=== PATIENT | female | born 1925 | race Caucasian/White ===

== ENCOUNTER 2016-05-04 14:29 | Inpatient (IN) | payer OTHER, MEDICARE ==
[~2016-05-04] VITALS: Ht 172.7 cm; Wt 65.8 kg
--- NOTE | 2016-05-04 16:27 | ED MVC/FALL/TRAUMA COMPLAINT ---
History of Present Illness General Chief Complaint: Fall Stated Complaint: RIB PAIN S/P FALL (FOUND ON FLOOR BY FAMILY) Source: patient, family Exam Limitations: no limitations Allergies Coded Allergies: Penicillins (RASH 05/05/16) Sulfa (Sulfonamide Antibiotics) (RASH 05/05/16) Reconcile Medications Cephalexin (Keflex) 250 MG CAPSULE 1 CAP PO 4 TIMES/DAY URINE INFECTION Cholecalciferol (Vitamin D3) (Vitamin D) 1,000 UNIT TABLET VITAMIN SUPPORT ( Reported) Ferrous Sulfate 325 MG (65 MG IRON) TABLET IRON, VITAMIN (Reported) Multivitamin (Daily Multiple Vitamin) 1 EACH TABLET VITAMIN SUPPORT (Reported) Psyllium Husk (Metamucil) 0.52 GRAM CAPSULE DIGESTION (Reported) Sertraline HCl 50 MG TABLET ANXIETY (Reported) Triage Note: PT STATES SHE FELL TODAY AND IS HAVING RIGHT SIDED RIB PAIN. SON STATES PT MIGHT HAVE BEEN ON THE FLOOR FOR 1/2 AT THE MOST. PT STATES HER RIB POPS IN AND OUT. PT DENIES HITTING HER HEAD AND DENIES LOC. PT ALSO HAS BRUISE TO TOP OF RIGHT SHOULDER. Triage Nurses Notes Reviewed? yes Onset: Abrupt Duration: hour(s): (FEW) Timing: single episode today Severity: moderate Injuries/Fall Location: back Method of Injury: fall Loss of Consciousness: no loss of consciousness No Modifying Factors: none Associated Symptoms: DARK URINE, FOUL ODOR HPI: 89 year old female who presents from home with her son for chief complaint of mechanical fall. According to the patient she was walking from the dining room to the family room when she lost her balance and fell backwards. Unsure of hitting head. No loss of consciousness reported. Her son states that when he called no one answered which prompted him to go home and found her on the ground. She had been incontinent of urine and it was dark and foul smelling. She was not using her cane or walker at the time which she is supposed to do. No chest pain or shortness of breath. She reports back pain. Denies headache or blurred vision. Right sided subconjunctival hemorrage noted. (AMBROSIO TINOCO,RASHI) Vital Signs & Intake/Output Vital Signs & Intake/Output Vital Signs Date Time Temp Pulse Resp B/P Pulse O2 O2 Flow FiO2 Ox Delivery Rate 05/06 1012 Room Air 05/06 0902 98.3 86 18 110/60 96 Room Air 05/05 2340 97.7 82 20 149/60 95 Room Air 05/05 1725 98.3 85 18 122/72 95 Room Air ED Intake and Output 05/06 0000 05/05 1200 Intake Total 1100 645 Output Total 300 Balance 1100 345 Intake, IV 0 525 Intake, Oral 1100 120 Number 0 Bowel Movements Output, Urine 300 Patient 145 lb Weight Past History Travel History Traveled to [place] past 21 day No Medical History Any Pertinent Medical History? see below for history Blood Disorders: anemia Cancer(s): BREAST CA L Surgical History Surgical History: non-contributory Psychosocial History What is your primary language Pashto Tobacco Use: Never used ETOH Use: denies use Illicit Drug Use: denies illicit drug use Family History Hx Contributory? No (RASHI HAINES MD) Review of Systems Review of Systems Constitutional: Denies: chills, fever. Eyes: Denies: blurred vision. Ears, Nose, Throat, Mouth: Reports: no symptoms. Respiratory: Denies: cough, short of breath. Cardiovascular: Denies: chest pain, palpitations. Gastrointestinal/Abdominal: Reports: no symptoms. Genitourinary: Reports: see HPI. Musculoskeletal: Reports: back pain. Denies: muscle pain, muscle stiffness, neck pain. Skin: Reports: no symptoms. Neurological/Psychological: Reports: ataxia. Denies: headache. All Other Systems: Reviewed and Negative (RASHI HAINES MD) Physical Exam Physical Exam General Appearance: alert, awake, mild distress, thin Head: atraumatic Eyes: Right: other (subconjunctival hemorrhage). Ears, Nose, Throat, Mouth: hearing grossly normal Neck: normal inspection, supple, full range of motion Respiratory: normal breath sounds, chest non-tender Cardiovascular: regular rate/rhythm Peripheral Pulses: 2+ radial (R), 2+ radial (L) Gastrointestinal: soft, non-tender Back: TENDER OVER POSTERIOR RIBS, ERYTHEMA, RASH Extremities: normal range of motion Neurologic/Psych: no motor/sensory deficits, awake, alert, oriented x 3 Skin: intact, normal color, warm/dry Core Measures ACS in differential dx? No Severe Sepsis Present: No Septic Shock Present: No (RASHI HAINES MD) Progress Differential Diagnosis: C/T/L spine injury, ICH, pnemothorax, RIB FX, THORACIC FX, SYNCOPE, MECHANICAL FALL, HEAD TRAUMA Diagnostic Imaging: Viewed by Me: CT Scan. Discussed w/RAD: CT Scan. Radiology Impression: EXAM TYPE: CAT - CT CERV SPINE WO IV CONTRAST; CT HEAD WO IV CONTRAST EXAMINATION: CT HEAD AND CERVICAL SPINE WITHOUT CONTRAST CLINICAL INFORMATION: Fall at home. Unsure of head trauma. Evaluate for cervical spine fracture and acute intracranial hemorrhage. COMPARISON: None. TECHNIQUE: Contiguous axial imaging was performed from the thoracic inlet to the vertex without intravenous administration of contrast. DLP: 1048 mGy-cm. FINDINGS: Head : Noncontrast CT imaging of the brain demonstrates age-appropriate generalized parenchymal volume loss with proportional prominence of the sulci and ventricles. There is no acute intracranial hemorrhage, mass or mass effect or abnormal extra-axial fluid collections. There are no focal areas of hypoattenuation in a vascular distribution to suggest acute transcortical ischemia. Areas of hypoattenuation within the periventricular and deep cortical white matter are nonspecific but could reflect sequela of mild chronic microvascular ischemia. No acute calvarial abnormality. Incidental note is made of bilateral lens extractions. The mastoid air cells and visualized portions of the paranasal sinuses are well-aerated. Cervical spine: Noncontrast CT of the cervical spine demonstrates demineralization of the visualized bones. There is exaggerated lordosis of the cervical spine, likely secondary to patient neck positioning within the CT gantry. No acute fracture or subluxation of the cervical spine is identified. There is mild multilevel degenerative disc disease and facet arthrosis of the cervical spine. The atlantoaxial and craniocervical junctions are grossly intact. IMPRESSION: 1. No acute intracranial abnormality. 2. Demineralization of the visualized bones. Mild multilevel degenerative disc disease and facet arthrosis of the cervical spine. Otherwise, no acute fracture or subluxation of the cervical spine., EXAM TYPE: CAT - CT CHEST WO IV CONTRAST EXAMINATION: CT CHEST WITHOUT CONTRAST CLINICAL INFORMATION: Right-sided rib pain following fall. COMPARISON: None. TECHNIQUE: Multidetector volumetric CT imaging of the chest was done. Axial MIP volume rendering provided. Sagittal and coronal reformatted images were obtained. DLP: 199 mGy-cm. 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 LUNGS: Evaluation of the lung parenchyma demonstrates multiple subcentimeter pulmonary nodules within the right lung. For instance, there is a 3 mm pulmonary nodule within the right upper lobe (series 5, image 83). A 7 mm pulmonary nodule is identified along the posterior segment of the right upper lobe (series 5, image 137). A 4 mm pulmonary nodule is visualized along the anteromedial region of the right upper lobe (series 5, image 174). Also noted is a 6 mm nodule within the right upper lobe (series 5, image 200). There are several subpleural nodules along the periphery of the right upper lobe, visualized measuring up to 4 mm ( series 5, image 254). No focal airspace consolidation is identified. The central airways are patent, without endobronchial obstructing lesions. MEDIASTINUM: Normal heart size, without significant pericardial effusion. Normal three-vessel branching of the aortic arch. Scattered atherosclerosis of the thoracic aorta. Scattered coronary artery calcifications. Subcentimeter mediastinal lymph nodes. No significant hilar adenopathy. PLEURA: No pleural effusions or pneumothoraces. AXILLA: No significant axillary adenopathy. UPPER ABDOMEN: No acute findings within the imaged portions of the upper abdomen. OSSEOUS STRUCTURES: No acute osseous abnormalities. Demineralization of the visualized bones and kyphosis of the thoracic spine. Mild multilevel degenerative disc disease of the thoracic spine without acute thoracic vertebral compression deformity. No grossly displaced bilateral rib fractures are identified. IMPRESSION: 1. No grossly displaced bilateral rib fractures. 2. Demineralization of the visualized bones and kyphosis of the thoracic spine. No acute thoracic vertebral compression deformities. 3. Multiple subcentimeter pulmonary nodules within the right upper lobe, visualized measuring up to 6 mm, as detailed above. These nodules are indeterminate and may be postinfectious, postinflammatory or neoplastic in etiology. Recommend attention on follow-up imaging per Fleischner Society guidelines, as detailed below. Various management parameters for pulmonary nodules are in the literature. According to the Fleischner Society, recommendations for pulmonary nodules are as follows: Nodule size > 4-6 mm in LOW RISK PATIENTS: Follow up CT at 12 months; if unchanged, no further follow up. Nodule size > 4-6 mm in HIGH RISK PATIENTS: Initial follow up CT at 6-12 months, then at 18-24 months if no change. 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 Patient has a urinary tract infection, elevated white blood cell count and hyponatremia status post fall. Patient will be admitted. (RILEY TINOCO,JAKE Church) Departure Departure Disposition: STILL A PATIENT Condition: Stable Clinical Impression Primary Impression: Fall Secondary Impressions: Contusion of rib on right side, Hyponatremia, UTI ( urinary tract infection) Referrals: ISMA FRYE MD (PCP/Family) Referred to [facility] as new patient No Departure Forms: Customer Survey General Discharge Information Prescriptions: Current Visit Scripts Cephalexin (Keflex) 1 CAP PO 4 TIMES/DAY #28 CAP (AMBROSIO TINOCO,RASHI) Admission Note Spoke With: NATASHA HARDING MD Documentation of Exam: Documentation of any treatments & extenuating circumstances including Concerns Regarding Discharge (functional status, medication knowledge or non-compliance, living conditions, etc.) that warrant an admission rather than observation: Patient currently has a urinary tract infection and hyponatremia. She presented in hypotension. Given her advanced age and medical comorbidities she is at very high risk of sepsis or overwhelming infection and . In addition the hyponatremia places the patient at risk of generalized weakness, tremors or seizures and altered mental status. This will complicate her treatment and recovery. In addition her hyponatremia and urinary tract infection would make it very difficult for the patient to comply with outpatient treatment and I feel she would likely return in worse clinical condition. She would also be at high risk of additional falling with subsequent injury. I feel the patient now requires an aggressive management with IV antibiotics and close clinical monitoring. She should be treated with normal saline and her sodium levels monitored closely. If the patient does not become more steady on her feet with treatment, physical therapy consultation should be considered. I feel she will require a multiple day hospitalization. (RILEY TINOCO,JAKE Church)
--- NOTE | 2016-05-04 17:27 | CT SCAN REPORT ---
EXAMINATION: CT HEAD AND CERVICAL SPINE WITHOUT CONTRAST CLINICAL INFORMATION: Fall at home. Unsure of head trauma. Evaluate for cervical spine fracture and acute intracranial hemorrhage. COMPARISON: None. TECHNIQUE: Contiguous axial imaging was performed from the thoracic inlet to the vertex without intravenous administration of contrast. DLP: 1048 mGy-cm. FINDINGS: Head: Noncontrast CT imaging of the brain demonstrates age-appropriate generalized parenchymal volume loss with proportional prominence of the sulci and ventricles. There is no acute intracranial hemorrhage, mass or mass effect or abnormal extra-axial fluid collections. There are no focal areas of hypoattenuation in a vascular distribution to suggest acute transcortical ischemia. Areas of hypoattenuation within the periventricular and deep cortical white matter are nonspecific but could reflect sequela of mild chronic microvascular ischemia. No acute calvarial abnormality. Incidental note is made of bilateral lens extractions. The mastoid air cells and visualized portions of the paranasal sinuses are well-aerated. Cervical spine: Noncontrast CT of the cervical spine demonstrates demineralization of the visualized bones. There is exaggerated lordosis of the cervical spine, likely secondary to patient neck positioning within the CT gantry. No acute fracture or subluxation of the cervical spine is identified. There is mild multilevel degenerative disc disease and facet arthrosis of the cervical spine. The atlantoaxial and craniocervical junctions are grossly intact. IMPRESSION: 1. No acute intracranial abnormality. 2. Demineralization of the visualized bones. Mild multilevel degenerative disc disease and facet arthrosis of the cervical spine. Otherwise, no acute fracture or subluxation of the cervical spine.
[2016-05-04 17:35] LABS: ABSOLUTE BASOPHIL COUNT 0 /CUMM (0.0-0.2); ABSOLUTE EOSINOPHIL COUNT 0 /CUMM (0.0-0.7); ABSOLUTE GRANULOCYTE CT 11.6 /CUMM (1.4-6.5); ABSOLUTE LYMPH COUNT 1.5 /CUMM (1.2-3.4); ABSOLUTE MONOCYTE COUNT 0.8 /CUMM (0.10-0.60); BASOPHIL % 0.1 % (0.0-2.0); EOSINOPHIL % 0.1 % (0-5); GRANULOCYTE % 83.3 % (42.2-75.2); HEMATOCRIT 43.5 % (37-47); MEAN CORPUSCULAR HGB 28.6 PG (27.0-31.0); MEAN CORPUSCULAR HGB CONC 33.4 G/DL (33.0-37.0); MEAN CORPUSCULAR VOLUME 85.7 FL (81.0-99.0); MEAN PLATELET VOLUME 8.5 FL (7.4-10.4); PLATELET COUNT 266 /CUMM (130-400); RBC DISTRIBUTION WIDTH 20.4 % (11.5-14.5); RED BLOOD CELL CT 5.08 /CUMM (4.20-5.40)
--- NOTE | 2016-05-04 17:39 | CT SCAN REPORT ---
EXAMINATION: CT CHEST WITHOUT CONTRAST CLINICAL INFORMATION: Right-sided rib pain following fall. COMPARISON: None. TECHNIQUE: Multidetector volumetric CT imaging of the chest was done. Axial MIP volume rendering provided. Sagittal and coronal reformatted images were obtained. DLP: 199 mGy-cm. 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 LUNGS: Evaluation of the lung parenchyma demonstrates multiple subcentimeter pulmonary nodules within the right lung. For instance, there is a 3 mm pulmonary nodule within the right upper lobe (series 5, image 83). A 7 mm pulmonary nodule is identified along the posterior segment of the right upper lobe (series 5, image 137). A 4 mm pulmonary nodule is visualized along the anteromedial region of the right upper lobe (series 5, image 174). Also noted is a 6 mm nodule within the right upper lobe (series 5, image 200). There are several subpleural nodules along the periphery of the right upper lobe, visualized measuring up to 4 mm (series 5, image 254). No focal airspace consolidation is identified. The central airways are patent, without endobronchial obstructing lesions. MEDIASTINUM: Normal heart size, without significant pericardial effusion. Normal three-vessel branching of the aortic arch. Scattered atherosclerosis of the thoracic aorta. Scattered coronary artery calcifications. Subcentimeter mediastinal lymph nodes. No significant hilar adenopathy. PLEURA: No pleural effusions or pneumothoraces. AXILLA: No significant axillary adenopathy. UPPER ABDOMEN: No acute findings within the imaged portions of the upper abdomen. OSSEOUS STRUCTURES: No acute osseous abnormalities. Demineralization of the visualized bones and kyphosis of the thoracic spine. Mild multilevel degenerative disc disease of the thoracic spine without acute thoracic vertebral compression deformity. No grossly displaced bilateral rib fractures are identified. IMPRESSION: 1. No grossly displaced bilateral rib fractures. 2. Demineralization of the visualized bones and kyphosis of the thoracic spine. No acute thoracic vertebral compression deformities. 3. Multiple subcentimeter pulmonary nodules within the right upper lobe, visualized measuring up to 6 mm, as detailed above. These nodules are indeterminate and may be postinfectious, postinflammatory or neoplastic in etiology. Recommend attention on follow-up imaging per Fleischner Society guidelines, as detailed below. Various management parameters for pulmonary nodules are in the literature. According to the Fleischner Society, recommendations for pulmonary nodules are as follows: Nodule size > 4-6 mm in LOW RISK PATIENTS: Follow up CT at 12 months; if unchanged, no further follow up. Nodule size > 4-6 mm in HIGH RISK PATIENTS: Initial follow up CT at 6-12 months, then at 18-24 months if no change.
[2016-05-04 17:57] LABS: WHITE BLOOD CELL COUNT 13.9 /CUMM (4.8-10.8)
--- NOTE | 2016-05-04 22:56 | History & Physical ---
General Information and HPI MD Statement: I have seen and personally examined RICARDO WYATT and documented this H&P. The patient is a 89 year old F who presented with a patient stated chief complaint of [fall and UTI]. Source of Information: patient, family Exam Limitations: no limitations History of Present Illness: Patient is a 89-year-old female with past medical history of dementia, hypertension was brought into the ED from home by family because of concerns of increasing weakness and a mechanical fall earlier in the afternoon today. Patient's son that the patient fell down at home at around 12:30 PM this afternoon while trying to move from one room to another. Normally patient uses a walker/cane at baseline however today she was not using any of them and she fell down on the carpet in the living room. The fall was unwitnessed. Patient denies any loss of consciousness, postictal state, bowel or bladder incontinence , seizure-like activity, chest pain, nausea, vomiting, lightheadedness, vision problems or any other symptoms. She fell down on her back. After the fall she crawled to the bathroom by herself and laid there. The family called her several times and upon receiving no response came to check on her. They found her in the bathroom, awake alert and oriented but lying on the floor unable to pick herself up. They washed her, cleaned her and brought her to the hospital to get checked out. Family states that for the past few days patient hasn't been eating or drinking much, she has been weak on her knees. Patient denies any abdominal pain, urgency, frequency, diarrhea, constipation, fever or chills. She has lost about 25 pounds of weight in the last 1 year due to poor oral intake. Couple of days back she injured her chest wall while running from one side of the bed to another. She is hypertensive at baseline, however her blood pressure medications were reduced recently by Dr. Carrera. She also went off her Aricept, mirtazapine, amlodipine, Lasix because of side effects. Vitals in the ED temperature 99.3, pulse 102, respirations 16, blood pressure 95 /62, saturating 93% on room air. Pertinent labs showed a white count of 13.9, H&H of 14.6/43.5, sodium 128, potassium 3.6, total bili 1.6, AST 54, creatinine kinase 310. UA: Cloudy, high ketones, positive nitrite, greater than 50 WBC, small leukocyte esterase. EKG: Sinus rhythm, 87 bpm, right axis deviation, and anterior fascicular block( no previous EKG for comparison) Head/Cervical spine CT: No acute anomaly, demineralization of bones, multilevel degeneration and facet arthrosis of cervical spine. Chest CT: The mineralization of bone, right upper lobe nodule 6 mm Allergies/Medications Allergies: Coded Allergies: Penicillins (RASH 05/05/16) Sulfa (Sulfonamide Antibiotics) (RASH 05/05/16) Home Med list Cholecalciferol (Vitamin D3) (Vitamin D) 1,000 UNIT TABLET VITAMIN SUPPORT ( Reported) Ferrous Sulfate 325 MG (65 MG IRON) TABLET IRON, VITAMIN (Reported) Multivitamin (Daily Multiple Vitamin) 1 EACH TABLET VITAMIN SUPPORT (Reported) Psyllium Husk (Metamucil) 0.52 GRAM CAPSULE DIGESTION (Reported) Sertraline HCl 50 MG TABLET ANXIETY (Reported) Past History Travel History Traveled to [place] past 21 day No Medical History Blood Disorders: anemia Cancer(s): BREAST CA L Surgical History Surgical History: none Past Family/Social History Psychosocial History ETOH Use: denies use Illicit Drug Use: denies illicit drug use Review of Systems Review of Systems Constitutional: Reports: malaise, weakness. EENTM: Reports: no symptoms. Cardiovascular: Reports: chest pain. Respiratory: Reports: no symptoms. GI: Reports: no symptoms. Genitourinary: Reports: no symptoms. Musculoskeletal: Reports: back pain, muscle pain. Skin: Reports: change in skin color. Neurological/Psychological: Reports: no symptoms, dementia. Exam & Diagnostic Data Last 24 Hrs of Vital Signs/I&O Vital Signs Date Time Temp Pulse Resp B/P Pulse O2 O2 Flow FiO2 Ox Delivery Rate 05/04 2124 96.0 76 18 118/60 100 Room Air 05/04 1839 98.6 82 17 118/65 92 Room Air 05/04 1500 99.3 102 16 95/62 93 Room Air Intake & Output 05/04 1600 05/04 0800 05/04 0000 Intake Total Output Total Balance Patient 65.317 kg Weight Physical Exam General Appearance Alert, Oriented X3, Cooperative, Mild Distress, THIN, kyphosis Skin REDNESS AND ERYTHEMA OVER THE BACK HEENT Atraumatic, PERRLA, EOMI, SUBCONJUNCTIVAL HEMORRHAGE LEFT EYE, dry micous membranes Neck Supple, No JVD Lymphatic Cervical nl Cardiovascular Regular Rate, Normal S1, Normal S2, No Murmurs Lungs Clear to Auscultation, Normal Air Movement Abdomen Normal Bowel Sounds, Soft, CVA tenderness on the right Neurological Normal Gait, Normal Speech, Strength at 5/5 X4 Ext, Normal Tone Extremities trace pedal edema, venous stasis chenges, eccymoses over arms. bruises over bilateral elbows Vascular Pulses Symmetrical Last 24 Hrs of Labs/Don: Laboratory Tests 05/04/16 1725: Anion Gap 9, Estimated GFR > 60, BUN/Creatinine Ratio 30.0 H, Glucose 104 H, Calcium 8.8, Total Bilirubin 1.6 H, AST 54 H, ALT 33, Alkaline Phosphatase 96, Creatine Kinase 310 H, Troponin I 0.06, Total Protein 7.2, Albumin 3.1 L, Globulin 4.1, Albumin/Globulin Ratio 0.8 L, CBC w Diff NO MAN DIFF REQ, RBC 5.08, MCV 85.7, MCH 28.6, RDW 20.4 H, MPV 8.5, Gran % 83.3 H, Lymphocytes % 10.5 L, Monocytes % 6.0, Eosinophils % 0.1, Basophils % 0.1, Absolute Granulocytes 11.6 H, Absolute Lymphocytes 1.5, Absolute Monocytes 0.8 H, Absolute Eosinophils 0, Absolute Basophils 0, PUBS MCHC 33.4 05/04/16 1715: Urinalysis LIGHT H, Urine Color REJI, Urine Clarity CLDY H, Urine pH 6.0, Ur Specific [place] 1.025, Urine Protein 100 H, Urine Ketones 15 H, Urine Nitrite POS H, Urine Bilirubin NEG@ICTO, Urine Urobilinogen 1.0, Ur Leukocyte Esterase SMALL H, Ur Microscopic SEDIMENT EXAMINED, Urine RBC RARE, Urine WBC 25-50 H, Ur Epithelial Cells FEW, Hyaline Casts RARE H, Granular Casts 1-3 H, Urine Mucus FEW, Urine Hemoglobin TRACE-INTACT, Urine Glucose NEG 05/04/16 1645: Creatine Kinase Cancelled Microbiology 05/04 2148 URINE ROUT: Urine Culture - ORD 05/04 2148 BLOOD: Blood Culture - ORD 05/04 2148 BLOOD: Blood Culture - ORD Assessment/Plan Assessment: Patient is a 89-year-old female with past medical history of dementia, hypertension was brought into the ED from home by family because of concerns of increasing weakness and a mechanical fall earlier in the afternoon today. Vitals in the ED temperature 99.3, pulse 102, respirations 16, blood pressure 95 /62, saturating 93% on room air. Pertinent labs showed a white count of 13.9, H&H of 14.6/43.5, sodium 128, potassium 3.6, total bili 1.6, AST 54, creatinine kinase 310. UA: Cloudy, high ketones, positive nitrite, greater than 50 WBC, small leukocyte esterase. EKG: Sinus rhythm, 87 bpm, right axis deviation, and anterior fascicular block( no previous EKG for comparison) Head/Cervical spine CT: No acute anomaly, demineralization of bones, multilevel degeneration and facet arthrosis of cervical spine. Chest CT: The mineralization of bone, right upper lobe nodule 6 mm Plan #1 Sepsis(tachycardia, white count) of urological origin. UA dirty. Hypotensive at admission however responded to fluid resuscitation. -Admit to [facility] floor -Hydration with IV normal saline at 75 mL an hour. Received 1 L in the ED. -Received 1 dose of ceftriaxone in the ED. We'll continue IV ceftriaxone pending cultures. -Check lactic acid levels -Urine culture/blood culture -Tylenol for fever -Repeat labs in a.m. -Avoid sedative medication -We will hold off all blood pressure medications as pressure on the lower side. #2 Fall: Likely mechanical 2/2 imbalance as patient was walking without a walker which she normally uses. No syncope. Also contributed to by weakness and deconditioning secondary to UTI and dehydration. No fracture seen on chest x- ray and CAT scan. -Check orthostatics -IV hydration with normal saline at 75 mL an hour -Physical therapy consultation -Troponins have been negative -Tylenol when necessary for pain control and IV pain meds for severe pain. #3 Hyponatremia: Sodium of 128. As per family this is chronic and last blood work at Dr. Carrera's office also showed hyponatremia. - We will hydrate patient with IV normal saline -We will order spot lites and serum and urine osmolarity -Repeat BEP in a.m. #4 Rhabdomyolysis secondary to fall -Aggressive IV hydration -And repeat creatinine phosphokinase name #5 Weakness, deconditioning 2/2 infection and dehydration -IV fluids for hydrating -PT consult in a.m. -STR of planning #6 History of hypertension -Patient's blood pressure medications ,HCTZ, Lasix has been recently stopped due to side effects. -We will hold off on lisinopril at this time due to sepsis. Restart in a.m. if blood pressure stable. Full code Subcutaneous Lovenox for DVT prophylaxis Regular diet As Ranked By This Provider Problem List: 1. Contusion of rib on right side 2. Fall 3. UTI (urinary tract infection) Core Measures/Miscellaneous Acute Coronary Syndrome ACS Diagnosis: No Cerebrovascular Accident CVA/TIA Diagnosis: No Congestive Heart Failure CHF Diagnosis: No Venous Thromboembolism VTE Risk Factors: Age > 40 VTE Prophylaxis Ordered Inpt: Pharm- Lovenox No Mech VTE prophylaxis d/t: No contraindications No VTE Pharm Prophylaxis d/t: No contraindications VTE Diagnosis: No VTE Type: NONE VTE Confirmed by (Test): NONE Severe Sepsis Severe Sepsis Present: No Septic Shock Septic Shock Present: No Miscellaneous Documentation Attending Case Discussed With: ISMA CARRERA MD Primary Care Physician: ISMA CARRERA MD Patient sees these Specialists none Level of Patient Care: General Medicine
[2016-05-04] MEDS ORDERED: SERTRALINE HCL50 MG PO (23:01)
[2016-05-04] MEDS ORDERED: FERROUS SULFAT325 M3 PO (23:01)
[2016-05-04] MEDS ORDERED: VITAMIN D1000 UNIT PO (23:03)
[2016-05-04] MEDS ORDERED: DAILY MULTIPLE1 EACH PO (23:03)
[2016-05-04] MEDS ORDERED: METAMUCIL0.52 GM PO (23:05)
[2016-05-05 00:03] VITALS: BP 104/58
[2016-05-05 05:40] VITALS: BP 128/74
[2016-05-05 08:12] LABS: ABSOLUTE BASOPHIL COUNT 0 /CUMM (0.0-0.2); ABSOLUTE EOSINOPHIL COUNT 0.1 /CUMM (0.0-0.7); ABSOLUTE GRANULOCYTE CT 8.5 /CUMM (1.4-6.5); ABSOLUTE LYMPH COUNT 1.2 /CUMM (1.2-3.4); ABSOLUTE MONOCYTE COUNT 0.7 /CUMM (0.10-0.60); BASOPHIL % 0.1 % (0.0-2.0); EOSINOPHIL % 0.9 % (0-5); GRANULOCYTE % 80.8 % (42.2-75.2); HEMATOCRIT 40.2 % (37-47); MEAN CORPUSCULAR HGB 28.7 PG (27.0-31.0); MEAN CORPUSCULAR HGB CONC 33.3 G/DL (33.0-37.0); MEAN CORPUSCULAR VOLUME 86.1 FL (81.0-99.0); MEAN PLATELET VOLUME 9.4 FL (7.4-10.4); PLATELET COUNT 297 /CUMM (130-400); RED BLOOD CELL CT 4.67 /CUMM (4.20-5.40); WHITE BLOOD CELL COUNT 10.5 /CUMM (4.8-10.8)
[2016-05-05 08:18] VITALS: BP 130/71
--- NOTE | 2016-05-05 10:19 | Admission Certification ---
Admission Certification Certification Statement - As attending physician, I certify that at the time of - admission, based on clinical presentation, severity of - symptoms, need for further diagnostic testing and - therapeutic interventions, and risk of adverse outcomes - without in-hospital treatment, in my clinical assessment, - this patient requires an acute hospital stay for a minimum - of two nights or longer. I have also considered psychsocial - factors such as support system, advanced age, financial - issues, cognitive issues, and failed out-patient treatments, - past re-admission history, safety of patient, and lack of - compliance as applicable. Specific rationale supporting this admission is: Admitted to the hospital for a mechanical fall secondary to dehydration and also will still sepsis of urological origin. Been treated with IV antibiotics.
--- NOTE | 2016-05-05 10:22 | PN- Att Addend ---
Attending Addendum Attending Brief Note Covering attending note. 89-year-old lady admitted to the hospital for telemetry mechanical fall. She history of dementia hypertension gradual decline in condition with the poor balance had a mechanical fall. In the ER she was ordered to have tachycardia with the sodium of 128 and a white count of 13.9 with urine positive for leukocytosis Plan #1 sepsis secondary to neurological origin for the patient IV fluids hydration with normal saline at 75 mL an hour *Patient IV ceftriaxone #2 a mechanical fall taken to deconditioning start the patient physical therapy balance and gait exercises. #3 hyponatremia history of chronic hyponatremia to spot urine electrolytes. DVT prophylaxis physical therapy evaluation may consider patient made to go to short-term rehabilitation.
--- NOTE | 2016-05-05 13:19 | PN- Housestaff ---
Subjective Follow-up For: Follow-up UTI Subjective: Saw patient at bedside this a.m. she was sitting up and eating breakfast. She stated she felt much better this morning, much less weak. No acute overnight events. Patient remained afebrile. No complaints. Review of Systems Constitutional: Denies: chills, fever, weakness. EENTM: Reports: no symptoms. Cardiovascular: Denies: chest pain, edema, palpitations. Respiratory: Denies: cough, short of breath. Gastrointestinal: Denies: abdominal pain, bloating, diarrhea. Genitourinary: Reports: frequency. Denies: pain, urgency. Musculoskeletal: Reports: muscle pain, muscle stiffness. Objective Last 24 Hrs of Vital Signs/I&O Vital Signs Date Time Temp Pulse Resp B/P Pulse O2 O2 Flow FiO2 Ox Delivery Rate 05/05 817 98.1 89 20 130/71 97 Room Air 05/05 0540 97.6 91 20 128/74 97 05/05 0003 97.4 82 20 104/58 97 05/04 2124 96.0 76 18 118/60 100 Room Air 05/04 1839 98.6 82 17 118/65 92 Room Air 05/04 1500 99.3 102 16 95/62 93 Room Air Intake & Output 05/05 1600 05/05 0800 05/05 0000 Intake Total 645 1000 Output Total 300 Balance 345 1000 Intake, IV 525 1000 Intake, Oral 120 Output, Urine 300 Patient 65.771 kg Weight Physical Exam General Appearance: Alert, Oriented X3, Cooperative, No Acute Distress Skin: No Rashes, No Significant Lesion HEENT: Atraumatic, PERRLA, EOMI Neck: Supple Cardiovascular: Regular Rate, Normal S1, Normal S2, No Murmurs Lungs: Normal Air Movement Abdomen: Soft, No Tenderness Neurological: Normal Speech, Normal Tone Extremities: No Edema, No Tenderness/Swelling Current Medications: Current Medications Sig/Leslee Start time Last Medication Dose Route Stop Time Status Admin Acetaminophen 325 MG Q6P PRN 05/04 2145 AC PO Ceftriaxone Sodium 1,000 MG DAILY 05/05 1000 AC 05/05 IV 1037 Ceftriaxone Sodium 0 .STK-MED ONE 05/04 2005 DC .ROUTE Ceftriaxone Sodium 1,000 MG ONCE ONE 05/04 1999 DC 05/04 IV 05/04 Enoxaparin Sodium 40 MG DAILY 05/05 1000 AC 05/05 SC 0920 Multivitamins 1 TAB DAILY 05/05 1000 AC 05/05 PO 0920 Potassium Chloride 20 MEQ ONCE ONE 05/04 2315 DC 05/05 PO 05/04 2316 0237 Psyllium Hydrophilic 1 PAC DAILY 05/05 1000 AC 05/05 Mucilloid PO 0920 Sertraline HCl 50 MG DAILY 05/05 1000 AC 05/05 PO 0920 Sodium Chloride 1,000 ML Q13H 05/04 2200 DC 05/04 IV 05/05 1059 2241 Sodium Chloride 1,000 ML BOLUS ONE 05/04 1815 DC 05/04 IV 05/04 1914 1826 Last 24 Hrs of Lab/Don Results Last 24 Hrs of Labs/Mics: Laboratory Tests 05/05/16 0650: CBC w Diff NO MAN DIFF REQ, RBC 4.67, MCV 86.1, MCH 28.7, RDW 20.0 H, MPV 9.4, Gran % 80.8 H, Lymphocytes % 11.7 L, Monocytes % 6.5, Eosinophils % 0.9, Basophils % 0.1, Absolute Granulocytes 8.5 H, Absolute Lymphocytes 1.2, Absolute Monocytes 0.7 H, Absolute Eosinophils 0.1, Absolute Basophils 0, PUBS MCHC 33.3 05/05/16 0630: Anion Gap 9, Estimated GFR > 60, BUN/Creatinine Ratio 40.0 H, Creatine Kinase 144 H 05/05/16 0206: Lactic Acid 1.5 05/05/16 0110: Lactic Acid 1.2 05/04/16 1920: Urine Osmolality 489, Ur Random Creatinine 198.3, Ur Random Sodium 23 L, Ur Random Potassium 69.8, Fraction Sodium Excret 0.1 05/04/16 1728: Anion Gap 9, Estimated GFR > 60, BUN/Creatinine Ratio 30.0 H, Glucose 104 H, Serum Osmolality 271 L, Lactic Acid 1.8, Calcium 8.8, Total Bilirubin 1.6 H, AST 54 H, ALT 33, Alkaline Phosphatase 96, Creatine Kinase 310 H, Troponin I 0.06, Total Protein 7.2, Albumin 3.1 L, Globulin 4.1, Albumin/Globulin Ratio 0.8 L 05/04/16 1725: CBC w Diff NO MAN DIFF REQ, RBC 5.08, MCV 85.7, MCH 28.6, RDW 20.4 H, MPV 8.5, Gran % 83.3 H, Lymphocytes % 10.5 L, Monocytes % 6.0, Eosinophils % 0.1, Basophils % 0.1, Absolute Granulocytes 11.6 H, Absolute Lymphocytes 1.5, Absolute Monocytes 0.8 H, Absolute Eosinophils 0, Absolute Basophils 0, PUBS MCHC 33.4 05/04/16 1715: Urinalysis LIGHT H, Urine Color REJI, Urine Clarity CLDY H, Urine pH 6.0, Ur Specific [place] 1.025, Urine Protein 100 H, Urine Ketones 15 H, Urine Nitrite POS H, Urine Bilirubin NEG@ICTO, Urine Urobilinogen 1.0, Ur Leukocyte Esterase SMALL H, Ur Microscopic SEDIMENT EXAMINED, Urine RBC RARE, Urine WBC 25-50 H, Ur Epithelial Cells FEW, Hyaline Casts RARE H, Granular Casts 1-3 H, Urine Mucus FEW, Urine Hemoglobin TRACE-INTACT, Urine Glucose NEG 05/04/16 1645: Creatine Kinase Cancelled Microbiology 05/05 0330 URINE ROUT: Urine Culture - COLB 05/05 010 BLOOD: Blood Culture - RECD 05/05 010 BLOOD: Blood Culture - RECD 05/04 192 URINE ROUT: Urine Culture - RES GRAM NEGATIVE RODS Assessment/Plan Assessment: This is an 89-year-old female with past medical history significant for dementia , hypertension, who calms with chief complaint of mechanical fall and increasing weakness, during ED workup she was found to have dirty UA and elevated white count. Patient was admitted to general medicine floor for work up of fall and possible UTI. Vitals in the ED: temperature 99.3, pulse 102, respirations 16, blood pressure 95/62, saturating 93% on room air. white count of 13.9, H&H of 14.6/43.5, sodium 128, potassium 3.6, total bili 1.6, AST 54, creatinine kinase 310. UA: Cloudy, high ketones, positive nitrite, greater than 50 WBC, small leukocyte esterase. Head/Cervical spine CT: No acute anomaly, demineralization of bones, multilevel degeneration and facet arthrosis of cervical spine. Chest CT: The mineralization of bone, right upper lobe nodule 6 mm PLAN Sepsis of urological origin: During admission patient was found to be tachycardic, with white count and a dirty UA. She was hypotensive during admission but responded to fluids. Negative lactic acid. * Hydration with IV normal saline at 75 mL an hour. * continue IV ceftriaxone pending cultures. * Urine culture/blood culture * Tylenol for fever * Hold off all blood pressure medications as pressure on the lower side. Fall: Likely mechanical 2/2 imbalance as patient was walking without a walker which she normally uses. No syncope. No fracture seen on chest x-ray and CAT scan. Patient denies any loss of consciousness or head trauma. * Check orthostatics * IV hydration with normal saline at 75 mL an hour * Physical therapy consultation * Tylenol when necessary for pain control and IV pain meds for severe pain. Hyponatremia: She came in with Sodium of 128 during admission; this a.m. at 127. Per family this is chronic. Monitor closely, particularly as patient is receiving IV fluids. * We will hydrate patient with IV normal saline * Follow-up spot lites and serum and urine osmolarity * Repeat BEP in a.m. Rhabdomyolysis: Patient has CK of 310. Likely secondary to a fall. * Aggressive IV hydration * Follow-up repeat creatinine phosphokinase this a.m. at 144. We will measure once more tomorrow in a.m. Weakness: Patient reports subjective weakness but is worsening over the past few days. This is most likely secondary to deconditioning, infection, and/or dehydration. * IV fluids * PT consult in a.m. * Likely she will require STR History of hypertension: Patient's blood pressure medications ,HCTZ,Lasix has been recently stopped due to side effects. However she continues to take lisinopril. We will hold that given hypotension during initial presentation to ED. BP this a.m. at 130s systolic. * I will sign out that patient can resume blood pressure medication if her afternoon blood pressures remained stable Full code Subcutaneous Lovenox for DVT prophylaxis Regular diet Problem List: 1. UTI (urinary tract infection) 2. Contusion of rib on right side 3. Fall Pain Ratin Pain Location: none Pain Goal: Remain pain free Pain Plan: none Tomorrow's Labs & Rationales: none
[2016-05-05 17:25] VITALS: BP 122/72
[2016-05-05 23:40] VITALS: BP 149/60
--- NOTE | 2016-05-06 07:36 | PN- Att Addend ---
Attending Addendum Attending Brief Note Vital Signs Date Time Temp Pulse Resp B/P Pulse O2 O2 Flow FiO2 Ox Delivery Rate 05/05 2340 97.7 82 20 149/60 95 Room Air 05/05 1725 98.3 85 18 122/72 95 Room Air 05/05 0818 98.1 89 20 130/71 97 Room Air Intake & Output 05/06 0800 05/06 0000 05/05 1600 Intake Total 600 500 Output Total Balance 600 500 Intake, IV 0 Intake, Oral 600 500 Number 0 Bowel Movements Covering attending note. Patient feels a lot better awake alert ambulating with a walker but unsteady gait patient is a fall risk. Has a UTI awaiting for culture sensitivity escrow grow gram-negative rods. Start patient on by mouth antibiotics depending upon the culture and sensitivity and then transfer the patient to intermediate facility for rehabilitation as patient is a fall risk Monitor sodium level today before discharge
--- NOTE | 2016-05-06 08:37 | PN- Housestaff ---
Subjective Follow-up For: UTI Complaints: no complaints Subjective: I followed up and examined the patient today. She was sitting comfortably in her chair, did not have any complaints. No pain abdomen, burning micturition, frequency, fever. She is no longer dizzy. Vitals stable overnight. No active issues overnight. Review of Systems Constitutional: Reports: no symptoms. Cardiovascular: Reports: no symptoms. Respiratory: Reports: no symptoms. Gastrointestinal: Reports: no symptoms. Genitourinary: Reports: no symptoms. Objective Last 24 Hrs of Vital Signs/I&O Vital Signs Date Time Temp Pulse Resp B/P Pulse O2 O2 Flow FiO2 Ox Delivery Rate 05/06 1611 97.9 76 20 140/64 96 05/06 1012 Room Air 05/06 0902 98.3 86 18 110/60 96 Room Air 05/05 2340 97.7 82 20 149/60 95 Room Air Intake & Output 05/06 1600 05/06 0800 05/06 0000 Intake Total 700 240 600 Output Total Balance 700 240 600 Intake, IV 0 Intake, Oral 700 240 600 Number 0 Bowel Movements Physical Exam General Appearance: Alert, Oriented X3, Cooperative, No Acute Distress Lymphatic: Cervical nl Cardiovascular: Regular Rate, Normal S1, Normal S2 Lungs: Clear to Auscultation, Normal Air Movement Abdomen: Normal Bowel Sounds, Soft, No Tenderness Assessment/Plan Assessment: This is an 89-year-old female with past medical history significant for dementia , hypertension, who calms with chief complaint of mechanical fall and increasing weakness, during ED workup she was found to have dirty UA and elevated white count. Patient was admitted to general medicine floor for work up of fall and possible UTI. In the ED: temperature 99.3, pulse 102, respirations 16, blood pressure 95/62, saturating 93% on room air. white count of 13.9, H&H of 14.6/43.5, sodium 128, potassium 3.6, total bili 1.6, AST 54, creatinine kinase 310. UA: Cloudy, high ketones, positive nitrite, greater than 50 WBC, small leukocyte esterase. Head/Cervical spine CT: No acute anomaly, demineralization of bones, multilevel degeneration and facet arthrosis of cervical spine. Chest CT: The mineralization of bone, right upper lobe nodule 6 mm PLAN Plan to discharge today was postponed for tomorrow as he requires a short-term rehabilitation which is possible for tomorrow morning morning only as per case management. Sepsis of urological origin: During admission patient was found to be tachycardic, with white count and a dirty UA. She was hypotensive during admission but responded to fluids. Negative lactic acid. Patient has not developed any fever since yesterday, and seems to be doing clinically better. * Hydration with IV normal saline at 75 mL an hour. * Urine culture grew Escherichia coli . IV ceftriaxone has been discontinued, per culture report, and Keflex has been started. Patient is allergic to Bactrim , which is also sensitive. * Tylenol for fever * Holding off all blood pressure medications as pressure on the lower side. Fall: Likely mechanical 2/2 imbalance as patient was walking without a walker which she normally uses. No syncope. No fracture seen on chest x-ray and CAT scan. Patient denies any loss of consciousness or head trauma. * Orthostatics, negative * IV hydration with normal saline at 75 mL an hour * Physical therapy consultation * Tylenol when necessary for pain control and IV pain meds for severe pain. Chronic hyponatremia: She came in with Sodium of 128 during admission; this a.m. at 126. Per family this is chronic. Monitor closely, particularly as patient is receiving IV fluids. * We will hydrate patient with IV normal saline * Follow-up spot lites and serum and urine osmolarity * Repeat BEP in a.m. Rhabdomyolysis: Patient has CK of 310. Likely secondary to a fall. * Aggressive IV hydration * Repeat creatinine phosphokinase at 144. We will measure once more tomorrow in a.m. Weakness: Patient reports subjective weakness but is worsening over the past few days. This is most likely secondary to deconditioning, infection, and/or dehydration. * IV fluids * PT consult ongoing. * Likely she will require STR History of hypertension: Patient's blood pressure medications ,HCTZ,Lasix has been recently stopped due to side effects. However she continues to take lisinopril. We will hold that given hypotension during initial presentation to ED. BP this a.m. at 110s systolic. * Plan to start blood pressure medications on discharge, as she is slowly getting to upper normal level. Full code Subcutaneous Lovenox for DVT prophylaxis Regular diet Problem List: 1. UTI (urinary tract infection) 2. Hyponatremia 3. Contusion of rib on right side Pain Ratin Pain Location: - Pain Goal: Remain pain free Pain Plan: prn Tomorrow's Labs & Rationales: none
[2016-05-06 09:02] VITALS: BP 110/60
[2016-05-06] MEDS ORDERED: KEFLEX250 M1 PO (10:56)
--- NOTE | 2016-05-06 11:01 | Patient Discharge Instructions ---
Discharge Instructions General Discharge Information You were seen/treated for: Sepsis secondary to Urinary tract infection Hyponatremia Watch for these problems: Dehydration, fever, dizziness Special Instructions: Please visit your primary care physician within 7 days of discharge. Please visit your lung doctor within 7 days of discharge. You also need to visit your lung doctor because you have lung nodule 6 mm in right upper lobe of the lung, which needs follow-up, ideally within 6 months. This was shown in your recent CAT scan of chest. Please visit to the emergency department if symptoms not improving. Diet Continue normal diet: Yes Recommended Diet: Heart Healthy Activity Full Activity/No Limits: No Activity Self Limited: Yes Acute Coronary Syndrome Inclusion Criteria At DC or during hospital stay patient has or had the following: ACS DIAGNOSIS No Discharge Core Measures Meds if any: Prescribed or Continued at Discharge Meds if any: NOT Prescribed or Continued at Discharge Congestive Heart Failure Inclusion Criteria At DC or during hospital stay patient has or had the following: CHF DIAGNOSIS No Discharge Core Measures Meds if any: Prescribed or Continued at Discharge Meds if any: NOT Prescribed or Continued at Discharge Cerebrovascular accident Inclusion Criteria At DC or during hospital stay patient has or had the following: CVA/TIA Diagnosis No Discharge Core Measures Meds if any: Prescribed or Continued at Discharge Meds if any: NOT Prescribed or Continued at Discharge Venous thromboembolism Inclusion Criteria VTE Diagnosis No VTE Type NONE VTE Confirmed by (Test) NONE Discharge Core Measures - Per Current guidelines, there needs to be overlap - treatment for the first 5 days of Warfarin therapy. - If discharged on Warfarin prior to 5 days of - overlap therapy, the patient will need to be - assessed for post discharge needs including - *Post discharge parental anticoagulation - *Warfarin and/or parental anticoagulation education - *Follow up date to check INR post discharge At least 5 days overlap therapy as Inpatient No Meds if any: Prescribed or Continued at Discharge Note: Overlap Therapy is Warfarin and Anticoagulant Meds if any: NOT Prescribed or Continued at Discharge
[2016-05-06 16:11] VITALS: BP 140/64
[2016-05-07 00:04] VITALS: BP 142/68
--- NOTE | 2016-05-07 06:21 | PN- Housestaff ---
Subjective Follow-up For: UTI Complaints: no complaints Subjective: Be followed up examined patient today. She was lying comfortably in bed, and was not in any acute distress. She did not have any complaints. See was anticipating her discharge to a short-term rehabilitation facility today. Review of Systems Constitutional: Reports: no symptoms. EENTM: Reports: no symptoms. Cardiovascular: Reports: no symptoms. Respiratory: Reports: no symptoms. Gastrointestinal: Reports: no symptoms. Genitourinary: Reports: no symptoms. Musculoskeletal: Reports: no symptoms. Skin: Reports: no symptoms. Neurological/Psychological: Reports: no symptoms. Hematologic/Endocrine: Reports: no symptoms. Objective Last 24 Hrs of Vital Signs/I&O Vital Signs Date Time Temp Pulse Resp B/P Pulse O2 O2 Flow FiO2 Ox Delivery Rate 05/07 0004 98.0 75 18 142/68 96 Room Air 05/06 1611 97.9 76 20 140/64 96 05/06 1012 Room Air 05/06 0902 98.3 86 18 110/60 96 Room Air Intake & Output 05/07 0800 05/07 0000 05/06 1600 Intake Total 300 700 Output Total 100 500 Balance -100 -200 700 Intake, IV 0 Intake, Oral 300 700 Number 2 0 Bowel Movements Output, Urine 100 500 Physical Exam General Appearance: Alert, Oriented X3, Cooperative, No Acute Distress Skin: No Rashes, No Breakdown, No Significant Lesion HEENT: Atraumatic, PERRLA, EOMI, Mucous Membr. moist/pink Neck: Supple, No JVD Lymphatic: Cervical nl Cardiovascular: Regular Rate, Normal S1, Normal S2 Lungs: Clear to Auscultation, Normal Air Movement Abdomen: Normal Bowel Sounds, Soft, No Tenderness Neurological: grossly intact Extremities: No Clubbing, No Cyanosis, No Edema, Normal Pulses, No Tenderness/ Swelling Vascular: Normal Pulses, Pulses Symmetrical Current Medications: Current Medications Sig/Lesele Start time Last Medication Dose Route Stop Time Status Admin Acetaminophen 325 MG Q6P PRN 05/04 2145 AC 05/05 PO 1835 Ceftriaxone Sodium 1,000 MG DAILY 05/05 1000 DC 05/06 IV 0904 Cephalexin 250 MG Q6 05/06 2359 AC 05/07 PO 0559 Enoxaparin Sodium 40 MG DAILY 05/05 1000 AC 05/06 SC 0904 Multivitamins 1 TAB DAILY 05/05 1000 AC 01/03 PO 0904 Psyllium Hydrophilic 1 PAC DAILY 05/05 1000 AC 05/06 Mucilloid PO 0904 Sertraline HCl 50 MG DAILY 05/05 1000 AC 05/06 PO 0904 Assessment/Plan Assessment: This is an 89-year-old female with past medical history significant for dementia , hypertension, who calms with chief complaint of mechanical fall and increasing weakness, during ED workup she was found to have dirty UA and elevated white count. Patient was admitted to general medicine floor for work up of fall and possible UTI. In the ED: temperature 99.3, pulse 102, respirations 16, blood pressure 95/62, saturating 93% on room air. white count of 13.9, H&H of 14.6/43.5, sodium 128, potassium 3.6, total bili 1.6, AST 54, creatinine kinase 310. UA: Cloudy, high ketones, positive nitrite, greater than 50 WBC, small leukocyte esterase. Head/Cervical spine CT: No acute anomaly, demineralization of bones, multilevel degeneration and facet arthrosis of cervical spine. Chest CT: The mineralization of bone, right upper lobe nodule 6 mm Plan: Plan to discharge patient today to a short-term rehabilitation facility. #Sepsis of urological origin: During admission patient was found to be tachycardic, with white count and a dirty UA. She was hypotensive during admission but responded to fluids. Negative lactic acid. Patient has not developed any fever since yesterday, and seems to be doing clinically better. * Hydration with IV normal saline at 75 mL an hour. * Urine culture grew Escherichia coli . IV ceftriaxone has been discontinued, per culture report, and Keflex has been started. Patient is allergic to Bactrim , which is also sensitive drug this time. * Tylenol for fever * Holding off all blood pressure medications as pressure on the lower side. Fall: Likely mechanical 2/2 imbalance as patient was walking without a walker which she normally uses. No syncope. No fracture seen on chest x-ray and CAT scan. Patient denies any loss of consciousness or head trauma. * Orthostatics, negative * IV hydration with normal saline at 75 mL an hour * Physical therapy consultation * Tylenol when necessary for pain control and IV pain meds for severe pain. Chronic hyponatremia: She came in with Sodium of 128 during admission; this a.m. at 126. Per family this is chronic. Monitor closely, particularly as patient is receiving IV fluids. * We will hydrate patient with IV normal saline Rhabdomyolysis: Patient has CK of 310. Likely secondary to a fall. * Aggressive IV hydration * Repeat creatinine phosphokinase at 144. We will measure once more tomorrow in a.m. Weakness: Patient reports subjective weakness but is worsening over the past few days. This is most likely secondary to deconditioning, infection, and/or dehydration. * IV fluids * PT consult ongoing. * She is being discharged to short-term rehabilitation facility today. History of hypertension: Patient's blood pressure medications, HCTZ, Lasix has been recently stopped due to side effects. However she continues to take lisinopril. We will hold that given hypotension during initial presentation to ED. BP this a.m. at 130s systolic. * Plan to start blood pressure medications on discharge, as she is slowly getting to upper normal level. Full code Subcutaneous Lovenox for DVT prophylaxis Regular diet Problem List: 1. UTI (urinary tract infection) 2. Hyponatremia 3. Dementia 4. HTN (hypertension) Pain Ratin Pain Location: - Pain Goal: Remain pain free Pain Plan: - Tomorrow's Labs & Rationales: none, DC today
[2016-05-07] MEDS ORDERED: KEFLEX250 M1 PO (06:40)
--- NOTE | 2016-05-07 07:39 | PN- Att Addend ---
Attending Addendum Attending Brief Note Attending note. Patient looks comfortable no complaints. Vital signs are stable. S1-S2 is normal Lungs are clear Abdomen is soft nontender bowel sounds are present. Plan is to discharge patient to long-term facility.
[2016-05-07 08:36] VITALS: BP 138/70
--- NOTE | 2016-05-07 12:21 | Discharge Summary ---
Visit Information Visit Dates Admission Date: 05/04/16 Discharge Date: 05/07/16 Hospital Course Course Attending Physician: ISMA CARRERA MD Primary Care Physician: ISMA CARRERA MD Hospital Course: Patient is a 89-year-old female with past medical history of dementia, hypertension was brought into the ED from home by family because of concerns of increasing weakness and a mechanical fall earlier in the afternoon today. Patient's son that the patient fell down at home at around 12:30 PM this afternoon while trying to move from one room to another. Normally patient uses a walker/cane at baseline however today she was not using any of them and she fell down on the carpet in the living room. The fall was unwitnessed. Patient denies any loss of consciousness, postictal state, bowel or bladder incontinence , seizure-like activity, chest pain, nausea, vomiting, lightheadedness, vision problems or any other symptoms. She fell down on her back. After the fall she crawled to the bathroom by herself and laid there. The family called her several times and upon receiving no response came to check on her. They found her in the bathroom, awake alert and oriented but lying on the floor unable to pick herself up. They washed her, cleaned her and brought her to the hospital to get checked out. Family states that for the past few days patient hasn't been eating or drinking much, she has been weak on her knees. Patient denies any abdominal pain, urgency, frequency, diarrhea, constipation, fever or chills. She has lost about 25 pounds of weight in the last 1 year due to poor oral intake. Couple of days back she injured her chest wall while running from one side of the bed to another. She is hypertensive at baseline, however her blood pressure medications were reduced recently by Dr. Carrera. She also went off her Aricept, mirtazapine, amlodipine, Lasix because of side effects. Vitals in the ED temperature 99.3, pulse 102, respirations 16, blood pressure 95 /62, saturating 93% on room air. Pertinent labs showed a white count of 13.9, H&H of 14.6/43.5, sodium 128, potassium 3.6, total bili 1.6, AST 54, creatinine kinase 310. UA: Cloudy, high ketones, positive nitrite, greater than 50 WBC, small leukocyte esterase. EKG: Sinus rhythm, 87 bpm, right axis deviation, and anterior fascicular block( no previous EKG for comparison) Head/Cervical spine CT: No acute anomaly, demineralization of bones, multilevel degeneration and facet arthrosis of cervical spine. Chest CT: The mineralization of bone, right upper lobe nodule 6 mm Hospital course 1. Increasing weakness due to sepsis of urological origin: Patient was admitted in general medical floor was started on IV fluids and empiric antibiotic pending cultures. Urine culture came back pansensitive and she was continued on ceftriaxone and later changed to by mouth Keflex to complete a total of 7 day course. Patient remained afebrile throughout the course of hospitalization and a white count reduced from 13.9 to 10.5 upon discharge. 2 Fall: Likely mechanical 2/2 imbalance as patient was walking without a walker which she normally uses. No syncope. Also contributed to by weakness and deconditioning secondary to UTI and dehydration. No fracture seen on chest x- ray and CAT scan. She was started on IV fluids, She was evaluated by PT who recommended short-term rehabilitation. 3. Rhabdomyolysis most likely due to fall : Patient was on aggressive fluid replacement and her CK did come down prior to discharge. 4. Hyponatremia this is chronic as per the attending. Her serum osmolality was also low and urine osmolarity was 489. Patient remained asymptomatic. 5. History of hypertension: Her blood pressure medications was held as her blood pressure was borderline low. She can continue her blood pressure medications upon discharge. Full code Subcutaneous Lovenox for DVT prophylaxis Regular diet Allergies: Coded Allergies: Penicillins (RASH 05/05/16) Sulfa (Sulfonamide Antibiotics) (RASH 05/05/16) Disposition Summary Disposition Principal Diagnosis: 1. Weakness from sepsis due to urological origin 2. Mechanical fall 3. Rhabdomyolysis Additional Diagnosis: 1. h/o Hypertension Discharge Disposition: SNF Discharge Instructions General Discharge Information Code Status: Full Code Patient's Diet: Regular diet Patient's Activity: As tolerated with PT Follow-Up Instructions/Appts: Please visit your primary care physician within 7 days of discharge. Please visit your lung doctor within 7 days of discharge. You also need to visit your lung doctor because you have lung nodule 6 mm in right upper lobe of the lung, which needs follow-up, ideally within 6 months. This was shown in your recent CAT scan of chest. Please visit to the emergency department if symptoms not improving. Medications at Discharge Discharge Medications: Continue taking these medications: Sertraline HCl (Sertraline HCl) 50 MG TABLET Qty = 90 Comments: Last Taken:05/07/16 Time:10A, Ferrous Sulfate (Ferrous Sulfate) 325 MG (65 MG IRON) TABLET Qty = 30 Comments: Last Taken:05/07/16 Time:10AM Cholecalciferol (Vitamin D3) (Vitamin D) 1,000 UNIT TABLET Multivitamin (Daily Multiple Vitamin) 1 EACH TABLET Comments: Last Taken05/07/16 Time:10AM Psyllium Husk (Metamucil) 0.52 GRAM CAPSULE Comments: Last Taken:05/07/16 Time:10AM Start taking the following new medications: Cephalexin (Keflex) 250 MG CAPSULE 1 Capsule ORAL 4 TIMES A DAY Qty = 24 No Refills Copies To: MELVA TINOCO,HUANITH
[2016-05-07 13:08] VITALS: BP 138/70
== END 2016-05-07 14:20 | DRG 872 ==
LOC: ERH 14:29 → 2NB 21:32 → ERHI 21:32 → 2NB 21:32
PROVIDERS: Emergency Medicine; Student in an Organized Health Care Education/Training Program; ADMIT Internal Medicine
DX: A41.9 Sepsis, unspecified organism (principal); M62.82 Rhabdomyolysis; N39.0 Urinary tract infection, site not specified; E87.1 Hypo-osmolality and hyponatremia; E86.0 Dehydration; I10 Essential (primary) hypertension
CPT/HCPCS: 2NBSP; 84133; 84300; 36415; 81001; 82436; 82570; 87040; 87086; 93005; 93010; 96374; 97001-GP; 97112-GO; 97116-GO; 97161-GP; 97530-GO; J0696; J1650

== ENCOUNTER 2016-06-03 08:09 | Inpatient (IN) | payer OTHER, MEDICARE ==
[~2016-06-03] VITALS: Ht 172.7 cm; Wt 67.1 kg
[~2016-06-03 08:09] MED LIST: DAILY MULTIPLE1 EACH PO; FERROUS SULFAT325 M3 PO; KEFLEX250 M1 PO; METAMUCIL0.52 GM PO; SERTRALINE HCL50 MG PO; VITAMIN D1000 UNIT PO
--- NOTE | 2016-06-03 08:17 | ED MVC/FALL/TRAUMA COMPLAINT ---
History of Present Illness General Chief Complaint: Fall Stated Complaint: BIBA FOR FALL Source: patient Exam Limitations: patient's age, confusion Vital Signs & Intake/Output Vital Signs & Intake/Output Vital Signs Date Time Temp Pulse Resp B/P Pulse O2 O2 Flow FiO2 Ox Delivery Rate 06/03 1007 97.3 88 20 178/80 95 Room Air 06/03 0810 97.0 96 16 193/89 94 Room Air Allergies Coded Allergies: Penicillins (RASH 05/05/16) Sulfa (Sulfonamide Antibiotics) (RASH 05/05/16) Triage Note: PT BIBA FROM HOME FOR FALL. PT STATES SHE DOESN'T KNOW HOW SHE FELL, UNSURE IF SHE TRIPPED OR GOT DIZZY. PT STATES SHE LIVES BY HERSELF, PER OUR RECORDS HX OF DEMENTIA AND HTN. PT STATES SHE DIDN'T TAKE HER BP MEDS TODAY. PT C/O LEFT HIP PAIN AND PAIN IN HER BUTTOCKS. DENIES CP/SOB Triage Nurses Notes Reviewed? yes Onset: Just prior to arrival Duration: UNSURE Timing: recent history Severity: moderate Injuries/Fall Location: lower extremity Method of Injury: fall Loss of Consciousness: unsure Modifying Factors: Worsens With: movement. HPI: Patient is an 89-year-old female with history of dementia and hypertension currently off hypertensive medications because the last time she was admitted he was for following the x-ray dated it to blood pressure medications. She is coming in today for another fall that happened most likely prior to arrival. She cannot report how she fell or why she fell. She is not sure if she tripped over something or if she got dizzy. Patient denying any current dizziness nausea vomiting fevers or chills. Patient reporting left hip pain with movement. Denies any chest pain or palpitations. No shortness of breath. Denies any arm pain. No abdominal pain. Denies any urinary symptoms. She reports that she lives alone. She is supposed to use a walker. Per family she' s been not so compliant with using a walker because she has been improving with ambulation. She is unsure if she blacked out or hit her head. Denying any neck pain. The left hip pain is achy throbbing worse with any movement and radiates into her left buttock. Denies taking anything for pain prior to arrival. She is unsure who called the ambulance. (DANNY PA,ARNOLDO) Reconcile Medications Cephalexin (Keflex) 250 MG CAPSULE 1 CAP PO 4 TIMES/DAY URINE INFECTION Cholecalciferol (Vitamin D3) (Vitamin D) 1,000 UNIT TABLET VITAMIN SUPPORT ( Reported) Ferrous Sulfate 325 MG (65 MG IRON) TABLET IRON, VITAMIN (Reported) Lisinopril 20 MG TABLET 1 TAB PO DAILY BLOOD PRESSURE (Reported) Mirtazapine 7.5 MG TABLET 1 TAB PO QPM INSOMNIA (Reported) Multivitamin (Daily Multiple Vitamin) 1 EACH TABLET VITAMIN SUPPORT (Reported) Psyllium Husk (Metamucil) 0.52 GRAM CAPSULE DIGESTION (Reported) Sertraline HCl 50 MG TABLET ANXIETY (Reported) (LIVAN TINOCO,REID) Past History Travel History Traveled to [place] past 21 day No Medical History Any Pertinent Medical History? 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 No (ARNOLDO GONSALES) Review of Systems Review of Systems Constitutional: Reports: no symptoms. Comments Review of systems: See HPI, All other systems negative. Constitutional, no chills fever or weight loss HEENT: No visual changes no sore throat no congestion Cardiovascular: No chest pain ,palpitation , orthopnea or ankle swelling Skin, no jaundice no rashes Respiratory: No dyspnea cough sputum or hemoptysis GI: No nausea no vomiting : No dysuria No hematuria Muscle skeletal: no neck pain, Neurologic: No numbness Psych: No stress anxiety or depression,. Heme/endocrine: No bruising no bleeding no polyuria or polydipsia Immunology: No splenectomy or history of AIDS (ARNOLDO GONSALES) Physical Exam Physical Exam General Appearance: well developed/nourished, no apparent distress, awake, comfortable Comments: Well-developed well-nourished person in no acute distress HEENT: extraocular motion intact, no nystagmus. Pupils equally round and reactive to light and accommodation. Nose is atraumatic. External auditory canal and Tympanic membranes clear. Pharynx normal. No swelling or edema. Neck: Supple, no lymphadenopathy, normal range of motion without pain or tenderness, no C-spine tenderness. Full range of motion. Back: Nontender, no CVA tenderness. Nontender to palpation over the cervical, thoracic and lumbar spine. No obvious deformities noted. No ecchymosis. Cardiovascular: Regular rate and rhythms no murmurs rubs or gallops, normal JVP Respiratory: Chest nontender. No respiratory distress.breath sounds clear to auscultation bilaterally Abdomen: Soft, nontender nondistended, no appreciable organomegaly. Normal bowel sounds. No ascites, no rebound or guarding. Extremity: One pluS pitting edema in the lower extremities bilaterally , no calf tenderness to palpation, normal and equal pulses. Able to straight leg raise the right larger without difficulty or pain. No pain to palpation over the right hip, right femur, right patella. Unable to range the left lower family secondary to pain in the hip. Pain to palpation over the left greater trochanter. Pedal pulses are 2+ bilaterally. Neuro: Alert oriented person and place, confused about time and situation, motor sensory normal, cranial nerves II through XII grossly intact. Cerebellar testing is unremarkable. Skin: No appreciable rash on exposed skin, skin is warm and dry. Psych: Patient is pleasant, cooperative, confused Core Measures ACS in differential dx? Yes Severe Sepsis Present: No Septic Shock Present: No (DNANY RUEDA,ARNOLDO) Progress Differential Diagnosis: ICH, cva, tia, METASTATIC HYPOTENSION, MULTIFACTORIAL GAIT DISORDER, uti, CARDIAC ARRHYTHMIA, acs, HIP FRACTURE Plan of Care: Orders Procedure Date/time Status CBC WITHOUT DIFFERENTIAL 06/04 06 Active BASIC ELECTROLYTES PLUS BUN&CR 06/04 0600 Active Nothing by Mouth 06/03 L Active OXYGEN SETUP (GEN) 06/03 1049 Active Saline Lock 06/03 1049 Active Admit to inpatient 06/03 1049 Active Vital Signs 06/03 1049 Active Activity/Ambulation 06/03 1049 Active Pathway - chart 06/03 1031 Active House Staff 06/03 1031 Active Patient Data 06/03 1031 Active Code Status 06/03 1031 Active Patient Data 06/03 1004 Active Intake & Output 06/03 0946 Active [place], Insertion/Removal/Asses 06/03 0940 Active CULTURE,URINE 06/03 0940 Active CREATINE PHOSPHOKINASE 06/03 0825 Complete Telemetry/Corporate Travel Counselor 06/03 08 Active URINALYSIS 06/03 08 Complete TROPONIN LEVEL 06/03 815 Complete PARTIAL THROMBOPLASTIN TIME 06/03 815 Complete PROTHROMBIN TIME 06/03 815 Complete LACTIC ACID 06/03 815 Complete COMPREHENSIVE METABOLIC PANEL 06/03 815 Complete CBC WITHOUT DIFFERENTIAL 06/03 815 Complete EKG 06/03 08 Active VTE Mechanical Prophylaxis 06/03 UNK Active Current Medications Sig/Leslee Start time Last Medication Dose Stop Time Status Admin Acetaminophen 1,000 MG Q8P PRN 06/03 1030 AC (Ofirmev) Ibuprofen 600 MG Q6P PRN 06/03 1030 AC (Motrin) Lidocaine 1 PAT Q24H PRN 06/03 1030 AC (Lidoderm) Acetaminophen 650 MG ONCE ONE 06/03 0830 CAN (Tylenol) 06/03 0831 Laboratory Tests 06/03/16 1116: Lactic Acid Cancelled 06/03/16 0928: Urine Color YEL, Urine Clarity CLEAR, Urine pH 7.5, Ur Specific [place] 1.020, Urine Protein NEG, Urine Ketones NEG, Urine Nitrite NEG, Urine Bilirubin NEG, Urine Urobilinogen 0.2, Ur Leukocyte Esterase NEG, Ur Microscopic EXAM NOT REQUIRED, Urine Hemoglobin NEG, Urine Glucose NEG 06/03/16 0825: Anion Gap 6, Estimated GFR > 60, BUN/Creatinine Ratio 18.0, Glucose 101 H, Lactic Acid 0.9, Calcium 8.6, Total Bilirubin 1.4 H, AST 32, ALT 30, Alkaline Phosphatase 97, Creatine Kinase 26 L, Troponin I 0.02, Total Protein 7.4, Albumin 2.9 L, Globulin 4.5 H, Albumin/Globulin Ratio 0.6 L, PT 12.1, INR 1.15, APTT 33, CBC w Diff NO MAN DIFF REQ, RBC 4.74, MCV 85.8, MCH 28.1, RDW 20.8 H, MPV 8.8, Gran % 87.2 H, Lymphocytes % 6.4 L, Monocytes % 6.2, Eosinophils % 0.2, Basophils % 0 L, Absolute Granulocytes 14.3 H, Absolute Lymphocytes 1.1 L, Absolute Monocytes 1.0 H, Absolute Eosinophils 0, Absolute Basophils 0, PUBS MCHC 32.8 L 06/03/16 0820: Creatine Kinase Cancelled Microbiology 06/03 3065 URINE ROUT: Urine Culture - ORD Diagnostic Imaging: Viewed by Me: Radiology Read, CT Scan. Discussed w/RAD: Radiology Read, CT Scan. Radiology Impression: : 04/24/27 LOCATION: [facility] ORDERING PHYSICIAN: ARNOLDO RUEDA SERVICE DATE: 06/03/1616 EXAM TYPE: CAT - CT CERV SPINE WO IV CONTRAST; CT HEAD WO IV CONTRAST EXAMINATION: CT HEAD WITHOUT CONTRAST CT CERVICAL SPINE WITHOUT CONTRAST CLINICAL INFORMATION: Fall. Possible head strike. Assess for intracranial bleed or fracture. COMPARISON: CT scan of the head and cervical spine 05/04/2016. TECHNIQUE: Multidetector CT imaging of the head and cervical spine was performed without the use of intravenous contrast. Coronal and sagittal reformatted images were generated at the technologist workstation. DLP: 980.97 mGy-cm. FINDINGS: CT HEAD: There is no evidence of acute intracranial hemorrhage or territorial infarction. No abnormal mass-effect or midline shift is seen. Morales to white matter differentiation is well preserved. No extra-axial fluid collections are identified. The ventricles and sulci are commensurately prominent consistent with mild diffuse volume loss. There are scattered areas of low density in the periventricular and subcortical white matter, consistent with sequelae of chronic microvascular ischemic disease. There are no acute osseous findings. There are degenerative changes at the left temporomandibular joint. There are no large scalp contusions or hematomas. There have been bilateral lens extractions. The mastoid air cells and paranasal sinuses are well-aerated. CT CERVICAL SPINE: There is hyperlordosis in the cervical spine, similar compared to the prior study. Bone mineralization is diffusely decreased consistent with osteopenia. Vertebral body heights are maintained and there are no compression fractures. Facet alignment is normal. There are degenerative facet changes at multiple levels most prominent on the left. The lateral masses of C1 and C2 are normally aligned and the dens is intact. There are degenerative changes at the right atlanto-occipital joint. There is sclerosis in the right facet of T1, unchanged. The prevertebral and paravertebral structures are unremarkable. There are atheromatous calcifications of the aorta, and the thyroid gland has slightly heterogenous density but appears normal in size. The visualized lung apices are well-aerated. IMPRESSION: 1. There are no acute bleeds or territorial infarcts. 2. 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 3. There are no acute fractures or subluxations in the cervical spine. There are multilevel degenerative changes with facet arthropathy. 4. The bones are diffusely osteopenic. Initial ED EK BPM, ROBABLE LEFT ATRIAL ABNORMALITY, INFERIOR INFARCT AGE INDETERMINATE Prior EKG: unchanged Comments: 06/03/2016 8:14:31 AM on arrival patient no acute distress, initially declining pain medication. Acetaminophen 1 g was ordered for when patient's source of pain. 06/03/2016 9:15:18 AM patient returning from x-ray and CAT scan. Not complaining a lot more pain. Patient will be medicated with 1 g of IV acetaminophen. 06/03/2016 9:38:[address] Lazar, on-call orthopedic. He would like the surgical physician assistant plant manager to come down and evaluate the patient. She will likely repair her hip later this evening or tomorrow depending on medical clearance. Patient feeling members informed, patient will be admitted. Page put out to Dr. Carrera. 06/03/2016 10:03:06 AM patient admitted to Dr. Carrera for left hip fracture. Patient will be medically cleared prior to repairing left hip. Surgical physician assistant plant manager will be down shortly to evaluate the patient. Patient resting comfortably at this time. Family updated. Discussed with Dr. Collins and he agrees. (ARNOLDO GONSALES) Departure Departure Time of Disposition: 1000 Disposition: STILL A PATIENT Condition: Stable Clinical Impression Primary Impression: Hip fracture, left Qualifiers: Encounter type: initial encounter Fracture type: closed Qualified Code: S72.002A - Fracture of unspecified part of neck of left femur, initial encounter for closed fracture Referrals: ISMA CARRERA MD (PCP/Family) Departure Forms: Customer Survey General Discharge Information Admission Note Spoke With: ISMA CARRERA MD Documentation of Exam: Documentation of any treatments & extenuating circumstances including Concerns Regarding Discharge (functional status, medication knowledge or non-compliance, living conditions, etc.) that warrant an admission rather than observation: Patient requiring surgical intervention for left hip fracture, IV pain management, nothing by mouth status, physical therapy consultation, rehabilitation placement. Discharge at this time would be medically harmful. Patient unsafe at home alone. (DANNY PA,ARNOLDO) PA/PYROMETALLURGICAL ENGINEER Co-Sign Statement Statement: ED Attending supervision documentation- x I saw and evaluated the patient. I have also reviewed all the pertinent lab results and diagnostic results. I agree with the findings and the plan of care as documented in the PA's/PYROMETALLURGICAL ENGINEER's documentation. [] I have reviewed the ED Record and agree with the PA's/PYROMETALLURGICAL ENGINEER's documentation. [] Additions or exceptions (if any) to the PAs/PYROMETALLURGICAL ENGINEER's note and plan are summarized below: [] (LIVAN TINOCO,REID)
[2016-06-03 08:37] LABS: ABSOLUTE BASOPHIL COUNT 0 /CUMM (0.0-0.2); ABSOLUTE EOSINOPHIL COUNT 0 /CUMM (0.0-0.7); ABSOLUTE GRANULOCYTE CT 14.3 /CUMM (1.4-6.5); ABSOLUTE LYMPH COUNT 1.1 /CUMM (1.2-3.4); BASOPHIL % 0 % (0.0-2.0); EOSINOPHIL % 0.2 % (0-5); HEMATOCRIT 40.6 % (37-47); MEAN CORPUSCULAR HGB 28.1 PG (27.0-31.0); MEAN CORPUSCULAR HGB CONC 32.8 G/DL (33.0-37.0); MEAN CORPUSCULAR VOLUME 85.8 FL (81.0-99.0); MEAN PLATELET VOLUME 8.8 FL (7.4-10.4); PLATELET COUNT 366 /CUMM (130-400); RBC DISTRIBUTION WIDTH 20.8 % (11.5-14.5); RED BLOOD CELL CT 4.74 /CUMM (4.20-5.40); WHITE BLOOD CELL COUNT 16.4 /CUMM (4.8-10.8)
[2016-06-03 08:47] LABS: PT 12.1 SEC (9.4-12.5); PTT 33 SEC (25-37)
[2016-06-03 09:03] LABS: GRANULOCYTE % 87.2 % (42.2-75.2)
--- NOTE | 2016-06-03 09:24 | RADIOLOGY REPORT ---
EXAMINATION: XR HIP, LEFT CLINICAL INFORMATION: Pain after fall COMPARISON: None TECHNIQUE: Three views of the left hip. FINDINGS: Markedly limited evaluation due to patient's body habitus and positioning. Acute impacted fracture through the left femoral neck. There appears to be posterior displacement on the lateral view. The left femoral head remains well-seated within the acetabulum. Diffuse osteopenia. IMPRESSION: Acute impacted displaced fracture through the left femoral neck.
--- NOTE | 2016-06-03 09:36 | RADIOLOGY REPORT ---
EXAMINATION: XR PORTABLE CHEST CLINICAL INFORMATION: Syncope, fall. Assess for cardiomegaly. COMPARISON: CT scan of the chest 05/04/2016. TECHNIQUE: Portable AP supine view of the chest was obtained. FINDINGS: The left hemidiaphragm is elevated, similar compared to the prior study. The lung kamara are moderately well-expanded bilaterally. There are no areas of focal consolidation. The previously described multiple lung nodules are better appreciated on the prior CT scan. The cardiac silhouette is prominent. There are no pleural effusions. The central pulmonary vasculature appears normal. There are no acute osseous findings. IMPRESSION: 1. There are no acute cardiopulmonary findings. 2. There is cardiomegaly, without evidence of cardiac decompensation.
--- NOTE | 2016-06-03 09:56 | CT SCAN REPORT ---
EXAMINATION: CT HEAD WITHOUT CONTRAST CT CERVICAL SPINE WITHOUT CONTRAST CLINICAL INFORMATION: Fall. Possible head strike. Assess for intracranial bleed or fracture. COMPARISON: CT scan of the head and cervical spine 05/04/2016. TECHNIQUE: Multidetector CT imaging of the head and cervical spine was performed without the use of intravenous contrast. Coronal and sagittal reformatted images were generated at the technologist workstation. DLP: 980.97 mGy-cm. FINDINGS: CT HEAD: There is no evidence of acute intracranial hemorrhage or territorial infarction. No abnormal mass-effect or midline shift is seen. Morales to white matter differentiation is well preserved. No extra-axial fluid collections are identified. The ventricles and sulci are commensurately prominent consistent with mild diffuse volume loss. There are scattered areas of low density in the periventricular and subcortical white matter, consistent with sequelae of chronic microvascular ischemic disease. There are no acute osseous findings. There are degenerative changes at the left temporomandibular joint. There are no large scalp contusions or hematomas. There have been bilateral lens extractions. The mastoid air cells and paranasal sinuses are well-aerated. CT CERVICAL SPINE: There is hyperlordosis in the cervical spine, similar compared to the prior study. Bone mineralization is diffusely decreased consistent with osteopenia. Vertebral body heights are maintained and there are no compression fractures. Facet alignment is normal. There are degenerative facet changes at multiple levels most prominent on the left. The lateral masses of C1 and C2 are normally aligned and the dens is intact. There are degenerative changes at the right atlanto-occipital joint. There is sclerosis in the right facet of T1, unchanged. The prevertebral and paravertebral structures are unremarkable. There are atheromatous calcifications of the aorta, and the thyroid gland has slightly heterogenous density but appears normal in size. The visualized lung apices are well-aerated. IMPRESSION: 1. There are no acute bleeds or territorial infarcts. 2. 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 3. There are no acute fractures or subluxations in the cervical spine. There are multilevel degenerative changes with facet arthropathy. 4. The bones are diffusely osteopenic.
[2016-06-03] MEDS ORDERED: MIRTAZAPINE7.5 M1 PO (10:45)
[2016-06-03] MEDS ORDERED: LISINOPRIL20 M1 PO (10:47)
--- NOTE | 2016-06-03 11:12 | History & Physical ---
See Addendum General Information and HPI MD Statement: I have seen and personally examined RICARDO WYATT and documented this H&P. The patient is a 89 year old F who presented with a patient stated chief complaint of fall Source of Information: patient, family History of Present Illness: Patient is a 89-year-old woman with past medical history significant for dementia and hypertension(currently not on any antihypertensives), recently discharged from [facility] after a mechanical fall and urinary tract infection to short-term rehabilitation, presented to the ED again with a mechanical fall. Patient could not recall how she fell. Denied any dizziness or lightheadedness before the fall. Patient lives alone at home .Patient was discharged from the rehabilitation on Thursday, was doing fine. She is supposed to ambulate with a walker but she has not been very compliant with using a walker as her ambulation has been getting better. Today she went to the restroom without a walker, tripped and fell. Did not hit her head. She pressed her Lif[facility] , 911 was called in and she was immediately brought to the ER for further assessment. In the ER patient was complaining of left hip pain. Left hip x-ray revealed Acute impacted displaced fracture through the left femoral neck. Patient denied any chest discomfort trouble breathing. Amputation's her appetite has been good no nausea vomiting or abdominal discomfort. Denies any urinary bowel habit complaints. Allergies/Medications Allergies: Coded Allergies: Penicillins (RASH 05/05/16) Sulfa (Sulfonamide Antibiotics) (RASH 05/05/16) Home Med list Cephalexin (Keflex) 250 MG CAPSULE 1 CAP PO 4 TIMES/DAY URINE INFECTION Cholecalciferol (Vitamin D3) (Vitamin D) 1,000 UNIT TABLET VITAMIN SUPPORT ( Reported) Ferrous Sulfate 325 MG (65 MG IRON) TABLET IRON, VITAMIN (Reported) Lisinopril 20 MG TABLET 1 TAB PO DAILY BLOOD PRESSURE (Reported) Mirtazapine 7.5 MG TABLET 1 TAB PO QPM INSOMNIA (Reported) Multivitamin (Daily Multiple Vitamin) 1 EACH TABLET VITAMIN SUPPORT (Reported) Psyllium Husk (Metamucil) 0.52 GRAM CAPSULE DIGESTION (Reported) Sertraline HCl 50 MG TABLET ANXIETY (Reported) Past History Travel History Traveled to [place] past 21 day No Medical History Neurological: dementia EENT: NONE Cardiovascular: hypertension Respiratory: NONE Gastrointestinal: NONE Hepatic: NONE Renal: NONE Musculoskeletal: NONE Psychiatric: NONE Endocrine: NONE Blood Disorders: anemia 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 EENTM: Denies: blurred vision, visual changes, eye pain, eye drainage. Cardiovascular: Denies: chest pain, edema, orthopena, palpitations. Respiratory: Denies: cough, orthopnea, short of breath. GI: Denies: abdominal pain, bloating, diarrhea, distention. Genitourinary: Denies: discharge, dysuria, hematuria. Musculoskeletal: Denies: back pain, gout, joint pain, joint swelling. Skin: Denies: change in skin color, dryness, erythema, jaundice. Neurological/Psychological: Denies: anxiety, ataxia, cognitive dysfunction, confusion, dementia. Hematologic/Endocrine: Denies: bruising, bleeding, polyuria. Exam & Diagnostic Data Last 24 Hrs of Vital Signs/I&O Vital Signs Date Time Temp Pulse Resp B/P Pulse O2 O2 Flow FiO2 Ox Delivery Rate 06/03 1007 97.3 88 20 178/80 95 Room Air 06/03 0810 97.0 96 16 193/89 94 Room Air Intake & Output 06/03 1600 06/03 0800 06/03 0000 Intake Total Output Total 200 Balance -200 Output, Urine 200 Patient 145 lb Weight Physical Exam General Appearance Alert, Oriented X3 Skin No Rashes, No Breakdown HEENT Atraumatic, PERRLA Neck Supple, No JVD Cardiovascular Regular Rate, Normal S1, No Murmurs Lungs Clear to Auscultation, Normal Air Movement Abdomen Normal Bowel Sounds, Soft, No Tenderness Neurological Normal Gait, Normal Speech Last 24 Hrs of Labs/Don: Laboratory Tests 06/03/16 0928: Urine Color YEL, Urine Clarity CLEAR, Urine pH 7.5, Ur Specific [place] 1.020, Urine Protein NEG, Urine Ketones NEG, Urine Nitrite NEG, Urine Bilirubin NEG, Urine Urobilinogen 0.2, Ur Leukocyte Esterase NEG, Ur Microscopic EXAM NOT REQUIRED, Urine Hemoglobin NEG, Urine Glucose NEG 06/03/16 0825: Anion Gap 6, Estimated GFR > 60, BUN/Creatinine Ratio 18.0, Glucose 101 H, Lactic Acid 0.9, Calcium 8.6, Total Bilirubin 1.4 H, AST 32, ALT 30, Alkaline Phosphatase 97, Creatine Kinase 26 L, Troponin I 0.02, Total Protein 7.4, Albumin 2.9 L, Globulin 4.5 H, Albumin/Globulin Ratio 0.6 L, PT 12.1, INR 1.15, APTT 33, CBC w Diff NO MAN DIFF REQ, RBC 4.74, MCV 85.8, MCH 28.1, RDW 20.8 H, MPV 8.8, Gran % 87.2 H, Lymphocytes % 6.4 L, Monocytes % 6.2, Eosinophils % 0.2, Basophils % 0 L, Absolute Granulocytes 14.3 H, Absolute Lymphocytes 1.1 L, Absolute Monocytes 1.0 H, Absolute Eosinophils 0, Absolute Basophils 0, PUBS MCHC 32.8 L 06/03/16 0820: Creatine Kinase Cancelled Microbiology 06/03 0940 URINE ROUT: Urine Culture - ORD Assessment/Plan Assessment: Patient is a 89-year-old woman with past medical history significant for dementia and hypertension(currently not on any antihypertensives), recently discharged from [facility] after a mechanical fall and urinary tract infection to short-term rehabilitation, presented to the ED again with a mechanical fall. Vitals on admission :temperature 97.0 pulse 96, respiratory rate 16, blood pressure 193/89 on room air. Pertinent labs Leukocytosis: 16.4 without any bandemia, normal coags, sodium low 136 normal BEP , urinalysis normal. Chest x-ray:1. There are no acute cardiopulmonary findings. There is cardiomegaly, without evidence of cardiac decompensation. Cervical CTs spine: There are no acute fractures or subluxations in the cervical spine. There are multilevel degenerative changes with facet arthropathy.There are sequelae of chronic microvascular ischemic disease and diffusevolume loss. Left hip x-ray Acute impacted displaced fracture through the left femoral neck. Assessment and plan: 1. Mechanical fall status post acute displaced fracture through the left femoral neck: RCRI index(0.4 percent) * [facility] * Orthopedic consult Dr. Lazar has been obtained, as per recommendations patient is currently nothing by mouth for possible left hip arthroplasty later during the day. * Will keep the patient nothing by mouth for now * Gentle hydration * Blood pressure currently stable, if needed will give low-dose Lopressor. * No weightbearing on left lower extremity. * Moderate to severe pain controlled with IV morphine and Tylenol. * Watch for any hemodynamic instability. * Calculated RCR I index is 0.4% patient is at risk of mild to moderate cardiovascular complication after the surgery, currently been stable/medically optimized for surgery 2. History of hypertension: * Currently not on any medications. * Just on by mouth Lasix as needed for lower extremity edema. 3. DVT prophylaxis with Alps for now(going for surgery in the evening). 4. Moderate to severe pain controlled with IV morphine As Ranked By This Provider Problem List: 1. Hip fracture, left Qualifiers Encounter type: initial encounter Fracture type: closed Qualified Code: S72.002A - Fracture of unspecified part of neck of left femur, initial encounter for closed fracture Core Measures/Miscellaneous Acute Coronary Syndrome ACS Diagnosis: No Cerebrovascular Accident CVA/TIA Diagnosis: No Congestive Heart Failure CHF Diagnosis: No Venous Thromboembolism VTE Risk Factors: Acute medical illness, Age > 40 VTE Prophylaxis Ordered Inpt: Mechanical (ALPS/TEDS) No Mech VTE prophylaxis d/t: VTE low risk, No contraindications No VTE Pharm Prophylaxis d/t: No contraindications VTE Diagnosis: No VTE Type: NONE VTE Confirmed by (Test): NONE Severe Sepsis Severe Sepsis Present: No Septic Shock Septic Shock Present: No Miscellaneous Documentation Attending Case Discussed With: ISMA FRYE MD Primary Care Physician: ISMA FRYE MD Patient sees these Specialists Not available at this time Level of Patient Care: General Medicine
--- NOTE | 2016-06-03 11:19 | Cons- Orthopedic ---
See Addendum General Information and HPI Consulting Request Date of Consult: 06/03/16 Requested By: ISMA FRYE MD Reason for Consult: Left Hip Fx Source of Information: family, old records, EMS Exam Limitations: patient's age, dementia History of Present Illness: Patient is an 89yo F recently released from [facility]] whom sustained an unwitnessed fall at home this morning. History provided bedside by daughter. Per family she likely tried ambulating without her rolling walker and slipped and fell. Patient does not remember what happened but states her only pain is in her left hip. Denies pain in head, upper extremities, back, right lower extremity. Family denies patient having recent fever or illnesses. She does not get dizzy or have syncopal episodes. Denies CP/SOB. Allergies/Medications Allergies: Coded Allergies: Penicillins (RASH 05/05/16) Sulfa (Sulfonamide Antibiotics) (RASH 05/05/16) Home Med List: Cephalexin (Keflex) 250 MG CAPSULE 1 CAP PO 4 TIMES/DAY URINE INFECTION Cholecalciferol (Vitamin D3) (Vitamin D) 1,000 UNIT TABLET VITAMIN SUPPORT ( Reported) Ferrous Sulfate 325 MG (65 MG IRON) TABLET IRON, VITAMIN (Reported) Lisinopril 20 MG TABLET 1 TAB PO DAILY BLOOD PRESSURE (Reported) Mirtazapine 7.5 MG TABLET 1 TAB PO QPM INSOMNIA (Reported) Multivitamin (Daily Multiple Vitamin) 1 EACH TABLET VITAMIN SUPPORT (Reported) Psyllium Husk (Metamucil) 0.52 GRAM CAPSULE DIGESTION (Reported) Sertraline HCl 50 MG TABLET ANXIETY (Reported) Past History Medical History Neurological: dementia EENT: NONE Cardiovascular: hypertension Respiratory: NONE Gastrointestinal: NONE Hepatic: NONE Renal: NONE Musculoskeletal: NONE Psychiatric: NONE Endocrine: NONE Blood Disorders: anemia 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 EENTM: Reports: no symptoms. Cardiovascular: Denies: chest pain. Respiratory: Denies: short of breath. GI: Reports: no symptoms. Musculoskeletal: Reports: see HPI. Neurological/Psychological: Reports: dementia. All Other Systems: Reviewed and Negative Exam & Diagnostic Data Vital Signs and I&O Vital Signs Date Time Temp Pulse Resp B/P Pulse O2 O2 Flow FiO2 Ox Delivery Rate 06/03 1007 97.3 88 20 178/80 95 Room Air 06/03 0810 97.0 96 16 193/89 94 Room Air Intake & Output 06/03 1600 06/03 0800 06/03 0000 06/02 1600 06/02 0800 06/02 0000 Intake Total Output Total 200 Balance -200 Output, Urine 200 Patient 145 lb Weight Physical Exam: General: NAD, comfortable, A&Ox3 Chest: CTAB. Heart S1S2 normal. Abdomen: soft, nontender, nondistended. Ext: Left hip TTP with mild swelling. LLE externally rotated with loss of height. No calve swelling/TTP, neurovascularly intact bilateral lower extremities Last 24 Hours of Labs: Laboratory Tests 06/03 06/03 0928 0825 Chemistry Sodium (137 - 145 mmol/L) 136 L Potassium (3.5 - 5.1 mmol/L) 4.0 Chloride (98 - 107 mmol/L) 101 Carbon Dioxide (22 - 30 mmol/L) 29 Anion Gap (5 - 16) 6 BUN (7 - 17 mg/dL) 9 Creatinine (0.5 - 1.0 mg/dL) 0.5 Estimated GFR (>60 ml/min) > 60 BUN/Creatinine Ratio (7 - 25 %) 18.0 Glucose (65 - 99 mg/dL) 101 H Lactic Acid (0.7 - 2.1 mmol/L) 0.9 Calcium (8.4 - 10.2 mg/dL) 8.6 Total Bilirubin (0.2 - 1.3 mg/dL) 1.4 H AST (14 - 36 U/L) 32 ALT (9 - 52 U/L) 30 Alkaline Phosphatase (<127 U/L) 97 Creatine Kinase (30 - 135 U/L) 26 L Troponin I (< 0.11 ng/ml) 0.02 Total Protein (6.3 - 8.2 g/dL) 7.4 Albumin (3.5 - 5.0 g/dL) 2.9 L Globulin (1.9 - 4.2 gm/dL) 4.5 H Albumin/Globulin Ratio (1.1 - 2.2 %) 0.6 L Coagulation PT (9.4 - 12.5 SEC) 12.1 INR (0.90 - 1.19) 1.15 APTT (25 - 37 SEC) 33 Hematology CBC w Diff NO MAN DIFF REQ WBC (4.8 - 10.8 /CUMM) 16.4 H RBC (4.20 - 5.40 /CUMM) 4.74 Hgb (12.0 - 16.0 G/DL) 13.3 Hct (37 - 47 %) 40.6 MCV (81.0 - 99.0 FL) 85.8 MCH (27.0 - 31.0 PG) 28.1 RDW (11.5 - 14.5 %) 20.8 H Plt Count (130 - 400 /CUMM) 366 MPV (7.4 - 10.4 FL) 8.8 Gran % (42.2 - 75.2 %) 87.2 H Lymphocytes % (20.5 - 51.1 %) 6.4 L Monocytes % (1.7 - 9.3 %) 6.2 Eosinophils % (0 - 5 %) 0.2 Basophils % (0.0 - 2.0 %) 0 L Absolute Granulocytes (1.4 - 6.5 /CUMM) 14.3 H Absolute Lymphocytes (1.2 - 3.4 /CUMM) 1.1 L Absolute Monocytes (0.10 - 0.60 /CUMM) 1.0 H Absolute Eosinophils (0.0 - 0.7 /CUMM) 0 Absolute Basophils (0.0 - 0.2 /CUMM) 0 PUBS MCHC (33.0 - 37.0 G/DL) 32.8 L Urines Urine Color (YEL,AMB,STR) YEL Urine Clarity (CLEAR) CLEAR Urine pH (5.0 - 8.0) 7.5 Ur Specific [place] (1.001 - 1.035) 1.020 Urine Protein (NEG,<30 MG/DL) NEG Urine Ketones (NEG) NEG Urine Nitrite (NEG) NEG Urine Bilirubin (NEG) NEG Urine Urobilinogen (0.1 - 1.0 EU/dl) 0.2 Ur Leukocyte Esterase (NEG) NEG Ur Microscopic EXAM NOT REQUIRED Urine Hemoglobin (NEG) NEG Urine Glucose (N MG/DL) NEG 06/03 0820 Chemistry Creatine Kinase Cancelled Imaging Results: EXAM TYPE: RAD - XRY-HIP 2-3 VIEWS, LEFT EXAMINATION: XR HIP, LEFT CLINICAL INFORMATION: Pain after fall COMPARISON: None TECHNIQUE: Three views of the left hip. FINDINGS: Markedly limited evaluation due to patient's body habitus and positioning. Acute impacted fracture through the left femoral neck. There appears to be posterior displacement on the lateral view. The left femoral head remains well-seated within the acetabulum. Diffuse osteopenia. IMPRESSION: Acute impacted displaced fracture through the left femoral neck. Assessment/Plan Assessment/Plan 89yo F with unwitnessed fall resulting in left hip fracture. - admit to medicine - NPO - Pain control - IVF - plan for OR this afternoon if cleared by medicine - NWB LLE - [place] catheter - care per medicine Consult Acknowledgment - Thank you for your consult request.
[2016-06-03 12:28] VITALS: BP 150/90
--- NOTE | 2016-06-03 16:50 | Operative Report ---
Operative/Inv Procedure Report Surgery Date: 06/03/16 Name of Procedure: Left hip hemiarthroplasty Pre-Operative Diagnosis: Left hip femoral neck fracture Post-Operative Diagnosis: Left hip femoral neck fracture Estimated Blood Loss: 50ml to 100ml Surgeon/Burner Operator: Ted RUEDA Anesthesia: spinal Implants: [employer] size 14 Synergy porous femoral component. Tandem unipolar 14/15 taper sleeve -3 mm. Tandem unipolar 52 mm cobalt-chromium head. Complications: None Condition: Stable to PACU Operative Indication: This is an 89-year-old female who had a fall. She was seen in the emergency department and x-rays showed a displaced left femoral neck fracture. Risks and benefits of the procedure were discussed with the patient and her son at length. Risks include but are not limited to nerve damage, muscle damage, infection, blood loss, blood clots, pulmonary embolus, and even . The patient agreed to the above risks and elected to proceed with surgery. Operative/Procedure Note Note: The patient was placed in the lateral decubitus position on the pegboard after anesthesia was induced. All bony prominences were padded. The patient received IV antibiotics prior to incision. A timeout was performed prior to incision. The lower extremity was prepped and draped in the normal sterile fashion. A posterior hip approach was then undertaken. The skin was incised. Any bleeding vessels were identified and cauterized. An elevator was then used to dissect the fat off of the fascia. The fascia was incised and a Charnley retractor was then inserted deep to the fascia. This exposed the greater trochanter. The bursa was taken down. The hip was internally rotated. The piriformis tendon was then taken down and tagged with a #1 Vicryl suture. The short external rotators were taken down. The capsule was then released in a T fashion. #1 Vicryl sutures used to tag the superior leaflet as well as the inferior leaflet of the capsule. A corkscrew was then used to remove the femoral head. It was then sized on the back table. A saw was then used to create a cut at the femoral neck. A Dog Digital cutter device was used to open up the proximal femur. A canal finder was inserted. The hip was then reamed up successively until adequate chatter was obtained. The hip was then broached up successively. Once stable fit was obtained a calcar planer was then used. Trial heads were then used and a trial reduction was performed. A stable fit was obtained. The broach was removed. The wound was copiously irrigated. The final stem was then impacted in place. The head was again trialed. Good stability was obtained. The final head was then impacted. The hip was reduced. The wound was again copiously irrigated. The capsule was closed with a #1 Vicryl suture in a simple interrupted fashion. The sutures were then brought through the gluteus medius tendon and tied over the top. The piriformis tendon was then reapproximated through the gluteus medius tendon. The fascia was closed with #1 Vicryl suture in a simple interrupted fashion. The skin was closed with 2-0 Vicryl suture and rafael. A dry sterile dressing was placed and the patient was transferred to PACU in stable condition.
--- NOTE | 2016-06-03 19:13 | RADIOLOGY REPORT ---
EXAMINATION: XR HIP, LEFT CLINICAL INFORMATION: Status post left hip hemiarthroplasty COMPARISON: None TECHNIQUE: Two views of the left hip. FINDINGS: Status post left total hip replacement. Orthopedic and femoral components in good position. Surgical skin clips along the lateral side of the hip. IMPRESSION: Status post left hip replacement.
[2016-06-03 19:30] VITALS: BP 140/80
--- NOTE | 2016-06-03 19:53 | PN- Orthopedic ---
Subjective Subjective: Post Op Note s/p left hip hemiarthroplasty Patient without c/o. Pain controlled Denies numbness/tingling Denies CP/SOB Objective Vital Signs and I&Os Vital Signs Date Time Temp Pulse Resp B/P Pulse O2 O2 Flow FiO2 Ox Delivery Rate 06/03 193 95.2 73 20 140/80 99 Room Air 06/03 1600 Room Air 06/03 1228 97.5 67 18 150/90 96 Room Air 06/03 1143 62 16 172/82 96 Room Air 06/03 1007 97.3 88 20 178/80 95 Room Air 06/03 0810 97.0 96 16 193/89 94 Room Air Intake & Output 06/03 1600 06/03 0800 06/03 0000 06/02 1600 06/02 0800 06/02 0000 Intake Total 200 Output Total 500 Balance -300 Intake, IV 200 Intake, Oral 0 Output, Urine 500 Patient 148 lb Weight Physical Exam: Gen: NAD, comfortable Chest: NRD, RRR Ext: Left hip dressing c/d/i. Left thigh softly swollen. No calve swelling/ TTP. +2 DP/PT pulses BLE. Current Medications: Current Medications Sig/Leslee Start time Last Medication Dose Route Stop Time Status Admin Acetaminophen 1,000 MG Q8P PRN 06/03 1815 AC IV Acetaminophen 1,000 MG Q8P PRN 06/03 1030 DC IV Acetaminophen 1,000 MG ONCE ONE 06/03 0845 DC 06/03 N/A 1 UNIT IV 06/03 0859 0930 Acetaminophen 650 MG ONCE ONE 06/03 0830 CAN PO 06/03 0831 Clindamycin 600 MG IQ8 06/04 0000 AC Dextrose/Water 50 ML IV 06/04 0829 Enoxaparin Sodium 40 MG DAILY 06/04 1000 AC SC Ferrous Sulfate 325 MG DAILY 06/04 1000 CAN PO Ferrous Sulfate 325 MG DAILY 06/04 1000 AC PO Ibuprofen 600 MG Q6P PRN 06/03 1030 DC PO Lidocaine 1 PAT Q24H PRN 06/03 1030 DC 06/03 EXT 1132 Mirtazapine 7.5 MG AT BEDTIME 06/03 2200 CAN PO Mirtazapine 7.5 MG AT BEDTIME 06/03 2200 AC PO Morphine Sulfate 2 MG Q6P PRN 06/03 1815 AC IV Morphine Sulfate 2 MG Q6P PRN 06/03 1300 DC 06/03 IV 1301 Sertraline HCl 50 MG DAILY 06/04 1000 CAN PO Sertraline HCl 50 MG DAILY 06/04 1000 AC PO Sodium Chloride 1,000 ML Q20H 06/03 1815 AC 06/03 IV 1917 Sodium Chloride 1,000 ML Q20H 06/03 1330 DC 06/03 IV 1408 Results Last 48 Hours of Labs: Laboratory Tests 06/03 06/03 1116 0928 Chemistry Lactic Acid Cancelled Urines Urine Color (YEL,AMB,STR) YEL Urine Clarity (CLEAR) CLEAR Urine pH (5.0 - 8.0) 7.5 Ur Specific [place] (1.001 - 1.035) 1.020 Urine Protein (NEG,<30 MG/DL) NEG Urine Ketones (NEG) NEG Urine Nitrite (NEG) NEG Urine Bilirubin (NEG) NEG Urine Urobilinogen (0.1 - 1.0 EU/dl) 0.2 Ur Leukocyte Esterase (NEG) NEG Ur Microscopic EXAM NOT REQUIRED Urine Hemoglobin (NEG) NEG Urine Glucose (N MG/DL) NEG 06/03 06/03 0825 0820 Chemistry Sodium (137 - 145 mmol/L) 136 L Potassium (3.5 - 5.1 mmol/L) 4.0 Chloride (98 - 107 mmol/L) 101 Carbon Dioxide (22 - 30 mmol/L) 29 Anion Gap (5 - 16) 6 BUN (7 - 17 mg/dL) 9 Creatinine (0.5 - 1.0 mg/dL) 0.5 Estimated GFR (>60 ml/min) > 60 BUN/Creatinine Ratio (7 - 25 %) 18.0 Glucose (65 - 99 mg/dL) 101 H Lactic Acid (0.7 - 2.1 mmol/L) 0.9 Calcium (8.4 - 10.2 mg/dL) 8.6 Total Bilirubin (0.2 - 1.3 mg/dL) 1.4 H AST (14 - 36 U/L) 32 ALT (9 - 52 U/L) 30 Alkaline Phosphatase (<127 U/L) 97 Creatine Kinase (30 - 135 U/L) 26 L Cancelled Troponin I (< 0.11 ng/ml) 0.02 Total Protein (6.3 - 8.2 g/dL) 7.4 Albumin (3.5 - 5.0 g/dL) 2.9 L Globulin (1.9 - 4.2 gm/dL) 4.5 H Albumin/Globulin Ratio (1.1 - 2.2 %) 0.6 L Coagulation PT (9.4 - 12.5 SEC) 12.1 INR (0.90 - 1.19) 1.15 APTT (25 - 37 SEC) 33 Hematology CBC w Diff NO MAN DIFF REQ WBC (4.8 - 10.8 /CUMM) 16.4 H RBC (4.20 - 5.40 /CUMM) 4.74 Hgb (12.0 - 16.0 G/DL) 13.3 Hct (37 - 47 %) 40.6 MCV (81.0 - 99.0 FL) 85.8 MCH (27.0 - 31.0 PG) 28.1 RDW (11.5 - 14.5 %) 20.8 H Plt Count (130 - 400 /CUMM) 366 MPV (7.4 - 10.4 FL) 8.8 Gran % (42.2 - 75.2 %) 87.2 H Lymphocytes % (20.5 - 51.1 %) 6.4 L Monocytes % (1.7 - 9.3 %) 6.2 Eosinophils % (0 - 5 %) 0.2 Basophils % (0.0 - 2.0 %) 0 L Absolute Granulocytes (1.4 - 6.5 /CUMM) 14.3 H Absolute Lymphocytes (1.2 - 3.4 /CUMM) 1.1 L Absolute Monocytes (0.10 - 0.60 /CUMM) 1.0 H Absolute Eosinophils (0.0 - 0.7 /CUMM) 0 Absolute Basophils (0.0 - 0.2 /CUMM) 0 PUBS MCHC (33.0 - 37.0 G/DL) 32.8 L Assessment/Plan Assessment/Plan 89yo F POD#0 s/p left hip hemiarthroplasty. Patient stable from ortho standpoint. - Pain control - start bowel regimen - clindamycin x2 doses - I/O's - PT in a.m. - advance diet as tolerated - IVF until tolerating PO - care per primary team.
[2016-06-03 22:05] VITALS: BP 160/80
[2016-06-03 23:54] VITALS: BP 148/80
[2016-06-04 01:57] VITALS: BP 160/82
[2016-06-04 04:19] VITALS: BP 146/84
--- NOTE | 2016-06-04 07:15 | PN- Housestaff ---
Subjective Follow-up For: Left hip fracture status post surgery Complaints: no complaints Subjective: Patient resting comfortably in hospital bed, seen and examined. Offers no complaints, states that her pain is well controlled. Review of Systems Constitutional: Reports: see HPI. Objective Last 24 Hrs of Vital Signs/I&O Vital Signs Date Time Temp Pulse Resp B/P Pulse O2 O2 Flow FiO2 Ox Delivery Rate 06/04 0419 98.8 90 20 146/84 95 Room Air 06/04 0157 99.2 94 18 160/82 95 Room Air 06/03 2354 97.5 90 18 148/80 94 Room Air 06/03 2205 95.5 86 20 160/80 96 06/03 1930 95.2 73 20 140/80 99 Room Air 06/03 1600 Room Air 06/03 1228 97.5 67 18 150/90 96 Room Air 06/03 1143 62 16 172/82 96 Room Air 06/03 1007 97.3 88 20 178/80 95 Room Air 06/03 0810 97.0 96 16 193/89 94 Room Air Intake & Output 06/04 0800 06/04 0000 06/03 1600 Intake Total 520 320 200 Output Total 300 600 500 Balance 220 -280 -300 Intake, IV 400 200 200 Intake, Oral 120 120 0 Number 0 0 Bowel Movements Output, Urine 300 600 500 Patient 148 lb Weight Physical Exam General Appearance: Alert, Oriented X3, Cooperative Skin: left hip surgical site in clean and dry dressing HEENT: Atraumatic, PERRLA, EOMI Cardiovascular: Regular Rate, Normal S1, Normal S2 Lungs: Clear to Auscultation, Normal Air Movement Abdomen: Normal Bowel Sounds, Soft, No Tenderness Current Medications: Current Medications Sig/Leslee Start time Last Medication Dose Route Stop Time Status Admin Acetaminophen 1,000 MG Q8P PRN 06/03 1815 AC 06/04 IV 0200 Acetaminophen 1,000 MG Q8P PRN 06/03 1030 DC IV Acetaminophen 1,000 MG ONCE ONE 06/03 0845 DC 06/03 N/A 1 UNIT IV 06/03 0859 0930 Acetaminophen 650 MG ONCE ONE 06/03 0830 CAN PO 06/03 0831 Clindamycin 600 MG IQ8 06/04 0000 AC 06/04 Dextrose/Water 50 ML IV 06/04 0829 0035 Enoxaparin Sodium 40 MG DAILY 06/04 1000 AC SC Fentanyl Citrate 100 MCG .STK-MED ONE 06/03 1538 DC IM 06/03 1539 Ferrous Sulfate 325 MG DAILY 06/04 1000 CAN PO Ferrous Sulfate 325 MG DAILY 06/04 1000 AC PO Ibuprofen 600 MG Q6P PRN 06/03 1030 DC PO Ketamine HCl 50 MG .STK-MED ONE 06/03 1539 DC IM 06/03 1540 Lidocaine 1 PAT Q24H PRN 06/03 1030 DC 06/03 EXT 1132 Midazolam HCl 2 MG .STK-MED ONE 06/03 1539 DC IM 06/03 1540 Mirtazapine 7.5 MG AT BEDTIME 06/03 2200 CAN PO Mirtazapine 7.5 MG AT BEDTIME 06/03 2200 AC 06/03 PO 2106 Morphine Sulfate 2 MG Q6P PRN 06/03 1815 AC 06/04 IV 0522 Morphine Sulfate 2 MG Q6P PRN 06/03 1300 DC 06/03 IV 1301 Sertraline HCl 50 MG DAILY 06/04 1000 CAN PO Sertraline HCl 50 MG DAILY 06/04 1000 AC PO Sodium Chloride 1,000 ML Q20H 06/03 1815 AC 06/03 IV 1917 Sodium Chloride 1,000 ML Q20H 06/03 1330 DC 06/03 IV 1408 Tranexamic Acid 1,000 MG .STK-MED ONE 06/03 1622 DC IV 06/03 1623 Last 24 Hrs of Lab/Don Results Last 24 Hrs of Labs/Mics: Laboratory Tests 06/03/16 1116: Lactic Acid Cancelled 06/03/16 0928: Urine Color YEL, Urine Clarity CLEAR, Urine pH 7.5, Ur Specific [place] 1.020, Urine Protein NEG, Urine Ketones NEG, Urine Nitrite NEG, Urine Bilirubin NEG, Urine Urobilinogen 0.2, Ur Leukocyte Esterase NEG, Ur Microscopic EXAM NOT REQUIRED, Urine Hemoglobin NEG, Urine Glucose NEG 06/03/16 0825: Anion Gap 6, Estimated GFR > 60, BUN/Creatinine Ratio 18.0, Glucose 101 H, Lactic Acid 0.9, Calcium 8.6, Total Bilirubin 1.4 H, AST 32, ALT 30, Alkaline Phosphatase 97, Creatine Kinase 26 L, Troponin I 0.02, Total Protein 7.4, Albumin 2.9 L, Globulin 4.5 H, Albumin/Globulin Ratio 0.6 L, PT 12.1, INR 1.15, APTT 33, CBC w Diff NO MAN DIFF REQ, RBC 4.74, MCV 85.8, MCH 28.1, RDW 20.8 H, MPV 8.8, Gran % 87.2 H, Lymphocytes % 6.4 L, Monocytes % 6.2, Eosinophils % 0.2, Basophils % 0 L, Absolute Granulocytes 14.3 H, Absolute Lymphocytes 1.1 L, Absolute Monocytes 1.0 H, Absolute Eosinophils 0, Absolute Basophils 0, PUBS MCHC 32.8 L 06/03/16 0820: Creatine Kinase Cancelled Microbiology 06/03 0940 URINE ROUT: Urine Culture - COLB Assessment/Plan Assessment: Assessment- 1. Left hip fracture status post repair 2. History of hypertension 3. Depression Plan- DC IV fluids, continue by mouth intake Postsurgical care per surgery Continue all other meds Anticoagulation per surgery Problem List: 1. Dementia 2. HTN (hypertension) 3. Hip fracture, left Pain Ratin Pain Location: none Pain Goal: Remain pain free Pain Plan: per emr Tomorrow's Labs & Rationales: per emr
[2016-06-04 07:27] VITALS: BP 100/77; BP 140/77
--- NOTE | 2016-06-04 07:37 | PN- Orthopedic ---
Subjective Subjective: Patient resting comfortably in bed, no acute overnight events reported. States that her pain is well controlled. Denies chest pain, shortness of breath and difficulty breathing. Denies nausea and vomitting. Has yet to ambulate. Objective Vital Signs and I&Os Vital Signs Date Time Temp Pulse Resp B/P Pulse O2 O2 Flow FiO2 Ox Delivery Rate 06/04 0727 98.9 90 20 140/77 96 06/04 0419 98.8 90 20 146/84 95 Room Air 06/04 0157 99.2 94 18 160/82 95 Room Air 06/03 2354 97.5 90 18 148/80 94 Room Air 06/03 2205 95.5 86 20 160/80 96 06/03 1930 95.2 73 20 140/80 99 Room Air 06/03 1600 Room Air 06/03 1228 97.5 67 18 150/90 96 Room Air 06/03 1143 62 16 172/82 96 Room Air 06/03 1007 97.3 88 20 178/80 95 Room Air 06/03 0810 97.0 96 16 193/89 94 Room Air Intake & Output 06/04 0806/04 0000 06/03 1600 06/03 0800 06/03 0000 06/02 1600 Intake Total 520 320 200 Output Total 300 600 500 Balance 220 -280 -300 Intake, IV 400 200 200 Intake, Oral 120 120 0 Number 0 0 Bowel Movements Output, Urine 300 600 500 Patient 148 lb Weight Physical Exam: General: Alert and oriented x3, no acute distress\ Cardiac: s1s2, occasional/irregular ectopy auscultated Pulmonary: Bilateral lung sounds clear to auscultation Abdomen: Non-tender, non-distended Extremities: Moves all extremities, neurovascular intact. Bilateral calves soft and non-tender Surgical site: R hip, dressing dry and intact, thigh compartment soft Assessment/Plan Assessment/Plan This is an 89 year old female with pmh sig for htn, POD 1, s/p R hip taylor- arthroplasty for femoral neck fracture -Lovenox daily for dvt ppx -Dressing change tomorrow by surgical team -PT eval/tx today, can be WBAT, posterior hip precautions in place -All other care per medical team
[2016-06-04 07:58] LABS: ABSOLUTE BASOPHIL COUNT 0 /CUMM (0.0-0.2); ABSOLUTE EOSINOPHIL COUNT 0 /CUMM (0.0-0.7); ABSOLUTE LYMPH COUNT 1.4 /CUMM (1.2-3.4); ABSOLUTE MONOCYTE COUNT 1.3 /CUMM (0.10-0.60); BASOPHIL % 0.4 % (0.0-2.0); EOSINOPHIL % 0.1 % (0-5); HEMATOCRIT 37.1 % (37-47); MEAN CORPUSCULAR HGB 28.7 PG (27.0-31.0); MEAN CORPUSCULAR HGB CONC 33.3 G/DL (33.0-37.0); MEAN CORPUSCULAR VOLUME 86.1 FL (81.0-99.0); MEAN PLATELET VOLUME 9.6 FL (7.4-10.4); RBC DISTRIBUTION WIDTH 21.4 % (11.5-14.5); WHITE BLOOD CELL COUNT 10.8 /CUMM (4.8-10.8)
[2016-06-04 08:46] LABS: GRANULOCYTE % 74.5 % (42.2-75.2); PLATELET COUNT 313 /CUMM (130-400)
--- NOTE | 2016-06-04 09:33 | Admission Certification ---
Admission Certification Certification Statement - As attending physician, I certify that at the time of - admission, based on clinical presentation, severity of - symptoms, need for further diagnostic testing and - therapeutic interventions, and risk of adverse outcomes - without in-hospital treatment, in my clinical assessment, - this patient requires an acute hospital stay for a minimum - of two nights or longer. I have also considered psychsocial - factors such as support system, advanced age, financial - issues, cognitive issues, and failed out-patient treatments, - past re-admission history, safety of patient, and lack of - compliance as applicable. Specific rationale supporting this admission is: left hip fracture
--- NOTE | 2016-06-04 09:37 | PN- Att Addend ---
Attending Addendum Attending Brief Note Patient postoperative day 1 left hip repair having minimal pain symptoms General Appearance: Alert, No Acute Distress Skin: Grossly normal HEENT: PEERLA Neck: Supple, No JVD Cardiovascular: Regular Rate, Normal S1, Normal S2, No Murmurs Lungs: Clear to Auscultation, Normal Air Movement Abdomen: Normal Bowel Sounds, Soft, No Tenderness Neurological: Normal Speech, Strength at 5/5 X4 Ext, Cranial Nerves 3-12 NL, Reflexes 2+ Extremities: No Clubbing, No Cyanosis, No Edema Vascular: Normal Pulses Assessment 89-year-old with history of dementia, hypertension presenting with displaced left femoral neck fracture status post mechanical fall. She is currently postoperative day 1 with minimal pain of her left hip. Plan Tylenol for moderate pain and morphine for severe pain Avoid delirium triggers Lovenox for DVT prophylaxis, this will be for total 6 weeks Physical therapy evaluation Continue other home meds Current Medications Sig/Leslee Start time Last Medication Dose Route Stop Time Status Admin Acetaminophen 1,000 MG Q8P PRN 06/03 1815 AC 06/04 IV 0823 Acetaminophen 1,000 MG Q8P PRN 06/03 1030 DC IV Clindamycin 600 MG IQ8 06/04 0000 DC 06/04 Dextrose/Water 50 ML IV 06/04 0829 0905 Docusate Sodium 100 MG DAILY 06/04 1000 AC PO Enoxaparin Sodium 40 MG DAILY 06/04 1000 AC SC Fentanyl Citrate 100 MCG .STK-MED ONE 06/03 1538 DC IM 06/03 1539 Ferrous Sulfate 325 MG DAILY 06/04 1000 CAN PO Ferrous Sulfate 325 MG DAILY 06/04 1000 AC PO Ibuprofen 600 MG Q6P PRN 06/03 1030 DC PO Ketamine HCl 50 MG .STK-MED ONE 06/03 1539 DC IM 06/03 1540 Lidocaine 1 PAT Q24H PRN 06/03 1030 DC 06/03 EXT 1132 Midazolam HCl 2 MG .STK-MED ONE 06/03 1539 DC IM 06/03 1540 Mirtazapine 7.5 MG AT BEDTIME 06/03 2200 CAN PO Mirtazapine 7.5 MG AT BEDTIME 06/03 2200 AC 06/03 PO 2106 Morphine Sulfate 2 MG Q6P PRN 06/03 1815 AC 06/04 IV 0522 Morphine Sulfate 2 MG Q6P PRN 06/03 1300 DC 06/03 IV 1301 Senna/Docusate Sodium 1 TAB BID PRN 06/04 0915 AC PO Sertraline HCl 50 MG DAILY 06/04 1000 CAN PO Sertraline HCl 50 MG DAILY 06/04 1000 AC PO Sodium Chloride 1,000 ML Q20H 06/03 1815 AC 06/03 IV 1917 Sodium Chloride 1,000 ML Q20H 06/03 1330 DC 06/03 IV 1408 Tranexamic Acid 1,000 MG .STK-MED ONE 06/03 1622 DC IV 06/03 1623 Laboratory Tests 06/04 06/03 0630 1116 Chemistry Sodium (137 - 145 mmol/L) 132 L Potassium (3.5 - 5.1 mmol/L) 3.9 Chloride (98 - 107 mmol/L) 99 Carbon Dioxide (22 - 30 mmol/L) 25 Anion Gap (5 - 16) 7 BUN (7 - 17 mg/dL) 11 Creatinine (0.5 - 1.0 mg/dL) 0.5 Estimated GFR (>60 ml/min) > 60 BUN/Creatinine Ratio (7 - 25 %) 22.0 Lactic Acid Cancelled Hematology CBC w Diff NO MAN DIFF REQ WBC (4.8 - 10.8 /CUMM) 10.8 RBC (4.20 - 5.40 /CUMM) 4.30 Hgb (12.0 - 16.0 G/DL) 12.3 Hct (37 - 47 %) 37.1 MCV (81.0 - 99.0 FL) 86.1 MCH (27.0 - 31.0 PG) 28.7 RDW (11.5 - 14.5 %) 21.4 H Plt Count (130 - 400 /CUMM) 313 MPV (7.4 - 10.4 FL) 9.6 Gran % (42.2 - 75.2 %) 74.5 Lymphocytes % (20.5 - 51.1 %) 12.9 L Monocytes % (1.7 - 9.3 %) 12.1 H Eosinophils % (0 - 5 %) 0.1 Basophils % (0.0 - 2.0 %) 0.4 Absolute Granulocytes (1.4 - 6.5 /CUMM) 8.0 H Absolute Lymphocytes (1.2 - 3.4 /CUMM) 1.4 Absolute Monocytes (0.10 - 0.60 /CUMM) 1.3 H Absolute Eosinophils (0.0 - 0.7 /CUMM) 0 Absolute Basophils (0.0 - 0.2 /CUMM) 0 PUBS MCHC (33.0 - 37.0 G/DL) 33.3 Vital Signs Date Time Temp Pulse Resp B/P Pulse O2 O2 Flow FiO2 Ox Delivery Rate 06/04 0727 98.9 90 20 140/77 96 06/04 0419 98.8 90 20 146/84 95 Room Air 06/04 0157 99.2 94 18 160/82 95 Room Air 06/03 2354 97.5 90 18 148/80 94 Room Air 06/03 2205 95.5 86 20 160/80 96 06/03 1930 95.2 73 20 140/80 99 Room Air 06/03 1600 Room Air 06/03 1228 97.5 67 18 150/90 96 Room Air 06/03 1143 62 16 172/82 96 Room Air 06/03 1007 97.3 88 20 178/80 95 Room Air
--- NOTE | 2016-06-04 09:52 | Patient Discharge Instructions ---
Discharge Instructions General Discharge Information You were seen/treated for: LEFT HIP FRACTURE You had these procedures: LEFT HIP HEMIARHTROPLASTY Special Instructions: 1. F/U WITH YOUR PCP WITHIN 1 WEEK OF D/C 2. F/U WITH DR. MIRELES WITHIN 1 WEEK OF D/C 3. WEIGHT BEARING TOLERATED Diet Continue normal diet: Yes Recommended Diet: Heart Healthy Acute Coronary Syndrome Inclusion Criteria At DC or during hospital stay patient has or had the following: ACS DIAGNOSIS No Discharge Core Measures Meds if any: Prescribed or Continued at Discharge Meds if any: NOT Prescribed or Continued at Discharge Congestive Heart Failure Inclusion Criteria At DC or during hospital stay patient has or had the following: CHF DIAGNOSIS No Discharge Core Measures Meds if any: Prescribed or Continued at Discharge Meds if any: NOT Prescribed or Continued at Discharge Cerebrovascular accident Inclusion Criteria At DC or during hospital stay patient has or had the following: CVA/TIA Diagnosis No Discharge Core Measures Meds if any: Prescribed or Continued at Discharge Meds if any: NOT Prescribed or Continued at Discharge Venous thromboembolism Inclusion Criteria VTE Diagnosis No VTE Type NONE VTE Confirmed by (Test) NONE Discharge Core Measures - Per Current guidelines, there needs to be overlap - treatment for the first 5 days of Warfarin therapy. - If discharged on Warfarin prior to 5 days of - overlap therapy, the patient will need to be - assessed for post discharge needs including - *Post discharge parental anticoagulation - *Warfarin and/or parental anticoagulation education - *Follow up date to check INR post discharge At least 5 days overlap therapy as Inpatient No Meds if any: Prescribed or Continued at Discharge Note: Overlap Therapy is Warfarin and Anticoagulant Meds if any: NOT Prescribed or Continued at Discharge
[2016-06-04] MEDS ORDERED: SENNA PLUS TAB1 EACH PO (09:55)
[2016-06-04] MEDS ORDERED: LOVENOX40 MG/0.1 SC (09:55)
[2016-06-04] MEDS ORDERED: DOCUSATE SODIU100 M3 PO (09:55)
[2016-06-04] MEDS ORDERED: TYLENOL325 M1 PO (09:58)
[2016-06-04 14:45] VITALS: BP 128/75
[2016-06-04 22:57] VITALS: BP 120/60
[2016-06-05 06:47] VITALS: BP 128/75
--- NOTE | 2016-06-05 07:15 | PN- Housestaff ---
Subjective Follow-up For: Left hip fracture status post surgery Complaints: no complaints Subjective: Patient resting comfortably in hospital bed, seen and examined. Offers no complaints, states that her pain is well controlled. Review of Systems Constitutional: Reports: see HPI. Objective Last 24 Hrs of Vital Signs/I&O Vital Signs Date Time Temp Pulse Resp B/P Pulse O2 O2 Flow FiO2 Ox Delivery Rate 06/05 0647 99.1 94 18 128/75 94 Room Air 06/05 0045 98.6 06/04 2257 100.4 99 18 120/60 94 Room Air 06/04 2142 100.6 06/04 1445 96.8 76 18 128/75 98 06/04 1338 Room Air 06/04 1107 80 90/52 06/04 0727 98.9 90 20 140/77 96 Intake & Output 06/05 0800 06/05 0000 06/04 1600 Intake Total 800 420 Output Total 125 Balance 800 295 Intake, IV 800 300 Intake, Oral 120 Number 0 Bowel Movements Output, Urine 125 Physical Exam General Appearance: Oriented X3 Assessment/Plan Assessment: Assessment- 1. Left hip fracture status post repair, post op day 2 2. History of hypertension 3. Depression Plan- DC IV fluids, continue by mouth intake Postsurgical care per surgery Continue all other meds She did ambulate with PT yesterday Had BM yesterday Anticoagulation per surgery, SC lovenox Problem List: 1. Hip fracture, left 2. HTN (hypertension) 3. Dementia 4. Hyponatremia Pain Ratin Pain Location: none Pain Goal: Remain pain free Pain Plan: per emr Tomorrow's Labs & Rationales: none
[2016-06-05] MEDS ORDERED: LOVENOX40 MG/0.1 SC ×2 (09:09→11:46)
--- NOTE | 2016-06-05 09:15 | PN- Orthopedic ---
See Addendum Subjective Subjective: NAEO. Patient without c/o. Pain controlled. Denies numbness/tingling in LLE. Has been OOB and ambulating with PT. Denies CP/SOB. Objective Vital Signs and I&Os Vital Signs Date Time Temp Pulse Resp B/P Pulse O2 O2 Flow FiO2 Ox Delivery Rate 06/05 0647 99.1 94 18 128/75 94 Room Air 06/05 0045 98.6 06/04 2257 100.4 99 18 120/60 94 Room Air 06/04 2142 100.6 06/04 1445 96.8 76 18 128/75 98 06/04 1338 Room Air 06/04 1107 80 90/52 Intake & Output 06/05 1600 06/05 0806/05 0000 06/04 1600 06/04 0800 06/04 0000 Intake Total 800 420 520 320 Output Total 125 300 600 Balance 800 295 220 -280 Intake, IV 800 300 400 200 Intake, Oral 120 120 120 Number 0 0 0 Bowel Movements Output, Urine 125 300 600 Physical Exam: Gen: NAD, comfortable Chest: NRD, breathing comfortably on RA. RRR. Ext: Left hip incision intact without surrounding erythema, purulent drainage, or signs of infection. No calve swelling/TTP. N/V intact BLE. Current Medications: Current Medications Sig/Leslee Start time Last Medication Dose Route Stop Time Status Admin Acetaminophen 1,000 MG .STK-MED ONE 06/04 2138 DC IV 06/04 2139 Acetaminophen 1,000 MG Q8P PRN 06/03 181 AC 06/05 IV 0842 Docusate Sodium 100 MG DAILY 06/04 1000 AC 06/04 PO 1008 Enoxaparin Sodium 40 MG DAILY 06/04 1000 AC 06/04 SC 1008 Ferrous Sulfate 325 MG DAILY 06/04 1000 AC 06/04 PO 1008 Lisinopril 20 MG DAILY 06/04 1000 AC PO Mirtazapine 7.5 MG AT BEDTIME 06/03 2199 AC 06/04 PO 205 Morphine Sulfate 2 MG Q6P PRN 06/03 181 AC 06/04 IV 0522 Senna/Docusate Sodium 1 TAB BID PRN 06/04 0915 AC 06/04 PO 1107 Sertraline HCl 50 MG DAILY 06/04 1000 AC 06/04 PO 1008 Sodium Chloride 1,000 ML .Q10H 06/04 1300 DC 06/04 IV 2353 Sodium Chloride 1,000 ML Q20H 06/03 1815 DC 06/03 IV 1917 Results Last 48 Hours of Labs: Laboratory Tests 06/04 06/03 0630 1116 Chemistry Sodium (137 - 145 mmol/L) 132 L Potassium (3.5 - 5.1 mmol/L) 3.9 Chloride (98 - 107 mmol/L) 99 Carbon Dioxide (22 - 30 mmol/L) 25 Anion Gap (5 - 16) 7 BUN (7 - 17 mg/dL) 11 Creatinine (0.5 - 1.0 mg/dL) 0.5 Estimated GFR (>60 ml/min) > 60 BUN/Creatinine Ratio (7 - 25 %) 22.0 Lactic Acid Cancelled Hematology CBC w Diff NO MAN DIFF REQ WBC (4.8 - 10.8 /CUMM) 10.8 RBC (4.20 - 5.40 /CUMM) 4.30 Hgb (12.0 - 16.0 G/DL) 12.3 Hct (37 - 47 %) 37.1 MCV (81.0 - 99.0 FL) 86.1 MCH (27.0 - 31.0 PG) 28.7 RDW (11.5 - 14.5 %) 21.4 H Plt Count (130 - 400 /CUMM) 313 MPV (7.4 - 10.4 FL) 9.6 Gran % (42.2 - 75.2 %) 74.5 Lymphocytes % (20.5 - 51.1 %) 12.9 L Monocytes % (1.7 - 9.3 %) 12.1 H Eosinophils % (0 - 5 %) 0.1 Basophils % (0.0 - 2.0 %) 0.4 Absolute Granulocytes (1.4 - 6.5 /CUMM) 8.0 H Absolute Lymphocytes (1.2 - 3.4 /CUMM) 1.4 Absolute Monocytes (0.10 - 0.60 /CUMM) 1.3 H Absolute Eosinophils (0.0 - 0.7 /CUMM) 0 Absolute Basophils (0.0 - 0.2 /CUMM) 0 PUBS MCHC (33.0 - 37.0 G/DL) 33.3 06/03 0928 Urines Urine Color (YEL,AMB,STR) YEL Urine Clarity (CLEAR) CLEAR Urine pH (5.0 - 8.0) 7.5 Ur Specific [place] (1.001 - 1.035) 1.020 Urine Protein (NEG,<30 MG/DL) NEG Urine Ketones (NEG) NEG Urine Nitrite (NEG) NEG Urine Bilirubin (NEG) NEG Urine Urobilinogen (0.1 - 1.0 EU/dl) 0.2 Ur Leukocyte Esterase (NEG) NEG Ur Microscopic EXAM NOT REQUIRED Urine Hemoglobin (NEG) NEG Urine Glucose (N MG/DL) NEG Assessment/Plan Assessment/Plan 89yo F POD#1 s/p left hip hemiarthroplasty. Patient stable from ortho standpoint. - Pain control - bowel regimen - I/O's - PT - f/u labs - daily prophylactic lovenox - daily dressing changes by RN - f/u with Dr. Lazar, call office to schedule/confirm appointment - care per primary team
--- NOTE | 2016-06-05 09:31 | PN- Att Addend ---
Attending Addendum Attending Brief Note Patient postoperative day 2 left hip repair having minimal pain symptoms General Appearance: Alert, No Acute Distress Skin: Grossly normal HEENT: PEERLA Neck: Supple, No JVD Cardiovascular: Regular Rate, Normal S1, Normal S2, No Murmurs Lungs: Clear to Auscultation, Normal Air Movement Abdomen: Normal Bowel Sounds, Soft, No Tenderness Neurological: Normal Speech, Strength at 5/5 X4 Ext, Cranial Nerves 3-12 NL, Reflexes 2+ Extremities: No Clubbing, No Cyanosis, No Edema Vascular: Normal Pulses Assessment 89-year-old with history of dementia, hypertension presenting with displaced left femoral neck fracture status post mechanical fall. She is currently postoperative day 2 with minimal pain of her left hip. Plan Tylenol for moderate pain Discontinue morphine Avoid delirium Lovenox for DVT prophylaxis, this will be for total 6 weeks Physical therapy evaluation Continue other home meds Current Medications Sig/Leslee Start time Last Medication Dose Route Stop Time Status Admin Acetaminophen 1,000 MG .STK-MED ONE 06/04 2138 DC IV 06/04 2139 Acetaminophen 1,000 MG Q8P PRN 06/03 181 AC 06/05 IV 0842 Docusate Sodium 100 MG DAILY 06/04 1000 AC 06/04 PO 1008 Enoxaparin Sodium 40 MG DAILY 06/04 1000 AC 06/04 SC 1008 Ferrous Sulfate 325 MG DAILY 06/04 1000 AC 06/04 PO 1008 Lisinopril 20 MG DAILY 06/04 1000 AC PO Mirtazapine 7.5 MG AT BEDTIME 06/03 2200 AC 06/04 PO 2059 Morphine Sulfate 2 MG Q6P PRN 06/03 1815 AC 06/04 IV 0522 Senna/Docusate Sodium 1 TAB BID PRN 06/04 0915 AC 06/04 PO 1107 Sertraline HCl 50 MG DAILY 06/04 1000 AC 06/04 PO 1008 Sodium Chloride 1,000 ML .Q10H 06/04 1300 DC 06/04 IV 2353 Sodium Chloride 1,000 ML Q20H 06/03 1815 DC 06/03 IV 1917 Vital Signs Date Time Temp Pulse Resp B/P Pulse O2 O2 Flow FiO2 Ox Delivery Rate 06/05 0647 99.1 94 18 128/75 94 Room Air 06/05 0045 98.6 06/04 2257 100.4 99 18 120/60 94 Room Air 06/04 2142 100.6 06/04 1445 96.8 76 18 128/75 98 06/04 1338 Room Air 06/04 1107 80 90/52
--- NOTE | 2016-06-05 09:39 | Discharge Summary ---
Visit Information Visit Dates Admission Date: 06/03/16 Discharge Date: 06/06/16 Hospital Course Course Attending Physician: ISMA FRYE MD Primary Care Physician: ISMA FRYE MD Hospital Course: 89-year-old lady with a history of dementia, depression, hypertension presented to the emergency room with mechanical fall. Radiology in the ER CAT scan of the head and cervical spine IMPRESSION: 1. There are no acute bleeds or territorial infarcts. 2. 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 3. There are no acute fractures or subluxations in the cervical spine. There are multilevel degenerative changes with facet arthropathy. 4. The bones are diffusely osteopenic. Left hip x-ray IMPRESSION: Acute impacted displaced fracture through the left femoral neck. The patient was risk stratified per RCR index, she was cleared for surgery. An orthopedic consult was obtained, Dr. Lazar took the patient to the operating room and performed a left hip hemiarthroplasty. She returned back to general medicine floor and satisfactory condition. She was placed on prophylactic doses of clindamycin, the next morning she was ambulated with physical therapy, continues DVT prophylaxis was ensured. She was continued on all her other home meds while in the hospital. She will be discharged to short-term rehabilitation. Per ortho 2 weeks of DVT ppx with lovenox, Dr. Lazar will further assess the need for anti-coagulation/ DVT PPX at her OP visit which is within 1 week of d/c. Allergies: Coded Allergies: Penicillins (RASH 05/05/16) Sulfa (Sulfonamide Antibiotics) (RASH 05/05/16) Disposition Summary Disposition Principal Diagnosis: 1. Left hip fracture Additional Diagnosis: 1. HTN 2. Depression Discharge Disposition: SNF Discharge Instructions General Discharge Information Code Status: Full Code Patient's Diet: Heart healthy Patient's Activity: Weight bearing as tolerated Follow-Up Instructions/Appts: Follow-up with your PCP within one week of discharge, follow-up with the orthopedic surgeon within 1 week of discharge Medications at Discharge Discharge Medications: Stop taking the following medications: Cephalexin (Keflex) 250 MG CAPSULE ORAL 4 TIMES A DAY Qty = 24 Continue taking these medications: Sertraline HCl (Sertraline HCl) 50 MG TABLET 1 Tablet ORAL DAILY Qty = 90 Comments: Last Taken:05/07/16 Time:10A, Ferrous Sulfate (Ferrous Sulfate) 325 MG (65 MG IRON) TABLET 1 Tablet ORAL DAILY Qty = 30 Comments: Last Taken:05/07/16 Time:10AM Cholecalciferol (Vitamin D3) (Vitamin D) 1,000 UNIT TABLET 1 Tablet ORAL DAILY Days = 30 Multivitamin (Daily Multiple Vitamin) 1 EACH TABLET 1 Tablet ORAL DAILY Comments: Last Taken05/07/16 Time:10AM Psyllium Husk (Metamucil) 0.52 GRAM CAPSULE 1 Tablet ORAL DAILY Days = 30 Comments: Last Taken:05/07/16 Time:10AM Mirtazapine (Mirtazapine) 7.5 MG TABLET 1 Tablet ORAL Every night Days = 30 Lisinopril (Lisinopril) 20 MG TABLET 1 Tablet ORAL DAILY Days = 30 Start taking the following new medications: Enoxaparin Sodium (Lovenox) 40 MG/0.4 ML SYRINGE 40 Milligram Inject into fatty tissue DAILY Days = 11 No Refills Docusate Sodium (Docusate Sodium) 100 MG CAPSULE 100 Milligram ORAL DAILY as needed for CONSTIPATION Days = 30 No Refills Sennosides/Docusate Sodium (Senna Plus Tablet) 8.6 MG-50 MG TABLET 1 Tablet ORAL TWICE DAILY as needed for CONSTIPATION Days = 30 No Refills Acetaminophen (Tylenol) 325 MG TABLET 2 Tablet ORAL EVERY 8 HOURS NEEDED as needed for PAIN Days = 10 No Refills Copies To: MELVA TINOCO,ISMA
[2016-06-05 14:31] VITALS: BP 100/62
[2016-06-05 22:42] VITALS: BP 110/60
[2016-06-06 06:01] VITALS: BP 160/78
--- NOTE | 2016-06-06 07:01 | PN- Housestaff ---
Subjective Follow-up For: Left hip fracture status post surgery Complaints: no complaints Subjective: Patient resting comfortably in hospital bed, seen and examined. Offers no complaints, states that her pain is well controlled. Review of Systems Constitutional: Reports: see HPI. Objective Last 24 Hrs of Vital Signs/I&O Vital Signs Date Time Temp Pulse Resp B/P Pulse O2 O2 Flow FiO2 Ox Delivery Rate 06/06 0601 97.8 81 18 160/78 94 Room Air 06/05 2242 98.8 85 18 110/60 95 Room Air 06/05 1431 97.6 70 18 100/62 97 06/05 0937 120/60 Intake & Output 06/06 0800 06/06 0000 06/05 1600 Intake Total 917 972 0753 Output Total 200 300 100 Balance 097 158 8752 Intake, IV 120 130 200 Intake, Oral 240 480 980 Number 4 Bowel Movements Output, Urine 200 300 100 Physical Exam General Appearance: Alert, Oriented X3, Cooperative HEENT: Atraumatic, PERRLA, EOMI Cardiovascular: Regular Rate, Normal S1, Normal S2 Lungs: Clear to Auscultation, Normal Air Movement Abdomen: Normal Bowel Sounds, Soft, No Tenderness Neurological: Normal Speech Extremities: left hip in dry sterile dressing Current Medications: Current Medications Sig/Leslee Start time Last Medication Dose Route Stop Time Status Admin Acetaminophen 1,000 MG .STK-MED ONE 06/05 1938 DC IV 06/05 193 Acetaminophen 1,000 MG .STK-MED ONE 06/05 0838 DC IV 06/05 0839 Acetaminophen 1,000 MG Q8P PRN 06/03 1815 AC 06/06 IV 0350 Bisacodyl 10 MG ONCE ONE 06/05 1445 DC 06/05 RI 06/05 1446 1655 Docusate Sodium 100 MG DAILY 06/04 1000 AC 06/05 PO 0937 Enoxaparin Sodium 40 MG DAILY 06/04 1000 AC 06/05 SC 0937 Ferrous Sulfate 325 MG DAILY 06/04 1000 AC 06/05 PO 0937 Lisinopril 20 MG DAILY 06/04 1000 AC 06/05 PO 0937 Mirtazapine 7.5 MG AT BEDTIME 06/03 2200 AC 06/05 PO 2049 Morphine Sulfate 2 MG ONCE ONE 06/05 1145 DC 06/05 IV 06/05 1146 1155 Morphine Sulfate 2 MG Q6P PRN 06/03 1815 DC 06/04 IV 0522 Patient Medication 1 ED .STK-MED ONE 06/05 1337 DC Teaching ED 06/05 1338 Senna/Docusate Sodium 1 TAB BID PRN 06/04 0915 AC 06/05 PO 0937 Sertraline HCl 50 MG DAILY 06/04 1000 AC 06/05 PO 0937 Sodium Chloride 1,000 ML .Q10H 06/04 1300 DC 06/04 IV 2353 Assessment/Plan Assessment: Assessment- 1. Left hip fracture status post repair, post op day 2 2. History of hypertension 3. Depression Plan- Continue by mouth intake Postsurgical care per surgery Continue all other meds She did ambulate with PT yesterday Had BM yesterday Anticoagulation per surgery, SC lovenox for [address] Lazar will decide as an outpatient if she needs more when she sees him within a week from discharge Problem List: 1. Hyponatremia 2. Dementia 3. HTN (hypertension) 4. Hip fracture, left Pain Ratin Pain Location: left hip Pain Goal: Pain 4 or less Pain Plan: per emr Tomorrow's Labs & Rationales: none
[2016-06-06] MEDS ORDERED: TRAMADOL HCL50 M1 PO (09:02)
--- NOTE | 2016-06-06 09:24 | PN- Att Addend ---
Attending Addendum Attending Brief Note Patient postoperative day 3 left hip repair having minimal pain symptoms General Appearance: Alert, No Acute Distress Skin: Grossly normal HEENT: PEERLA Neck: Supple, No JVD Cardiovascular: Regular Rate, Normal S1, Normal S2, No Murmurs Lungs: Clear to Auscultation, Normal Air Movement Abdomen: Normal Bowel Sounds, Soft, No Tenderness Neurological: Normal Speech, Strength at 5/5 X4 Ext, Cranial Nerves 3-12 NL, Reflexes 2+ Extremities: No Clubbing, No Cyanosis, No Edema Vascular: Normal Pulses Assessment 89-year-old with history of dementia, hypertension presenting with displaced left femoral neck fracture status post mechanical fall. She is currently postoperative day 3 with minimal pain of her left hip. Plan Tylenol for moderate pain Tramadol for severe pain Avoid delirium Lovenox for DVT prophylaxis Physical therapy evaluation Continue other home meds Current Medications Sig/Leslee Start time Last Medication Dose Route Stop Time Status Admin Acetaminophen 1,000 MG .STK-MED ONE 06/05 1938 DC IV 06/05 193 Acetaminophen 1,000 MG Q8P PRN 06/03 1815 AC 06/06 IV 0350 Bisacodyl 10 MG ONCE ONE 06/05 1445 DC 06/05 UT 06/05 1446 1655 Docusate Sodium 100 MG DAILY 06/04 1000 AC 06/06 PO 0858 Enoxaparin Sodium 40 MG DAILY 06/04 1000 AC 06/06 SC 0858 Ferrous Sulfate 325 MG DAILY 06/04 1000 AC 06/06 PO 0858 Lisinopril 20 MG DAILY 06/04 1000 AC 06/06 PO 0901 Mirtazapine 7.5 MG AT BEDTIME 06/03 2200 AC 06/05 PO 2049 Morphine Sulfate 2 MG ONCE ONE 06/05 1145 DC 06/05 IV 06/05 1146 1155 Morphine Sulfate 2 MG Q6P PRN 06/03 1815 DC 06/04 IV 0522 Patient Medication 1 ED .STK-MED ONE 06/05 1337 DC Teaching ED 06/05 1338 Senna/Docusate Sodium 1 TAB BID PRN 06/04 0915 AC 06/06 PO 0858 Sertraline HCl 50 MG DAILY 06/04 1000 AC 06/06 PO 0858 Vital Signs Date Time Temp Pulse Resp B/P Pulse O2 O2 Flow FiO2 Ox Delivery Rate 06/06 09 68 142/76 06/06 0601 97.8 81 18 160/78 94 Room Air 06/05 2242 98.8 85 18 110/60 95 Room Air 06/05 1431 97.6 70 18 100/62 97 06/05 0937 120/60
[2016-06-06 10:39] VITALS: BP 142/76
--- NOTE | 2016-06-06 11:32 | PN- Orthopedic ---
Subjective Subjective: pod#3 s/p left hip taylor resting comfortably this am no major complaints Objective Vital Signs and I&Os Vital Signs Date Time Temp Pulse Resp B/P Pulse O2 O2 Flow FiO2 Ox Delivery Rate 02/ 1039 97.8 68 18 142/76 02/ 0901 68 142/76 02/ 0601 97.8 81 18 160/78 94 Room Air / 2242 98.8 85 18 110/60 95 Room Air 06/05 1431 97.6 70 18 100/62 97 Intake & Output 02/ 1600 02/ 0800 02/ 0000 02/ 1600 / 0800 / 0000 Intake Total 364 332 5140 800 Output Total 350 300 100 Balance 10 310 1080 800 Intake, IV 120 130 200 800 Intake, Oral 240 480 980 Number 4 Bowel Movements Output, Urine 350 300 100 Physical Exam: cv: rrr lungs: clear abd: soft, +bs ext: left hip wound c/d/i no calf tenderness bilat distal cms intact Assessment/Plan Assessment/Plan ortho stable plan cont oob with pt wbat left le lovenox for dvt prophylaxis will need str f/u dr lion 2 weeks
== END 2016-06-06 13:05 | DRG 470 ==
LOC: ENRESERVDT → ENRESERVTM → ERH 08:09 → ENPENDDIS 10:49 → ERHI 10:49 → 2NA 10:49
PROVIDERS: Physician Assistant; Student in an Organized Health Care Education/Training Program; ADMIT Internal Medicine
PROC: 0SRS01A Replacement of Left Hip Joint, Femoral Surface with Metal Synthetic Substitute, Uncemented, Open Approach (ICD-10-PCS; principal; 2016-06-03)
DX: S72.002A Fracture of unspecified part of neck of left femur, initial encounter for closed fracture (principal); F03.90 Unspecified dementia, unspecified severity, without behavioral disturbance, psychotic disturbance, mood disturbance, and anxiety; E87.1 Hypo-osmolality and hyponatremia; I10 Essential (primary) hypertension; Z85.3 Personal history of malignant neoplasm of breast; W01.0XXA Fall on same level from slipping, tripping and stumbling without subsequent striking against object, initial encounter; Y92.009 Unspecified place in unspecified non-institutional (private) residence as the place of occurrence of the external cause; Z91.81 History of falling; F32.9 Major depressive disorder, single episode, unspecified
CPT/HCPCS: 2NASP; 73501; 73502-LT; 81003; 82436; 87086; 88305; 93005; 93010; 96374; 97110-GO; 97112-GO; 97116-GO; 97161-GP; 97530-GO; C1713; J0131; J1650

== ENCOUNTER 2016-08-23 13:22 | Inpatient (IN) | payer OTHER, MEDICARE ==
[~2016-08-23] VITALS: Ht 172.7 cm; Wt 65.8 kg
[~2016-08-23 13:22] MED LIST changes: +DOCUSATE SODIU100 M3 PO; +LISINOPRIL20 M1 PO; +LOVENOX40 MG/0.1 SC; +MIRTAZAPINE7.5 M1 PO; +SENNA PLUS TAB1 EACH PO; +TRAMADOL HCL50 M1 PO; +TYLENOL325 M1 PO
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
--- NOTE | 2016-08-23 14:25 | NUR ---
PROVIDER AT BEDSIDE FOR EVAL.
--- NOTE | 2016-08-23 15:15 | CT SCAN REPORT ---
EXAMINATION: CT OF THE HEAD AND CERVICAL SPINE WITHOUT CONTRAST CLINICAL INFORMATION: Rule out fracture. Pain status post fall COMPARISON: 06/03/2016 TECHNIQUE: Contiguous axial imaging was performed from the vertex to the thoracic inlet, through the head and cervical spine, without intravenous administration of contrast. Coronal and sagittal reformatted images through the cervical spine were obtained on the technologists workstation. FINDINGS: Head: No acute intracranial hemorrhage. No extra-axial fluid collection. Morales-white matter differentiation is preserved without evidence of acute large vessel territory ischemia. Symmetric, concordant ventricles and sulci; no ventriculomegaly. No mass effect or midline shift. There is mild patchy periventricular and subcortical white matter, likely attributable to age-appropriate chronic microvascular ischemic white matter changes. There are postoperative changes of both globes. No retro-orbital abnormality. The osseous structures and soft tissues are normal. Hyperostosis frontalis. No acute sinusitis. Cervical spine: Again seen is an exaggerated cervical lordosis, similar to the prior study. There is diffusely decreased mineralization consistent with osteopenia. This likely a hemangioma at T1. There are severe degenerative changes of the C1-C2 articulation anteriorly. Multilevel facet arthropathy is again noted, left greater than right. Again seen is a sclerotic focus in the right T1 facet. Normal pre-vertebral soft tissues. No fracture seen. Disk heights are maintained. The thyroid is heterogeneous but no focal nodule is seen right apical pleural parenchymal scarring is present, similar to the prior study. Moderate left pleural effusion is new from the prior exam. No cervical lymphadenopathy, mass, or fluid collection. IMPRESSION: No acute intracranial pathology. No acute osseous abnormality of the cervical spine. Similar appearance of degenerative changes of the cervical spine with exaggerated cervical lordosis. New moderate left pleural effusion.
--- NOTE | 2016-08-23 15:27 | CT SCAN REPORT ---
EXAMINATION: CT THORACIC SPINE WITHOUT IV CONTRAST CT LUMBAR SPINE WITHOUT IV CONTRAST CLINICAL INFORMATION: 89-year-old female with pain after fall. COMPARISON: Chest CT from 05/04/2016. TECHNIQUE: Noncontrast multidetector CT imaging examination of the thoracic and lumbar spine was performed using 0.625 mm collimation. The axial images are presented at 0.625 mm, 1.25 mm and 2.5 mm slice thickness. Coronal and sagittal reformatted images were generated and reviewed. DLP was 949 mGy-cm. FINDINGS: THORACIC SPINE: Bone density appears diffusely decreased. There is multilevel degenerative disc space narrowing and osteophyte formation of the thoracic spine. There is approximately 70 degrees of chronic thoracic hyperkyphosis of the degenerated spine as measured from T2 to T12. No acute fractures or subluxations. There is a hemangioma of the T2 vertebral body. The central spinal canal and neural foramina appear widely patent. There is an old, healed fracture of the posterior right 11th rib adjacent to the costovertebral junction. The extraspinal findings include cardiomegaly, atherosclerotic calcification of coronary arteries and thoracic aorta without aortic aneurysm. No pericardial effusion. Stable 0.7 cm noncalcified, solid nodule of the right upper lobe abuts the adjacent major fissure. Stable 0.3 cm nodule of the left upper lobe along the major fissure is likely a lymph node. Moderate left pleural effusion and compressive atelectasis of the left lower lobe. LUMBAR SPINE: The lumbar vertebra have normal alignment. The L1 vertebral body has well preserved height. There is an acute L2 vertebral body compression fracture with approximately 60% height loss, centrally, and 40% height loss, anteriorly. There is mild retropulsion of the posterosuperior vertebral body wall without significant canal stenosis at this level. The L3 vertebral body height is maintained. There is a concave compression fracture of the L4 superior endplate resulting in approximately 30% central height loss. The L5 vertebra and sacral vertebra are intact. At L4-L5, there is vacuum disc degeneration and mild facet arthropathy. The extraspinal findings include a calcified abdominal aorta with infrarenal abdominal aorta measuring up to 2.9 cm maximum transverse diameter and 2.5 cm AP diameter. No para-aortic lymphadenopathy or hematoma. There are small calculi of the gallbladder. Kidneys are notable for a small, 2 mm calculus in the left lower pole. No hydroureteronephrosis. IMPRESSION: 1. Acute, severe compression fracture of the L2 vertebral body with mild retropulsion of the posterior vertebral body wall. No significant canal stenosis or foraminal stenosis at this level. 2. Acute, concave compression fracture of the superior endplate of the L4 vertebral body. 3. No acute fracture or malalignment within the degenerated thoracic spine. 4. Moderate left pleural effusion and compressive atelectasis of the left lower lobe. Recommend correlation with findings on chest radiograph. 5. Atherosclerotic disease of the coronary arteries and cardiomegaly without acute pulmonary edema. 6. The 0.7 cm nodule of the right upper lobe along the major fissure remains stable in size compared to 05/04/2016. Please refer to the chest CT report of 05/04/2016.
--- NOTE | 2016-08-23 15:28 | NUR ---
URINE TRIO SENT BY THIS [facility].
--- NOTE | 2016-08-23 15:46 | NUR ---
LABS DRAWN AND SENT BY THIS [facility],S[facility]
[2016-08-23 15:51] LABS: ABSOLUTE BASOPHIL COUNT 0.1 /CUMM (0.0-0.2); ABSOLUTE EOSINOPHIL COUNT 0.2 /CUMM (0.0-0.7); ABSOLUTE GRANULOCYTE CT 6.5 /CUMM (1.4-6.5); ABSOLUTE MONOCYTE COUNT 0.7 /CUMM (0.10-0.60); BASOPHIL % 1.8 % (0.0-2.0); EOSINOPHIL % 1.8 % (0-5); GRANULOCYTE % 76.5 % (42.2-75.2); HEMATOCRIT 38.6 % (37-47); MEAN CORPUSCULAR HGB 26.7 PG (27.0-31.0); MEAN CORPUSCULAR HGB CONC 32.1 G/DL (33.0-37.0); MEAN CORPUSCULAR VOLUME 83.2 FL (81.0-99.0); MEAN PLATELET VOLUME 8.5 FL (7.4-10.4); PLATELET COUNT 314 /CUMM (130-400); RBC DISTRIBUTION WIDTH 20.3 % (11.5-14.5); RED BLOOD CELL CT 4.63 /CUMM (4.20-5.40); WHITE BLOOD CELL COUNT 8.5 /CUMM (4.8-10.8)
--- NOTE | 2016-08-23 16:01 | RADIOLOGY REPORT ---
EXAMINATION: XR PORTABLE CHEST CLINICAL INFORMATION: Status post fall COMPARISON: CT chest 05/04/2016 TECHNIQUE: Portable AP view of the chest was obtained. FINDINGS: There is marked enlargement of the cardiac silhouette. There is complete obscuration of the left hemidiaphragm. A large left basilar opacity with associated small to moderate effusion is present. The left upper lobe and right lung are clear. There is diffuse prominence of the interstitial markings bilaterally. There is no definite right pleural effusion. The visualized osseous structures are grossly unremarkable. IMPRESSION: 1. Left lower lobe pneumonia with small to moderate parapneumonic effusion. 2. Moderate cardiomegaly with likely mild to moderate superimposed congestive heart failure.
[2016-08-23] MEDS ORDERED: LISINOPRIL10 M1 PO (16:47)
[2016-08-23] MEDS ORDERED: GENTLE LAXATIVE5 M1 PO (16:49)
[2016-08-23] MEDS ORDERED: PAIN RELIEF325 MG PO (16:49)
[2016-08-23] MEDS ORDERED: ACETAMINOPHEN500 M4 PO (16:50)
--- NOTE | 2016-08-23 16:53 | NUR ---
PT VOIDED ON BEDPAN
--- NOTE | 2016-08-23 17:23 | NUR ---
PT MEDICATED PER [facility].
--- NOTE | 2016-08-23 17:33 | NUR ---
DINNER TRAY ORDERED WITH [facility]
--- NOTE | 2016-08-23 19:59 | NUR ---
PT PLACED ON BEDPAN.
--- NOTE | 2016-08-23 20:16 | NUR ---
ASSISTED PT WITH BEDPAN
--- NOTE | 2016-08-23 20:16 | NUR ---
REPORT GIVEN TO LYDIA HENSLEY ON TELEMETRY.
--- NOTE | 2016-08-23 20:30 | History & Physical ---
ADITYA AYALA MD 08/23/162028: General Information and HPI MD Statement: I have seen and personally examined RICARDO SIU and documented this H&P. The patient is a 89 year old F who presented with a patient stated chief complaint of []. Source of Information: patient, family, old records Exam Limitations: dementia History of Present Illness: Patient is an 89-year-old female, with past medical history of hypertension, dementia, UTI, anemia BIBA from assisted living facility after fall. According to them she is using walker and fell against a bookcase. Patient was consistently saying that she fall on sidewalk in the [place] due to tripping. She fell on right side and hit her head.According to family patient had URI symptoms along with cough and expectoration around 3 weeks ago and she was treated conservatively. She is dementic.She is poor historian. She also complaining of pain in her back 6 out of 10 with no radiation. Denies-chest pain, palpitation, loss of consciousness, incontinence of the urine and stool, seizures, biting of the tongue, diaphoresis, swelling, dysuria. Personal history-denies for smoking, alcohol. Allergies/Medications Allergies: Coded Allergies: Penicillins (RASH 05/05/16) Sulfa (Sulfonamide Antibiotics) (RASH 05/05/16) Home Med list Acetaminophen (Pain Relief) 325 MG TABLET 2 TAB PO Q4H PRN PAIN/TEMP ( Reported) Acetaminophen 500 MG TABLET 1 TAB PO BID PRN PAIN (Reported) Bisacodyl (Gentle Laxative) 5 MG TABLET 2 TAB PO DAILY PRN CONSTIPATION ( Reported) Cholecalciferol (Vitamin D3) (Vitamin D) 1,000 UNIT TABLET 1 TAB PO DAILY SUPPLEMENT (Reported) Docusate Sodium 100 MG CAPSULE 100 MG PO DAILY PRN CONSTIPATION Ferrous Sulfate 325 MG (65 MG IRON) TABLET 1 TAB PO DAILY SUPPLEMENT ( Reported) Lisinopril 10 MG TABLET 1 TAB PO DAILY BP (Reported) Mirtazapine 7.5 MG TABLET 1 TAB PO QPM INSOMNIA (Reported) Multivitamin (Daily Multiple Vitamin) 1 EACH TABLET 1 TAB PO DAILY SUPPLEMENT (Reported) Sennosides/Docusate Sodium (Senna Plus Tablet) 8.6 MG-50 MG TABLET 1 TAB PO BID PRN CONSTIPATION Sertraline HCl 50 MG TABLET 1 TAB PO DAILY ANXIETY (Reported) Past History Travel History Traveled to [place] past 21 day No Medical History Neurological: dementia EENT: NONE Cardiovascular: hypertension Respiratory: NONE Gastrointestinal: NONE Hepatic: NONE Renal: NONE Musculoskeletal: NONE Psychiatric: NONE Endocrine: NONE Blood Disorders: anemia Cancer(s): BREAST CA L PATIENT ACCOUNTING REPRESENTATIVE/Reproductive: NONE History of MRSA: No History of VRE: No History of CDIFF: No Surgical History Surgical History: non-contributory Past Family/Social History Psychosocial History Services at Home: None Review of Systems Review of Systems Constitutional: Denies: no symptoms, see HPI, chills, diaphoresis, fever, malaise, weakness, unexplained weight loss. Cardiovascular: Denies: chest pain, edema, orthopena, palpitations. Respiratory: Denies: cough, hemoptysis, orthopnea, short of breath, sputum production, stridor, wheezing. GI: Denies: abdominal pain, bloating, constipation, diarrhea, distention, bowel incontinence, nausea, vomiting. Genitourinary: Denies: no symptoms. Musculoskeletal: Reports: back pain. Denies: joint pain, joint swelling, muscle pain, muscle stiffness, neck pain. Neurological/Psychological: Reports: dementia. Denies: no symptoms, anxiety, cognitive dysfunction, confusion, depressed. Exam & Diagnostic Data Last 24 Hrs of Vital Signs/I&O Vital Signs Date Time Temp Pulse Resp B/P B/P Pulse O2 O2 Flow FiO2 Mean Ox Delivery Rate 08/23 2130 Room Air 08/23 2050 98.2 76 18 142/78 93 Room Air 08/23 2015 97.1 76 18 168/76 95 Room Air 08/23 1856 97.0 78 17 179/73 95 Room Air 08/23 1848 Room Air Room Air 08/23 1600 96.8 78 17 128/62 96 Room Air 08/23 1329 96.6 75 18 133/63 94 Room Air Intake & Output 08/23 1600 08/23 0800 08/23 0000 Intake Total Output Total Balance Patient 81.647 kg Weight Weight Reported by Patient Measurement Method Physical Exam General Appearance Alert, Oriented X3, Cooperative, No Acute Distress Skin small abration of skin on back of chest Sepsis Skin Exam (color): Normal for Ethnicity HEENT Atraumatic, PERRLA, EOMI Neck Supple, No JVD Cardiovascular Normal S1, Normal S2, No Murmurs Lungs Clear to Auscultation, Normal Air Movement Abdomen Soft, No Tenderness Neurological Normal Speech, Strength at 5/5 X4 Ext, Normal Tone, Sensation Intact Extremities No Clubbing, No Cyanosis, mild edema Vascular Normal Pulses, Pulses Symmetrical Last 24 Hrs of Labs/Don: Laboratory Tests 08/23/16 2205: Troponin I Pending 08/23/16 1544: Anion Gap 9, Estimated GFR > 60, BUN/Creatinine Ratio 26.0 H, Glucose 110 H, Calcium 8.2 L, Total Bilirubin 0.6, AST 21, ALT 23, Alkaline Phosphatase 95, Troponin I 0.02, Iea-K-Kbxoinsryoe Pept 587 H, Total Protein 7.1, Albumin 2.7 L, Globulin 4.4 H, Albumin/Globulin Ratio 0.6 L, CBC w Diff NO MAN DIFF REQ, RBC 4.63, MCV 83.2, MCH 26.7 L, RDW 20.3 H, MPV 8.5, Gran % 76.5 H, Lymphocytes % 12.0 L, Monocytes % 7.9, Eosinophils % 1.8, Basophils % 1.8, Absolute Granulocytes 6.5, Absolute Lymphocytes 1.0 L, Absolute Monocytes 0.7 H, Absolute Eosinophils 0.2, Absolute Basophils 0.1, PUBS MCHC 32.1 L 08/23/16 1523: Urinalysis LIGHT H, Urine Color YEL, Urine Clarity CLEAR, Urine pH 6.5, Ur Specific [place] 1.020, Urine Protein TRACE H, Urine Ketones NEG, Urine Nitrite NEG, Urine Bilirubin NEG, Urine Urobilinogen 0.2, Ur Leukocyte Esterase NEG, Ur Microscopic SEDIMENT EXAMINED, Urine RBC RARE, Urine WBC RARE, Ur Epithelial Cells RARE, Urine Bacteria FEW H, Urine Mucus FEW, Urine Hemoglobin NEG, Urine Glucose NEG Microbiology 08/23 2041 LOWER RESP: Respiratory Culture - ORD 08/23 2041 LOWER RESP: Gram Stain - ORD 08/23 170 BLOOD: Blood Culture - RECD 08/23 1699 BLOOD: Blood Culture - RECD 08/23 1523 URINE ROUT: Urine Culture - RECD Diagnostic Data EKG Results NSR, QS - II,III, aVF, inverted T wave in V2 CXR Results 1. Left lower lobe pneumonia with small to moderate parapneumonic effusion. 2. Moderate cardiomegaly with likely mild to moderate superimposed congestive heart failure. Assessment/Plan Assessment: Patient is an 89-year-old female, with past medical history of hypertension, dementia, UTI, anemia , breast cancer (left side) BIBA from assisted living facility after fall. According to them she is using walker and fell against a bookcase. Patient was consistently saying that she fall on sidewalk in the [place] due to tripping. She fell on right side and hit her head.According to family patient had URI symptoms along with cough and expectoration around 3 weeks ago and she was treated conservatively. She is dementic.She is poor historian Vital signs at the time of admission-temperature 96.6, pulse 75, respiratory rate 18, blood pressure 133/63, SPO2 94% on room air CT Scan - 1. Acute, severe compression fracture of the L2 vertebral body with mild retropulsion of the posterior vertebral body wall. No significant canal stenosis or foraminal stenosis at this level. 2. Acute, concave compression fracture of the superior endplate of the L4 vertebral body. 3. No acute fracture or malalignment within the degenerated thoracic spine. 4. Moderate left pleural effusion and compressive atelectasis of the left lower lobe. 5. Atherosclerotic disease of the coronary arteries and cardiomegaly without acute pulmonary edema. 6. The 0.7 cm nodule of the right upper lobe along the major fissure remains stable in size compared to 05/04/2016. CXR -Chest x-ray revealed left lower lobe pneumonia with more small to moderate parapneumonic effusion, moderate cardiomegaly with likely mild to moderate superimposed congestive heart failure. Plan - L2/L4 compression fracture * We will place a consult for orthopedics and follow the recommendation * PT/OT * Pain medication according to her pain scale Left lower lobe pneumonia, mild to moderate parapneumonic effusion * We will start her on antibiotic including ceftriaxone/azithromycin CHF * We will place cardiology consult and follow the recommendation * Strict intake output charting * Daily weight measurement Hypertension * We will continue home medication including lisinopril Depression / dementia * Continue mirtazapine and Zoloft Diet -heart healthy diet CODE STATUS-DNR (As per record) DVT prophylaxis-ALP S As Ranked By This Provider Problem List: 1. Lumbar compression fracture Qualifiers Encounter type: initial encounter Fracture type: closed Qualified Code: S32.000A - Wedge compression fracture of unspecified lumbar vertebra, initial encounter for closed fracture 2. Pneumonia Qualifiers Pneumonia type: due to unspecified organism Laterality: unspecified laterality Lung location: lower lobe of lung Qualified Code: J18.1 - Lobar pneumonia, unspecified organism 3. HTN (hypertension) 4. Dementia Core Measures/Miscellaneous Acute Coronary Syndrome ACS Diagnosis: No Cerebrovascular Accident CVA/TIA Diagnosis: No Congestive Heart Failure CHF Diagnosis: No Venous Thromboembolism VTE Risk Factors: Age > 40 [facility] prophylaxis d/t: No contraindications No VTE Pharm Prophylaxis d/t: No contraindications VTE Diagnosis: No VTE Type: NONE VTE Confirmed by (Test): NONE Severe Sepsis Severe Sepsis Present: No Septic Shock Septic Shock Present: No Miscellaneous Documentation Attending Case Discussed With: MEAGHAN TINOCO,NATASHA Mark Primary Care Physician: ISMA FRYE MD Patient sees these Specialists none Level of Patient Care: Telemetry JOB BERRY 08/23/162033: Resident Review Statement Resident Statement: examined this patient, discussed with editing intern, agreed with editing intern, discussed with family, reviewed EMR data (avail), discussed with nursing , discussed with case mgmt, reviewed images, amended to note Other Findings: Ms. Siu is an 89-year-old female with a past medical history of dementia, anxiety, hypertension, anemia presented to the ER after she had a and unwitnessed fall at the nursing facility prior to arrival. Of note patient was recently in the hospital for an acute displaced fracture of the left femoral neck and underwent left hip hemiarthroplasty on in May. Of note patient is a poor historian and history is obtained by calling her son Rod Siu who also has a very limited history since patient presents from an assisted living. According to Mr. Rod Siu he received a call from the facility around known saying that the patient had an unwitnessed fall. Patient denies any chest pain, palpitations, loss of consciousness, any seizure-like activities, tongue biting, nausea, vomiting, abdominal pain, fever, cough, decreased by mouth intake. She does however state that she fell down on her right side and may have hit her head. Shoe does endorse non-radiating lower back pain that she grades as a 6/10 in intensity. Speaking to the son revealed that the patient did have an upper respiratory infection about 3 weeks ago where she was coughing and bringing up purulent productive cough and was treated conservatively at that facility. Vitals at the time of admission blood pressure 133/63, respiratory rate 18, pulse 75, afebrile saturating 94% on room air. On physical exam, she is alert, oriented to person but not to time or place. HEENT revealed PERRLA, dry mucous membranes. Examination of the neck did not reveal elevated JVD, or lymphadenopathy. Vascular exam pertinent for normal S1, S2, no murmurs rubs or gallops appreciated. Auscultation of the chest revealed decreased breath sounds bilaterally. Abdominal exam was benign with abdomen soft, nontender, nondistended with normal bowel sounds in all 4 quadrants. Examination of the lower extremity revealed trace bilateral edema. Of note there is tenderness to palpation in the home for vertebral region together with some mild amount of paraspinal tenderness as well as an abrasion. Is pertinent for a normal white blood cell count of 8500, H&H of 12.4/38.6, MCV of 83.2, platelet count of 314,000. Chemistries pertinent for sodium of 133, potassium of 4.0, bicarbonate of 27, anion gap of 9, BUN 13 and creatinine 0.5 with serum glucose elevated to 110. LFTs unremarkable with an AST/ALT of 21/23, alkaline phosphatase of 95, troponin 0.02, proBNP of 587. UA revealed light trace amount of proteinuria, and few bacteria. Chest x-ray revealed left lower lobe pneumonia with more small to moderate parapneumonic effusion, moderate cardiomegaly with likely mild to moderate superimposed congestive heart failure. EKG revealed NSR, HR: 75, poor R wave progression, no ST-T changes, q waves in inferior leads with Twave inversion in V2. Head CT revealed no acute intracranial pathology, osseous abnormality of the cervical spine does show new moderate left pleural effusion CT of thoracic and lumbar spine showed acute severe compression fracture of the L2 vertebral body with mild retropulsion of the posterior vertebral body wall, no significant stenosis, acute concave compression fracture of the superior endplate of the L4 with a pre-, no acute fracture or malalignment within the degenerated thoracic spine. Moderate amount of left pleural effusion and compressive atelectasis of the left lower lobe. There is atherosclerotic disease of the coronary arteries and cardiomegaly without acute pulmonary edema as well as a 0.7 cm nodule of the right upper lobe along the major fissure which remain stable in size. Last echocardiogram done in 2009 revealed an EF of 65-70%, no regional wall motion abnormalities with stage I diastolic dysfunction. ER she received vancomycin IV 1 and ceftazidime. Assessment and Plan Admit to Telemetry. # Unwitnessed fall Unsure whether it is mechanical or neurocardiogenic in origin Rule out ACS with troponins and EKG and 10 PM and 3 AM. Echocardiogram in a.m. to rule out any valvular abnormalities including stenosis. Cardiology consultation a.m. Maintain on telemetry to rule out any cardiac arrhythmias Check orthostatic vitals as patient may have been dehydrated Maintain on fall precautions PT OT eval in a.m. Continue on vitamin D3 supplements as it is known to prevent fractures. #Acute compression fracture of L2 vertebral body as well as of the L4 vertebral body No signs and symptoms suggestive of saddle anesthesia suggestive of spinal cord compression at this point Conservative management with high BP medications for now Orthopedic consult in a.m. possibly for brace placement PT OT eval in a.m. #? PNA Impression treat with active pneumonia with ceftriaxone and azithromycin as chest radiograph suggests consolidation, however patient is afebrile does not have leukocytosis and is not and hypoxic respiratory failure Consider discontinuing IV antibiotics she continues to remain afebrile. #History of depression and anxiety Continue on Zoloft 50 mg daily and mirtazapine 7. 5. grams at bedtime. #Hypertension Currently stable Continue lisinopril 10 mg daily -DVT prophylaxis Heparin 5000 international units 3 times a day subcutaneous Diet Heart healthy CODE STATUS DNR/DNI
[2016-08-23 20:51] VITALS: BP 142/78
[2016-08-24 03:54] LABS: ABSOLUTE BASOPHIL COUNT 0 /CUMM (0.0-0.2); ABSOLUTE EOSINOPHIL COUNT 0.2 /CUMM (0.0-0.7); ABSOLUTE GRANULOCYTE CT 4.8 /CUMM (1.4-6.5); ABSOLUTE LYMPH COUNT 1.1 /CUMM (1.2-3.4); ABSOLUTE MONOCYTE COUNT 0.9 /CUMM (0.10-0.60); BASOPHIL % 0.1 % (0.0-2.0); EOSINOPHIL % 3.3 % (0-5); GRANULOCYTE % 67.9 % (42.2-75.2); HEMATOCRIT 37.5 % (37-47); MEAN CORPUSCULAR HGB 26.7 PG (27.0-31.0); MEAN CORPUSCULAR HGB CONC 32.3 G/DL (33.0-37.0); MEAN CORPUSCULAR VOLUME 82.8 FL (81.0-99.0); MEAN PLATELET VOLUME 9.1 FL (7.4-10.4); PLATELET COUNT 309 /CUMM (130-400); RED BLOOD CELL CT 4.53 /CUMM (4.20-5.40)
[2016-08-24 08:06] VITALS: BP 122/66
--- NOTE | 2016-08-24 08:06 | PN- Att Addend ---
Attending Addendum Attending Brief Note Attending note. Hypertension dementia currently a resident of [facility] because she had a fall. Patient poor historian. Complains of back pain Question of a mechanical fall In the ER she was evaluated is followed was also to have a pneumonia. Patient denies any pain in the back or any of for leg swelling or any abdominal pain. No shortness of breath no fever no chills. Current Medications Sig/Leslee Start time Last Medication Dose Route Stop Time Status Admin Acetaminophen 650 MG Q4P PRN 08/23 2199 AC PO Acetaminophen 1,000 MG Q6P PRN 08/23 220 AC N/A 1 UNIT IV Azithromycin 500 MG DAILY 08/24 1000 AC Sodium Chloride 250 ML IV Bisacodyl 10 MG DAILY 08/23 2199 AC PO Ceftazidime 0 .STK-MED ONE 08/23 170 DC .ROUTE Ceftazidime 1,000 MG ONCE ONE 08/23 1645 DC 08/23 IV 08/23 1646 1715 Ceftriaxone Sodium 1,000 MG DAILY 08/24 1000 AC IV Cholecalciferol 1,000 IU DAILY 08/24 1000 AC PO Docusate Sodium 100 MG DAILY PRN 08/23 2200 AC PO Ferrous Sulfate 325 MG DAILY 08/24 1000 AC PO Heparin Sodium 5,000 UNIT Q8 08/23 2199 AC 08/24 (Porcine) SC 0616 Lisinopril 10 MG DAILY 08/24 1000 AC PO Mirtazapine 7.5 MG AT BEDTIME 08/23 2200 AC 08/24 PO 0006 Morphine Sulfate 1 MG Q8P PRN 08/23 2199 AC IV Multivitamins 1 TAB DAILY 08/24 1000 AC Therapeutic PO Patient Medication 1 UNIT ONE NR 08/23 2045 DC Teaching ED 08/23 2100 Senna/Docusate Sodium 1 TAB BID PRN 08/23 220 AC PO Sertraline HCl 50 MG DAILY 08/24 1000 AC PO Sodium Chloride 1,000 ML Q13H 08/23 2215 CAN IV 08/24 1114 Vancomycin HCl 0 .STK-MED ONE 08/23 1704 DC .ROUTE Vancomycin HCl 1,000 MG ONCE ONE 08/23 1645 DC 08/23 Sodium Chloride 250 ML IV 08/23 1744 1723 Vital Signs Date Time Temp Pulse Resp B/P B/P Pulse O2 O2 Flow FiO2 Mean Ox Delivery Rate 04/22 2131 Room Air 08/23 2050 98.2 76 18 142/78 93 Room Air 08/23 2014 97.1 76 18 168/76 95 Room Air 08/23 1856 97.0 78 17 179/73 95 Room Air 08/23 1848 Room Air Room Air 08/23 1600 96.8 78 17 128/62 96 Room Air 08/23 1329 96.6 75 18 133/63 94 Room Air Intake & Output 08/24 0800 08/24 0000 08/23 1600 Intake Total 400 220 Output Total 375 Balance 25 220 Intake, IV Intake, Oral 400 220 Number 1 Bowel Movements Output, Urine 375 Patient 145 lb 180 lb Weight Weight Estimated Reported by Patient Measurement Method On examination On examination patient awake alert but confused. Skin she's got small abrasion the back, skin is warm and dry. Neck is supple JVD is not raised no carotid bruit. S1-S2 is normal, 2 x 6 systolic murmur over the left sternal border. Lungs air entry diminished at the left base. With some crackles heard in the left base Abdomen is soft nontender bowel sounds are present Uterus examination cranial nerves are normal and she will to move her upper and lower extremities normally She's is no tenderness in the lower lumbar region. Laboratory Tests 08/24 08/24 08/23 0315 0315 2205 Chemistry Sodium (137 - 145 mmol/L) 133 L Potassium (3.5 - 5.1 mmol/L) 3.9 Chloride (98 - 107 mmol/L) 99 Carbon Dioxide (22 - 30 mmol/L) 27 Anion Gap (5 - 16) 7 BUN (7 - 17 mg/dL) 10 Creatinine (0.5 - 1.0 mg/dL) 0.5 Estimated GFR (>60 ml/min) > 60 BUN/Creatinine Ratio (7 - 25 %) 20.0 Troponin I (< 0.11 ng/ml) 0.02 0.02 Hematology CBC w Diff NO MAN DIFF REQ WBC (4.8 - 10.8 /CUMM) 7.0 RBC (4.20 - 5.40 /CUMM) 4.53 Hgb (12.0 - 16.0 G/DL) 12.1 Hct (37 - 47 %) 37.5 MCV (81.0 - 99.0 FL) 82.8 MCH (27.0 - 31.0 PG) 26.7 L RDW (11.5 - 14.5 %) 20.0 H Plt Count (130 - 400 /CUMM) 309 MPV (7.4 - 10.4 FL) 9.1 Gran % (42.2 - 75.2 %) 67.9 Lymphocytes % (20.5 - 51.1 %) 16.0 L Monocytes % (1.7 - 9.3 %) 12.7 H Eosinophils % (0 - 5 %) 3.3 Basophils % (0.0 - 2.0 %) 0.1 Absolute Granulocytes (1.4 - 6.5 /CUMM) 4.8 Absolute Lymphocytes (1.2 - 3.4 /CUMM) 1.1 L Absolute Monocytes (0.10 - 0.60 /CUMM) 0.9 H Absolute Eosinophils (0.0 - 0.7 /CUMM) 0.2 Absolute Basophils (0.0 - 0.2 /CUMM) 0 PUBS MCHC (33.0 - 37.0 G/DL) 32.3 L 08/23 08/23 1544 1523 Chemistry Sodium (137 - 145 mmol/L) 133 L Potassium (3.5 - 5.1 mmol/L) 4.0 Chloride (98 - 107 mmol/L) 98 Carbon Dioxide (22 - 30 mmol/L) 27 Anion Gap (5 - 16) 9 BUN (7 - 17 mg/dL) 13 Creatinine (0.5 - 1.0 mg/dL) 0.5 Estimated GFR (>60 ml/min) > 60 BUN/Creatinine Ratio (7 - 25 %) 26.0 H Glucose (65 - 99 mg/dL) 110 H Calcium (8.4 - 10.2 mg/dL) 8.2 L Total Bilirubin (0.2 - 1.3 mg/dL) 0.6 AST (14 - 36 U/L) 21 ALT (9 - 52 U/L) 23 Alkaline Phosphatase (<127 U/L) 95 Troponin I (< 0.11 ng/ml) 0.02 [id number] Pept (<125 pg/mL) 587 H Total Protein (6.3 - 8.2 g/dL) 7.1 Albumin (3.5 - 5.0 g/dL) 2.7 L Globulin (1.9 - 4.2 gm/dL) 4.4 H Albumin/Globulin Ratio (1.1 - 2.2 %) 0.6 L Hematology CBC w Diff NO MAN DIFF REQ WBC (4.8 - 10.8 /CUMM) 8.5 RBC (4.20 - 5.40 /CUMM) 4.63 Hgb (12.0 - 16.0 G/DL) 12.4 Hct (37 - 47 %) 38.6 MCV (81.0 - 99.0 FL) 83.2 MCH (27.0 - 31.0 PG) 26.7 L RDW (11.5 - 14.5 %) 20.3 H Plt Count (130 - 400 /CUMM) 314 MPV (7.4 - 10.4 FL) 8.5 Gran % (42.2 - 75.2 %) 76.5 H Lymphocytes % (20.5 - 51.1 %) 12.0 L Monocytes % (1.7 - 9.3 %) 7.9 Eosinophils % (0 - 5 %) 1.8 Basophils % (0.0 - 2.0 %) 1.8 Absolute Granulocytes (1.4 - 6.5 /CUMM) 6.5 Absolute Lymphocytes (1.2 - 3.4 /CUMM) 1.0 L Absolute Monocytes (0.10 - 0.60 /CUMM) 0.7 H Absolute Eosinophils (0.0 - 0.7 /CUMM) 0.2 Absolute Basophils (0.0 - 0.2 /CUMM) 0.1 PUBS MCHC (33.0 - 37.0 G/DL) 32.1 L Urines Urinalysis LIGHT H Urine Color (YEL,AMB,STR) YEL Urine Clarity (CLEAR) CLEAR Urine pH (5.0 - 8.0) 6.5 Ur Specific [place] (1.001 - 1.035) 1.020 Urine Protein (NEG,<30 MG/DL) TRACE H Urine Ketones (NEG) NEG Urine Nitrite (NEG) NEG Urine Bilirubin (NEG) NEG Urine Urobilinogen (0.1 - 1.0 EU/dl) 0.2 Ur Leukocyte Esterase (NEG) NEG Ur Microscopic SEDIMENT EXAMINED Urine RBC (0 - 5 /HPF) RARE Urine WBC (0 - 2 /HPF) RARE Ur Epithelial Cells (NONE,FEW) RARE Urine Bacteria (NEG/NONE) FEW H Urine Mucus (FEW,NONE) FEW Urine Hemoglobin (NEG) NEG Urine Glucose (N MG/DL) NEG CAT scan of the thoracolumbar and lumbar spine. MPRESSION: 1. Acute, severe compression fracture of the L2 vertebral body with mild retropulsion of the posterior vertebral body wall. No significant canal stenosis or foraminal stenosis at this level. 2. Acute, concave compression fracture of the superior endplate of the L4 vertebral body. 3. No acute fracture or malalignment within the degenerated thoracic spine. 4. Moderate left pleural effusion and compressive atelectasis of the left lower lobe. Recommend correlation with findings on chest radiograph. 5. Atherosclerotic disease of the coronary arteries and cardiomegaly without acute pulmonary edema. 6. The 0.7 cm nodule of the right upper lobe along the major fissure remains stable in size compared to 05/04/2016. Please refer to the chest CT report of 05/04/2016. Chest x-ray shows left pleural effusion with the questionable pneumonia atelectasis Assessment #1 mechanical fall with compression fracture of L2 without any neurological deficit with very minimal pain we will obtain an orthopedic consult. #2 left pleural effusion with questionable atelectasis Obtain a CT scan of the chest, obtain a pulmonary consult. #3 obtain echocardiogram troponins are negative EKG shows sinus rhythm with right ventricular hypertrophy and an old inferior infarct open a cardiology consult. Mentionable the M pneumonia present however obtain a CT scan will show the presence of pneumonia not currently we'll continue with antibiotics Due to prophylaxis Fall prevention
--- NOTE | 2016-08-24 08:07 | Admission Certification ---
Admission Certification Certification Statement - As attending physician, I certify that at the time of - admission, based on clinical presentation, severity of - symptoms, need for further diagnostic testing and - therapeutic interventions, and risk of adverse outcomes - without in-hospital treatment, in my clinical assessment, - this patient requires an acute hospital stay for a minimum - of two nights or longer. I have also considered psychsocial - factors such as support system, advanced age, financial - issues, cognitive issues, and failed out-patient treatments, - past re-admission history, safety of patient, and lack of - compliance as applicable. Specific rationale supporting this admission is: Patient admitted because of mechanical fall fracture of L2 with a left pleural effusion questionable pneumonia
--- NOTE | 2016-08-24 10:11 | Cons- Orthopedic ---
General Information and HPI Consulting Request Date of Consult: 08/24/16 Requested By: NATASHA HARDING MD Reason for Consult: L2 vertebral body compression fracture. Source of Information: Hospital ER and floor records and personal conversation with medical housestaff taking care of patient. Exam Limitations: unable to give history, not alert/orientated, dementia, poor historian History of Present Illness: I was asked by Dr. Harding to evaluate this 89-year-old female custodial facility resident with dementia for vertebral compression fractures. The patient is unable to give me any history due to dementia but review of the medical records and conversation with the medical house staff indicates that the patient sustained a recent fall, possibly striking her back on a bookcase. She ordinarily uses a walker for assistance with ambulation. She was transferred from the SNF to [facility] for evaluation with complaints of upper lumbar back pain. She did undergo a CT scan of the thoracolumbar spine which did show compression fractures of the upper aspect of the L2 and L4 vertebral bodies prompting referral for orthopedic evaluation. When examined today, the patient was somewhat combative and generally uncooperative. She is clearly confused and can offer no additional information she denies any back pain or lower extremity pain. In fact, the medical house staff have confirmed that the patient has seemingly experienced only minor pain in the lumbar spine and has used only minimal amounts of pain medication for the same. I am unable to make any comment as to whether or not the patient has had any pre -existing lower back or lower extremity symptoms. Allergies/Medications Allergies: Coded Allergies: Penicillins (RASH 05/05/16) Sulfa (Sulfonamide Antibiotics) (RASH 05/05/16) Home Med List: Acetaminophen (Pain Relief) 325 MG TABLET 2 TAB PO Q4H PRN PAIN/TEMP ( Reported) Acetaminophen 500 MG TABLET 1 TAB PO BID PRN PAIN (Reported) Bisacodyl (Gentle Laxative) 5 MG TABLET 2 TAB PO DAILY PRN CONSTIPATION ( Reported) Cholecalciferol (Vitamin D3) (Vitamin D) 1,000 UNIT TABLET 1 TAB PO DAILY SUPPLEMENT (Reported) Docusate Sodium 100 MG CAPSULE 100 MG PO DAILY PRN CONSTIPATION Ferrous Sulfate 325 MG (65 MG IRON) TABLET 1 TAB PO DAILY SUPPLEMENT ( Reported) Lisinopril 10 MG TABLET 1 TAB PO DAILY BP (Reported) Mirtazapine 7.5 MG TABLET 1 TAB PO QPM INSOMNIA (Reported) Multivitamin (Daily Multiple Vitamin) 1 EACH TABLET 1 TAB PO DAILY SUPPLEMENT (Reported) Sennosides/Docusate Sodium (Senna Plus Tablet) 8.6 MG-50 MG TABLET 1 TAB PO BID PRN CONSTIPATION Sertraline HCl 50 MG TABLET 1 TAB PO DAILY ANXIETY (Reported) Current Medications: Current Medications Sig/Leslee Start time Last Medication Dose Route Stop Time Status Admin Acetaminophen 650 MG Q4P PRN 08/23 2199 AC PO Acetaminophen 1,000 MG Q6P PRN 08/23 2199 AC N/A 1 UNIT IV Azithromycin 500 MG DAILY 08/24 1000 AC Sodium Chloride 250 ML IV Bisacodyl 10 MG DAILY 08/23 2199 AC PO Ceftazidime 0 .STK-MED ONE 08/23 170 DC .ROUTE Ceftazidime 1,000 MG ONCE ONE 08/23 164 DC 08/23 IV 08/23 164 1715 Ceftriaxone Sodium 1,000 MG DAILY 08/24 1000 AC IV Cholecalciferol 1,000 IU DAILY 08/24 1000 AC PO Docusate Sodium 100 MG DAILY PRN 08/23 2199 AC PO Ferrous Sulfate 325 MG DAILY 08/24 1000 AC PO Heparin Sodium 5,000 UNIT Q8 08/23 2199 AC 08/24 (Porcine) SC 0616 Lisinopril 10 MG DAILY 08/24 1000 AC PO Mirtazapine 7.5 MG AT BEDTIME 08/23 2199 AC 08/24 PO 0006 Morphine Sulfate 1 MG Q8P PRN 08/23 2199 AC IV Multivitamins 1 TAB DAILY 08/24 1000 AC Therapeutic PO Patient Medication 1 UNIT ONE NR 08/23 2045 OR Teaching ED 08/23 2100 Senna/Docusate Sodium 1 TAB BID PRN 08/23 2199 AC PO Sertraline HCl 50 MG DAILY 08/24 1000 AC PO Sodium Chloride 1,000 ML Q13H 08/23 221 CAN IV 08/24 1114 Vancomycin HCl 0 .STK-MED ONE 08/23 170 DC .ROUTE Vancomycin HCl 1,000 MG ONCE ONE 08/23 1645 DC 08/23 Sodium Chloride 250 ML IV 08/23 1744 1723 Past History Medical History Neurological: dementia EENT: NONE Cardiovascular: hypertension Respiratory: NONE Gastrointestinal: NONE Hepatic: NONE Renal: NONE Musculoskeletal: NONE Psychiatric: NONE Endocrine: NONE Blood Disorders: anemia Cancer(s): BREAST CA L 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 Assisted Living Smoking Status: Never Smoked Exam & Diagnostic Data Vital Signs and I&O Vital Signs Date Time Temp Pulse Resp B/P B/P Pulse O2 O2 Flow FiO2 Mean Ox Delivery Rate 08/24 0806 97.6 69 18 122/66 92 Room Air 08/231 Room Air 08/23 2050 98.2 76 18 142/78 93 Room Air 08/23 2014 97.1 76 18 168/76 95 Room Air 08/23 1856 97.0 78 17 179/73 95 Room Air 08/23 1848 Room Air Room Air 08/23 1600 96.8 78 17 128/62 96 Room Air 08/23 1329 96.6 75 18 133/63 94 Room Air Intake & Output 08/24 1600 08/24 0800 08/24 0000 08/23 1600 08/23 0800 08/23 0000 Intake Total 400 220 Output Total 375 Balance 25 220 Intake, IV Intake, Oral 400 220 Number 1 Bowel Movements Output, Urine 375 Patient 145 lb 180 lb Weight Weight Estimated Reported by Patient Measurement Method Physical Exam: The patient is an overall reasonably healthy appearing well-nourished and well- developed elderly white female lying quietly on her left side in bed in no apparent distress. She is easily arousable. Once awakened she is somewhat combative and poorly cooperative. She is clearly disoriented with respect to time and place and circumstance for her hospitalization. Visual inspection of the patient's back is unremarkable without obvious swelling , ecchymosis, erythema, or muscle atrophy identified. Difficult to assess deformity with the patient lying on her side and back but appreciate no gross visual deformity other than perhaps some increased thoracic kyphosis. The skin about the back is intact and in good condition. There does appear to be mild to moderate tenderness to palpation generally about the midline of the upper lumbar spine and medial paravertebral musculature. No real tenderness to palpation elsewhere about the back. Cursory examination of the bilateral lower extremities shows no gross visual deformity and no areas of swelling or ecchymosis or erythema or muscle atrophy. The skin along the bilateral lower extremities is intact and in good condition. There is a well-healed and well matured surgical scar at the left hip status post prior left hip arthroplasty. Motion in the bilateral lower extremities actively and passively seems to be overall well maintained and without obvious pain or crepitus or instability. Motor and sensory function to the bilateral lower extremities is grossly intact. DP and PT pulses 1+ bilaterally. Capillary refill in the toes is brisk bilaterally. Last 24 Hours of Labs: Laboratory Tests 08/24 08/24 08/23 0315 0315 2205 Chemistry Sodium (137 - 145 mmol/L) 133 L Potassium (3.5 - 5.1 mmol/L) 3.9 Chloride (98 - 107 mmol/L) 99 Carbon Dioxide (22 - 30 mmol/L) 27 Anion Gap (5 - 16) 7 BUN (7 - 17 mg/dL) 10 Creatinine (0.5 - 1.0 mg/dL) 0.5 Estimated GFR (>60 ml/min) > 60 BUN/Creatinine Ratio (7 - 25 %) 20.0 Troponin I (< 0.11 ng/ml) 0.02 0.02 Hematology CBC w Diff NO MAN DIFF REQ WBC (4.8 - 10.8 /CUMM) 7.0 RBC (4.20 - 5.40 /CUMM) 4.53 Hgb (12.0 - 16.0 G/DL) 12.1 Hct (37 - 47 %) 37.5 MCV (81.0 - 99.0 FL) 82.8 MCH (27.0 - 31.0 PG) 26.7 L RDW (11.5 - 14.5 %) 20.0 H Plt Count (130 - 400 /CUMM) 309 MPV (7.4 - 10.4 FL) 9.1 Gran % (42.2 - 75.2 %) 67.9 Lymphocytes % (20.5 - 51.1 %) 16.0 L Monocytes % (1.7 - 9.3 %) 12.7 H Eosinophils % (0 - 5 %) 3.3 Basophils % (0.0 - 2.0 %) 0.1 Absolute Granulocytes (1.4 - 6.5 /CUMM) 4.8 Absolute Lymphocytes (1.2 - 3.4 /CUMM) 1.1 L Absolute Monocytes (0.10 - 0.60 /CUMM) 0.9 H Absolute Eosinophils (0.0 - 0.7 /CUMM) 0.2 Absolute Basophils (0.0 - 0.2 /CUMM) 0 PUBS MCHC (33.0 - 37.0 G/DL) 32.3 L 08/23 08/23 1544 1523 Chemistry Sodium (137 - 145 mmol/L) 133 L Potassium (3.5 - 5.1 mmol/L) 4.0 Chloride (98 - 107 mmol/L) 98 Carbon Dioxide (22 - 30 mmol/L) 27 Anion Gap (5 - 16) 9 BUN (7 - 17 mg/dL) 13 Creatinine (0.5 - 1.0 mg/dL) 0.5 Estimated GFR (>60 ml/min) > 60 BUN/Creatinine Ratio (7 - 25 %) 26.0 H Glucose (65 - 99 mg/dL) 110 H Calcium (8.4 - 10.2 mg/dL) 8.2 L Total Bilirubin (0.2 - 1.3 mg/dL) 0.6 AST (14 - 36 U/L) 21 ALT (9 - 52 U/L) 23 Alkaline Phosphatase (<127 U/L) 95 Troponin I (< 0.11 ng/ml) 0.02 [id number] Pept (<125 pg/mL) 587 H Total Protein (6.3 - 8.2 g/dL) 7.1 Albumin (3.5 - 5.0 g/dL) 2.7 L Globulin (1.9 - 4.2 gm/dL) 4.4 H Albumin/Globulin Ratio (1.1 - 2.2 %) 0.6 L Hematology CBC w Diff NO MAN DIFF REQ WBC (4.8 - 10.8 /CUMM) 8.5 RBC (4.20 - 5.40 /CUMM) 4.63 Hgb (12.0 - 16.0 G/DL) 12.4 Hct (37 - 47 %) 38.6 MCV (81.0 - 99.0 FL) 83.2 MCH (27.0 - 31.0 PG) 26.7 L RDW (11.5 - 14.5 %) 20.3 H Plt Count (130 - 400 /CUMM) 314 MPV (7.4 - 10.4 FL) 8.5 Gran % (42.2 - 75.2 %) 76.5 H Lymphocytes % (20.5 - 51.1 %) 12.0 L Monocytes % (1.7 - 9.3 %) 7.9 Eosinophils % (0 - 5 %) 1.8 Basophils % (0.0 - 2.0 %) 1.8 Absolute Granulocytes (1.4 - 6.5 /CUMM) 6.5 Absolute Lymphocytes (1.2 - 3.4 /CUMM) 1.0 L Absolute Monocytes (0.10 - 0.60 /CUMM) 0.7 H Absolute Eosinophils (0.0 - 0.7 /CUMM) 0.2 Absolute Basophils (0.0 - 0.2 /CUMM) 0.1 PUBS MCHC (33.0 - 37.0 G/DL) 32.1 L Urines Urinalysis LIGHT H Urine Color (YEL,AMB,STR) YEL Urine Clarity (CLEAR) CLEAR Urine pH (5.0 - 8.0) 6.5 Ur Specific [place] (1.001 - 1.035) 1.020 Urine Protein (NEG,<30 MG/DL) TRACE H Urine Ketones (NEG) NEG Urine Nitrite (NEG) NEG Urine Bilirubin (NEG) NEG Urine Urobilinogen (0.1 - 1.0 EU/dl) 0.2 Ur Leukocyte Esterase (NEG) NEG Ur Microscopic SEDIMENT EXAMINED Urine RBC (0 - 5 /HPF) RARE Urine WBC (0 - 2 /HPF) RARE Ur Epithelial Cells (NONE,FEW) RARE Urine Bacteria (NEG/NONE) FEW H Urine Mucus (FEW,NONE) FEW Urine Hemoglobin (NEG) NEG Urine Glucose (N MG/DL) NEG Imaging Results: CT scan of the patient's thoracolumbar spine does show an acute vertebral body fracture of the L2 vertebral body and a probable acute fracture of the L4 vertebral body as well. Both fractures involve the superior endplates. There is compression of the L2 vertebrae by about 33% of the vertebral body height. There is only minor compression of the L4 vertebral body height. The CAT scan does show what appears to be acute fracture lines at the upper aspects of both vertebral bodies. The L2 vertebral body compression fracture does show minor posterior wall and posterior lateral wall blow out to both sides with only minor retropulsion of fracture fragments. No obvious canal or foraminal compromise by the same. Assessment/Plan Assessment/Plan 89-year-old female custodial facility resident with dementia with acute L2 and L4 vertebral body compression fractures status post recent fall. Only minor back pain overall. No lower extremity radicular or myelopathic features as best as can be determined at this time. Mild retropulsion of bone fragments at the L2 vertebral body compression fracture without central canal or foraminal compromise. The patient's vertebral body compression fracture symptoms can be managed conservatively. The patient should be mobilized out of bed as tolerated with physical therapy. I would presume that she will require a walker for assistance with ambulation and perhaps additional manual assistance for ambulation. She can be given light analgesic pain medication to help with mobilization if needed. There are no plans for surgical intervention at this time. The patient should be seen for followup on an outpatient basis in about 3-4 weeks so that she can undergo x-rays of her lumbar spine to assess vertebral body fracture healing activity. If the patient's back pain proves to be intractable, she might then benefit from a thoracolumbar brace or orthosis. We would coordinate this with the custodial facility as realistically this is not indicated at this time and realistically would not be able to be secured for the patient while she is in the hospital. The patient should be returned to her custodial facility once she has met Medicare hospital stay requirements. Consult Acknowledgment - Thank you for your consult request.
--- NOTE | 2016-08-24 11:20 | Cons- Pulmonary ---
General Information and HPI Consulting Request Date of Consult: 08/24/16 Requested By: Dr. Santana Reason for Consult: Left-sided pleural effusion Source of Information: patient Exam Limitations: dementia, poor historian History of Present Illness: Consultation is requested for left-sided pleural effusion and atelectasis. The patient is 89 years old and the history is primarily gathered from the chart as she has dementia and the history gathering from the patient is limited. She has a significant history of high blood pressure, dementia, history of urinary tract infections. She lives in an assisted living facility where she suffered a mechanical fall. This seems to have been accidental. About 3-4 weeks ago the patient has experienced upper respiratory tract infection symptoms. During examination she denies any chest pain no shortness of breath no palpitations no abdominal pain. Otherwise the review of systems has been negative without any headaches and no leg edema. Denies any alcohol or smoking history. Upon workup in the emergency room department the patient was found to have a compression fracture of her lumbar L2 spine. There are no neurological deficits reported. She was also noted to have a left-sided pleural effusion with atelectasis noted on the thoracic CT. She has no leukocytosis she is afebrile with normal hemodynamics saturating 92% on room air at the lowest. ProBNP was elevated to 587. She has been started empirically on ceftriaxone and Zithromax. She has no sputum production or cough. She is DNR/DNI. She had an echocardiogram in 2009 showing diastolic dysfunction at that time. Allergies/Medications Allergies: Coded Allergies: Penicillins (RASH 05/05/16) Sulfa (Sulfonamide Antibiotics) (RASH 05/05/16) Home Med List: Acetaminophen (Pain Relief) 325 MG TABLET 2 TAB PO Q4H PRN PAIN/TEMP ( Reported) Acetaminophen 500 MG TABLET 1 TAB PO BID PRN PAIN (Reported) Bisacodyl (Gentle Laxative) 5 MG TABLET 2 TAB PO DAILY PRN CONSTIPATION ( Reported) Cholecalciferol (Vitamin D3) (Vitamin D) 1,000 UNIT TABLET 1 TAB PO DAILY SUPPLEMENT (Reported) Docusate Sodium 100 MG CAPSULE 100 MG PO DAILY PRN CONSTIPATION Ferrous Sulfate 325 MG (65 MG IRON) TABLET 1 TAB PO DAILY SUPPLEMENT ( Reported) Lisinopril 10 MG TABLET 1 TAB PO DAILY BP (Reported) Mirtazapine 7.5 MG TABLET 1 TAB PO QPM INSOMNIA (Reported) Multivitamin (Daily Multiple Vitamin) 1 EACH TABLET 1 TAB PO DAILY SUPPLEMENT (Reported) Sennosides/Docusate Sodium (Senna Plus Tablet) 8.6 MG-50 MG TABLET 1 TAB PO BID PRN CONSTIPATION Sertraline HCl 50 MG TABLET 1 TAB PO DAILY ANXIETY (Reported) Current Medications: Current Medications Sig/Leslee Start time Last Medication Dose Route Stop Time Status Admin Acetaminophen 650 MG Q4P PRN 08/23 2200 AC PO Acetaminophen 1,000 MG Q6P PRN 08/23 2199 AC N/A 1 UNIT IV Azithromycin 500 MG DAILY 08/24 1000 AC 08/24 Sodium Chloride 250 ML IV 1055 Bisacodyl 10 MG DAILY 08/23 2199 AC PO Ceftazidime 0 .STK-MED ONE 08/23 1704 DC .ROUTE Ceftazidime 1,000 MG ONCE ONE 08/23 1645 DC 08/23 IV 08/23 1646 1715 Ceftriaxone Sodium 1,000 MG DAILY 08/24 1000 AC 08/24 IV 1051 Cholecalciferol 1,000 IU DAILY 08/24 1000 AC 08/24 PO 1051 Docusate Sodium 100 MG DAILY PRN 08/23 2199 AC PO Ferrous Sulfate 325 MG DAILY 08/24 1000 AC 08/24 PO 1051 Heparin Sodium 5,000 UNIT Q8 08/230 AC 08/24 (Porcine) SC 0616 Lisinopril 10 MG DAILY 08/24 1000 AC 08/24 PO 1051 Mirtazapine 7.5 MG AT BEDTIME 08/23 2200 AC 08/24 PO 0006 Morphine Sulfate 1 MG Q8P PRN 08/23 2199 AC IV Multivitamins 1 TAB DAILY 08/24 1000 AC 08/24 Therapeutic PO 1051 Patient Medication 1 UNIT ONE NR 08/23 2045 DC Teaching ED 08/23 2100 Senna/Docusate Sodium 1 TAB BID PRN 08/23 220 AC PO Sertraline HCl 50 MG DAILY 08/24 1000 AC 08/24 PO 1051 Sodium Chloride 1,000 ML Q13H 08/23 2215 CAN IV 08/24 1114 Vancomycin HCl 0 .STK-MED ONE 08/23 1704 DC .ROUTE Vancomycin HCl 1,000 MG ONCE ONE 08/23 1645 DC 08/23 Sodium Chloride 250 ML IV 08/23 1744 1723 Review of Systems Comments Review of systems is limited secondary to difficulty gathering history and dementia. See HPI for full details. 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 Assisted Living Smoking Status: Never Smoked Exam & Diagnostic Data Last 24 Hrs of Vital Signs/I&O Vital Signs Date Time Temp Pulse Resp B/P B/P Pulse O2 O2 Flow FiO2 Mean Ox Delivery Rate 08/24 1051 69 122/66 08/24 0806 97.6 69 18 122/66 92 Room Air 08/23 2131 Room Air 08/23 205 98.2 76 18 142/78 93 Room Air 08/23 2014 97.1 76 18 168/76 95 Room Air 08/23 1856 97.0 78 17 179/73 95 Room Air 08/23 1848 Room Air Room Air 08/23 1600 96.8 78 17 128/62 96 Room Air 08/23 1329 96.6 75 18 133/63 94 Room Air Intake & Output 08/24 1600 08/24 0800 08/24 0000 Intake Total 400 220 Output Total 375 Balance 25 220 Intake, IV Intake, Oral 400 220 Number 1 Bowel Movements Output, Urine 375 Patient 145 lb Weight Weight Estimated Measurement Method Physical Exam Other Physical Findings: Gen - alert and awake HEENT - NCAT CVS - S1, S2, systolic murmur Lungs - diminished breath sounds at the bases Abdomen - soft, non-tender, bs+ Ext - no edema, no cyanosis Last 48 Hrs of Labs/Don: Laboratory Tests 08/24/16314: Troponin I 0.02 08/24/16314: Anion Gap 7, Estimated GFR > 60, BUN/Creatinine Ratio 20.0, CBC w Diff NO MAN DIFF REQ, RBC 4.53, MCV 82.8, MCH 26.7 L, RDW 20.0 H, MPV 9.1, Gran % 67.9, Lymphocytes % 16.0 L, Monocytes % 12.7 H, Eosinophils % 3.3, Basophils % 0.1, Absolute Granulocytes 4.8, Absolute Lymphocytes 1.1 L, Absolute Monocytes 0.9 H, Absolute Eosinophils 0.2, Absolute Basophils 0, PUBS MCHC 32.3 L 08/23/16 2205: Troponin I 0.02 08/23/16 1544: Anion Gap 9, Estimated GFR > 60, BUN/Creatinine Ratio 26.0 H, Glucose 110 H, Calcium 8.2 L, Total Bilirubin 0.6, AST 21, ALT 23, Alkaline Phosphatase 95, Troponin I 0.02, Afc-E-Bbktkdyboio Pept 587 H, Total Protein 7.1, Albumin 2.7 L, Globulin 4.4 H, Albumin/Globulin Ratio 0.6 L, CBC w Diff NO MAN DIFF REQ, RBC 4.63, MCV 83.2, MCH 26.7 L, RDW 20.3 H, MPV 8.5, Gran % 76.5 H, Lymphocytes % 12.0 L, Monocytes % 7.9, Eosinophils % 1.8, Basophils % 1.8, Absolute Granulocytes 6.5, Absolute Lymphocytes 1.0 L, Absolute Monocytes 0.7 H, Absolute Eosinophils 0.2, Absolute Basophils 0.1, PUBS MCHC 32.1 L 08/23/16 1523: Urinalysis LIGHT H, Urine Color YEL, Urine Clarity CLEAR, Urine pH 6.5, Ur Specific [place] 1.020, Urine Protein TRACE H, Urine Ketones NEG, Urine Nitrite NEG, Urine Bilirubin NEG, Urine Urobilinogen 0.2, Ur Leukocyte Esterase NEG, Ur Microscopic SEDIMENT EXAMINED, Urine RBC RARE, Urine WBC RARE, Ur Epithelial Cells RARE, Urine Bacteria FEW H, Urine Mucus FEW, Urine Hemoglobin NEG, Urine Glucose NEG Assessment/Plan Impression/Plan: Consultation is requested for left-sided pleural effusion and atelectasis. The patient is 89 years old and the history is primarily gathered from the chart as she has dementia and the history gathering from the patient is limited. She has a significant history of high blood pressure, dementia, history of urinary tract infections. She lives in an assisted living facility where she suffered a mechanical fall. This seems to have been accidental. About 3-4 weeks ago the patient has experienced upper respiratory tract infection symptoms. During examination she denies any chest pain no shortness of breath no palpitations no abdominal pain. Otherwise the review of systems has been negative without any headaches and no leg edema. Denies any alcohol or smoking history. Upon workup in the emergency room department the patient was found to have a compression fracture of her lumbar L2 spine. There are no neurological deficits reported. She was also noted to have a left-sided pleural effusion with atelectasis noted on the thoracic CT. She has no leukocytosis she is afebrile with normal hemodynamics saturating 92% on room air at the lowest. ProBNP was elevated to 587. She has been started empirically on ceftriaxone and Zithromax. She has no sputum production or cough. She is DNR/DNI. She had an echocardiogram in 2009 showing diastolic dysfunction at that time. Impression 89 year old woman * mechanical fall, compression L2 fracture * left pleural effusion with associated atelectasis Plan - CT chest without contrast - incentive spirometry - pain control - ECHO - currently pt on abx, will tailor tx after CT chest - if patient is amenable can pursue thoracentesis to sample fluid for etiology, however patient is asymptomatic and would evaluate goals of care and preferences DVT prophylaxis at all times Consult Acknowledgment - Thank you for your consult request.
--- NOTE | 2016-08-24 14:05 | Cons- Cardiology ---
General Information and HPI Consulting Request Date of Consult: 08/24/16 Requested By: NATASHA HARDING MD Reason for Consult: Congestive heart failure found by chest x-ray Source of Information: old records Exam Limitations: not alert/orientated, confusion, dementia History of Present Illness: The patient is an 89-year-old woman with a past medical history of dementia and hypertension. She presents to our hospital in transfer from an extended care facility following a fall while walking with a walker and falling against a bookcase. Due to the patient's severe confusion, an adequate history was obtained by chart review only. By report, the patient had tripped and fell into a bookcase. There was no reported prodrome of chest pains palpitations nor lightheadedness. There is no loss of consciousness. The patient has been ambulating with the assistance of a walker in her extended care facility. There were no other reports of symptoms over the past several weeks with the exception of cough, treated conservatively for a period of approximately 3 weeks. On arrival, an initial chest x-ray was suggestive of mild congestive heart failure. A proBNP obtained in the ER was elevated at 587. The patient however continues to deny symptoms of chest pains palpitations nor dyspnea. Allergies/Medications Allergies: Coded Allergies: Penicillins (RASH 05/05/16) Sulfa (Sulfonamide Antibiotics) (RASH 05/05/16) Home Med List: Acetaminophen (Pain Relief) 325 MG TABLET 2 TAB PO Q4H PRN PAIN/TEMP ( Reported) Acetaminophen 500 MG TABLET 1 TAB PO BID PRN PAIN (Reported) Bisacodyl (Gentle Laxative) 5 MG TABLET 2 TAB PO DAILY PRN CONSTIPATION ( Reported) Cholecalciferol (Vitamin D3) (Vitamin D) 1,000 UNIT TABLET 1 TAB PO DAILY SUPPLEMENT (Reported) Docusate Sodium 100 MG CAPSULE 100 MG PO DAILY PRN CONSTIPATION Ferrous Sulfate 325 MG (65 MG IRON) TABLET 1 TAB PO DAILY SUPPLEMENT ( Reported) Lisinopril 10 MG TABLET 1 TAB PO DAILY BP (Reported) Mirtazapine 7.5 MG TABLET 1 TAB PO QPM INSOMNIA (Reported) Multivitamin (Daily Multiple Vitamin) 1 EACH TABLET 1 TAB PO DAILY SUPPLEMENT (Reported) Sennosides/Docusate Sodium (Senna Plus Tablet) 8.6 MG-50 MG TABLET 1 TAB PO BID PRN CONSTIPATION Sertraline HCl 50 MG TABLET 1 TAB PO DAILY ANXIETY (Reported) Current Medications: Current Medications Sig/Leslee Start time Last Medication Dose Route Stop Time Status Admin Acetaminophen 650 MG Q4P PRN 08/23 220 AC PO Acetaminophen 1,000 MG Q6P PRN 08/23 220 AC N/A 1 UNIT IV Azithromycin 500 MG DAILY 08/24 1000 AC 08/24 Sodium Chloride 250 ML IV 1055 Bisacodyl 10 MG DAILY 08/23 2200 AC PO Ceftazidime 0 .STK-MED ONE 08/23 1704 DC .ROUTE Ceftazidime 1,000 MG ONCE ONE 08/23 1645 DC 08/23 IV 08/23 1646 1715 Ceftriaxone Sodium 1,000 MG DAILY 08/24 1000 AC 08/24 IV 1051 Cholecalciferol 1,000 IU DAILY 08/24 1000 AC 08/24 PO 1051 Docusate Sodium 100 MG DAILY PRN 08/23 2200 AC PO Ferrous Sulfate 325 MG DAILY 08/24 1000 AC 08/24 PO 1051 Heparin Sodium 5,000 UNIT Q8 08/23 2200 AC 08/24 (Porcine) SC 0616 Lisinopril 10 MG DAILY 08/24 1000 AC 08/24 PO 1051 Mirtazapine 7.5 MG AT BEDTIME 08/23 2200 AC 08/24 PO 0006 Morphine Sulfate 1 MG Q8P PRN 08/23 2199 AC IV Multivitamins 1 TAB DAILY 08/24 1000 AC 08/24 Therapeutic PO 1051 Patient Medication 1 UNIT ONE NR 08/23 2045 LA Teaching ED 08/23 2100 Senna/Docusate Sodium 1 TAB BID PRN 08/23 2199 AC PO Sertraline HCl 50 MG DAILY 08/24 1000 AC 08/24 PO 1051 Sodium Chloride 1,000 ML Q13H 08/23 2215 CAN IV 08/24 1114 Vancomycin HCl 0 .STK-MED ONE 08/23 1704 DC .ROUTE Vancomycin HCl 1,000 MG ONCE ONE 08/23 1645 DC 08/23 Sodium Chloride 250 ML IV 08/23 1744 1723 Review of Systems Review of Systems: Review of systems was unable to be fully due to the patient's underlying dementia. 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 Assisted Living Smoking Status: Never Smoked Exam & Diagnostic Data Vital Signs and I&O Vital Signs Date Time Temp Pulse Resp B/P B/P Pulse O2 O2 Flow FiO2 Mean Ox Delivery Rate 08/24 1139 94 Room Air 08/24 1051 69 122/66 08/24 0806 97.6 69 18 122/66 92 Room Air 08/24 0800 Room Air 08/23 2131 Room Air 08/23 2051 98.2 76 18 142/78 93 Room Air 08/23 2014 97.1 76 18 168/76 95 Room Air 08/23 1856 97.0 78 17 179/73 95 Room Air 08/23 1848 Room Air Room Air 08/23 1600 96.8 78 17 128/62 96 Room Air Intake & Output 08/24 1600 08/24 0800 08/24 0000 08/23 1600 08/23 0800 08/23 0000 Intake Total 400 220 Output Total 375 Balance 25 220 Intake, IV Intake, Oral 400 220 Number 1 Bowel Movements Output, Urine 375 Patient 145 lb 180 lb Weight Weight Estimated Reported by Patient Measurement Method Physical Exam: General: Nontoxic, no apparent distress, not oriented to location. HEENT: Sclera and conjunctiva within normal limits, without xanthelasmas. Neck: Carotids 2+ without bruits. Respiratory: Scattered rhonchi,, air movement is good, without accessory respiratory muscle use. Heart: Regular rate and rhythm, without murmurs, without JVD. Abdomen: Soft, nontender, no masses, normoactive bowel sounds. Extremities: Without clubbing, cyanosis, without edema. Neuro: Nonfocal exam, strength, 5 out of 5 Skin: Within normal limits without lesions. Psych: Mood and affect: Normal Labs/Don Results: Laboratory Tests 08/24 08/24 08/23 0315 0315 2205 Chemistry Sodium (137 - 145 mmol/L) 133 L Potassium (3.5 - 5.1 mmol/L) 3.9 Chloride (98 - 107 mmol/L) 99 Carbon Dioxide (22 - 30 mmol/L) 27 Anion Gap (5 - 16) 7 BUN (7 - 17 mg/dL) 10 Creatinine (0.5 - 1.0 mg/dL) 0.5 Estimated GFR (>60 ml/min) > 60 BUN/Creatinine Ratio (7 - 25 %) 20.0 Troponin I (< 0.11 ng/ml) 0.02 0.02 Hematology CBC w Diff NO MAN DIFF REQ WBC (4.8 - 10.8 /CUMM) 7.0 RBC (4.20 - 5.40 /CUMM) 4.53 Hgb (12.0 - 16.0 G/DL) 12.1 Hct (37 - 47 %) 37.5 MCV (81.0 - 99.0 FL) 82.8 MCH (27.0 - 31.0 PG) 26.7 L RDW (11.5 - 14.5 %) 20.0 H Plt Count (130 - 400 /CUMM) 309 MPV (7.4 - 10.4 FL) 9.1 Gran % (42.2 - 75.2 %) 67.9 Lymphocytes % (20.5 - 51.1 %) 16.0 L Monocytes % (1.7 - 9.3 %) 12.7 H Eosinophils % (0 - 5 %) 3.3 Basophils % (0.0 - 2.0 %) 0.1 Absolute Granulocytes (1.4 - 6.5 /CUMM) 4.8 Absolute Lymphocytes (1.2 - 3.4 /CUMM) 1.1 L Absolute Monocytes (0.10 - 0.60 /CUMM) 0.9 H Absolute Eosinophils (0.0 - 0.7 /CUMM) 0.2 Absolute Basophils (0.0 - 0.2 /CUMM) 0 PUBS MCHC (33.0 - 37.0 G/DL) 32.3 L 08/23 08/23 1544 1523 Chemistry Sodium (137 - 145 mmol/L) 133 L Potassium (3.5 - 5.1 mmol/L) 4.0 Chloride (98 - 107 mmol/L) 98 Carbon Dioxide (22 - 30 mmol/L) 27 Anion Gap (5 - 16) 9 BUN (7 - 17 mg/dL) 13 Creatinine (0.5 - 1.0 mg/dL) 0.5 Estimated GFR (>60 ml/min) > 60 BUN/Creatinine Ratio (7 - 25 %) 26.0 H Glucose (65 - 99 mg/dL) 110 H Calcium (8.4 - 10.2 mg/dL) 8.2 L Total Bilirubin (0.2 - 1.3 mg/dL) 0.6 AST (14 - 36 U/L) 21 ALT (9 - 52 U/L) 23 Alkaline Phosphatase (<127 U/L) 95 Troponin I (< 0.11 ng/ml) 0.02 Mrl-I-Dtddbunlhzn Pept (<125 pg/mL) 587 H Total Protein (6.3 - 8.2 g/dL) 7.1 Albumin (3.5 - 5.0 g/dL) 2.7 L Globulin (1.9 - 4.2 gm/dL) 4.4 H Albumin/Globulin Ratio (1.1 - 2.2 %) 0.6 L Hematology CBC w Diff NO MAN DIFF REQ WBC (4.8 - 10.8 /CUMM) 8.5 RBC (4.20 - 5.40 /CUMM) 4.63 Hgb (12.0 - 16.0 G/DL) 12.4 Hct (37 - 47 %) 38.6 MCV (81.0 - 99.0 FL) 83.2 MCH (27.0 - 31.0 PG) 26.7 L RDW (11.5 - 14.5 %) 20.3 H Plt Count (130 - 400 /CUMM) 314 MPV (7.4 - 10.4 FL) 8.5 Gran % (42.2 - 75.2 %) 76.5 H Lymphocytes % (20.5 - 51.1 %) 12.0 L Monocytes % (1.7 - 9.3 %) 7.9 Eosinophils % (0 - 5 %) 1.8 Basophils % (0.0 - 2.0 %) 1.8 Absolute Granulocytes (1.4 - 6.5 /CUMM) 6.5 Absolute Lymphocytes (1.2 - 3.4 /CUMM) 1.0 L Absolute Monocytes (0.10 - 0.60 /CUMM) 0.7 H Absolute Eosinophils (0.0 - 0.7 /CUMM) 0.2 Absolute Basophils (0.0 - 0.2 /CUMM) 0.1 PUBS MCHC (33.0 - 37.0 G/DL) 32.1 L Urines Urinalysis LIGHT H Urine Color (YEL,AMB,STR) YEL Urine Clarity (CLEAR) CLEAR Urine pH (5.0 - 8.0) 6.5 Ur Specific [place] (1.001 - 1.035) 1.020 Urine Protein (NEG,<30 MG/DL) TRACE H Urine Ketones (NEG) NEG Urine Nitrite (NEG) NEG Urine Bilirubin (NEG) NEG Urine Urobilinogen (0.1 - 1.0 EU/dl) 0.2 Ur Leukocyte Esterase (NEG) NEG Ur Microscopic SEDIMENT EXAMINED Urine RBC (0 - 5 /HPF) RARE Urine WBC (0 - 2 /HPF) RARE Ur Epithelial Cells (NONE,FEW) RARE Urine Bacteria (NEG/NONE) FEW H Urine Mucus (FEW,NONE) FEW Urine Hemoglobin (NEG) NEG Urine Glucose (N MG/DL) NEG Assessment/Plan Assessment/Plan 89-year-old woman with a past medical history of dementia and hypertension. She presents to our hospital in transfer from an extended care facility following a fall while walking with a walker and falling against a bookcase. On arrival to our emergency room, she was noted to have an elevated BNP as well as chest x-ray consistent with congestive heart failure and a left lower lobe pneumonia. Elevated BNP: The patient does not have clinical findings consistent with significant congestive heart failure. We will maintain an overall conservative course of management given her comorbidities as well as underlying dementia. At this time , I would recommend attaining a euvolemic balance, and diuresing only if weight gain is noted. A repeat echocardiogram would not be necessary. Falls: Further evaluation with physical therapy regarding her ambulatory ability will be undertaken. Hypertension: Currently stable, continue current regimen. Thank you for allowing us to participate in the care of your patient. Please do not hesitate to contact us further with any questions. Sincerely, Manpreet Arce MD [facility] Consult Acknowledgment - Thank you for your consult request.
[2016-08-24 15:41] VITALS: BP 142/78
--- NOTE | 2016-08-24 16:49 | CT SCAN REPORT ---
EXAMINATION: CT CHEST WITHOUT CONTRAST CLINICAL INFORMATION: Left lower lobe infiltrate on spine CT. COMPARISON: 08/23/2016 and 05/04/2016. TECHNIQUE: Multidetector volumetric CT imaging of the chest was done. Axial MIP volume rendering provided. Sagittal and coronal reformatted images were obtained. DLP: 305.73 mGy-cm. FINDINGS: LUNGS: Multiple densities are seen about the fissures consistent with intrafissural lymph nodes. Multiple areas bilaterally of linear scarring or atelectasis seen. There is bilateral apical pleural-parenchymal scarring. There is bronchiectasis seen in the right lower lobe. Multiple 3 mm or smaller nodular densities are present as well as interstitial prominence. There is atelectasis/pneumonia seen left base. Within the right upper lobe there is a 7 mm subpleural density on image 180 of 552. Adjacent to this is a 3 mm nodule. Within the right upper lobe there is a 7 mm subpleural nodular density on image 207 of 552. There is a 5 mm right upper lobe subpleural nodule on image 238 of 552. There is a 5 x 3 mm density which is not calcified seen within the right upper lobe on image 240 of 552. There is a 6 mm subpleural density seen within the right upper lobe on image 262 of 555. There is a 6 x 4 mm density adjacent to the pericardium within the right upper lobe on image 261 of 552. There is a 4 mm nodule within the right middle lobe on image 346 of 552. There is a 1.1 x 0.6 cm density which is contiguous with the right major fissure within the right upper lobe on image 157 of 552. MEDIASTINUM: The heart is enlarged. There is a small pericardial effusion. Coronary artery calcifications are present. There is some mild calcified plaque seen within the thoracic aorta. No thoracic aortic aneurysm. Multiple mediastinal lymph nodes are present with 1 having a short axis of 1 cm in the precarinal region. No hilar lymphadenopathy appreciated. PLEURA: There is a moderate size left pleural effusion. AXILLA: No axillary lymphadenopathy is seen. Patient status post previous left breast surgery. UPPER ABDOMEN: No adrenal gland masses are evident. On the lowest cuts there is some increase in size of the abdominal aorta noted persistent with incompletely imaged aneurysm. No significant abnormality identified on provided images. OSSEOUS STRUCTURES: There is diffuse osteopenia. There is an approximately 50% L2 vertebral body fracture. There is a 9 mm sclerotic region within the proximal right humerus. There is a sclerotic lesion with somewhat ill-defined margins involving the L3 vertebral body measuring 1.2 x 1.1 cm in size. There is a question permeative appearance to anterior lateral aspect of the right second rib versus streak artifact. There is a stable 3 mm sclerotic lesion within the lateral aspect of the left sixth rib. Above findings may be related to artifact and bone islands. However, if the patient has history of breast cancer breast metastases cannot be excluded. IMPRESSION: Moderate-sized left pleural effusion. With left lower lobe disease consistent with atelectasis or pneumonia. Multiple lung nodules which appear essentially stable over the short time. Taking measurements were made into account. Cardiomegaly without pulmonary edema. Osteopenia.
[2016-08-25 00:07] VITALS: BP 130/62
--- NOTE | 2016-08-25 06:58 | PN- Housestaff ---
Subjective Follow-up For: L2 vertebral compression fracture Pleural effusion Tele-Events Since Last Visit: sinus rhythm 72-84bpm Subjective: I saw and examined the patient today morning She is doing better, still had some back pain. Although she is on room air, reports increased work of breathing. No overnight events. Review of Systems Constitutional: Reports: see HPI. Respiratory: Reports: short of breath. Comments: ROS negative except the above. Objective Last 24 Hrs of Vital Signs/I&O Vital Signs Date Time Temp Pulse Resp B/P B/P Pulse O2 O2 Flow FiO2 Mean Ox Delivery Rate 08/25 0007 97.5 86 18 130/62 92 Room Air 08/24 1555 93 Room Air 08/24 1541 98.9 68 18 142/78 94 Room Air 08/24 1139 94 Room Air 08/24 1051 69 122/66 08/24 0806 97.6 69 18 122/66 92 Room Air 08/24 0800 Room Air Intake & Output 08/25 0800 08/25 0000 08/24 1600 Intake Total 340 750 Output Total Balance 340 750 Intake, IV 270 Intake, Oral 340 480 Number 1 Bowel Movements Physical Exam General Appearance: Alert, Oriented X3, Cooperative Skin: No Rashes, No Breakdown HEENT: Atraumatic, PERRLA Neck: Supple Cardiovascular: Normal S1, Normal S2 Lungs: Clear to Auscultation, decreased breath sounds bilaterally Abdomen: Normal Bowel Sounds, Soft, No Tenderness Neurological: Normal Tone, Sensation Intact, Cranial Nerves 3-12 NL Extremities: No Clubbing, No Cyanosis, No Edema Current Medications: Current Medications Sig/Leslee Start time Last Medication Dose Route Stop Time Status Admin Acetaminophen 650 MG Q4P PRN 08/23 2199 AC PO Acetaminophen 1,000 MG Q6P PRN 08/23 2199 AC N/A 1 UNIT IV Azithromycin 500 MG DAILY 08/24 1000 08/24 Sodium Chloride 250 ML IV 1055 Bisacodyl 10 MG DAILY 08/23 2199 AC PO Ceftriaxone Sodium 1,000 MG DAILY 08/24 1000 AC 08/24 IV 1051 Cholecalciferol 1,000 IU DAILY 08/24 1000 AC 08/24 PO 1051 Docusate Sodium 100 MG DAILY PRN 08/23 2199 AC PO Ferrous Sulfate 325 MG DAILY 08/24 1000 AC 08/24 PO 1051 Heparin Sodium 5,000 UNIT Q8 08/23 2199 AC 08/25 (Porcine) SC 0600 Lisinopril 10 MG DAILY 08/24 1000 AC 08/24 PO 1051 Mirtazapine 7.5 MG AT BEDTIME 08/23 2199 AC 08/24 PO 211 Morphine Sulfate 1 MG Q8P PRN 08/23 2199 AC IV Multivitamins 1 TAB DAILY 08/24 1000 AC 08/24 Therapeutic PO 105 Senna/Docusate Sodium 1 TAB BID PRN 08/23 2199 AC PO Sertraline HCl 50 MG DAILY 08/24 1000 AC 08/24 PO 1051 Last 24 Hrs of Lab/Don Results Last 24 Hrs of Labs/Mics: Laboratory Tests 08/25/16 1140: Anion Gap 8, Estimated GFR > 60, BUN/Creatinine Ratio 25.0, Magnesium 1.7, CBC w Diff NO MAN DIFF REQ, RBC 4.54, MCV 81.1, MCH 27.1, RDW 19.7 H, MPV 9.6, Gran % 70.4, Lymphocytes % 12.7 L, Monocytes % 11.2 H, Eosinophils % 4.7, Basophils % 1.0, Absolute Granulocytes 5.0, Absolute Lymphocytes 0.9 L, Absolute Monocytes 0.8 H, Absolute Eosinophils 0.3, Absolute Basophils 0.1, PUBS MCHC 33.5 Lines/Diet/Fluids Lines: peripheral lines Assessment/Plan Assessment: Patient is a 89 YO F with PMH significant for HTN, dementia, Left side breast cancer (follows ), Left hip arthroplasty, anemia BIBA to [place] [facility] secondary to fall at her care home. No body witnessed the fall at care home including facility members. History obtained from patient is very limited ( attributable to dementia). She recently had a respiratory infection. At baseline uses walker for assistance. Upon coming to [place] [facility] found to have acute compression fractures of L2 & L4. Throacic CT shows left sided pleural effusion with atelectasis. Plan Admitted to telemetry floor Compression fracture of L2 & L4 * Pain with palpation of paraspinal region and at the site of fracture, however neurologically intact * Ortho consutled - informed that the patient can be managed conservatively * Physical therapy to mobilize the patient (suggested STR) * Pain control with morphine for now - If patient develops intractable back pain , she might benefit from thoracolumbar brace as an outpatient * Patient need to follow up with orthopedics in 3-4weeks, to assess healing activity with Xrays Left sided pleural effusion * Patient recently had a respiratory infection, so initially thought secondary to that and started on ceftriaxone and azithromycin * CT scan showed effusion without any evidence of infection on top of it patient didnt have any leukocytosis and fever * Discontinued antibiotics today * Cardio consulted - as per the negative proBNP and Normal ECHO suggested heart is not the reason behind the effussion * As patient had h/o breast cancer - most probably malignant excluding other systems * Today we had a discussion with family and they want to proceed with a diagnostic thoracocentesis * Scheduled for IR guided diagnostic thoracocentesis tomorrow History of left sided breast cancer * Diagnosed 4yrs ago, underwent lumpectomy with localized radiotherpy * Follows * she used to be on medications (aromatase inhibitors??), which she stopped last year after becoming very sick Chronic and stable conditions HTN: lisinopril 10mg daily Depression: sertraline 50mg daily and mirtazepine 7.5mg at bedtime Supplements: Multivitamins/Ferrous sulfate/Cholecalciferol Constipation: SennaS, Bisacodyl, Docusate DVT prophylaxis * SC heparin Code Status * DNR/DNI Problem List: 1. Dementia 2. HTN (hypertension) 3. Lumbar compression fracture 4. History of breast cancer 5. Pleural effusion on left Pain Ratin Pain Location: back pain Pain Goal: Pain 4 or less Pain Plan: morphine tylenol prn Tomorrow's Labs & Rationales: bep to monitor renal function plerural fluid analysis cbc to monitor white count and H&H
[2016-08-25 08:00] VITALS: BP 144/70
--- NOTE | 2016-08-25 08:47 | PN- Att Addend ---
Attending Addendum Attending Brief Note Patient complains of lower back pain General Appearance: Alert, No Acute Distress Skin: Grossly normal HEENT: PEERLA Neck: Supple, No JVD Cardiovascular: Regular Rate, Normal S1, Normal S2, No Murmurs Lungs: Decreased air entry right lower lobes Abdomen: Normal Bowel Sounds, Soft, No Tenderness Neurological: Normal Speech, Strength at 5/5 X4 Ext, Cranial Nerves 3-12 NL, Reflexes 2+ Extremities: No Clubbing, No Cyanosis, No Edema Vascular: Normal Pulses Assessment Status post fall with compression fractures that will be followed conservatively with rest and then meds. In the meantime CTs shows moderate left pleural effusion. Clinically there is no signs of pneumonia or CHF. We will get thoracentesis if family is agreeable and follow patient off antibiotics. Plan Thoracentesis by IR, sent for culture, Gram stain and cytology Repeat chest x-ray postprocedure Discontinue antibiotics PT evaluation Continue current pain meds Continue other meds DNI/DNR Current Medications Sig/Leslee Start time Last Medication Dose Route Stop Time Status Admin Acetaminophen 650 MG Q4P PRN 08/23 2199 AC PO Acetaminophen 1,000 MG Q6P PRN 08/23 2199 AC N/A 1 UNIT IV Azithromycin 500 MG DAILY 08/24 1000 DC 08/24 Sodium Chloride 250 ML IV 1055 Bisacodyl 10 MG DAILY 08/23 2199 AC PO Ceftriaxone Sodium 1,000 MG DAILY 08/24 1000 DC 08/24 IV 1051 Cholecalciferol 1,000 IU DAILY 08/24 1000 AC 08/24 PO 1051 Docusate Sodium 100 MG DAILY PRN 08/23 2199 AC PO Ferrous Sulfate 325 MG DAILY 08/24 1000 AC 08/24 PO 1051 Heparin Sodium 5,000 UNIT Q8 08/230 AC 08/25 (Porcine) SC 0600 Lisinopril 10 MG DAILY 08/24 1000 AC 08/24 PO 1051 Mirtazapine 7.5 MG AT BEDTIME 08/23 2199 AC 08/24 PO 2115 Morphine Sulfate 1 MG Q8P PRN 08/23 2199 AC IV Multivitamins 1 TAB DAILY 08/24 1000 AC 08/24 Therapeutic PO 1051 Senna/Docusate Sodium 1 TAB BID PRN 08/23 2199 AC PO Sertraline HCl 50 MG DAILY 08/24 1000 AC 08/24 PO 1051 Vital Signs Date Time Temp Pulse Resp B/P B/P Pulse O2 O2 Flow FiO2 Mean Ox Delivery Rate 08/25 0007 97.5 86 18 130/62 92 Room Air 08/24 1555 93 Room Air 08/24 1541 98.9 68 18 142/78 94 Room Air 08/24 1139 94 Room Air 08/24 1051 69 122/66
--- NOTE | 2016-08-25 10:31 | PN- Pulmonary ---
Subjective HPI/Critical Care Issues: pt seen and examined doing well moderate left sided effusion without symptoms Objective Current Medications: Current Medications Sig/Leslee Start time Last Medication Dose Route Stop Time Status Admin Acetaminophen 650 MG Q4P PRN 08/23 2199 AC PO Acetaminophen 1,000 MG Q6P PRN 08/23 2199 AC N/A 1 UNIT IV Azithromycin 500 MG DAILY 08/24 1000 DC 08/24 Sodium Chloride 250 ML IV 1055 Bisacodyl 10 MG DAILY 08/230 AC 08/25 PO 0918 Ceftriaxone Sodium 1,000 MG DAILY 08/24 1000 DC 08/24 IV 1051 Cholecalciferol 1,000 IU DAILY 08/24 1000 AC 08/25 PO 0918 Docusate Sodium 100 MG DAILY PRN 08/23 2199 AC PO Ferrous Sulfate 325 MG DAILY 08/24 1000 AC 08/25 PO 0918 Heparin Sodium 5,000 UNIT Q8 08/23 2199 AC 08/25 (Porcine) SC 0600 Lisinopril 10 MG DAILY 08/24 1000 AC 08/25 PO 0918 Mirtazapine 7.5 MG AT BEDTIME 08/23 2199 AC 08/24 PO 2115 Morphine Sulfate 1 MG Q8P PRN 08/23 2199 AC IV Multivitamins 1 TAB DAILY 08/24 1000 AC 08/25 Therapeutic PO 0918 Senna/Docusate Sodium 1 TAB BID PRN 08/23 2199 AC PO Sertraline HCl 50 MG DAILY 08/24 1000 AC 08/25 PO 0918 Vital Signs & I&O Last 24 Hrs of Vitals and I&O: Vital Signs Date Time Temp Pulse Resp B/P B/P Pulse O2 O2 Flow FiO2 Mean Ox Delivery Rate 08/25 0930 96 Room Air Room Air 08/25 0918 98.0 72 20 144/70 08/25 0800 98.0 72 20 144/70 93 Room Air 08/25 0007 97.5 86 18 130/62 92 Room Air 08/24 1555 93 Room Air 08/24 1541 98.9 68 18 142/78 94 Room Air 08/24 1139 94 Room Air 08/24 1051 69 122/66 Intake & Output 08/25 1600 08/25 0800 08/25 0000 Intake Total 100 340 Output Total Balance 100 340 Intake, Oral 100 340 Exam Other Physical Findings: Gen - alert and awake HEENT - NCAT CVS - S1, S2, systolic murmur Lungs - diminished breath sounds at the bases Abdomen - soft, non-tender, bs+ Ext - no edema, no cyanosis Impression/Plan Impression/Plan Impression/Plan: Impression 89 year old woman * mechanical fall, compression L2 fracture * left pleural effusion with associated atelectasis Plan - incentive spirometry - pain control - ECHO would help with diagnosis - okay with monitoring off abx - if patient is amenable can pursue thoracentesis to sample fluid for etiology, however patient is asymptomatic and would evaluate goals of care and preferences with family, this would have only a diagnostic value at this point DVT prophylaxis at all times
--- NOTE | 2016-08-25 13:00 | ECHOCARDIOGRAM REPORT ---
RICARDO WYATT Age: 89 : 1925 Gender: F Exam Date: 08/25/2016 12:02 Exam Location: [address] Ht (in): 68 Wt (lb): 145 BSA: 1.78 BP: 142 / 78 Ordering Physician: JOB BERRY MD Referring Physician: JOB BERRY MD Technologist: Den Keller [facility] Room Number: [id number] Indications: Arrhythmia Rhythm: Sinus Technical Quality: Good FINDINGS Left Ventricle Normal size left ventricle. Mild concentric left ventricular hypertrophy. Normal left ventricular ejection fraction visually estimated at >65%. No obvious regional wall motion abnormalities. Abnormal relaxation filling pattern of the left ventricle for age (stage 1 diastolic dysfunction). Right Ventricle The right ventricle is normal in size and function. Right Atrium The right atrium is normal in size. Left Atrium Left atrial size at the upper limits of normal. Mitral Valve Mild thickening/calcification of the mitral valve leaflets. Moderate mitral annular calcification. Mild mitral regurgitation. Aortic Valve Diffuse thickening (sclerosis) of the aortic valve cusps without reduced excursion. No aortic stenosis. No aortic regurgitation. Tricuspid Valve Tricuspid valve is normal in structure and function. Mild tricuspid regurgitation. Right ventricular systolic pressure estimated to be elevated at 35-45 mmHg. Pulmonic Valve Structurally normal pulmonic valve. Trace pulmonic regurgitation. Pericardium Left pleural effusion. No pericardial effusion. Great Vessels Normal aortic root dimension. The aortic arch and great vessels are well seen and are normal. CONCLUSIONS Mild concentric left ventricular hypertrophy. Normal left ventricular ejection fraction visually estimated at > 65%. No obvious regional wall motion abnormalities. Abnormal relaxation filling pattern of the left ventricle for age (stage 1 diastolic dysfunction). Left atrial size at the upper limits of normal. Mild thickening/calcification of the mitral valve leaflets. Moderate mitral annular calcification. Mild mitral regurgitation. Diffuse thickening (sclerosis) of the aortic valve cusps without reduced excursion. No aortic stenosis. Right ventricular systolic pressure estimated to be elevated at 35- 45 mmHg. Left pleural effusion. Kameron Mayen M.D. (Electronically Signed) Final Date: 25 August 2016 12:59 MEASUREMENTS (Male / Female) Normal Values 2D ECHO LV Diastolic Diameter PLAX 4.3 cm 4.2 - 5.9 / 3.9 - 5.3 cm LV Systolic Diameter PLAX 2.4 cm 2.1 - 4.0 cm LV Fractional Shortening PLAX 44.2 % 25 - 46 % LV Ejection Fraction 2D Teich 75.7 % IVS Diastolic Thickness 1.1 cm LVPW Diastolic Thickness 1.1 cm LV Relative Wall Thickness 0.5 RV Internal Dim ED PLAX 3.2 cm 1.9 - 3.8 cm LVOT Diameter 1.9 cm Aortic Root Diameter 2.8 cm LA Systolic Diameter LX 3.5 cm 3.0 - 4.0 / 2.7 - 3.8 cm LA Volume 41.0 cm 18 - 58 / 22 - 52 cm Ascending Aorta Diameter 3.3 cm DOPPLER AV Peak Velocity 182.0 cm/s AV Peak Gradient 13.2 mmHg AV Mean Velocity 128.0 cm/s AV Mean Gradient 8.0 mmHg AV Velocity Time Integral 45.5 cm LVOT Peak Velocity 84.0 cm/s LVOT Peak Gradient 2.8 mmHg LVOT Mean Velocity 52.8 cm/s LVOT Mean Gradient 1.0 mmHg LVOT Velocity Time Integral 23.7 cm LVOT Stroke Volume 67.2 cm AV Area Cont Eq vti 1.5 cm AV Area Cont Eq pk 1.3 cm MV Peak Velocity 112.0 cm/s MV Peak Gradient 5.0 mmHg MV Mean Velocity 65.8 cm/s MV Mean Gradient 2.0 mmHg Mitral E Point Velocity 71.3 cm/s Mitral A Point Velocity 97.9 cm/s Mitral E to A Ratio 0.7 MV PHT Velocity 89.6 cm/s MV Deceleration Burke 248.0 cm/s MV Pressure Half Time 108.4 ms MV Area PHT 2.0 cm MV Deceleration Time 275.0 ms TR Peak Velocity 284.0 cm/s TR Peak Gradient 32.3 mmHg Right Atrial Pressure 5.0 mmHg Pulmonary Artery Systolic Pressu 37.3 mmHg Right Ventricular Systolic Press 37.3 mmHg PV Peak Velocity 106.0 cm/s PV Peak Gradient 4.5 mmHg PV Mean Velocity 72.9 cm/s PV Mean Gradient 2.0 mmHg PV Velocity Time Integral 26.3 cm LV E' Lateral Velocity 7.4 cm/s Mitral E to LV E' Lateral Ratio 9.6 LV E' Septal Velocity 7.1 cm/s Mitral E to LV E' Septal Ratio 10.0
[2016-08-25 13:29] LABS: ABSOLUTE MONOCYTE COUNT 0.8 /CUMM (0.10-0.60); MEAN CORPUSCULAR HGB 27.1 PG (27.0-31.0); MEAN PLATELET VOLUME 9.6 FL (7.4-10.4); RBC DISTRIBUTION WIDTH 19.7 % (11.5-14.5); WHITE BLOOD CELL COUNT 7.1 /CUMM (4.8-10.8)
[2016-08-25 13:33] LABS: ABSOLUTE BASOPHIL COUNT 0.1 /CUMM (0.0-0.2); ABSOLUTE EOSINOPHIL COUNT 0.3 /CUMM (0.0-0.7); ABSOLUTE LYMPH COUNT 0.9 /CUMM (1.2-3.4); EOSINOPHIL % 4.7 % (0-5); GRANULOCYTE % 70.4 % (42.2-75.2); HEMATOCRIT 36.8 % (37-47); MEAN CORPUSCULAR HGB CONC 33.5 G/DL (33.0-37.0); MEAN CORPUSCULAR VOLUME 81.1 FL (81.0-99.0); RED BLOOD CELL CT 4.54 /CUMM (4.20-5.40)
[2016-08-25 13:50] LABS: PLATELET COUNT 347 /CUMM (130-400)
[2016-08-25 16:12] VITALS: BP 130/70
--- NOTE | 2016-08-25 16:12 | PN- Cardiology ---
Subjective Subjective: Patient was resting comfortably this morning. Lying flat with no dyspnea. Denied any chest pain or palpitations. Was very pleasant but unable to tell me why she was here in the hospital. Objective Vital Signs and I&Os Vital Signs Date Time Temp Pulse Resp B/P B/P Pulse O2 O2 Flow FiO2 Mean Ox Delivery Rate 08/25 0830 96 Room Air Room Air 08/25 0918 98.0 72 20 144/70 08/25 0800 98.0 72 20 144/70 93 Room Air 08/25 0007 97.5 86 18 130/62 92 Room Air Intake & Output 08/25 1600 08/25 0800 08/25 0000 08/24 1600 08/24 0800 08/24 0000 Intake Total 480 100 340 750 400 220 Output Total 375 Balance 480 100 340 750 25 220 Intake, IV 270 Intake, Oral 480 100 340 480 400 220 Number 1 1 1 Bowel Movements Output, Urine 375 Patient 145 lb Weight Weight Estimated Measurement Method Physical Exam: General: no apparent distress. Laying flat in bed. Eyes: No obvious scleral icterus. HEENT: No jugular venous distention or abnormal jugular venous pulsations. Cardiovascular: Normal intensity S1/S2. Regular. Respiratory: Decreased air entry on the left Abdomen: Soft, nontender with no guarding or rebound tenderness. Musculoskeletal: No clubbing or cyanosis noted, No edema Skin: warm Current Medications: Current Medications Sig/Leslee Start time Last Medication Dose Route Stop Time Status Admin Acetaminophen 650 MG Q4P PRN 08/23 2199 AC PO Acetaminophen 1,000 MG Q6P PRN 08/23 2199 AC N/A 1 UNIT IV Azithromycin 500 MG DAILY 08/24 1000 DC 08/24 Sodium Chloride 250 ML IV 1055 Bisacodyl 10 MG DAILY 08/23 2199 AC 08/25 PO 0918 Ceftriaxone Sodium 1,000 MG DAILY 08/24 1000 DC 08/24 IV 1051 Cholecalciferol 1,000 IU DAILY 08/24 1000 AC 08/25 PO 0918 Docusate Sodium 100 MG DAILY PRN 08/23 2199 AC PO Ferrous Sulfate 325 MG DAILY 08/24 1000 AC 08/25 PO 0918 Heparin Sodium 5,000 UNIT Q8 08/23 2199 AC 08/25 (Porcine) SC 1402 Lisinopril 10 MG DAILY 08/24 1000 AC 08/25 PO 0918 Mirtazapine 7.5 MG AT BEDTIME 08/23 2199 AC 08/24 PO 2114 Morphine Sulfate 1 MG Q8P PRN 08/23 2199 AC IV Multivitamins 1 TAB DAILY 08/24 1000 AC 08/25 Therapeutic PO 0918 Senna/Docusate Sodium 1 TAB BID PRN 08/23 2199 AC PO Sertraline HCl 50 MG DAILY 08/24 1000 AC 08/25 PO 0918 Results Last 48 Hrs of Labs/Mics: Laboratory Tests 08/25/16 1140: Anion Gap 8, Estimated GFR > 60, BUN/Creatinine Ratio 25.0, Magnesium 1.7, CBC w Diff NO MAN DIFF REQ, RBC 4.54, MCV 81.1, MCH 27.1, RDW 19.7 H, MPV 9.6, Gran % 70.4, Lymphocytes % 12.7 L, Monocytes % 11.2 H, Eosinophils % 4.7, Basophils % 1.0, Absolute Granulocytes 5.0, Absolute Lymphocytes 0.9 L, Absolute Monocytes 0.8 H, Absolute Eosinophils 0.3, Absolute Basophils 0.1, PUBS MCHC 33.5 08/24/16314: Troponin I 0.02 08/24/16314: Anion Gap 7, Estimated GFR > 60, BUN/Creatinine Ratio 20.0, CBC w Diff NO MAN DIFF REQ, RBC 4.53, MCV 82.8, MCH 26.7 L, RDW 20.0 H, MPV 9.1, Gran % 67.9, Lymphocytes % 16.0 L, Monocytes % 12.7 H, Eosinophils % 3.3, Basophils % 0.1, Absolute Granulocytes 4.8, Absolute Lymphocytes 1.1 L, Absolute Monocytes 0.9 H, Absolute Eosinophils 0.2, Absolute Basophils 0, PUBS MCHC 32.3 L 08/23/162204: Troponin I 0.02 Recent Imaging Studies: Telemetry tracings were personally reviewed shows sinus rhythm Echo: Mild concentric left ventricular hypertrophy. Normal left ventricular ejection fraction visually estimated at > 65%. No obvious regional wall motion abnormalities. Abnormal relaxation filling pattern of the left ventricle for age (stage 1 diastolic dysfunction). Left atrial size at the upper limits of normal. Mild thickening/calcification of the mitral valve leaflets. Moderate mitral annular calcification. Mild mitral regurgitation. Diffuse thickening (sclerosis) of the aortic valve cusps without reduced excursion. No aortic stenosis. Right ventricular systolic pressure estimated to be elevated at 35- 45 mmHg. Left pleural effusion. Assessment/Plan Assessment/Plan 1. Status post mechanical fall with compression fracture, plan for conservative management 2. Left-sided pleural effusion of unclear etiology 3. Dementia 4. History of hypertension Patient is laying flat in bed and resting comfortably with no complaints of dyspnea. Echocardiogram shows normal LV and RV function. Telemetry tracings shows sinus rhythm. At this time there is no obvious evidence of decompensated congestive heart failure and the pleural effusion is of unclear etiology. Diagnostic thoracocentesis is being considered. The patient remains afebrile without significant leukocytosis. Lebron Schaffer MD FAC Continue telemetry? No
--- NOTE | 2016-08-25 19:35 | Event Note ---
Event Note Event Note: Situation Me () and My resident () had family metting with patient son edgar hendrix (her POA) and daughter in law at 5pm. Brief Discussed about her history of breast cancer and the possibility of her pleural effusion could be secondary to her malignancy given lung and heart causes are less likely. We have shown the CT results as per the family request. Plan Patient wants to proceed as per the family best interest as a whole. (alert and oriented) Family decided to go with diagnostic thoracocentesis.
[2016-08-25 23:58] VITALS: BP 122/72
--- NOTE | 2016-08-26 07:31 | PN- Housestaff ---
Subjective Follow-up For: L2 and L4 compression fracture Complaints: no complaints Tele-Events Since Last Visit: Off telemetry. Subjective: The patient was comfortable this morning. Did not have any complaints. She remained afebrile overnight and vitals were stable. There is a plan for diagnostic and therapeutic thoracentesis to be done this a.m. Discussed with Dr. Hagan, and the interventional radiology nurse. Arrangements made. Discussed with the family member over the phone, and updated about the plan. Review of Systems Constitutional: Reports: see HPI. Objective Last 24 Hrs of Vital Signs/I&O Vital Signs Date Time Temp Pulse Resp B/P B/P Pulse O2 O2 Flow FiO2 Mean Ox Delivery Rate 08/25 2358 98.2 74 20 122/72 94 Room Air 08/25 1625 93 Room Air 08/25 1612 98.8 70 20 130/70 93 Room Air 08/25 1600 Room Air 08/25 0930 96 Room Air Room Air 08/25 0918 98.0 72 20 144/70 08/25 0800 98.0 72 20 144/70 93 Room Air Intake & Output 08/26 0800 08/26 0000 08/25 1600 Intake Total 60 490 480 Output Total 250 700 Balance -190 -210 480 Intake, IV 10 10 Intake, Oral 50 480 480 Number 3 1 Bowel Movements Output, Urine 250 700 Physical Exam General Appearance: Cooperative Current Medications: Current Medications Sig/Leslee Start time Last Medication Dose Route Stop Time Status Admin Acetaminophen 650 MG Q4P PRN 08/23 2199 AC PO Acetaminophen 1,000 MG Q6P PRN 08/23 2199 AC N/A 1 UNIT IV Azithromycin 500 MG DAILY 08/24 1000 DC 08/24 Sodium Chloride 250 ML IV 1055 Bisacodyl 10 MG DAILY 08/230 AC 08/25 PO 0918 Ceftriaxone Sodium 1,000 MG DAILY 08/24 1000 DC 08/24 IV 1051 Cholecalciferol 1,000 IU DAILY 08/24 1000 AC 08/25 PO 0918 Docusate Sodium 100 MG DAILY PRN 08/23 2199 AC PO Ferrous Sulfate 325 MG DAILY 08/24 1000 AC 08/25 PO 0918 Heparin Sodium 5,000 UNIT Q8 08/23 2199 AC 08/25 (Porcine) SC 2127 Lisinopril 10 MG DAILY 08/24 1000 AC 08/25 PO 0918 Mirtazapine 7.5 MG AT BEDTIME 08/23 2199 AC 08/25 PO 2126 Morphine Sulfate 1 MG Q8P PRN 08/23 2199 AC IV Multivitamins 1 TAB DAILY 08/24 1000 AC 08/25 Therapeutic PO 09 Senna/Docusate Sodium 1 TAB BID PRN 08/23 2199 AC PO Sertraline HCl 50 MG DAILY 08/24 1000 AC 08/25 PO 0918 Last 24 Hrs of Lab/Don Results Last 24 Hrs of Labs/Mics: Laboratory Tests 08/25/16 1140: Anion Gap 8, Estimated GFR > 60, BUN/Creatinine Ratio 25.0, Magnesium 1.7, CBC w Diff NO MAN DIFF REQ, RBC 4.54, MCV 81.1, MCH 27.1, RDW 19.7 H, MPV 9.6, Gran % 70.4, Lymphocytes % 12.7 L, Monocytes % 11.2 H, Eosinophils % 4.7, Basophils % 1.0, Absolute Granulocytes 5.0, Absolute Lymphocytes 0.9 L, Absolute Monocytes 0.8 H, Absolute Eosinophils 0.3, Absolute Basophils 0.1, PUBS MCHC 33.5 Assessment/Plan Assessment: Patient is a 89 YO F with PMH significant for HTN, dementia, Left side breast cancer (follows ), Left hip arthroplasty, anemia BIBA to [facility] secondary to fall at her retirement. No body witnessed the fall at retirement including facility members. History obtained from patient is very limited ( attributable to dementia). She recently had a respiratory infection. At baseline uses walker for assistance. Upon coming to [facility] found to have acute compression fractures of L2 & L4. Throacic CT shows left sided pleural effusion with atelectasis. Plan Admitted to telemetry floor Compression fracture of L2 & L4 * Pain with palpation of paraspinal region and at the site of fracture, however neurologically intact * Ortho consutled - informed that the patient can be managed conservatively * Physical therapy to mobilize the patient (suggested STR) * Pain control with morphine for now - If patient develops intractable back pain , she might benefit from thoracolumbar brace as an outpatient * Patient need to follow up with orthopedics in 3-4weeks, to assess healing activity with Xrays Left sided pleural effusion * Patient recently had a respiratory infection, so initially thought secondary to that and started on ceftriaxone and azithromycin * CT scan showed effusion without any evidence of infection on top of it patient didnt have any leukocytosis and fever * Discontinued antibiotics today * Cardio consulted - as per the negative proBNP and Normal ECHO suggested heart is not the reason behind the effussion * As patient had h/o breast cancer - most probably malignant excluding other systems * Today we had a discussion with family and they want to proceed with a diagnostic thoracocentesis * Scheduled for IR guided diagnostic thoracocentesis tomorrow History of left sided breast cancer * Diagnosed 4yrs ago, underwent lumpectomy with localized radiotherpy * Follows Chronic and stable conditions HTN: lisinopril 10mg daily Depression: sertraline 50mg daily and mirtazepine 7.5mg at bedtime Supplements: Multivitamins/Ferrous sulfate/Cholecalciferol Constipation: SennaS, Bisacodyl, Docusate DVT prophylaxis * SC heparin Code Status * DNR/DNI Problem List: 1. Pleural effusion on left Pain Ratin Pain Location: none Pain Goal: Pain 4 or less Pain Plan: tylenol prn Tomorrow's Labs & Rationales: cbc- to monitor for leucocytois bep- to check electrolytes
[2016-08-26 08:00] VITALS: BP 148/80
--- NOTE | 2016-08-26 09:17 | PN- Att Addend ---
Attending Addendum Attending Brief Note Patient complains of lower back pain General Appearance: Alert, No Acute Distress Skin: Grossly normal HEENT: PEERLA Neck: Supple, No JVD Cardiovascular: Regular Rate, Normal S1, Normal S2, No Murmurs Lungs: Decreased air entry right lower lobes Abdomen: Normal Bowel Sounds, Soft, No Tenderness Neurological: Normal Speech, Strength at 5/5 X4 Ext, Cranial Nerves 3-12 NL, Reflexes 2+ Extremities: No Clubbing, No Cyanosis, No Edema Vascular: Normal Pulses Assessment Status post fall with compression fractures that will be followed conservatively with rest and pain meds. In the meantime CTs shows moderate left pleural effusion. Clinically there is no signs of pneumonia or CHF. Plan for thoracentesis today Plan Thoracentesis by IR, sent for culture, Gram stain and cytology Repeat chest x-ray postprocedure Continue current pain meds Continue other meds DNI/DNR Current Medications Sig/Leslee Start time Last Medication Dose Route Stop Time Status Admin Acetaminophen 650 MG Q4P PRN 08/23 2199 AC PO Acetaminophen 1,000 MG Q6P PRN 08/23 2199 AC N/A 1 UNIT IV Bisacodyl 10 MG DAILY 08/23 2199 AC 08/25 PO 0918 Cholecalciferol 1,000 IU DAILY 08/24 1000 AC 08/25 PO 0918 Docusate Sodium 100 MG DAILY PRN 08/23 2199 AC PO Ferrous Sulfate 325 MG DAILY 08/24 1000 AC 08/25 PO 0918 Heparin Sodium 5,000 UNIT Q8 08/23 2199 AC 08/25 (Porcine) SC 2126 Lisinopril 10 MG DAILY 08/24 1000 AC 08/25 PO 0918 Mirtazapine 7.5 MG AT BEDTIME 08/23 2199 AC 08/25 PO 212 Morphine Sulfate 1 MG Q8P PRN 08/23 2199 AC IV Multivitamins 1 TAB DAILY 08/24 1000 AC 08/25 Therapeutic PO 0918 Senna/Docusate Sodium 1 TAB BID PRN 08/23 2199 AC PO Sertraline HCl 50 MG DAILY 08/24 1000 AC 08/25 PO 0918 Laboratory Tests 08/26 08/25 0655 1140 Chemistry Sodium (137 - 145 mmol/L) 136 L 135 L Potassium (3.5 - 5.1 mmol/L) 4.2 4.1 Chloride (98 - 107 mmol/L) 102 101 Carbon Dioxide (22 - 30 mmol/L) 26 26 Anion Gap (5 - 16) 8 8 BUN (7 - 17 mg/dL) 11 10 Creatinine (0.5 - 1.0 mg/dL) 0.4 L 0.4 L Estimated GFR (>60 ml/min) > 60 > 60 BUN/Creatinine Ratio (7 - 25 %) 27.5 H 25.0 Magnesium (1.6 - 2.3 mg/dL) 1.8 1.7 Hematology CBC w Diff NO MAN DIFF REQ WBC (4.8 - 10.8 /CUMM) 7.1 RBC (4.20 - 5.40 /CUMM) 4.54 Hgb (12.0 - 16.0 G/DL) 12.3 Hct (37 - 47 %) 36.8 L MCV (81.0 - 99.0 FL) 81.1 MCH (27.0 - 31.0 PG) 27.1 RDW (11.5 - 14.5 %) 19.7 H Plt Count (130 - 400 /CUMM) 347 MPV (7.4 - 10.4 FL) 9.6 Gran % (42.2 - 75.2 %) 70.4 Lymphocytes % (20.5 - 51.1 %) 12.7 L Monocytes % (1.7 - 9.3 %) 11.2 H Eosinophils % (0 - 5 %) 4.7 Basophils % (0.0 - 2.0 %) 1.0 Absolute Granulocytes (1.4 - 6.5 /CUMM) 5.0 Absolute Lymphocytes (1.2 - 3.4 /CUMM) 0.9 L Absolute Monocytes (0.10 - 0.60 /CUMM) 0.8 H Absolute Eosinophils (0.0 - 0.7 /CUMM) 0.3 Absolute Basophils (0.0 - 0.2 /CUMM) 0.1 PUBS MCHC (33.0 - 37.0 G/DL) 33.5 Vital Signs Date Time Temp Pulse Resp B/P B/P Pulse O2 O2 Flow FiO2 Mean Ox Delivery Rate 08/26 0823 Room Air Room Air 08/26 0800 97.8 70 16 148/80 93 Room Air 08/25 2358 98.2 74 20 122/72 94 Room Air 08/25 1625 93 Room Air 08/25 1612 98.8 70 20 130/70 93 Room Air 08/25 1600 Room Air 08/25 0930 96 Room Air Room Air 08/25 0918 98.0 72 20 144/70
--- NOTE | 2016-08-26 10:02 | PN- Pulmonary ---
Subjective HPI/Critical Care Issues: Patient seen and examined this morning. She appears to be doing well and hemodynamics are stable. The family and the patient are amenable to get a diagnostic thoracentesis performed and while she gets that done we can continue to get a therapeutic drainage as well. Objective Current Medications: Current Medications Sig/Leslee Start time Last Medication Dose Route Stop Time Status Admin Acetaminophen 650 MG Q4P PRN 08/23 2199 AC PO Acetaminophen 1,000 MG Q6P PRN 08/23 2199 AC N/A 1 UNIT IV Bisacodyl 10 MG DAILY 08/230 AC 08/25 PO 0918 Cholecalciferol 1,000 IU DAILY 08/24 1000 AC 08/25 PO 0918 Docusate Sodium 100 MG DAILY PRN 08/23 2199 AC PO Ferrous Sulfate 325 MG DAILY 08/24 1000 AC 08/25 PO 0918 Heparin Sodium 5,000 UNIT Q8 08/23 2199 AC 08/25 (Porcine) SC 2126 Lisinopril 10 MG DAILY 08/24 1000 AC 08/25 PO 0918 Mirtazapine 7.5 MG AT BEDTIME 08/23 2199 AC 08/25 PO 2127 Morphine Sulfate 1 MG Q8P PRN 08/23 2199 AC IV Multivitamins 1 TAB DAILY 08/24 1000 AC 08/25 Therapeutic PO 0918 Senna/Docusate Sodium 1 TAB BID PRN 08/23 2199 AC PO Sertraline HCl 50 MG DAILY 08/24 1000 AC 08/25 PO 0918 Vital Signs & I&O Last 24 Hrs of Vitals and I&O: Vital Signs Date Time Temp Pulse Resp B/P B/P Pulse O2 O2 Flow FiO2 Mean Ox Delivery Rate 08/26 0823 Room Air Room Air 08/26 0800 97.8 70 16 148/80 93 Room Air 08/25 2358 98.2 74 20 122/72 94 Room Air 08/25 1625 93 Room Air 08/25 1612 98.8 70 20 130/70 93 Room Air 08/25 1600 Room Air Intake & Output 08/26 1600 08/26 0800 08/26 0000 Intake Total 60 490 Output Total 250 700 Balance -190 -210 Intake, IV 10 10 Intake, Oral 50 480 Number 3 Bowel Movements Output, Urine 250 700 Exam Other Physical Findings: Gen - alert and awake HEENT - NCAT CVS - S1, S2, systolic murmur Lungs - diminished breath sounds at the bases Abdomen - soft, non-tender, bs+ Ext - no edema, no cyanosis Results Last 24 Hrs of Lab Results: Laboratory Tests 08/26/16 0655: Anion Gap 8, Estimated GFR > 60, BUN/Creatinine Ratio 27.5 H, Magnesium 1.8, Lactate Dehydrogenase 435, Total Protein 6.8, Albumin 2.5 L 08/25/16 1140: Anion Gap 8, Estimated GFR > 60, BUN/Creatinine Ratio 25.0, Magnesium 1.7, CBC w Diff NO MAN DIFF REQ, RBC 4.54, MCV 81.1, MCH 27.1, RDW 19.7 H, MPV 9.6, Gran % 70.4, Lymphocytes % 12.7 L, Monocytes % 11.2 H, Eosinophils % 4.7, Basophils % 1.0, Absolute Granulocytes 5.0, Absolute Lymphocytes 0.9 L, Absolute Monocytes 0.8 H, Absolute Eosinophils 0.3, Absolute Basophils 0.1, PUBS MCHC 33.5 Impression/Plan Impression/Plan Impression/Plan: Impression 89 year old woman * mechanical fall, compression L2 fracture * left pleural effusion with associated atelectasis Plan - incentive spirometry - pain control - amenable to thoracentesis are guided, check cytology, microbiology, LDH, total cholesterol, cell count, and serum simultaneous studies as well for diagnostic purposes DVT prophylaxis at all times
[2016-08-26 10:31] VITALS: BP 128/60
--- NOTE | 2016-08-26 10:43 | PN- Cardiology ---
Subjective Subjective: Patient feels well. She denies chest pain or shortness of breath. Review of Systems: Eyes no blurred or double vision Ears no deafness or ringing Nose and throat no recurrent sinusitis Lungs per history of present illness Heart per history of present illness Abdomen no nausea vomiting Musculoskeletal occasional muscle and joint pains Psych no anxiety or depression Neuro without recurrent headache or seizures Endocrine no heat or cold intolerance Objective Vital Signs and I&Os Vital Signs Date Time Temp Pulse Resp B/P B/P Pulse O2 O2 Flow FiO2 Mean Ox Delivery Rate 08/26 1031 98.1 64 18 128/60 92 Room Air 08/26 0823 Room Air Room Air 08/26 0800 97.8 70 16 148/80 93 Room Air 08/25 2358 98.2 74 20 122/72 94 Room Air 08/25 1625 93 Room Air 08/25 1612 98.8 70 20 130/70 93 Room Air 08/25 1600 Room Air Intake & Output 08/26 1600 08/26 0800 08/26 0000 08/25 1600 08/25 0800 08/25 0000 Intake Total 60 490 480 100 340 Output Total 250 700 Balance -190 -210 480 100 340 Intake, IV 10 10 Intake, Oral 50 480 480 100 340 Number 3 1 Bowel Movements Output, Urine 250 700 Physical Exam: Patient is a well-developed well-nourished female appearing in no acute distress HEENT is unremarkable Neck is supple there is no JVD Lungs decreased breath sounds at the left base Heart regular rhythm S1 and S2 are normal no murmurs gallops or rubs Abdomen bowel sounds positive Extremities without edema Current Medications: Current Medications Sig/Leslee Start time Last Medication Dose Route Stop Time Status Admin Acetaminophen 650 MG Q4P PRN 08/23 2199 AC PO Acetaminophen 1,000 MG Q6P PRN 08/23 2199 AC N/A 1 UNIT IV Bisacodyl 10 MG DAILY 08/23 2199 AC 08/25 PO 0918 Cholecalciferol 1,000 IU DAILY 08/24 1000 AC 08/25 PO 09 Docusate Sodium 100 MG DAILY PRN 08/23 2199 AC PO Ferrous Sulfate 325 MG DAILY 08/24 1000 AC 08/25 PO 0918 Heparin Sodium 5,000 UNIT Q8 08/23 2199 AC 08/25 (Porcine) AL 2127 Lisinopril 10 MG DAILY 08/24 1000 AC 08/25 PO 0918 Mirtazapine 7.5 MG AT BEDTIME 08/23 2199 AC 08/25 PO 2126 Morphine Sulfate 1 MG Q8P PRN 08/23 2199 AC IV Multivitamins 1 TAB DAILY 08/24 1000 AC 08/25 Therapeutic PO 09 Senna/Docusate Sodium 1 TAB BID PRN 08/23 2199 AC PO Sertraline HCl 50 MG DAILY 08/24 1000 AC 08/25 PO 0918 Results Last 48 Hrs of Labs/Mics: Laboratory Tests 08/26/16 0655: Anion Gap 8, Estimated GFR > 60, BUN/Creatinine Ratio 27.5 H, Magnesium 1.8, Lactate Dehydrogenase 435, Total Protein 6.8, Albumin 2.5 L 08/25/16 1140: Anion Gap 8, Estimated GFR > 60, BUN/Creatinine Ratio 25.0, Magnesium 1.7, CBC w Diff NO MAN DIFF REQ, RBC 4.54, MCV 81.1, MCH 27.1, RDW 19.7 H, MPV 9.6, Gran % 70.4, Lymphocytes % 12.7 L, Monocytes % 11.2 H, Eosinophils % 4.7, Basophils % 1.0, Absolute Granulocytes 5.0, Absolute Lymphocytes 0.9 L, Absolute Monocytes 0.8 H, Absolute Eosinophils 0.3, Absolute Basophils 0.1, PUBS MCHC 33.5 Recent Imaging Studies: Echocardiogram CONCLUSIONS Mild concentric left ventricular hypertrophy. Normal left ventricular ejection fraction visually estimated at > 65%. No obvious regional wall motion abnormalities. Abnormal relaxation filling pattern of the left ventricle for age (stage 1 diastolic dysfunction). Left atrial size at the upper limits of normal. Mild thickening/calcification of the mitral valve leaflets. Moderate mitral annular calcification. Mild mitral regurgitation. Diffuse thickening (sclerosis) of the aortic valve cusps without reduced excursion. No aortic stenosis. Right ventricular systolic pressure estimated to be elevated at 35- 45 mmHg. Left pleural effusion. Kameron Mayen M.D. Assessment/Plan Assessment/Plan 1. Status post mechanical fall with compression fracture, plan for conservative management 2. Left-sided pleural effusion of unclear etiology 3. Dementia 4. History of hypertension Recommendations 1. Plan is for diagnostic left thoracentesis 2. Patient is now transferred to the medical floor, is stable from a cardiac standpoint, so will follow when necessary thank you Continue telemetry? No
--- NOTE | 2016-08-26 14:15 | NUR ---
NURSING NOTE: PATIENT TRANSFERED TO TOR A THORACENTESIS @ 1415 VIA [facility]REACHER. PATIENT IS A&O X 3 WITH NO C/O PAIN OR DISCOMFORT.
[2016-08-26 14:43] VITALS: BP 130/64
--- NOTE | 2016-08-26 15:23 | Transfer of Care Summary ---
Hospital Course Course Hospital Course: Ms. Siu is an 89-year-old female with a past medical history of dementia, anxiety, hypertension, anemia presented to the ER after she had a and unwitnessed fall at the nursing facility prior to arrival. Patient was recently in the hospital for an acute displaced fracture of the left femoral neck and underwent left hip hemiarthroplasty on in May. Patient denied any chest pain, palpitations, loss of consciousness, any seizure-like activities, tongue biting, nausea, vomiting, abdominal pain, fever, cough, decreased by mouth intake. She does however state that she fell down on her right side and may have hit her head. She endorsed non-radiating lower back pain that she grades as a 6/10 in intensity. Vitals at the time of admission blood pressure 133/63, respiratory rate 18, pulse 75, afebrile saturating 94% on room air. On physical exam, she is alert, oriented to person but not to time or place. HEENT revealed PERRLA, dry mucous membranes. Examination of the neck did not reveal elevated JVD, or lymphadenopathy. Vascular exam pertinent for normal S1, S2, no murmurs rubs or gallops appreciated. Auscultation of the chest revealed decreased breath sounds bilaterally. Abdominal exam was benign with abdomen soft, nontender, nondistended with normal bowel sounds in all 4 quadrants. Examination of the lower extremity revealed trace bilateral edema. Of note there is tenderness to palpation in the home for vertebral region together with some mild amount of paraspinal tenderness as well as an abrasion. pertinent labs: normal white blood cell count of 8500, H&H of 12.4/38.6, MCV of 83.2, platelet count of 314,000. Chemistries pertinent for sodium of 133, potassium of 4.0, bicarbonate of 27, anion gap of 9, BUN 13 and creatinine 0.5 with serum glucose elevated to 110. LFTs unremarkable with an AST/ALT of 21/23, alkaline phosphatase of 95, troponin 0.02, proBNP of 587. UA revealed light trace amount of proteinuria, and few bacteria. Chest x-ray revealed left lower lobe pneumonia with more small to moderate parapneumonic effusion, moderate cardiomegaly with li'skely mild to moderate superimposed congestive heart failure. EKG revealed NSR, HR: 75, poor R wave progression, no ST-T changes, q waves in inferior leads with Twave inversion in V2. Head CT revealed no acute intracranial pathology, osseous abnormality of the cervical spine does show new moderate left pleural effusion CT of thoracic and lumbar spine showed acute severe compression fracture of the L2 vertebral body with mild retropulsion of the posterior vertebral body wall, no significant stenosis, acute concave compression fracture of the superior endplate of the L4 with a pre-, no acute fracture or malalignment within the degenerated thoracic spine. Moderate amount of left pleural effusion and compressive atelectasis of the left lower lobe. There is atherosclerotic disease of the coronary arteries and cardiomegaly without acute pulmonary edema as well as a 0.7 cm nodule of the right upper lobe along the major fissure which remain stable in size. Last echocardiogram done in 2009 revealed an EF of 65-70%, no regional wall motion abnormalities with stage I diastolic dysfunction. ER she received vancomycin IV 1 and ceftazidime. Patient admitted to telemetry and following problems were addressed. 1. Fall resulting in L2 L4 compression fracture Patient name after sustaining a fall. CT head didn't reveal any interacranial pathology. Bleed. The CT lumbar spine revealed L3-L4 compression fracture. Noted mild retropulsion of bone fragments at the L2 vertebral body compression fracture without central canal or foraminal compression. Patient did not report any radicular or myelopathic symptoms. Orthopedic surgery Dr. Fermin consulted who recommended conservative management with early mobilization of the patient out of bed as tolerated with physical therapy. The patient needs to followup with orthopedic surgery on an outpatient basis in about 3-4 weeks so that she can undergo x-rays of her lumbar spine to assess vertebral body fracture healing activity. If the patient's back pain proves to be intractable, she might then benefit from a thoracolumbar brace or orthosis. Physical therapy consulted who recommended skilled physical therapy at short-term rehabilitation. 2. Left lower lobe infiltrate/pleural effusion On admission chest x-ray revealed left lower lobe infiltrate with surrounding effusion suspicious for parapneumonic effusion. Patient was noted afebrile without any elevated WBC but empirically started on antibiotics for presumed pneumonia. On day [address] chest without IV contrast done as per pulmonary recommendation which revealed moderate size left pleural effusion. Patient remained afebrile and his antibiotic stopped and patient watched off antibiotics with no further development of fever or productive cough. Patient underwent diagnostic and therapeutic left thoracentesis on 08/26/2016 to diagnosis the etiology. Please follow-up left thoracentesis fluid analysis result which was sent for cytology, cell count, Gram stain and culture, LDH, protein, cholesterol. Of note patient had a left breast cancer diagnosed 4 years ago and underwent partial chemotherapy with Dr. Cleveland which was later stopped as patient was not able to tolerate chemotherapy further. Patient was also evaluated by cardiology for possible etiology as CHF. Patient had echocardiogram which revealed normal EF without any systolic or diastolic dysfunction and patient remained stable without any shortness of breath and her etiology pleural effusion was unlikely as CHF. 3. Hypertension Patient maintain on home dose lisinopril 10 mg daily 4. Depression Patient maintain on home dose sertraline 50 mg daily and mirtazapine 7.5 mg at bedtime 5. DVT prophylaxis Patient received subcutaneous heparin 6. CODE STATUS DNR/DNI Significant Procedures: ECHOCARDIOGRAM: Mild concentric left ventricular hypertrophy. Normal left ventricular ejection fraction visually estimated at > 65%. No obvious regional wall motion abnormalities. Abnormal relaxation filling pattern of the left ventricle for age (stage 1 diastolic dysfunction). Left atrial size at the upper limits of normal. Mild thickening/calcification of the mitral valve leaflets. Moderate mitral annular calcification. Mild mitral regurgitation. Diffuse thickening (sclerosis) of the aortic valve cusps without reduced excursion. No aortic stenosis. Right ventricular systolic pressure estimated to be elevated at 35- 45 mmHg. Left pleural effusion. CT CHEST WO IV CONTRAST Moderate-sized left pleural effusion. With left lower lobe disease consistent with atelectasis or pneumonia. Multiple lung nodules which appear essentially stable over the short time. Taking measurements were made into account. Cardiomegaly without pulmonary edema. Osteopenia. CT LUMB SPINE WO IV CONTRAST; CT THOR SPINE WO IV CONTRAST: 1. Acute, severe compression fracture of the L2 vertebral body with mild retropulsion of the posterior vertebral body wall. No significant canal stenosis or foraminal stenosis at this level. 2. Acute, concave compression fracture of the superior endplate of the L4 vertebral body. 3. No acute fracture or malalignment within the degenerated thoracic spine. 4. Moderate left pleural effusion and compressive atelectasis of the left lower lobe. Recommend correlation with findings on chest radiograph. 5. Atherosclerotic disease of the coronary arteries and cardiomegaly without acute pulmonary edema. 6. The 0.7 cm nodule of the right upper lobe along the major fissure remains stable in size compared to 05/04/2016. Please refer to the chest CT report of 05/04/2016. XRY-PORTABLE CHEST XRAY: IMPRESSION: 1. Left lower lobe pneumonia with small to moderate parapneumonic effusion. 2. Moderate cardiomegaly with likely mild to moderate superimposed congestive heart failure. CT CERV SPINE WO IV CONTRAST; CT HEAD WO IV CONTRAST: IMPRESSION: No acute intracranial pathology. No acute osseous abnormality of the cervical spine. Similar appearance of degenerative changes of the cervical spine with exaggerated cervical lordosis. New moderate left pleural effusion. Pertinent Lab Results: Laboratory Tests 08/26/16 0655: Anion Gap 8, Estimated GFR > 60, BUN/Creatinine Ratio 27.5 H, Magnesium 1.8, Lactate Dehydrogenase 435, Total Protein 6.8, Albumin 2.5 L 08/25/16 1140: Anion Gap 8, Estimated GFR > 60, BUN/Creatinine Ratio 25.0, Magnesium 1.7, CBC w Diff NO MAN DIFF REQ, RBC 4.54, MCV 81.1, MCH 27.1, RDW 19.7 H, MPV 9.6, Gran % 70.4, Lymphocytes % 12.7 L, Monocytes % 11.2 H, Eosinophils % 4.7, Basophils % 1.0, Absolute Granulocytes 5.0, Absolute Lymphocytes 0.9 L, Absolute Monocytes 0.8 H, Absolute Eosinophils 0.3, Absolute Basophils 0.1, PUBS MCHC 33.5 08/24/16 0315: Troponin I 0.02 08/24/16 0315: Anion Gap 7, Estimated GFR > 60, BUN/Creatinine Ratio 20.0, CBC w Diff NO MAN DIFF REQ, RBC 4.53, MCV 82.8, MCH 26.7 L, RDW 20.0 H, MPV 9.1, Gran % 67.9, Lymphocytes % 16.0 L, Monocytes % 12.7 H, Eosinophils % 3.3, Basophils % 0.1, Absolute Granulocytes 4.8, Absolute Lymphocytes 1.1 L, Absolute Monocytes 0.9 H, Absolute Eosinophils 0.2, Absolute Basophils 0, PUBS MCHC 32.3 L 08/23/16 2205: Troponin I 0.02 08/23/16 1544: Anion Gap 9, Estimated GFR > 60, BUN/Creatinine Ratio 26.0 H, Glucose 110 H, Calcium 8.2 L, Total Bilirubin 0.6, AST 21, ALT 23, Alkaline Phosphatase 95, Troponin I 0.02, Qaw-Y-Wshwrbotyue Pept 587 H, Total Protein 7.1, Albumin 2.7 L, Globulin 4.4 H, Albumin/Globulin Ratio 0.6 L, CBC w Diff NO MAN DIFF REQ, RBC 4.63, MCV 83.2, MCH 26.7 L, RDW 20.3 H, MPV 8.5, Gran % 76.5 H, Lymphocytes % 12.0 L, Monocytes % 7.9, Eosinophils % 1.8, Basophils % 1.8, Absolute Granulocytes 6.5, Absolute Lymphocytes 1.0 L, Absolute Monocytes 0.7 H, Absolute Eosinophils 0.2, Absolute Basophils 0.1, PUBS MCHC 32.1 L 08/23/16 1523: Urinalysis LIGHT H, Urine Color YEL, Urine Clarity CLEAR, Urine pH 6.5, Ur Specific [place] 1.020, Urine Protein TRACE H, Urine Ketones NEG, Urine Nitrite NEG, Urine Bilirubin NEG, Urine Urobilinogen 0.2, Ur Leukocyte Esterase NEG, Ur Microscopic SEDIMENT EXAMINED, Urine RBC RARE, Urine WBC RARE, Ur Epithelial Cells RARE, Urine Bacteria FEW H, Urine Mucus FEW, Urine Hemoglobin NEG, Urine Glucose NEG Microbiology 08/26 1004 BODY FLUID: Body Fluid Culture - COLB 08/26 1004 BODY FLUID: Gram Stain - COLB 08/23 2041 LOWER RESP: Respiratory Culture - CAN Cancelled: NO SAMPLE COLLECTED FOR MICRO DEPT/ 08/23 2041 LOWER RESP: Gram Stain - CAN Cancelled: NO SAMPLE COLLECTED FOR MICRO DEPT/ 08/23 1706 BLOOD: Blood Culture - RES 08/23 170 BLOOD: Blood Culture - RES 08/23 1523 URINE ROUT: Urine Culture - COMP Assessment/Plan: Compression fracture of L2 & L4 * Pain with palpation of paraspinal region and at the site of fracture, however neurologically intact * Ortho consutled - informed that the patient can be managed conservatively * Physical therapy to mobilize the patient (suggested STR) * Pain control with morphine for now - If patient develops intractable back pain , she might benefit from thoracolumbar brace as an outpatient * Patient need to follow up with orthopedics in 3-4weeks, to assess healing activity with Xrays Left sided pleural effusion * Patient recently had a respiratory infection, so initially thought secondary to that and started on ceftriaxone and azithromycin * CT scan showed effusion without any evidence of infection on top of it patient didnt have any leukocytosis and fever * Discontinued antibiotics today * Cardio consulted - as per the negative proBNP and Normal ECHO suggested heart is not the reason behind the effussion * As patient had h/o breast cancer - most probably malignant excluding other systems * Today we had a discussion with family and they want to proceed with a diagnostic thoracocentesis * Scheduled for IR guided diagnostic thoracocentesis tomorrow History of left sided breast cancer * Diagnosed 4yrs ago, underwent lumpectomy with localized radiotherpy * Follows Chronic and stable conditions HTN: lisinopril 10mg daily Depression: sertraline 50mg daily and mirtazepine 7.5mg at bedtime Supplements: Multivitamins/Ferrous sulfate/Cholecalciferol Constipation: SennaS, Bisacodyl, Docusate DVT prophylaxis * SC heparin
--- NOTE | 2016-08-26 15:51 | RADIOLOGY REPORT ---
EXAMINATION:\H\ \N\XR CHEST CLINICAL INFORMATION: Status post left thoracentesis. Evaluate for pneumothorax. COMPARISON: CXR from 08/23/2016 TECHNIQUE: AP view of the chest was obtained. FINDINGS: Left pleural effusion has significantly decreased after thoracentesis. No pneumothorax. The residual left basilar opacity is likely atelectasis. There is cardiomegaly and atherosclerosis of the aorta. No evidence of acute pulmonary edema. Bones appear diffusely osteoporotic. IMPRESSION: Left pleural effusion has significantly decreased after thoracentesis. No pneumothorax.
--- NOTE | 2016-08-26 15:55 | ULTRASOUND REPORT ---
CLINICAL HISTORY: This patient is a 89-year-old woman with left pleural effusion. The patient is referred to interventional radiology for ultrasound-guided thoracentesis. PROCEDURE: Ultrasound-guided thoracentesis. COMPARISON: Chest CT 08/24/2016 ACCESS: 6 Fr [id number] closed needle/catheter system. PROCEDURALIST: Dr. Castellanos (resident), Dr. Marcie Sultana (attending) MEDICATIONS: 10 mL of 1% lidocaine SQ. COMPLICATIONS: None. ESTIMATED BLOOD LOSS: <5 mL. SPECIMENS: A specimen was appropriately labeled and sent to the laboratory as requested. PROCEDURE NOTE: Appropriate pre-procedure medical history and imaging studies were reviewed. Informed consent was obtained from the patient prior to the procedure. During this process, the procedure and potential alternatives were explained along with the intended outcome and benefits. The risks of the procedure, including the possibility of an unsuccessful procedure, as well as the risk of not doing the procedure, were discussed. The patient was given the opportunity to ask questions regarding the procedure and appeared competent to make decisions. A signed consent form documenting this discussion was placed in the medical record. SITE MARKING: As part of the preprocedure verification policy, a site marking procedure was initiated. Due to the nature the procedure, the insertion site could not be predetermined thus invoking the policy of exemption to site laterality and marking. Insertion site marking was performed in the procedure room in conjunction with imaging confirmation. A time-out procedure was performed. The patient was brought to the ultrasound department and placed in the seated position. Ultrasound images of the left thorax were obtained to localize a moderate pleural effusion. Images were permanently saved to the record. An area of the patient's left back was prepped and draped in the standard sterile fashion. 10 mL of 1% lidocaine was used to obtain local anesthesia of the skin and deeper tissues. A standard small-bore needle was introduced to sample fluid and demonstrated a safe access route. There was no evidence of traversing adjacent organs or vascular structures. A 6 Fr [id number]-Btknxpir closed needle/catheter system was utilized for access. 860 mL of clear straw-colored fluid was aspirated before drainage ceased. The catheter was removed and a sterile dressing applied. The patient tolerated the procedure well without evidence of immediate complications. FINDINGS: Moderate simple left pleural effusion. IMPRESSION: Successful left ultrasound-guided therapeutic and diagnostic thoracentesis. PLAN: 1. A postprocedure chest x-ray was ordered and will be dictated separately. 2. The patient was stable after the procedure and transferred to their room with instructions after standard monitoring.
--- NOTE | 2016-08-26 20:15 | NUR ---
NURSING NOTE: RETURNED FROM IR @ 3336. 860ML OF FLUID WAS REMOVED. PATIENT IS A&O X 3 WITH NO C/O PAIN OR DISCOMFORT.
[2016-08-26 22:03] VITALS: BP 136/70
[2016-08-27 07:00] VITALS: BP 142/78
--- NOTE | 2016-08-27 07:43 | PN- Housestaff ---
Subjective Follow-up For: L2 and L4 compression fracture Left-sided pleural effusion status post thoracentesis Complaints: no complaints Subjective: Patient was seen and examined this morning. She was lying comfortably in bed without incomplete. She was saturating 95% on room air with normal vital signs. She had thoracentesis done yesterday and feels comfortable. Thoracentesis looks like exudative but cytology is not back yet and I spoke with the cytology lab we could get the results tomorrow. Patient remained afebrile. Review of Systems Constitutional: Denies: chills, diaphoresis, fever. EENTM: Denies: blurred vision, double vision. Cardiovascular: Denies: chest pain, edema, orthopena. Respiratory: Denies: hemoptysis, sputum production. Gastrointestinal: Denies: abdominal pain, bloating. Genitourinary: Denies: dysuria, frequency. Musculoskeletal: Reports: back pain. Objective Last 24 Hrs of Vital Signs/I&O Vital Signs Date Time Temp Pulse Resp B/P B/P Pulse O2 O2 Flow FiO2 Mean Ox Delivery Rate 08/27 0700 98.4 76 20 142/78 95 Room Air 08/26 220 97.6 80 20 136/70 95 Room Air 08/26 1800 93 Room Air 08/26 1443 98.0 72 18 130/64 94 Room Air 08/26 1047 64 128/60 08/26 1031 98.1 64 18 128/60 92 Room Air 08/26 1030 95 Room Air 08/26 0823 Room Air Room Air Intake & Output 08/27 1600 08/27 0800 08/27 0000 Intake Total 120 Output Total Balance 120 Intake, Oral 120 Physical Exam General Appearance: Alert, Oriented X3, Cooperative, No Acute Distress HEENT: Atraumatic, PERRLA Neck: Supple Cardiovascular: Regular Rate, Normal S1, Normal S2 Lungs: bilateral basal crackles Abdomen: Soft, No Tenderness Extremities: No Clubbing Current Medications: Current Medications Sig/Leslee Start time Last Medication Dose Route Stop Time Status Admin Acetaminophen 650 MG Q4P PRN 08/23 2199 AC PO Acetaminophen 1,000 MG Q6P PRN 08/23 2199 AC N/A 1 UNIT IV Bisacodyl 10 MG DAILY 08/23 2199 AC 08/26 PO 1045 Cholecalciferol 1,000 IU DAILY 08/24 1000 AC 08/26 PO 1047 Docusate Sodium 100 MG DAILY PRN 08/23 2199 AC PO Ferrous Sulfate 325 MG DAILY 08/24 1000 AC 08/26 PO 1046 Heparin Sodium 5,000 UNIT Q8 08/23 2199 AC 08/27 (Porcine) SC 0608 Lisinopril 10 MG DAILY 08/24 1000 AC 08/26 PO 1047 Mirtazapine 7.5 MG AT BEDTIME 08/23 2199 AC 08/26 PO 2254 Morphine Sulfate 1 MG Q8P PRN 08/23 2199 AC IV Multivitamins 1 TAB DAILY 08/24 1000 AC 08/26 Therapeutic PO 1046 Senna/Docusate Sodium 1 TAB BID PRN 08/23 2199 AC PO Sertraline HCl 50 MG DAILY 08/24 1000 AC 08/26 PO 1047 Last 24 Hrs of Lab/Don Results Last 24 Hrs of Labs/Mics: Laboratory Tests 08/27/16 0640: Sodium Pending, Potassium Pending, Chloride Pending, Carbon Dioxide Pending, Anion Gap Pending, BUN Pending, Creatinine Pending, BUN/Creatinine Ratio Pending , CBC w Diff Pending, WBC Pending, RBC Pending, Hgb Pending, Hct Pending, MCV Pending, MCH Pending, RDW Pending, Plt Count Pending, MPV Pending, PUBS MCHC Pending 08/26/16 1512: Pleural pH 7.45 08/26/16 1512: Fluid WBC 1350 H, Fld Total RBCs Counted 600 H 08/26/16 1512: Lymphocytes 8, % Normal PMNs 59, Misc Hematology Test , Phlebotomy Draw Site L THORACENTESIS, Fluid Glucose 105, Fluid Total Protein 4.8, Fluid Albumin 1.7, Fluid LDH 293, Fluid Amylase < 30, Fluid Cholesterol 80 08/26/16 0933: Fluid Cholesterol Cancelled Microbiology 08/26 1902 BODY FLUID: Body Fluid Culture - COLB 08/26 190 BODY FLUID: Gram Stain - COLB 08/26 1512 BODY FLUID: Body Fluid Culture - RECD 08/26 151 BODY FLUID: Gram Stain - RECD 08/26 1004 BODY FLUID: Body Fluid Culture - CAN Cancelled: CHANGED SITE 08/26 1004 BODY FLUID: Gram Stain - CAN Cancelled: CHANGED SITE Assessment/Plan Assessment: Patient is a 89 YO F with PMH significant for HTN, dementia, Left side breast cancer (follows ), Left hip arthroplasty, anemia BIBA to [facility] secondary to fall at her long-term. No body witnessed the fall at long-term including facility members. History obtained from patient is very limited ( attributable to dementia). She recently had a respiratory infection. At baseline uses walker for assistance. Upon coming to [facility] found to have acute compression fractures of L2 & L4. Throacic CT shows left sided pleural effusion with atelectasis. s/p thoracentesis which is exudative and mostlikely malignant but cytology results are pending.Patient might be discharged to rehab today. Compression fracture of L2 & L4 * Pain with palpation of paraspinal region and at the site of fracture, however neurologically intact * Ortho consutled - informed that the patient can be managed conservatively * Physical therapy to mobilize the patient (suggested STR) * Pain control with morphine for now - If patient develops intractable back pain , she might benefit from thoracolumbar brace as an outpatient * Patient need to follow up with orthopedics in 3-4weeks, to assess healing activity with Xrays Left sided pleural effusion * Patient recently had a respiratory infection, so initially thought secondary to that and started on ceftriaxone and azithromycin * CT scan showed effusion without any evidence of infection on top of it patient didnt have any leukocytosis and fever * Discontinued antibiotics today * Cardio consulted - as per the negative proBNP and Normal ECHO suggested heart is not the reason behind the effussion * As patient had h/o breast cancer - most probably malignant excluding other systems * Patient had thoracentesis done yesterday on August 26 and around 860 mL of clear straw-colored fluid was aspirated. Post thoracentesis chest x-ray was normal without any evidence of pneumothorax. She met for exudative criteria on her pleural fluid. Cytology is not back yet I spoke with cytology lab and we will get results by tomorrow History of left sided breast cancer * Diagnosed 4yrs ago, underwent lumpectomy with localized radiotherpy * Follows Chronic and stable conditions HTN: lisinopril 10mg daily Depression: sertraline 50mg daily and mirtazepine 7.5mg at bedtime Supplements: Multivitamins/Ferrous sulfate/Cholecalciferol Constipation: SennaS, Bisacodyl, Docusate DVT prophylaxis * SC heparin Code Status * DNR/DNI Problem List: 1. Pleural effusion on left 2. History of breast cancer 3. Lumbar compression fracture Pain Ratin Pain Location: Back Pain Goal: Remain pain free Pain Plan: Morphine Tomorrow's Labs & Rationales: CBC and BMP
[2016-08-27 08:06] LABS: ABSOLUTE BASOPHIL COUNT 0.1 /CUMM (0.0-0.2); ABSOLUTE EOSINOPHIL COUNT 0.2 /CUMM (0.0-0.7); ABSOLUTE GRANULOCYTE CT 4.3 /CUMM (1.4-6.5); ABSOLUTE LYMPH COUNT 1.3 /CUMM (1.2-3.4); ABSOLUTE MONOCYTE COUNT 0.7 /CUMM (0.10-0.60); BASOPHIL % 1.2 % (0.0-2.0); EOSINOPHIL % 3.6 % (0-5); GRANULOCYTE % 65.5 % (42.2-75.2); HEMATOCRIT 37.1 % (37-47); MEAN CORPUSCULAR HGB 26.8 PG (27.0-31.0); MEAN CORPUSCULAR HGB CONC 32.6 G/DL (33.0-37.0); MEAN CORPUSCULAR VOLUME 82.2 FL (81.0-99.0); MEAN PLATELET VOLUME 9.5 FL (7.4-10.4); PLATELET COUNT 341 /CUMM (130-400); RBC DISTRIBUTION WIDTH 20.1 % (11.5-14.5); RED BLOOD CELL CT 4.51 /CUMM (4.20-5.40); WHITE BLOOD CELL COUNT 6.6 /CUMM (4.8-10.8)
--- NOTE | 2016-08-27 09:01 | Discharge Summary ---
See Addendum Visit Information Visit Dates Admission Date: 08/23/16 Discharge Date: 08/27/16 Hospital Course Course Attending Physician: MEAGHAN TINOCO,NATASHA Mark Primary Care Physician: MELVA TINOCO,[facility] Course: Ms. Siu is an 89-year-old female with a past medical history of dementia, anxiety, hypertension, anemia presented to the ER after she had a and unwitnessed fall at the nursing facility prior to arrival. Patient was recently in the hospital for an acute displaced fracture of the left femoral neck and underwent left hip hemiarthroplasty on in May. Patient denied any chest pain, palpitations, loss of consciousness, any seizure-like activities, tongue biting, nausea, vomiting, abdominal pain, fever, cough, decreased by mouth intake. She does however state that she fell down on her right side and may have hit her head. She endorsed non-radiating lower back pain that she grades as a 6/10 in intensity. Vitals at the time of admission blood pressure 133/63, respiratory rate 18, pulse 75, afebrile saturating 94% on room air. On physical exam, she is alert, oriented to person but not to time or place. HEENT revealed PERRLA, dry mucous membranes. Examination of the neck did not reveal elevated JVD, or lymphadenopathy. Vascular exam pertinent for normal S1, S2, no murmurs rubs or gallops appreciated. Auscultation of the chest revealed decreased breath sounds bilaterally. Abdominal exam was benign with abdomen soft, nontender, nondistended with normal bowel sounds in all 4 quadrants. Examination of the lower extremity revealed trace bilateral edema. Of note there is tenderness to palpation in the home for vertebral region together with some mild amount of paraspinal tenderness as well as an abrasion. pertinent labs: normal white blood cell count of 8500, H&H of 12.4/38.6, MCV of 83.2, platelet count of 314,000. Chemistries pertinent for sodium of 133, potassium of 4.0, bicarbonate of 27, anion gap of 9, BUN 13 and creatinine 0.5 with serum glucose elevated to 110. LFTs unremarkable with an AST/ALT of 21/23, alkaline phosphatase of 95, troponin 0.02, proBNP of 587. UA revealed light trace amount of proteinuria, and few bacteria. Chest x-ray revealed left lower lobe pneumonia with more small to moderate parapneumonic effusion, moderate cardiomegaly with li'skely mild to moderate superimposed congestive heart failure. EKG revealed NSR, HR: 75, poor R wave progression, no ST-T changes, q waves in inferior leads with Twave inversion in V2. Head CT revealed no acute intracranial pathology, osseous abnormality of the cervical spine does show new moderate left pleural effusion CT of thoracic and lumbar spine showed acute severe compression fracture of the L2 vertebral body with mild retropulsion of the posterior vertebral body wall, no significant stenosis, acute concave compression fracture of the superior endplate of the L4 with a pre-, no acute fracture or malalignment within the degenerated thoracic spine. Moderate amount of left pleural effusion and compressive atelectasis of the left lower lobe. There is atherosclerotic disease of the coronary arteries and cardiomegaly without acute pulmonary edema as well as a 0.7 cm nodule of the right upper lobe along the major fissure which remain stable in size. Last echocardiogram done in 2009 revealed an EF of 65-70%, no regional wall motion abnormalities with stage I diastolic dysfunction. ER she received vancomycin IV 1 and ceftazidime. Patient admitted to telemetry and following problems were addressed. 1. Fall resulting in L2 L4 compression fracture Patient name after sustaining a fall. CT head didn't reveal any interacranial pathology. Bleed. The CT lumbar spine revealed L3-L4 compression fracture. Noted mild retropulsion of bone fragments at the L2 vertebral body compression fracture without central canal or foraminal compression. Patient did not report any radicular or myelopathic symptoms. Orthopedic surgery Dr. Fermin consulted who recommended conservative management with early mobilization of the patient out of bed as tolerated with physical therapy. The patient needs to followup with orthopedic surgery on an outpatient basis in about 3-4 weeks so that she can undergo x-rays of her lumbar spine to assess vertebral body fracture healing activity. If the patient's back pain proves to be intractable, she might then benefit from a thoracolumbar brace or orthosis. Physical therapy consulted who recommended skilled physical therapy at short-term rehabilitation. 2. Left lower lobe infiltrate/pleural effusion On admission chest x-ray revealed left lower lobe infiltrate with surrounding effusion suspicious for parapneumonic effusion. Patient was noted afebrile without any elevated WBC but empirically started on antibiotics for presumed pneumonia. On day [address] chest without IV contrast done as per pulmonary recommendation which revealed moderate size left pleural effusion. Patient remained afebrile and his antibiotic stopped and patient watched off antibiotics with no further development of fever or productive cough. Patient underwent diagnostic and therapeutic left thoracentesis on 08/26/2016 to diagnosis the etiology. Please follow-up left thoracentesis fluid analysis result which was sent for cytology, cell count, Gram stain and culture, LDH, protein, cholesterol. Of note patient had a left breast cancer diagnosed 4 years ago and underwent partial chemotherapy with Dr. Cleveland which was later stopped as patient was not able to tolerate chemotherapy further. Patient was also evaluated by cardiology for possible etiology as CHF. Patient had echocardiogram which revealed normal EF without any systolic or diastolic dysfunction and patient remained stable without any shortness of breath and her etiology pleural effusion was unlikely as CHF. Thoracenteses was done on August 26 and 860 mL of clear straw-colored fluid was taken out and analysis was significant for exudative effusion most likely due to malignancy/malignant pleural effusion but cytology results has to come back tomorrow. Patient would get the results from her primary care physician as outpatient. Patient currently is not seeing any oncologist and family is not interested to pursue any further treatment. Family was updated.Patient needs to repeat CXR on Thursday09/01/16 3. Hypertension Patient maintain on home dose lisinopril 10 mg daily 4. Depression Patient maintain on home dose sertraline 50 mg daily and mirtazapine 7.5 mg at bedtime 5. DVT prophylaxis Patient received subcutaneous heparin 6. CODE STATUS DNR/DNI Complications: None Allergies: Coded Allergies: Penicillins (RASH 05/05/16) Sulfa (Sulfonamide Antibiotics) (RASH 05/05/16) Significant Procedures: SERVICE DATE: 08/26/16- EXAM TYPE: US - US-THORACENTESIS CLINICAL HISTORY: This patient is a 89-year-old woman with left pleural effusion. The patient is referred to interventional radiology for ultrasound-guided thoracentesis. PROCEDURE: Ultrasound-guided thoracentesis. COMPARISON: Chest CT 08/24/2016 ACCESS: 6 Fr Xozn-R-Srvognwy closed needle/catheter system. PROCEDURALIST: Dr. Castellanos (resident), Dr. Marcie Sultana (attending) MEDICATIONS: 10 mL of 1% lidocaine SQ. COMPLICATIONS: None. ESTIMATED BLOOD LOSS: <5 mL. SPECIMENS: A specimen was appropriately labeled and sent to the laboratory as requested. PROCEDURE NOTE: Appropriate pre-procedure medical history and imaging studies were reviewed. Informed consent was obtained from the patient prior to the procedure. During this process, the procedure and potential alternatives were explained along with the intended outcome and benefits. The risks of the procedure, including the possibility of an unsuccessful procedure, as well as the risk of not doing the procedure, were discussed. The patient was given the opportunity to ask questions regarding the procedure and appeared competent to make decisions. A signed consent form documenting this discussion was placed in the medical record. SITE MARKING: As part of the preprocedure verification policy, a site marking procedure was initiated. Due to the nature the procedure, the insertion site could not be predetermined thus invoking the policy of exemption to site laterality and marking. Insertion site marking was performed in the procedure room in conjunction with imaging confirmation. A time-out procedure was performed. The patient was brought to the ultrasound department and placed in the seated position. Ultrasound images of the left thorax were obtained to localize a moderate pleural effusion. Images were permanently saved to the record. An area of the patient's left back was prepped and draped in the standard sterile fashion. 10 mL of 1% lidocaine was used to obtain local anesthesia of the skin and deeper tissues. A standard small-bore needle was introduced to sample fluid and demonstrated a safe access route. There was no evidence of traversing adjacent organs or vascular structures. A 6 Fr Neya-I-Dsfdxwoy closed needle/catheter system was utilized for access. 860 mL of clear straw-colored fluid was aspirated before drainage ceased. The catheter was removed and a sterile dressing applied. The patient tolerated the procedure well without evidence of immediate complications. FINDINGS: Moderate simple left pleural effusion. IMPRESSION: Successful left ultrasound-guided therapeutic and diagnostic thoracentesis. PLAN: 1. A postprocedure chest x-ray was ordered and will be dictated separately. 2. The patient was stable after the procedure and transferred to their room with instructions after standard monitoring. Pertinent Lab Results: SERVICE DATE: 08/23/16 EXAM TYPE: CAT - CT LUMB SPINE WO IV CONTRAST; CT THOR SPINE WO IV CONTRAST EXAMINATION: CT THORACIC SPINE WITHOUT IV CONTRAST CT LUMBAR SPINE WITHOUT IV CONTRAST CLINICAL INFORMATION: 89-year-old female with pain after fall. COMPARISON: Chest CT from 05/04/2016. TECHNIQUE: Noncontrast multidetector CT imaging examination of the thoracic and lumbar spine was performed using 0.625 mm collimation. The axial images are presented at 0.625 mm, 1.25 mm and 2.5 mm slice thickness. Coronal and sagittal reformatted images were generated and reviewed. DLP was 949 mGy-cm. FINDINGS: THORACIC SPINE: Bone density appears diffusely decreased. There is multilevel degenerative disc space narrowing and osteophyte formation of the thoracic spine. There is approximately 70 degrees of chronic thoracic hyperkyphosis of the degenerated spine as measured from T2 to T12. No acute fractures or subluxations. There is a hemangioma of the T2 vertebral body. The central spinal canal and neural foramina appear widely patent. There is an old, healed fracture of the posterior right 11th rib adjacent to the costovertebral junction. The extraspinal findings include cardiomegaly, atherosclerotic calcification of coronary arteries and thoracic aorta without aortic aneurysm. No pericardial effusion. Stable 0.7 cm noncalcified, solid nodule of the right upper lobe abuts the adjacent major fissure. Stable 0.3 cm nodule of the left upper lobe along the major fissure is likely a lymph node. Moderate left pleural effusion and compressive atelectasis of the left lower lobe. LUMBAR SPINE: The lumbar vertebra have normal alignment. The L1 vertebral body has well preserved height. There is an acute L2 vertebral body compression fracture with approximately 60% height loss, centrally, and 40% height loss, anteriorly. There is mild retropulsion of the posterosuperior vertebral body wall without significant canal stenosis at this level. The L3 vertebral body height is maintained. There is a concave compression fracture of the L4 superior endplate resulting in approximately 30% central height loss. The L5 vertebra and sacral vertebra are intact. At L4-L5, there is vacuum disc degeneration and mild facet arthropathy. The extraspinal findings include a calcified abdominal aorta with infrarenal abdominal aorta measuring up to 2.9 cm maximum transverse diameter and 2.5 cm AP diameter. No para-aortic lymphadenopathy or hematoma. There are small calculi of the gallbladder. Kidneys are notable for a small, 2 mm calculus in the left lower pole. No hydroureteronephrosis. IMPRESSION: 1. Acute, severe compression fracture of the L2 vertebral body with mild retropulsion of the posterior vertebral body wall. No significant canal stenosis or foraminal stenosis at this level. 2. Acute, concave compression fracture of the superior endplate of the L4 vertebral body. 3. No acute fracture or malalignment within the degenerated thoracic spine. 4. Moderate left pleural effusion and compressive atelectasis of the left lower lobe. Recommend correlation with findings on chest radiograph. 5. Atherosclerotic disease of the coronary arteries and cardiomegaly without acute pulmonary edema. 6. The 0.7 cm nodule of the right upper lobe along the major fissure remains stable in size compared to 05/04/2016. Please refer to the chest CT report of 05/04/2016. Disposition Summary Disposition Principal Diagnosis: L2, L4's compression fracture Additional Diagnosis: Left pleural effusion with associated atelectasis Discharge Disposition: SNF Discharge Instructions General Discharge Information Code Status: Do Not Resucitate/Intubat Patient's Diet: Heart healthy diet Patient's Activity: As tolerated with assistance Follow-Up Instructions/Appts: Please follow-up with your primary care physician in one week of discharge to get cytology results of your pleural fluid. Please follow-up with Dr. Fermin orthopedic surgery. in 3-4 weeks of discharged to undergo x-ray of your lumbar spine. Please take medications as prescribed Medications at Discharge Discharge Medications: Stop taking the following medications: Docusate Sodium (Docusate Sodium) 100 MG CAPSULE ORAL DAILY as needed for CONSTIPATION Days = 30 Continue taking these medications: Sertraline HCl (Sertraline HCl) 50 MG TABLET 1 Tablet ORAL DAILY Qty = 90 Comments: Last Taken: 06/06/16 Time: 9AM Ferrous Sulfate (Ferrous Sulfate) 325 MG (65 MG IRON) TABLET 1 Tablet ORAL DAILY Qty = 30 Comments: Last Taken: 06/06/16 Time: 9AM Cholecalciferol (Vitamin D3) (Vitamin D) 1,000 UNIT TABLET 1 Tablet ORAL DAILY Days = 30 Comments: NOT GIVEN WHILE IN HOSPITAL Multivitamin (Daily Multiple Vitamin) 1 EACH TABLET 1 Tablet ORAL DAILY Comments: NOT GIVEN WHILE IN HOSPITAL Mirtazapine (Mirtazapine) 7.5 MG TABLET 1 Tablet ORAL Every night Days = 30 Comments: Last Taken: 06/05/16 Time: 10PM Sennosides/Docusate Sodium (Senna Plus Tablet) 8.6 MG-50 MG TABLET 1 Tablet ORAL TWICE DAILY as needed for CONSTIPATION Days = 30 Comments: Last Taken: 06/06/16 Time: 9AM Lisinopril (Lisinopril) 10 MG TABLET 1 Tablet ORAL DAILY Acetaminophen (Pain Relief) 325 MG TABLET 2 Tablet ORAL Q4H as needed for PAIN/TEMP Bisacodyl (Gentle Laxative) 5 MG TABLET 2 Tablet ORAL DAILY as needed for CONSTIPATION Acetaminophen (Acetaminophen) 500 MG TABLET 1 Tablet ORAL TWICE DAILY as needed for PAIN Copies To: MEAGHAN TINOCO,NATASHA Mark Attending MD Review Statement Documenting Attending: ISMA FRYE MD
--- NOTE | 2016-08-27 09:13 | PN- Pulmonary ---
Subjective HPI/Critical Care Issues: pt seen and examined afebrile hemodynamically stable s/p thoracentesis - exudative with a normal ph Objective Current Medications: Current Medications Sig/Leslee Start time Last Medication Dose Route Stop Time Status Admin Acetaminophen 650 MG Q4P PRN 08/23 2199 AC PO Acetaminophen 1,000 MG Q6P PRN 08/23 2199 AC N/A 1 UNIT IV Bisacodyl 10 MG DAILY 08/23 2199 AC 08/26 PO 1045 Cholecalciferol 1,000 IU DAILY 08/24 1000 AC 08/26 PO 1047 Docusate Sodium 100 MG DAILY PRN 08/23 2199 AC PO Ferrous Sulfate 325 MG DAILY 08/24 1000 AC 08/26 PO 1046 Heparin Sodium 5,000 UNIT Q8 08/23 2199 AC 08/27 (Porcine) SC 0608 Lisinopril 10 MG DAILY 08/24 1000 AC 08/26 PO 1047 Mirtazapine 7.5 MG AT BEDTIME 08/23 2199 AC 08/26 PO 2254 Morphine Sulfate 1 MG Q8P PRN 08/23 2199 AC IV Multivitamins 1 TAB DAILY 08/24 1000 AC 08/26 Therapeutic PO 1046 Senna/Docusate Sodium 1 TAB BID PRN 08/23 2199 AC PO Sertraline HCl 50 MG DAILY 08/24 1000 AC 08/26 PO 1047 Vital Signs & I&O Last 24 Hrs of Vitals and I&O: Vital Signs Date Time Temp Pulse Resp B/P B/P Pulse O2 O2 Flow FiO2 Mean Ox Delivery Rate 08/27 0910 98 Room Air 08/27 0700 98.4 76 20 142/78 95 Room Air 08/26 220 97.6 80 20 136/70 95 Room Air 08/26 1800 93 Room Air 08/26 1443 98.0 72 18 130/64 94 Room Air 08/26 1047 64 128/60 08/26 1031 98.1 64 18 128/60 92 Room Air 08/26 1030 95 Room Air Intake & Output 08/27 1600 08/27 0800 08/27 0000 Intake Total 120 Output Total Balance 120 Intake, Oral 120 Exam Other Physical Findings: Gen - alert and awake HEENT - NCAT CVS - S1, S2, systolic murmur Lungs - diminished breath sounds at the bases Abdomen - soft, non-tender, bs+ Ext - no edema, no cyanosis Results Last 24 Hrs of Lab Results: Laboratory Tests 08/27/16 0640: Anion Gap 8, Estimated GFR > 60, BUN/Creatinine Ratio 18.0, CBC w Diff NO MAN DIFF REQ, RBC 4.51, MCV 82.2, MCH 26.8 L, RDW 20.1 H, MPV 9.5, Gran % 65.5, Lymphocytes % 19.7 L, Monocytes % 10.0 H, Eosinophils % 3.6, Basophils % 1.2, Absolute Granulocytes 4.3, Absolute Lymphocytes 1.3, Absolute Monocytes 0.7 H, Absolute Eosinophils 0.2, Absolute Basophils 0.1, PUBS MCHC 32.6 L 08/26/16 1512: Pleural pH 7.45 08/26/16 1512: Fluid WBC 1350 H, Fld Total RBCs Counted 600 H 08/26/16 1512: Lymphocytes 8, % Normal PMNs 59, Misc Hematology Test , Phlebotomy Draw Site L THORACENTESIS, Fluid Glucose 105, Fluid Total Protein 4.8, Fluid Albumin 1.7, Fluid LDH 293, Fluid Amylase < 30, Fluid Cholesterol 80 08/26/16 0933: Fluid Cholesterol Cancelled Impression/Plan Impression/Plan Impression/Plan: Impression 89 year old woman * mechanical fall, compression L2 fracture * left pleural effusion with associated atelectasis effusion is exudative - however given diastolic heart failure, pulmonary htn the effusion can be a pseudoexudate related to congestive heart disease (although compensated at this point) Plan - incentive spirometry - pain control - f/u cytology from pleural fluid - given lack of symptoms would repeat cxr prior to discharge for stability DVT prophylaxis at all times dc planning
--- NOTE | 2016-08-27 09:13 | Patient Discharge Instructions ---
Discharge Instructions General Discharge Information You were seen/treated for: - Mechanical fall with compression fracture of L2, and L4. You had these procedures: - Thoracentesis Watch for these problems: - chest pain, shortness of breath - Pain in her back. Special Instructions: Please follow-up with your primary care physician in one week of discharge to get cytology results of your pleural fluid. Please follow-up with Dr. Fermin orthopedic surgery. in 3-4 weeks of discharged to undergo x-ray of your lumbar spine. Please take medications as prescribed Please have CXR done on 09/01/16 These follow-up with pulmonology in 1-2 weeks of discharge Diet Recommended Diet: Heart Healthy Activity Other activity limits: As tolerated with assistance Acute Coronary Syndrome Inclusion Criteria At DC or during hospital stay patient has or had the following: ACS DIAGNOSIS No Discharge Core Measures Meds if any: Prescribed or Continued at Discharge Meds if any: NOT Prescribed or Continued at Discharge Congestive Heart Failure Inclusion Criteria At DC or during hospital stay patient has or had the following: CHF DIAGNOSIS No Discharge Core Measures Meds if any: Prescribed or Continued at Discharge Meds if any: NOT Prescribed or Continued at Discharge Cerebrovascular accident Inclusion Criteria At DC or during hospital stay patient has or had the following: CVA/TIA Diagnosis No Discharge Core Measures Meds if any: Prescribed or Continued at Discharge Meds if any: NOT Prescribed or Continued at Discharge Venous thromboembolism Inclusion Criteria VTE Diagnosis No VTE Type NONE VTE Confirmed by (Test) NONE Discharge Core Measures - Per Current guidelines, there needs to be overlap - treatment for the first 5 days of Warfarin therapy. - If discharged on Warfarin prior to 5 days of - overlap therapy, the patient will need to be - assessed for post discharge needs including - *Post discharge parental anticoagulation - *Warfarin and/or parental anticoagulation education - *Follow up date to check INR post discharge At least 5 days overlap therapy as Inpatient No Meds if any: Prescribed or Continued at Discharge Note: Overlap Therapy is Warfarin and Anticoagulant Meds if any: NOT Prescribed or Continued at Discharge
--- NOTE | 2016-08-27 09:40 | PN- Att Addend ---
Attending Addendum Attending Brief Note Patient complains of pain at the site of thoracentesis General Appearance: Alert, No Acute Distress Skin: Grossly normal HEENT: PEERLA Neck: Supple, No JVD Cardiovascular: Regular Rate, Normal S1, Normal S2, No Murmurs Lungs: Decreased air entry right lower lobes Abdomen: Normal Bowel Sounds, Soft, No Tenderness Neurological: Normal Speech, Strength at 5/5 X4 Ext, Cranial Nerves 3-12 NL, Reflexes 2+ Extremities: No Clubbing, No Cyanosis, No Edema Vascular: Normal Pulses Assessment Status post fall with compression fractures that will be followed conservatively with rest and pain meds. In the meantime CTs shows moderate left pleural effusion. 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 Cytology is pending. We'll have further discussion with family as outpatient once we have the cytology confirmation. Plan Continue current pain meds Continue other meds DNI/DNR Discharge to STR Current Medications Sig/Leslee Start time Last Medication Dose Route Stop Time Status Admin Acetaminophen 650 MG Q4P PRN 08/23 2199 AC PO Acetaminophen 1,000 MG Q6P PRN 08/23 2199 AC N/A 1 UNIT IV Bisacodyl 10 MG DAILY 08/23 2199 AC 08/26 PO 1045 Cholecalciferol 1,000 IU DAILY 08/24 1000 AC 08/26 PO 1047 Docusate Sodium 100 MG DAILY PRN 08/23 2199 AC PO Ferrous Sulfate 325 MG DAILY 08/24 1000 AC 08/26 PO 1046 Heparin Sodium 5,000 UNIT Q8 08/23 2199 AC 08/27 (Porcine) SD 0608 Lisinopril 10 MG DAILY 08/24 1000 AC 08/26 PO 1047 Mirtazapine 7.5 MG AT BEDTIME 08/23 2199 AC 08/26 PO 2254 Morphine Sulfate 1 MG Q8P PRN 08/23 2199 AC IV Multivitamins 1 TAB DAILY 08/24 1000 AC 08/26 Therapeutic PO 1046 Senna/Docusate Sodium 1 TAB BID PRN 08/23 2199 AC PO Sertraline HCl 50 MG DAILY 08/24 1000 AC 08/26 PO 1047 Laboratory Tests 08/27 08/26 08/26 0640 1512 1512 Chemistry Sodium (137 - 145 mmol/L) 135 L Potassium (3.5 - 5.1 mmol/L) 3.9 Chloride (98 - 107 mmol/L) 101 Carbon Dioxide (22 - 30 mmol/L) 25 Anion Gap (5 - 16) 8 BUN (7 - 17 mg/dL) 9 Creatinine (0.5 - 1.0 mg/dL) 0.5 Estimated GFR (>60 ml/min) > 60 BUN/Creatinine Ratio (7 - 25 %) 18.0 Hematology CBC w Diff NO MAN DIFF REQ WBC (4.8 - 10.8 /CUMM) 6.6 RBC (4.20 - 5.40 /CUMM) 4.51 Hgb (12.0 - 16.0 G/DL) 12.1 Hct (37 - 47 %) 37.1 MCV (81.0 - 99.0 FL) 82.2 MCH (27.0 - 31.0 PG) 26.8 L RDW (11.5 - 14.5 %) 20.1 H Plt Count (130 - 400 /CUMM) 341 MPV (7.4 - 10.4 FL) 9.5 Gran % (42.2 - 75.2 %) 65.5 Lymphocytes % (20.5 - 51.1 %) 19.7 L Monocytes % (1.7 - 9.3 %) 10.0 H Eosinophils % (0 - 5 %) 3.6 Basophils % (0.0 - 2.0 %) 1.2 Absolute Granulocytes (1.4 - 6.5 /CUMM) 4.3 Absolute Lymphocytes (1.2 - 3.4 /CUMM) 1.3 Absolute Monocytes (0.10 - 0.60 /CUMM) 0.7 H Absolute Eosinophils (0.0 - 0.7 /CUMM) 0.2 Absolute Basophils (0.0 - 0.2 /CUMM) 0.1 PUBS MCHC (33.0 - 37.0 G/DL) 32.6 L Other Body Source Fluid WBC (0 - 5 /CUMM) 1350 H Fld Total RBCs Counted (0 /CUMM) 600 H Pleural pH (PH) 7.45 08/26 1512 Hematology Lymphocytes (%) 8 % Normal PMNs (%) 59 Misc Hematology Test (%) Miscellaneous Phlebotomy Draw Site L THORACENTESIS Other Body Source Fluid Glucose (mg/dL) 105 Fluid Total Protein (g/dL) 4.8 Fluid Albumin (g/dL) 1.7 Fluid LDH (U/L) 293 Fluid Amylase (U/L) < 30 Fluid Cholesterol (mg/dL) 80 Vital Signs Date Time Temp Pulse Resp B/P B/P Pulse O2 O2 Flow FiO2 Mean Ox Delivery Rate 08/27 0910 98 Room Air 08/27 0700 98.4 76 20 142/78 95 Room Air 08/26 2203 97.6 80 20 136/70 95 Room Air 08/26 1800 93 Room Air 08/26 1443 98.0 72 18 130/64 94 Room Air 08/26 1047 64 128/60 08/26 1031 98.1 64 18 128/60 92 Room Air 08/26 1030 95 Room Air
--- NOTE | 2016-08-27 11:00 | RADIOLOGY REPORT ---
EXAMINATION: XR PORTABLE CHEST CLINICAL INFORMATION: Left pleural effusion. Status post thoracentesis. COMPARISON: 08/26/2016 TECHNIQUE: Portable frontal view of the chest was obtained. FINDINGS: Left pleural effusion is unchanged, now small in volume. Atelectasis is present at the left lung base. No appreciable pneumothorax. Right lung is clear. No consolidation. Heart is enlarged. Pulmonary vasculature is normal. Bones are osteopenic. IMPRESSION: 1. Small left pleural effusion with associated atelectasis, unchanged. 2. No pneumothorax
[2016-08-27 11:33] VITALS: BP 110/70
== END 2016-08-27 12:13 | DRG 543 ==
LOC: ERH 13:22 → ERHI 18:43 → 1NO 18:43 → 2NB 18:43 → EDBEDREQ 19:18 → ENRESERV 19:41 → 1NO 20:34 → 2NB 08-26 09:44 → ENPENDDIS 08-27 10:26 → 2NB 08-27 12:13
PROVIDERS: Internal Medicine; Internal Medicine Infectious Disease; Physician Assistant; Student in an Organized Health Care Education/Training Program; ADMIT Internal Medicine
PROC: 0W9B3ZZ Drainage of Left Pleural Cavity, Percutaneous Approach (ICD-10-PCS; principal; 2016-08-26)
DX: M80.08XA Age-related osteoporosis with current pathological fracture, vertebra(e), initial encounter for fracture (principal); J91.0 Malignant pleural effusion; F03.90 Unspecified dementia, unspecified severity, without behavioral disturbance, psychotic disturbance, mood disturbance, and anxiety; I11.0 Hypertensive heart disease with heart failure; I50.9 Heart failure, unspecified; J98.11 Atelectasis; Z66 Do not resuscitate; Z85.3 Personal history of malignant neoplasm of breast; F32.9 Major depressive disorder, single episode, unspecified; W18.30XA Fall on same level, unspecified, initial encounter; Z91.81 History of falling; Y93.9 Activity, unspecified; Y92.129 Unspecified place in nursing home as the place of occurrence of the external cause; I25.10 Atherosclerotic heart disease of native coronary artery without angina pectoris
CPT/HCPCS: 1NSP; 2NBSP; 87075; 36415; 81001; 82436; 87040; 87070; 87086; 88305; 93005; 93010; 93306; 96374; 96375; 97110-GO; 97116-GO; 97161-GP; 97530-GO; J0456; J0696; J0713; J1644; J3370; J3490; J7040

== ENCOUNTER 2016-09-06 07:35 | Inpatient (IN) | payer OTHER, MEDICARE ==
[~2016-09-06] VITALS: Ht 172.7 cm; Wt 63.5 kg
[~2016-09-06 07:35] MED LIST changes: +ACETAMINOPHEN500 M4 PO; +GENTLE LAXATIVE5 M1 PO; +LISINOPRIL10 M1 PO; +PAIN RELIEF325 MG PO
--- NOTE | 2016-09-06 07:47 | NUR ---
[facility], PER EMS, PT WAS FOUND ON FLOOR IN BATHROOM NEXT TO TOILET, WAS ASSISTED BACK TO BED. EMS WAS THEN CALLED AGAIN TO TRANSPORT TO HOSPITAL, AFTER FACILITY SPOKE WITH FAMILY. C/O PAIN IN NECK AND COCCYX AREA. ALERT. DENIES DIZZINESS, CHEST PAIN, WEKANESS PRIOR TO FALL.
--- NOTE | 2016-09-06 08:00 | NUR ---
EXMAINED BY DR. LICONA, CERVICAL COLLAR APPLIED.
--- NOTE | 2016-09-06 08:00 | ED MVC/FALL/TRAUMA COMPLAINT ---
History of Present Illness General Chief Complaint: Fall Stated Complaint: BIBA, TAIL BONE PAIN, S/P FALL Source: patient, old records, EMS, W10 Exam Limitations: dementia Vital Signs & Intake/Output Vital Signs & Intake/Output Vital Signs Date Time Temp Pulse Resp B/P B/P Pulse O2 O2 Flow FiO2 Mean Ox Delivery Rate 09/06 1051 99.9 94 18 146/85 95 Room Air 09/06 0739 97.4 79 17 190/100 96 Room Air Allergies Coded Allergies: Penicillins (RASH 05/05/16) Sulfa (Sulfonamide Antibiotics) (RASH 05/05/16) Reconcile Medications Acetaminophen (Pain Relief) 325 MG TABLET 2 TAB PO Q4H PRN PAIN/TEMP ( Reported) Acetaminophen 500 MG TABLET 1 TAB PO BID PRN PAIN (Reported) Bisacodyl (Gentle Laxative) 5 MG TABLET 2 TAB PO DAILY PRN CONSTIPATION ( Reported) Cholecalciferol (Vitamin D3) (Vitamin D) 1,000 UNIT TABLET 1 TAB PO DAILY SUPPLEMENT (Reported) Ferrous Sulfate 325 MG (65 MG IRON) TABLET 1 TAB PO DAILY SUPPLEMENT ( Reported) Lisinopril 10 MG TABLET 1 TAB PO DAILY BP (Reported) Mirtazapine 7.5 MG TABLET 1 TAB PO QPM INSOMNIA (Reported) Multivitamin (Daily Multiple Vitamin) 1 EACH TABLET 1 TAB PO DAILY SUPPLEMENT (Reported) Sennosides/Docusate Sodium (Senna Plus Tablet) 8.6 MG-50 MG TABLET 1 TAB PO BID PRN CONSTIPATION Sertraline HCl 50 MG TABLET 1 TAB PO DAILY ANXIETY (Reported) Triage Note: BIBA FROM [facility], PER EMS, PT WAS FOUND ON FLOOR IN BATHROOM NEXT TO TOILET, WAS ASSISTED BACK TO BED. EMS WAS THEN CALLED AGAIN TO TRANSPORT TO HOSPITAL, AFTER FACILITY SPOKE WITH FAMILY. C/O PAIN IN NECK AND COCCYX AREA. ALERT. DENIES DIZZINESS, CHEST PAIN, WEKANESS PRIOR TO FALL. Triage Nurses Notes Reviewed? yes Onset: Just prior to arrival Duration: hour(s):, constant, continues in ED Timing: recent history Severity: moderate Injuries/Fall Location: head, neck, back Method of Injury: fall No Modifying Factors: none LMP (ages 10-50): post menopausal : No Patient currently breastfeeds: No HPI: Last night patient lost balance and fell onto her buttocks striking her head with complaint of neck and low back pain. She initially refused EMS transportation for evaluation. Family when notified later decided to send her. She denies fever chills nausea vomiting diarrhea abdominal pain chest pain shortness breath headache dysuria rash bleeding. Past History Travel History Traveled to [place] past 21 day No Medical History Any Pertinent Medical History? 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 No Review of Systems Review of Systems Constitutional: Reports: no symptoms. Eyes: Reports: no symptoms. Ears, Nose, Throat, Mouth: Reports: no symptoms. Respiratory: Reports: no symptoms. Cardiovascular: Reports: no symptoms. Gastrointestinal/Abdominal: Reports: no symptoms. Genitourinary: Reports: no symptoms. Musculoskeletal: Reports: see HPI, back pain, neck pain. Skin: Reports: no symptoms. Neurological/Psychological: Reports: no symptoms. All Other Systems: Reviewed and Negative Physical Exam Physical Exam General Appearance: well developed/nourished, alert, awake, comfortable Head: atraumatic, normal appearance Eyes: Bilateral: normal appearance, PERRL, EOMI, normal inspection. Ears, Nose, Throat, Mouth: hearing grossly normal, moist mucous membrane Neck: normal inspection, full range of motion, normal alignment, tender midline Respiratory: normal breath sounds, chest non-tender, no respiratory distress, quiet respiration, lungs clear Cardiovascular: regular rate/rhythm, normal peripheral pulses, norml femoral pulses equa Peripheral Pulses: 4+ carotid (R), 4+ carotid (L) Gastrointestinal: normal bowel sounds, soft, non-tender, no organomegaly Back: normal inspection, normal range of motion Extremities: normal range of motion, no ligament instability Neurologic/Psych: no motor/sensory deficits, awake, normal mood/affect, [place] II- XII nml as tested Skin: intact, normal color Core Measures ACS in differential dx? No Severe Sepsis Present: No Septic Shock Present: No Progress Differential Diagnosis: C/T/L spine injury, ICH Plan of Care: Orders Procedure Date/time Status Regular Diet 09/07 L Active Teach/Educate 09/06 1142 Active Pain Treatment and Response 09/06 1142 Active Nutritional Intake, Monitor 09/06 1142 Active Isolation 09/06 1142 Active Patient Care Conference 09/06 1142 Active URINALYSIS 09/06 1050 Active EKG 09/06 1041 Active Pathway - chart 09/06 1011 Active House Staff 09/06 1011 Active Patient Data 09/06 1011 Active Code Status 09/06 1011 Active Patient Data 09/06 0936 Active OXYGEN SETUP (GEN) 09/06 926 Active Saline Lock 09/06 926 Active Admit to inpatient 09/06 926 Active Vital Signs 09/06 926 Active Activity/Ambulation 09/06 926 Active Code Status 09/06 09 Complete Intake & Output 09/06 0757 Active COMPREHENSIVE METABOLIC PANEL 09/06 0750 Complete CBC WITHOUT DIFFERENTIAL 09/06 0750 Complete VTE Mechanical Prophylaxis 09/06 UNK Active Current Medications Sig/Leslee Start time Last Medication Dose Stop Time Status Admin Acetaminophen 325 MG Q6 PRN 09/06 1015 AC (Tylenol) Oxycodone/ 1 TAB Q6 PRN 09/06 1015 AC Acetaminophen (Percocet) Oxycodone/ 2 TAB Q6 PRN 09/06 1015 AC Acetaminophen (Percocet) Laboratory Tests 09/06/16 0850: Anion Gap 9, Estimated GFR > 60, BUN/Creatinine Ratio 24.0, Glucose 87, Calcium 8.5, Total Bilirubin 0.7, AST 39 H, ALT 34, Alkaline Phosphatase 102, Total Protein 7.6, Albumin 3.0 L, Globulin 4.6 H, Albumin/Globulin Ratio 0.7 L, CBC w Diff MAN DIFF ORDERED, RBC 4.74, MCV 82.2, MCH 26.7 L, RDW 19.5 H, MPV 8.4, Gran % 86.2 H, Lymphocytes % 6.4 L, Monocytes % 6.0, Eosinophils % 0.8, Basophils % 0.6, Absolute Granulocytes 10.2 H, Segmented Neutrophils 78 H, Band Neutrophils 10 H, Absolute Lymphocytes 0.8 L, Lymphocytes 7 L, Monocytes 5, Absolute Monocytes 0.7 H, Absolute Eosinophils 0.1, Absolute Basophils 0.1, Poikilocytosis 2+, Anisocytosis 2+, PUBS MCHC 32.5 L Diagnostic Imaging: Viewed by Me: CT Scan. Discussed w/RAD: CT Scan. Radiology Impression: Exaggerated cervical lordosis and degenerative changes. No fracture or dislocation seen. Left pleural effusion. Increased interstitial lung markings and right upper lobe nodules., Severe osteopenia. No change in L2 and L4 compression fractures from August 2016. 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 Small left lower pole renal stones., Small right cerebellar tentorial subdural hematoma. CXR Impression: Increasing opacification at the left lung base reflecting increasing small pleural effusion and associated atelectasis. Mild pulmonary venous congestion and/or interstitial edema. Cardiomegaly. Departure Departure Disposition: STILL A PATIENT Condition: Stable Clinical Impression Primary Impression: Subdural hematoma Secondary Impressions: Fall Qualifiers: Encounter type: initial encounter Qualified Code: W19.XXXA - Unspecified fall, initial encounter Pleural effusion Referrals: ISMA FRYE MD (PCP/Family) Departure Forms: Customer Survey General Discharge Information Admission Note Spoke With: NEGIN TIJERINA MD Documentation of Exam: Documentation of any treatments & extenuating circumstances including Concerns Regarding Discharge (functional status, medication knowledge or non-compliance, living conditions, etc.) that warrant an admission rather than observation: Frequent neuro checks physical therapy ensure safety neurosurgery evaluation pulmonary evaluation thoracic surgery evaluation continuing care discharge planning
--- NOTE | 2016-09-06 08:16 | NUR ---
TO CT SCAN.
--- NOTE | 2016-09-06 08:31 | NUR ---
RETURNED FROM CT SCAN.
--- NOTE | 2016-09-06 08:53 | NUR ---
LABS DRAWN AND SENT BY THIS [facility],S[facility]
[2016-09-06 08:57] LABS: ABSOLUTE BASOPHIL COUNT 0.1 /CUMM (0.0-0.2); ABSOLUTE EOSINOPHIL COUNT 0.1 /CUMM (0.0-0.7); ABSOLUTE GRANULOCYTE CT 10.2 /CUMM (1.4-6.5); ABSOLUTE LYMPH COUNT 0.8 /CUMM (1.2-3.4); ABSOLUTE MONOCYTE COUNT 0.7 /CUMM (0.10-0.60); BASOPHIL % 0.6 % (0.0-2.0); EOSINOPHIL % 0.8 % (0-5); GRANULOCYTE % 86.2 % (42.2-75.2); MEAN CORPUSCULAR HGB 26.7 PG (27.0-31.0); MEAN CORPUSCULAR HGB CONC 32.5 G/DL (33.0-37.0); MEAN CORPUSCULAR VOLUME 82.2 FL (81.0-99.0); MEAN PLATELET VOLUME 8.4 FL (7.4-10.4); PLATELET COUNT 298 /CUMM (130-400); RBC DISTRIBUTION WIDTH 19.5 % (11.5-14.5); RED BLOOD CELL CT 4.74 /CUMM (4.20-5.40); WHITE BLOOD CELL COUNT 11.9 /CUMM (4.8-10.8)
--- NOTE | 2016-09-06 09:06 | CT SCAN REPORT ---
EXAMINATION: CT HEAD WITHOUT CONTRAST CLINICAL INFORMATION: Unwitnessed fall. COMPARISON: Previous head CT scan most recent August 2016. TECHNIQUE: Contiguous axial imaging was performed from the skull base to vertex without intravenous administration of contrast. DLP: 1040 mGy-cm for combined CT of the head and cervical spine. FINDINGS: There is asymmetric prominence and increased attenuation seen in the right cerebellar tentorium suggestive of right cerebellar tentorial subdural hematoma. This measures 4 mm in greatest thickness, coronal reconstructed image 151. There is no other evidence of intra or extra-axial hemorrhage. There is a small extra-axial calcification adjacent to the left temporal lobe measures 3 x 5 mm axial image 24 series 2 that is stable. The ventricles and extra-axial CSF spaces are prominent suggestive of generalized atrophy. There is nonspecific periventricular white matter disease. No mass, mass effect or infarct is seen. Review at bone windows is unremarkable. IMPRESSION: Small right cerebellar tentorial subdural hematoma. Findings were communicated to Dr. Bae by telephone 09/06/2016 at 9:01 AM.
--- NOTE | 2016-09-06 09:06 | CT SCAN REPORT ---
EXAMINATION: CT LUMBAR SPINE WITHOUT CONTRAST CLINICAL INFORMATION: Low back pain. Fall. COMPARISON: Lumbar spine CT August 2016. TECHNIQUE: Helical non-contrast CT images were obtained through the lumbar spine and 1.25 and 2.5 mm axial reconstructions were reviewed along with sagittal and coronal MPRs. DLP: 820 mGy-cm FINDINGS: The bones are osteopenic. There is a severe L2 vertebral body compression fracture. This is unchanged from August 2016. There is mild retropulsion of bone fragment seen in the spinal canal superiorly. This is unchanged as well. There is a [id number] compression fracture of the superior endplate of the L4 vertebral body. This is unchanged as well. No new compression fracture is seen. There is degenerative disc disease at L5-S1. There is a sclerotic density in the left L3 vertebral body that is stable and probably represents a bone island. There is evidence of atherosclerotic disease. There is a small aneurysm or focal ectasia of the mid abdominal aorta measuring maximum 2.4 x 2.9 cm in AP and transverse dimension. There are several small left lower pole renal stones. There may be mild dilatation of the left renal collecting system. IMPRESSION: Severe osteopenia. No change in L2 and L4 compression fractures from August 2016. 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 Small left lower pole renal stones.
--- NOTE | 2016-09-06 09:06 | CT SCAN REPORT ---
EXAMINATION: CT CERVICAL SPINE WITHOUT CONTRAST CLINICAL INFORMATION: Neck pain after fall. COMPARISON: Previous cervical spine CT August 2016. TECHNIQUE: Axial images through the cervical spine without contrast. Sagittal and coronal reconstructions on the technologist's workstation were performed. DLP: 987 mGy-cm FINDINGS: There is exaggerated cervical lordosis. No acute fracture or dislocation is seen. Disc spaces are normal. There is multilevel bilateral facet arthritis, left greater than right. There is a sclerotic density in the right T1 transverse process that is stable and probably represents a bone island. There is a lucency in the T2 vertebral body, question representing a hemangioma that is stable. Prevertebral soft tissues are normal. There is a left pleural effusion. This is similar to previous exam. There are increased interstitial markings seen in the upper lobes. There is a 4 mm right upper lobe nodule, axial image 277 series 8. There is question of a 7 x 4 mm right upper lobe nodule, axial image 238 series 8. There is no pneumothorax. IMPRESSION: Exaggerated cervical lordosis and degenerative changes. No fracture or dislocation seen. Left pleural effusion. Increased interstitial lung markings and right upper lobe nodules.
--- NOTE | 2016-09-06 09:10 | NUR ---
PER DR. LICONA, C COLLAR REMOVED. TO REMAIN NPO.
--- NOTE | 2016-09-06 09:15 | NUR ---
PT ALERT, DENIES LOC OR HITTING HEAD.
--- NOTE | 2016-09-06 10:22 | RADIOLOGY REPORT ---
EXAMINATION: XR PORTABLE CHEST CLINICAL INFORMATION: Follow up thoracentesis. COMPARISON: Chest x-rays of 08/27/2016 and 08/26/2016. CT chest 08/24/2016. TECHNIQUE: Portable frontal view of the chest was obtained. FINDINGS: The patient underwent left thoracentesis on 08/26/2016 with removal of approximately 860 mL of clear straw-colored fluid. There is mild increased opacification in the left lung base when compared to previous study of 08/27/2016 suggesting increasing small pleural effusion and associated consolidation likely atelectasis. Mild diffuse interstitial and vascular prominence is again noted which may suggest pulmonary venous congestion or interstitial edema. The cardiomediastinal silhouette is unchanged with cardiomegaly. No focal consolidation in the right lung. No right pleural effusion. No pneumothorax. IMPRESSION: Increasing opacification at the left lung base reflecting increasing small pleural effusion and associated atelectasis. Mild pulmonary venous congestion and/or interstitial edema. Cardiomegaly.
--- NOTE | 2016-09-06 10:41 | NUR ---
BED ASSIGNMENT [id number]
--- NOTE | 2016-09-06 10:46 | NUR ---
ON AND OFF THE BEDPAN X 3 IN THE PAST HOUR, VOIDING IN SMALL AMOUNTS.
--- NOTE | 2016-09-06 10:50 | NUR ---
ABLE TO SWALLOW WATER WITHOUT DIFFICULTY.
--- NOTE | 2016-09-06 10:57 | NUR ---
ALERT, BUT VAGUE ANSWERING QUESTIONS, FORGOT SHE FELL TODAY. PER SON: PT IS INTERMITTATNLY CONFUSED, MAY TRY TO GET OOB AT NIGHT.
--- NOTE | 2016-09-06 11:04 | NUR ---
REPORT TO FLOOR.
[2016-09-06 11:30] VITALS: BP 146/78
--- NOTE | 2016-09-06 11:51 | History & Physical ---
General Information and HPI MD Statement: I have seen and personally examined RICARDO SIU and documented this H&P. The patient is a 89 year old F who presented with a patient stated chief complaint of [fall]. Source of Information: patient, family Exam Limitations: patient's age History of Present Illness: Ms. Siu is an 89-year-old female with a past medical history of dementia, anxiety, hypertension, anemia, left-sided pleural effusion was brought to the ER from [facility] after a fall this morning. As per patient's family, patient had a fall at around 6 AM this morning in the bathroom. Apparently the patient was trying to walk from her room to the bathroom without the walker and fell down on the floor next to the toilet. The patient denies any lightheadedness, dizziness, chest pain, shortness of breath, palpitations, aura prior to the event. She had no loss of consciousness and remembers hitting the back of her head against the wall before falling down. She does not report any seizure-like activity or bowel or bladder incontinence. EMS was called by the facility when they discovered her head down on the ground. She felt weak in her legs and was assisted back to the bed by the [facility] staff and the EMS. She refused to come to the hospital initially, but given when advised by the nurses. She reports pain at the back of her head and coccyx area posterior the fall. Reports no neurological changes, nausea or vomiting. Patient does report increased frequency of urination for the past few days however denies dysuria. Denies any fever, chills, cough, sick contacts, decreased appetite, bowel symptoms in the past few days. Vitals in the ED showed a temperature of 97.4, pulse 79, respirations 17, blood pressure 190/100. Labs showed a white count of 11.9 with 10 bands, sodium 133, AST of 39, UA pending. In the ED a head CAT scan was done which showed Small right cerebellar tentorial subdural hematoma. Lumbar spine CT showed Severe osteopenia. No change in L2 and L4 compression fractures from August 2016. 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 No fracture or dislocation seen. Left pleural effusion. Increased interstitial lung markings and right upper lobe nodules. Chest x-ray:Increasing opacification at the left lung base reflecting increasing small pleural effusion and associated atelectasis. Mild pulmonary venous congestion and/or interstitial edema. Cardiomegaly. Allergies/Medications Allergies: Coded Allergies: Penicillins (RASH 05/05/16) Sulfa (Sulfonamide Antibiotics) (RASH 05/05/16) Home Med list Acetaminophen (Pain Relief) 325 MG TABLET 2 TAB PO Q4H PRN PAIN/TEMP ( Reported) Acetaminophen 500 MG TABLET 1 TAB PO BID PRN PAIN (Reported) Bisacodyl (Gentle Laxative) 5 MG TABLET 2 TAB PO DAILY PRN CONSTIPATION ( Reported) Cholecalciferol (Vitamin D3) (Vitamin D) 1,000 UNIT TABLET 1 TAB PO DAILY SUPPLEMENT (Reported) Ferrous Sulfate 325 MG (65 MG IRON) TABLET 1 TAB PO DAILY SUPPLEMENT ( Reported) Lisinopril 10 MG TABLET 1 TAB PO DAILY BP (Reported) Mirtazapine 7.5 MG TABLET 1 TAB PO QPM INSOMNIA (Reported) Multivitamin (Daily Multiple Vitamin) 1 EACH TABLET 1 TAB PO DAILY SUPPLEMENT (Reported) Sennosides/Docusate Sodium (Senna Plus Tablet) 8.6 MG-50 MG TABLET 1 TAB PO BID PRN CONSTIPATION Sertraline HCl 50 MG TABLET 1 TAB PO DAILY ANXIETY (Reported) Past History Travel History Traveled to [place] past 21 day No Medical History Neurological: dementia EENT: NONE Cardiovascular: hypertension Respiratory: NONE Gastrointestinal: NONE Hepatic: NONE Renal: NONE Musculoskeletal: NONE Psychiatric: NONE Endocrine: NONE Blood Disorders: anemia Cancer(s): BREAST CA 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 EENTM: Reports: no symptoms. Cardiovascular: Reports: no symptoms. Respiratory: Reports: no symptoms. GI: Reports: no symptoms. Genitourinary: Reports: no symptoms. Musculoskeletal: Reports: back pain, joint pain, muscle stiffness, neck pain. Skin: Reports: no symptoms. Neurological/Psychological: Reports: dementia, weakness. Exam & Diagnostic Data Last 24 Hrs of Vital Signs/I&O Vital Signs Date Time Temp Pulse Resp B/P B/P Pulse O2 O2 Flow FiO2 Mean Ox Delivery Rate 09/06 1051 99.9 94 18 146/85 95 Room Air 09/06 0739 97.4 79 17 190/100 96 Room Air Intake & Output 09/06 1600 09/06 0800 05 0000 Intake Total 120 0 Output Total 300 Balance -180 0 Intake, Oral 120 0 Output, Urine 300 Patient 63.503 kg Weight Weight Reported by Patient Measurement Method Physical Exam General Appearance Alert, Oriented X3, Cooperative, No Acute Distress Skin No Rashes, No Breakdown, No Significant Lesion Skin Temp/Moisture Exam: Warm/Dry Sepsis Skin Exam (color): Normal for Ethnicity HEENT Atraumatic, PERRLA, EOMI, DRY MUCOUS MEMBRANES Neck Supple, No JVD Lymphatic Cervical nl Cardiovascular Regular Rate, Normal S1, Normal S2 Lungs DIMINISHED BREATH SOUNDS AT BILATERAL BASES Abdomen Normal Bowel Sounds, Soft, No Tenderness Neurological Normal Gait, Normal Speech, Strength at 5/5 X4 Ext, Normal Tone, Sensation Intact, Cranial Nerves 3-12 NL, Reflexes 2+ Extremities No Clubbing, No Cyanosis, No Edema, Normal Pulses Last 24 Hrs of Labs/Don: Laboratory Tests 09/06/16 0850: Anion Gap 9, Estimated GFR > 60, BUN/Creatinine Ratio 24.0, Glucose 87, Calcium 8.5, Total Bilirubin 0.7, AST 39 H, ALT 34, Alkaline Phosphatase 102, Total Protein 7.6, Albumin 3.0 L, Globulin 4.6 H, Albumin/Globulin Ratio 0.7 L, CBC w Diff MAN DIFF ORDERED, RBC 4.74, MCV 82.2, MCH 26.7 L, RDW 19.5 H, MPV 8.4, Gran % 86.2 H, Lymphocytes % 6.4 L, Monocytes % 6.0, Eosinophils % 0.8, Basophils % 0.6, Absolute Granulocytes 10.2 H, Segmented Neutrophils 78 H, Band Neutrophils 10 H, Absolute Lymphocytes 0.8 L, Lymphocytes 7 L, Monocytes 5, Absolute Monocytes 0.7 H, Absolute Eosinophils 0.1, Absolute Basophils 0.1, Poikilocytosis 2+, Anisocytosis 2+, PUBS MCHC 32.5 L Assessment/Plan Assessment: Ms. Siu is an 89-year-old female with a past medical history of dementia, anxiety, hypertension, anemia, left-sided pleural effusion was brought to the ER from [facility] after a fall this morning. Labs showed a white count of 11.9 with 10 bands, sodium 133, AST of 39, UA pending. In the ED a head CAT scan was done which showed Small right cerebellar tentorial subdural hematoma. Lumbar spine CT showed Severe osteopenia. No change in L2 and L4 compression fractures from August 2016. 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 No fracture or dislocation seen. Left pleural effusion. Increased interstitial lung markings and right upper lobe nodules. Chest x-ray:Increasing opacification at the left lung base reflecting increasing small pleural effusion and associated atelectasis. Mild pulmonary venous congestion and/or interstitial edema. Cardiomegaly. Plan: # Subdural hematoma secondary to Unwitnessed fall: Unsure whether it is mechanical or neurocardiogenic or due to general deconditioning. CT shows small right-sided cerebellar tentorial subdural hematoma. -Admit to [facility] -Every 4 hours neuro checks -Passed bedside swallow evaluation, started on a diet. We'll get a formal swallow eval in a.m. -Rule out ACS with 3 sets of troponins and EKG -Check orthostatic vitals -Maintain on fall precautions -PT consult IN A.M. -Neurosurgery consulted by ED, no plans of active intervention at this point. [facility] A repeat CAT scan if acute mental status changes. -Follow up neurosurgery/neurology evaluation in a.m.(neuro consult has not been placed) # PNA with left-sided pleural effusion: Treated for pneumonia as last visit and had diagnostic thoracentesis which revealed a exudative fluid. Now has leukocytosis with bandemia as well as evidence of left sided opacity with vascular congestion and effusion(no comparison with previous effusion mentioned) . No growth in cultures.Patient has no shortness of breath at this point and no cough. -We'll start patient on IV ceftriaxone and IV azithromycin. -Continue incentive spirometry -Follow up pancultures. -Pulmonary consult in a.m. #Increased frequency of urination with generalized deconditioning. Has grown Escherichia coli in the past sensitive to ceftriaxone. -Gentle hydration with IV normal saline at 75 mL an hour -Check UA and urine culture -Patient is already on antibiotics for pneumonia #Acute compression fracture of L2 and L4 vertebral body diffuse osteopenia No signs and symptoms suggestive of saddle anesthesia suggestive of spinal cord compression at this point Conservative management with high BP medications for now Continue on vitamin D3 supplements as it is known to prevent fractures. #History of depression and anxiety Continue on Zoloft 50 mg daily and mirtazapine 7. 5. grams at bedtime. #Hypertension Currently stable Continue lisinopril 10 mg daily -DVT prophylaxis Alps(no medication due to subdural hematoma) Diet Heart healthy CODE STATUS DNR/DNI As Ranked By This Provider Problem List: 1. Fall Qualifiers Encounter type: initial encounter Qualified Code: W19.XXXA - Unspecified fall, initial encounter 2. Subdural hematoma Core Measures/Miscellaneous Acute Coronary Syndrome ACS Diagnosis: No Cerebrovascular Accident CVA/TIA Diagnosis: No Congestive Heart Failure CHF Diagnosis: No Venous Thromboembolism VTE Risk Factors: Age > 40 [facility] d/t: No contraindications No VTE Pharm Prophylaxis d/t: Medical contraindication (SUBDURAL HEMATOMA) VTE Diagnosis: No VTE Type: NONE VTE Confirmed by (Test): NONE Severe Sepsis Severe Sepsis Present: No Septic Shock Septic Shock Present: No Miscellaneous Documentation Attending Case Discussed With: ISMA FRYE MD Primary Care Physician: ISMA FRYE MD Patient sees these Specialists none Level of Patient Care: General Medicine
--- NOTE | 2016-09-06 12:24 | NUR ---
PT ARRIVED TO FLOOR AT 1130, A&FORGETFUL, HX OF DEMENTIA, TEMP 100.2 MD REETUP NOTIFIED, TYLENOL ORDERED.
--- NOTE | 2016-09-06 17:21 | Admission Certification ---
Admission Certification Certification Statement - As attending physician, I certify that at the time of - admission, based on clinical presentation, severity of - symptoms, need for further diagnostic testing and - therapeutic interventions, and risk of adverse outcomes - without in-hospital treatment, in my clinical assessment, - this patient requires an acute hospital stay for a minimum - of two nights or longer. I have also considered psychsocial - factors such as support system, advanced age, financial - issues, cognitive issues, and failed out-patient treatments, - past re-admission history, safety of patient, and lack of - compliance as applicable. Specific rationale supporting this admission is: Fall mechanical with small right cerebellar tentorial subdural hematoma
--- NOTE | 2016-09-06 17:24 | PN- Att Addend ---
Attending Addendum Attending Brief Note 89-year-old white female resident of [facility]. Had a fall in the bathroom hitting her head and back. 911 was called to the emergency room was no apparent loss of consciousness. And had a CAT scan of the head that showed a small right cerebellar tentorial subdural hematoma. Neurosurgery was called. Patient will be kept and monitored and conservative treatment for now. Laboratory Tests 09/06 09/06 09/06 1351 1217 1100 Chemistry Troponin I (< 0.11 ng/ml) 0.03 Urines Urinalysis MOD H Urine Color (YEL,AMB,STR) Cancelled YEL Urine Clarity (CLEAR) Cancelled HAZY H Urine pH (5.0 - 8.0) Cancelled 7.5 Ur Specific [place] (1.001 - 1.035) Cancelled 1.020 Urine Protein (NEG,<30 MG/DL) Cancelled TRACE H Urine Ketones (NEG) Cancelled NEG Urine Nitrite (NEG) Cancelled NEG Urine Bilirubin (NEG) Cancelled NEG Urine Urobilinogen (0.1 - 1.0 EU/dl) Cancelled 0.2 Ur Leukocyte Esterase (NEG) Cancelled NEG Ur Microscopic Cancelled SEDIMENT EXAMINED Urine RBC (0 - 5 /HPF) RARE Ur Epithelial Cells (NONE,FEW) RARE Urine Bacteria (NEG/NONE) RARE H Urine Hemoglobin (NEG) Cancelled NEG Urine Glucose (N MG/DL) Cancelled NEG 09/06 0850 Chemistry Sodium (137 - 145 mmol/L) 133 L Potassium (3.5 - 5.1 mmol/L) 4.1 Chloride (98 - 107 mmol/L) 97 L Carbon Dioxide (22 - 30 mmol/L) 27 Anion Gap (5 - 16) 9 BUN (7 - 17 mg/dL) 12 Creatinine (0.5 - 1.0 mg/dL) 0.5 Estimated GFR (>60 ml/min) > 60 BUN/Creatinine Ratio (7 - 25 %) 24.0 Glucose (65 - 99 mg/dL) 87 Calcium (8.4 - 10.2 mg/dL) 8.5 Total Bilirubin (0.2 - 1.3 mg/dL) 0.7 AST (14 - 36 U/L) 39 H ALT (9 - 52 U/L) 34 Alkaline Phosphatase (<127 U/L) 102 Total Protein (6.3 - 8.2 g/dL) 7.6 Albumin (3.5 - 5.0 g/dL) 3.0 L Globulin (1.9 - 4.2 gm/dL) 4.6 H Albumin/Globulin Ratio (1.1 - 2.2 %) 0.7 L Hematology CBC w Diff MAN DIFF ORDERED WBC (4.8 - 10.8 /CUMM) 11.9 H RBC (4.20 - 5.40 /CUMM) 4.74 Hgb (12.0 - 16.0 G/DL) 12.7 Hct (37 - 47 %) 39.0 MCV (81.0 - 99.0 FL) 82.2 MCH (27.0 - 31.0 PG) 26.7 L RDW (11.5 - 14.5 %) 19.5 H Plt Count (130 - 400 /CUMM) 298 MPV (7.4 - 10.4 FL) 8.4 Gran % (42.2 - 75.2 %) 86.2 H Lymphocytes % (20.5 - 51.1 %) 6.4 L Monocytes % (1.7 - 9.3 %) 6.0 Eosinophils % (0 - 5 %) 0.8 Basophils % (0.0 - 2.0 %) 0.6 Absolute Granulocytes (1.4 - 6.5 /CUMM) 10.2 H Segmented Neutrophils (42.2 - 75.2 %) 78 H Band Neutrophils (0.0 - 5.0 %) 10 H Absolute Lymphocytes (1.2 - 3.4 /CUMM) 0.8 L Lymphocytes (20.5 - 51.1 %) 7 L Monocytes (1.7 - 9.3 %) 5 Absolute Monocytes (0.10 - 0.60 /CUMM) 0.7 H Absolute Eosinophils (0.0 - 0.7 /CUMM) 0.1 Absolute Basophils (0.0 - 0.2 /CUMM) 0.1 Poikilocytosis 2+ Anisocytosis 2+ PUBS MCHC (33.0 - 37.0 G/DL) 32.5 L Patient also will be pancultured and treated accordingly.
[2016-09-06 22:48] VITALS: BP 102/60
[2016-09-07 06:30] VITALS: BP 144/76
--- NOTE | 2016-09-07 07:51 | PN- Housestaff ---
Subjective Follow-up For: Unwitnessed fall Subjective: seen and examined patient. she is oriented to person only. Does not remember where or why she is here. On interview denies pain, headache, change in vision, dizziness. Review of Systems Constitutional: Denies: chills, diaphoresis, fever, malaise, weakness, unexplained weight loss. Objective Last 24 Hrs of Vital Signs/I&O Vital Signs Date Time Temp Pulse Resp B/P B/P Pulse O2 O2 Flow FiO2 Mean Ox Delivery Rate 09/07 0912 74 144/80 05/ 0630 97.8 63 18 144/76 95 Room Air 05/ 2248 98.3 68 20 102/60 94 Room Air / 1450 99.4 / 1300 99.9 09/06 1130 100.2 82 18 146/78 93 Room Air / 1051 99.9 94 18 146/85 95 Room Air Intake & Output 09/07 1600 / 0800 05/ 0000 Intake Total 600 1000 Output Total 350 600 Balance 250 400 Intake, IV 600 600 Intake, Oral 400 Number 0 Bowel Movements Output, Urine 350 600 Physical Exam General Appearance: No Acute Distress Cardiovascular: Regular Rate, Normal S1, Normal S2 Lungs: Clear to Auscultation, Normal Air Movement Abdomen: Normal Bowel Sounds, Soft, No Tenderness Extremities: No Edema Current Medications: Current Medications Sig/Leslee Start time Last Medication Dose Route Stop Time Status Admin Acetaminophen 500 MG Q6P PRN 09/06 1230 AC PO Acetaminophen 325 MG Q6 PRN / 1015 AC / PO 1720 Azithromycin 500 MG DAILY@1300 / 1300 AC 09/06 Sodium Chloride 250 ML IV 1451 Bisacodyl 10 MG DAILY 09/07 1000 AC 09/07 PO 0912 Ceftriaxone Sodium 1,000 MG DAILY@1300 /06 1300 AC 05/06 IV 1451 Cholecalciferol 1,000 IU DAILY 09/07 1000 AC 09/07 PO 0911 Ferrous Sulfate 325 MG TID 09/06 1600 AC / PO 0912 Lisinopril 10 MG DAILY 09/07 1000 AC / PO 0912 Mirtazapine 7.5 MG AT BEDTIME 09/06 2200 AC 05/ PO 2158 Oxycodone/ 1 TAB Q6 PRN 09/06 1015 AC 09/07 Acetaminophen PO 1010 Oxycodone/ 2 TAB Q6 PRN 09/06 1015 AC Acetaminophen PO Senna/Docusate Sodium 1 TAB BID PRN 09/06 1245 AC PO Sertraline HCl 50 MG DAILY 09/07 1000 AC 09/07 PO 0911 Sodium Chloride 1,000 ML Q13H 09/06 1215 DC 09/06 IV 09/07 0114 1451 Last 24 Hrs of Lab/Don Results Last 24 Hrs of Labs/Mics: Laboratory Tests 09/07/16 0703: Anion Gap 7, Estimated GFR > 60, BUN/Creatinine Ratio 22.0, CBC w Diff NO MAN DIFF REQ, RBC 4.29, MCV 81.5, MCH 26.7 L, RDW 19.0 H, MPV 9.2, Gran % 76.9 H, Lymphocytes % 10.1 L, Monocytes % 10.0 H, Eosinophils % 1.9, Basophils % 1.1, Absolute Granulocytes 5.9, Absolute Lymphocytes 0.8 L, Absolute Monocytes 0.8 H, Absolute Eosinophils 0.1, Absolute Basophils 0.1, PUBS MCHC 32.8 L 09/07/16 0145: Troponin I 0.02 09/06/16 2015: Troponin I 0.02 09/06/16 1351: Troponin I 0.03 09/06/16 1217: Urine Color Cancelled, Urine Clarity Cancelled, Urine pH Cancelled, Ur Specific [place] Cancelled, Urine Protein Cancelled, Urine Ketones Cancelled, Urine Nitrite Cancelled, Urine Bilirubin Cancelled, Urine Urobilinogen Cancelled, Ur Leukocyte Esterase Cancelled, Ur Microscopic Cancelled, Urine Hemoglobin Cancelled, Urine Glucose Cancelled Microbiology 09/06 1530 URINE ROUT: Legionella Antigen - COMP 09/06 1530 URINE ROUT: Streptococcus pneumoniae Antigen (M - COMP 09/06 1351 BLOOD: Blood Culture - RECD 09/06 1351 BLOOD: Blood Culture - RECD 09/06 1217 LOWER RESP: Respiratory Culture - COLB 09/06 121 LOWER RESP: Gram Stain - COLB Assessment/Plan Assessment: 89-year-old female with a past medical history of dementia, anxiety, hypertension, anemia, left-sided pleural effusion was brought to the ER from [facility] after a unwitnessed fall. head CAT scan was done which showed Small right cerebellar tentorial subdural hematoma.Chest x-ray: Increasing opacification at the left lung base reflecting increasing small pleural effusion and associated atelectasis. Mild pulmonary venous congestion and/or interstitial edema. Cardiomegaly. Plan: # Subdural hematoma secondary to Unwitnessed fall: -Continue [facility], Every 4 hours neuro checks -Formal swallow eval -ACS ruled out by negative troponin EKG -Check orthostatic vitals -Maintain on fall precautions -PT consult IN A.M. -Per neurosurgery no surgical intervention at this time, if any neurological changes noted will inform them # PNA with left-sided pleural effusion: on IV ceftriaxone and IV azithromycin. -Continue incentive spirometry -Follow up pancultures #Increased frequency of urination with generalized deconditioning. Has grown Escherichia coli in the past sensitive to ceftriaxone. -Gentle hydration with IV normal saline at 75 mL an hour -Check UA neg for infection #Acute compression fracture of L2 and L4 vertebral body diffuse osteopenia stable Continue on vitamin D3 supplements #History of depression and anxiety Continue on Zoloft 50 mg daily and mirtazapine 7. 5. grams at bedtime. #Hypertension Currently stable Continue lisinopril 10 mg daily -DVT prophylaxis Alps(no medication due to subdural hematoma) Diet Heart healthy CODE STATUS DNR/DNI Problem List: 1. Subdural hematoma 2. Pleural effusion Pain Ratin Pain Location: na Pain Goal: Pain 4 or less Pain Plan: current regmen Tomorrow's Labs & Rationales: none required
--- NOTE | 2016-09-07 08:24 | CT SCAN REPORT ---
EXAMINATION: CT HEAD WITHOUT CONTRAST CLINICAL INFORMATION: Right-sided subdural hematoma follow-up COMPARISON: Cranial CT scan from the previous day 09/06/2016 TECHNIQUE: Contiguous axial imaging was performed from the skull base to vertex without intravenous administration of contrast. DLP: 334 mGy-cm FINDINGS: There is no significant interval change in size or appearance of the small right-sided subdural hematoma which is layering over the tentorium. A small focus of possible parenchymal hemorrhage in the anterolateral cerebellar hemisphere abutting the tentorium is noted and unchanged. There is no significant mass effect. . No new foci of hemorrhage are appreciated. Mild ventriculomegaly, and diffuse prominence of sulci and cisterns is unchanged consistent with age-related volume loss. The appearance is unchanged from prior. No new focal parenchymal abnormality is seen. No fracture or other acute bony abnormality is seen. The visualized paranasal sinuses and mastoid air cells are clear. IMPRESSION: No appreciable interval change in size and appearance of the small subdural hematoma layering over the tentorium on the right. Possible small focus of parenchymal hemorrhage in the anterolateral right cerebellar hemisphere unchanged. No mass effect. No new finding.
--- NOTE | 2016-09-07 09:03 | Cons- Neurosurgical ---
General Information and HPI Consulting Request Date of Consult: 09/07/16 Requested By: ISMA FRYE MD Reason for Consult: Evaluate right side subdural hematoma s/p fall Source of Information: old records Exam Limitations: confusion, dementia History of Present Illness: Ms. Siu is an 89-year-old female with a past medical history of dementia, anxiety, hypertension, anemia, left-sided pleural effusion was brought to the ER from [facility] after a fall yesterday morning. As per patient's family, patient had a fall at around 6 AM yesterday morning in the bathroom. Apparently the patient was trying to walk from her room to the bathroom without the walker and fell down on the floor next to the toilet. The patient denies any lightheadedness, dizziness, chest pain, shortness of breath, palpitations, aura prior to the event. She had no loss of consciousness and remembers hitting the back of her head against the wall before falling down. She does not report any seizure-like activity or bowel or bladder incontinence. EMS was called by the facility when they discovered her head down on the ground. She felt weak in her legs and was assisted back to the bed by the senior living staff and the EMS. She refused to come to the hospital initially, but given when advised by the nurses. She reports pain at the back of her head and coccyx area posterior the fall. Reports no neurological changes, nausea or vomiting. Patient does report increased frequency of urination for the past few days however denies dysuria. Denies any fever, chills, cough, sick contacts, decreased appetite, bowel symptoms in the past few days. In the ED a head CAT scan was done which showed Small right cerebellar tentorial subdural hematoma. A follow up head CT scan done this am shows a stable subdural hematoma with no change noted Lumbar spine CT showed Severe osteopenia. No change in L2 and L4 compression fractures from August 2016. 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 No fracture or dislocation seen. Left pleural effusion. Increased interstitial lung markings and right upper lobe nodules. Chest x-ray:Increasing opacification at the left lung base reflecting increasing small pleural effusion and associated atelectasis. Mild pulmonary venous congestion and/or interstitial edema. Cardiomegaly. Allergies/Medications Allergies: Coded Allergies: Penicillins (RASH 05/05/16) Sulfa (Sulfonamide Antibiotics) (RASH 05/05/16) Home Med List: Acetaminophen (Pain Relief) 325 MG TABLET 2 TAB PO Q4H PRN PAIN/TEMP ( Reported) Acetaminophen 500 MG TABLET 1 TAB PO BID PRN PAIN (Reported) Bisacodyl (Gentle Laxative) 5 MG TABLET 2 TAB PO DAILY PRN CONSTIPATION ( Reported) Cholecalciferol (Vitamin D3) (Vitamin D) 1,000 UNIT TABLET 1 TAB PO DAILY SUPPLEMENT (Reported) Ferrous Sulfate 325 MG (65 MG IRON) TABLET 1 TAB PO DAILY SUPPLEMENT ( Reported) Lisinopril 10 MG TABLET 1 TAB PO DAILY BP (Reported) Mirtazapine 7.5 MG TABLET 1 TAB PO QPM INSOMNIA (Reported) Multivitamin (Daily Multiple Vitamin) 1 EACH TABLET 1 TAB PO DAILY SUPPLEMENT (Reported) Sennosides/Docusate Sodium (Senna Plus Tablet) 8.6 MG-50 MG TABLET 1 TAB PO BID PRN CONSTIPATION Sertraline HCl 50 MG TABLET 1 TAB PO DAILY ANXIETY (Reported) Past History Medical History Blood Transfusion Hx: No Neurological: dementia EENT: NONE Cardiovascular: hypertension Respiratory: NONE Gastrointestinal: NONE Hepatic: NONE Renal: NONE Musculoskeletal: NONE Psychiatric: NONE Endocrine: NONE Blood Disorders: anemia Cancer(s): BREAST CA 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 EENTM: Reports: no symptoms. Cardiovascular: Reports: no symptoms. Respiratory: Reports: no symptoms. GI: Reports: no symptoms. Genitourinary: Reports: no symptoms. Musculoskeletal: Reports: neck and back pain, joint pain, muscle stiffness Skin: Reports: no symptoms. Neurological/Psychological: Reports: dementia, weakness. Denies headache. Exam & Diagnostic Data Vital Signs and I&O Vital Signs Date Time Temp Pulse Resp B/P B/P Pulse O2 O2 Flow FiO2 Mean Ox Delivery Rate 09/07 0630 97.8 63 18 144/76 95 Room Air 09/06 2248 98.3 68 20 102/60 94 Room Air 09/06 1450 99.4 09/06 1300 99.9 09/06 1130 100.2 82 18 146/78 93 Room Air 09/06 1051 99.9 94 18 146/85 95 Room Air Intake & Output 09/07 1600 09/07 0800 09/07 0000 09/06 1600 09/06 0800 09/06 0000 Intake Total 600 1000 120 0 Output Total 350 600 400 Balance 250 400 -280 0 Intake, IV 600 600 Intake, Oral 400 120 0 Number 0 1 Bowel Movements Output, Urine 350 600 400 Patient 140 lb 140 lb Weight Weight Estimated Reported by Patient Measurement Method Physical Exam: General: Confused, knows name, is not oriented to place or time, is in no distress Neuro eval: Moves all extremities, distal sensation intact to bilateral upper and lower extremites, motor 5/5 to bilateral upper and lower extremities. No facial droop noted. Bilateral pupils equal and reactive. Musculoskeletal: Neck pain with palpation of paraspinal muscles Imaging Results: Head CT 09/06/2016 PATIENT: RICARDO SIU PRESENT AGE: 89 PATIENT ACCOUNT NO: [id number] : [birth year] LOCATION: [facility] ORDERING PHYSICIAN: REID LICONA MD SERVICE DATE: 09/06/16 EXAM TYPE: CAT - CT HEAD WO IV CONTRAST EXAMINATION: CT HEAD WITHOUT CONTRAST CLINICAL INFORMATION: Unwitnessed fall. COMPARISON: Previous head CT scan most recent August 2016. TECHNIQUE: Contiguous axial imaging was performed from the skull base to vertex without intravenous administration of contrast. DLP: 1040 mGy-cm for combined CT of the head and cervical spine. FINDINGS: There is asymmetric prominence and increased attenuation seen in the right cerebellar tentorium suggestive of right cerebellar tentorial subdural hematoma. This measures 4 mm in greatest thickness, coronal reconstructed image 151. There is no other evidence of intra or extra-axial hemorrhage. There is a small extra-axial calcification adjacent to the left temporal lobe measures 3 x 5 mm axial image 24 series 2 that is stable. The ventricles and extra-axial CSF spaces are prominent suggestive of generalized atrophy. There is nonspecific periventricular white matter disease. No mass, mass effect or infarct is seen. Review at bone windows is unremarkable. IMPRESSION: Small right cerebellar tentorial subdural hematoma. Findings were communicated to Dr. Licona by telephone 09/06/2016 at 9:01 AM . DICTATED BY: BETH EUGENE MD DATE/TIME DICTATED:09/06/16831 WALKING DRAGLINE OPERATOR:DREW DATE/TIME TRANSCRIBED:09/06/16831 CONFIDENTIAL, DO NOT COPY WITHOUT APPROPRIATE AUTHORIZATION. FOllow up head CT 09/07/2016 PATIENT: RICARDO SIU PRESENT AGE: 89 PATIENT ACCOUNT NO: [id number] : [birth year] [facility] ORDERING PHYSICIAN: AROLDO RUEDA SERVICE DATE: 09/07/16 EXAM TYPE: CAT - CT HEAD WO IV CONTRAST EXAMINATION: CT HEAD WITHOUT CONTRAST CLINICAL INFORMATION: Right-sided subdural hematoma follow-up COMPARISON: Cranial CT scan from the previous day 09/06/2016 TECHNIQUE: Contiguous axial imaging was performed from the skull base to vertex without intravenous administration of contrast. DLP: 334 mGy-cm FINDINGS: There is no significant interval change in size or appearance of the small right-sided subdural hematoma which is layering over the tentorium. A small focus of possible parenchymal hemorrhage in the anterolateral cerebellar hemisphere abutting the tentorium is noted and unchanged. There is no significant mass effect. . No new foci of hemorrhage are appreciated. Mild ventriculomegaly, and diffuse prominence of sulci and cisterns is unchanged consistent with age-related volume loss. The appearance is unchanged from prior. No new focal parenchymal abnormality is seen. No fracture or other acute bony abnormality is seen. The visualized paranasal sinuses and mastoid air cells are clear. IMPRESSION: No appreciable interval change in size and appearance of the small subdural hematoma layering over the tentorium on the right. Possible small focus of parenchymal hemorrhage in the anterolateral right cerebellar hemisphere unchanged. No mass effect. No new finding. DICTATED BY: AMANDA LAWSON MD DATE/TIME DICTATED:09/07/16801 WALKING DRAGLINE OPERATOR:DREW DATE/TIME TRANSCRIBED:09/07/16801 CONFIDENTIAL, DO NOT COPY WITHOUT APPROPRIATE AUTHORIZATION. <Electronically signed in Other Vendor System> Cervical Spine CT 09/06/2016 PATIENT: RICARDO SIU PRESENT AGE: 89 PATIENT ACCOUNT NO: [id number] : [birth year] LOCATION: [facility] ORDERING PHYSICIAN: REID LICONA MD SERVICE DATE: 09/06/16 EXAM TYPE: CAT - CT CERV SPINE WO IV CONTRAST EXAMINATION: CT CERVICAL SPINE WITHOUT CONTRAST CLINICAL INFORMATION: Neck pain after fall. COMPARISON: Previous cervical spine CT August 2016. TECHNIQUE: Axial images through the cervical spine without contrast. Sagittal and coronal reconstructions on the technologist's workstation were performed. DLP: 987 mGy-cm FINDINGS: There is exaggerated cervical lordosis. No acute fracture or dislocation is seen. Disc spaces are normal. There is multilevel bilateral facet arthritis, left greater than right. There is a sclerotic density in the right T1 transverse process that is stable and probably represents a bone island. There is a lucency in the T2 vertebral body, question representing a hemangioma that is stable. Prevertebral soft tissues are normal. There is a left pleural effusion. This is similar to previous exam. There are increased interstitial markings seen in the upper lobes. There is a 4 mm right upper lobe nodule, axial image 277 series 8. There is question of a 7 x 4 mm right upper lobe nodule, axial image 238 series 8. There is no pneumothorax. IMPRESSION: Exaggerated cervical lordosis and degenerative changes. No fracture or dislocation seen. Left pleural effusion. Increased interstitial lung markings and right upper lobe nodules. DICTATED BY: BETH EUGENE MD DATE/TIME DICTATED:09/06/16843 WALKING DRAGLINE OPERATOR:DREW DATE/TIME TRANSCRIBED:09/06/16843 CONFIDENTIAL, DO NOT COPY WITHOUT APPROPRIATE AUTHORIZATION. <Electronically signed in Other Vendor System> SIGNED BY: BETH EUGENE MD [id number] Assessment/Plan Assessment/Plan This is a 89 year old female with a past medical history significant for dementia who presented to ER one day ago after sustaining a subdural hematoma after a fall. Neurological exam done today by Dr. Chandana Maya did not demonstrate any clinical instability. Pupils were equal and reactive, motor strength was uncompromised and there was no obvious weakness or neurological deficit to bilateral upper and lower extremites. Stability of hematoma was confirmed by repeat CT scan done today which was compaired by Dr. Maya to prior studies. Musculoskeletal evaluation was significant for paraspinal tenderness in upper region of cervial spine, ct scan confirmed absence of fracture or dislocation. From a neurosurgical standpoint, per Dr. Maya, no intervention is needed at the present time. For comfort, patient may use a soft cervical collar as needed. If there is any change in clinical presentation, neurosurgery will remain available for consultation. Other Findings/Comments: Imaging results: Consult Acknowledgment - Thank you for your consult request.
[2016-09-07 09:36] LABS: ABSOLUTE BASOPHIL COUNT 0.1 /CUMM (0.0-0.2); ABSOLUTE EOSINOPHIL COUNT 0.1 /CUMM (0.0-0.7); ABSOLUTE GRANULOCYTE CT 5.9 /CUMM (1.4-6.5); ABSOLUTE LYMPH COUNT 0.8 /CUMM (1.2-3.4); ABSOLUTE MONOCYTE COUNT 0.8 /CUMM (0.10-0.60); BASOPHIL % 1.1 % (0.0-2.0); EOSINOPHIL % 1.9 % (0-5); GRANULOCYTE % 76.9 % (42.2-75.2); HEMATOCRIT 34.9 % (37-47); MEAN CORPUSCULAR HGB 26.7 PG (27.0-31.0); MEAN CORPUSCULAR HGB CONC 32.8 G/DL (33.0-37.0); MEAN CORPUSCULAR VOLUME 81.5 FL (81.0-99.0); MEAN PLATELET VOLUME 9.2 FL (7.4-10.4); PLATELET COUNT 249 /CUMM (130-400); RED BLOOD CELL CT 4.29 /CUMM (4.20-5.40); WHITE BLOOD CELL COUNT 7.6 /CUMM (4.8-10.8)
--- NOTE | 2016-09-07 14:05 | PN- Att Addend ---
Attending Addendum Attending Brief Note Covering attending note: Patient comfortable in bed she is awake in no acute distress vital signs are stable she has no fever, there is no changes on physical exam. Patient had a repeat CAT scan of the head which shows no interval change in the size of the subdural hematoma. Neuro surgeon reevaluated the patient, at this time no intervention was recommended to continue observation. Current Medications Sig/Leslee Start time Last Medication Dose Route Stop Time Status Admin Acetaminophen 500 MG Q6P PRN 09/06 1230 AC PO Acetaminophen 325 MG Q6 PRN 09/06 1015 AC 09/06 PO 1720 Azithromycin 500 MG DAILY@1300 09/06 1300 AC 09/07 Sodium Chloride 250 ML IV 1307 Bisacodyl 10 MG DAILY 09/07 1000 AC 09/07 PO 0912 Ceftriaxone Sodium 1,000 MG DAILY@1300 / 1300 AC 09/07 IV 1307 Cholecalciferol 1,000 IU DAILY 09/07 1000 AC 09/07 PO 0911 Ferrous Sulfate 325 MG TID 09/06 1600 AC 09/07 PO 0912 Lisinopril 10 MG DAILY 09/07 1000 AC 09/07 PO 0912 Mirtazapine 7.5 MG AT BEDTIME 09/06 2200 AC / PO 2158 Oxycodone/ 1 TAB Q6 PRN 09/06 1015 AC /07 Acetaminophen PO 1010 Oxycodone/ 2 TAB Q6 PRN 09/06 1015 AC Acetaminophen PO Senna/Docusate Sodium 1 TAB BID PRN 09/06 1245 AC PO Sertraline HCl 50 MG DAILY 09/07 1000 AC 09/07 PO 0911 Sodium Chloride 1,000 ML Q13H 09/06 1215 DC / IV 09/07 0114 1451 Laboratory Tests 09/07/16 0703: Anion Gap 7, Estimated GFR > 60, BUN/Creatinine Ratio 22.0, CBC w Diff NO MAN DIFF REQ, RBC 4.29, MCV 81.5, MCH 26.7 L, RDW 19.0 H, MPV 9.2, Gran % 76.9 H, Lymphocytes % 10.1 L, Monocytes % 10.0 H, Eosinophils % 1.9, Basophils % 1.1, Absolute Granulocytes 5.9, Absolute Lymphocytes 0.8 L, Absolute Monocytes 0.8 H, Absolute Eosinophils 0.1, Absolute Basophils 0.1, PUBS MCHC 32.8 L 09/07/16 0145: Troponin I 0.02 09/06/16 2015: Troponin I 0.02 Microbiology 09/06 1529 URINE ROUT: Legionella Antigen - COMP 09/06 153 URINE ROUT: Streptococcus pneumoniae Antigen (M - COMP Microbiology Date/Time Procedure - Status Source Growth 09/06 1529 Legionella Antigen - COMP URINE ROUT 09/06 1529 Streptococcus pneumoniae Antigen (M - COMP URINE ROUT Vital Signs Date Time Temp Pulse Resp B/P B/P Pulse O2 O2 Flow FiO2 Mean Ox Delivery Rate 09/08 911 74 144/80 09/07 629 97.8 63 18 144/76 95 Room Air
[2016-09-07 15:57] VITALS: BP 108/60
[2016-09-07 22:10] VITALS: BP 160/80
[2016-09-08 06:30] VITALS: BP 142/78
--- NOTE | 2016-09-08 06:33 | PN- Housestaff ---
Subjective Follow-up For: subdural hematoma Subjective: seen and examined patient. On interview denies pain, headache, change in vision , dizziness. Review of Systems Constitutional: Denies: chills, diaphoresis, fever, malaise, weakness, unexplained weight loss. Cardiovascular: Denies: chest pain, edema, orthopena, palpitations, peripheral edema, syncope. Respiratory: Denies: cough, hemoptysis, orthopnea, short of breath, sputum production, stridor, wheezing. Objective Last 24 Hrs of Vital Signs/I&O Vital Signs Date Time Temp Pulse Resp B/P B/P Pulse O2 O2 Flow FiO2 Mean Ox Delivery Rate 09/08 0630 98.5 83 18 142/78 94 Room Air 09/07 2210 98.9 86 16 160/80 91 Room Air 09/07 1557 99.3 70 18 108/60 91 / 0912 74 144/80 Intake & Output / 1600 / 0800 05/ 0000 Intake Total 100 100 Output Total Balance 100 100 Intake, Oral 100 100 Number 1 Bowel Movements Physical Exam General Appearance: Alert, No Acute Distress Cardiovascular: Normal S1, Normal S2 Lungs: Clear to Auscultation, Normal Air Movement Abdomen: Normal Bowel Sounds, Soft Current Medications: Current Medications Sig/Leslee Start time Last Medication Dose Route Stop Time Status Admin Acetaminophen 500 MG Q6P PRN 09/06 1230 AC PO Acetaminophen 325 MG Q6 PRN 09/06 1015 AC 09/06 PO 1720 Azithromycin 500 MG DAILY@1300 / 1300 AC 09/07 Sodium Chloride 250 ML IV 1307 Bisacodyl 10 MG DAILY 09/07 1000 AC 09/07 PO 0912 Ceftriaxone Sodium 1,000 MG DAILY@1300 /06 1300 AC 05/ IV 1307 Cholecalciferol 1,000 IU DAILY / 1000 AC / PO 0911 Ferrous Sulfate 325 MG TID / 1600 AC 09/07 PO 2041 Lisinopril 10 MG DAILY / 1000 AC / PO 0912 Mirtazapine 7.5 MG AT BEDTIME 09/06 2200 AC / PO 2041 Oxycodone/ 1 TAB Q6 PRN 09/06 1015 AC 09/07 Acetaminophen PO 1010 Oxycodone/ 2 TAB Q6 PRN 09/06 1015 AC Acetaminophen PO Senna/Docusate Sodium 1 TAB BID PRN 05/06 1245 AC PO Sertraline HCl 50 MG DAILY 09/07 1000 AC 09/07 PO 0911 Assessment/Plan Assessment: 89-year-old female with a past medical history of dementia, anxiety, hypertension, anemia, left-sided pleural effusion was brought to the ER from [facility] after a unwitnessed fall. head CAT scan was done which showed Small right cerebellar tentorial subdural hematoma.Chest x-ray: Increasing opacification at the left lung base reflecting increasing small pleural effusion and associated atelectasis. Mild pulmonary venous congestion and/or interstitial edema. Cardiomegaly. Plan: # Subdural hematoma secondary to Unwitnessed fall: -Continue [facility], Every 4 hours neuro checks -Formal swallow eval -ACS ruled out by negative troponin EKG -Check orthostatic vitals -Maintain on fall precautions -PT consult IN A.M. -Per neurosurgery no surgical intervention at this time, if any neurological changes noted will inform them # PNA with left-sided pleural effusion: on IV ceftriaxone and IV azithromycin. -Continue incentive spirometry -Follow up pancultures #Increased frequency of urination with generalized deconditioning. Has grown Escherichia coli in the past sensitive to ceftriaxone. -Gentle hydration with IV normal saline at 75 mL an hour -Check UA neg for infection #Acute compression fracture of L2 and L4 vertebral body diffuse osteopenia stable Continue on vitamin D3 supplements #History of depression and anxiety Continue on Zoloft 50 mg daily and mirtazapine 7. 5. grams at bedtime. #Hypertension Currently stable Continue lisinopril 10 mg daily -DVT prophylaxis Alps(no medication due to subdural hematoma) Diet Heart healthy CODE STATUS DNR/DNI Problem List: 1. Fall 2. Subdural hematoma Pain Ratin Pain Location: na Pain Goal: Pain 4 or less Pain Plan: current regimen Tomorrow's Labs & Rationales: none required
--- NOTE | 2016-09-08 09:31 | PN- Att Addend ---
Attending Addendum Attending Brief Note Patient appears about her baseline and has no complaints General Appearance: Alert, No Acute Distress Skin: Grossly normal HEENT: PEERLA Neck: Supple, No JVD Cardiovascular: Regular Rate, Normal S1, Normal S2, No Murmurs Lungs: Clear to Auscultation, Normal Air Movement Abdomen: Normal Bowel Sounds, Soft, No Tenderness Neurological: Normal Speech, Strength at 5/5 X4 Ext, Cranial Nerves 3-12 NL, Reflexes 2+ Extremities: No Clubbing, No Cyanosis, No Edema Vascular: Normal Pulses Assessment Patient has minimal complaints. She is neurologically intact. CAT scan repeat from yesterday shows no change in the size of hematoma and minimal parenchymal bleeding that is unchanged. There are no signs of clinical pneumonia provided she is afebrile and leucocytosis has resolved. We'll discontinue antibiotics and plan for discharge back to assisted living. Small left pleural effusion and cytology from recent thoracentesis negative for malignancy. Plan Discontinue antibiotics Avoid NSAIDs Continue other home meds Current Medications Sig/Leslee Start time Last Medication Dose Route Stop Time Status Admin Acetaminophen 500 MG Q6P PRN 09/06 1230 AC PO Acetaminophen 325 MG Q6 PRN 09/06 1015 AC 09/06 PO 1720 Azithromycin 500 MG DAILY@1300 / 1300 AC 09/07 Sodium Chloride 250 ML IV 1307 Bisacodyl 10 MG DAILY 09/07 1000 AC 09/07 PO 0912 Ceftriaxone Sodium 1,000 MG DAILY@1300 /06 1300 AC / IV 1307 Cholecalciferol 1,000 IU DAILY 09/07 1000 AC 09/07 PO 0911 Ferrous Sulfate 325 MG TID 09/06 1600 AC 09/07 PO 2041 Lisinopril 10 MG DAILY 09/07 1000 AC 09/07 PO 0912 Mirtazapine 7.5 MG AT BEDTIME 09/06 2200 AC 09/07 PO 2041 Oxycodone/ 1 TAB Q6 PRN 09/06 1015 AC 09/07 Acetaminophen PO 1010 Oxycodone/ 2 TAB Q6 PRN 09/06 1015 AC Acetaminophen PO Senna/Docusate Sodium 1 TAB BID PRN 09/06 1245 AC PO Sertraline HCl 50 MG DAILY 09/07 1000 AC 09/07 PO 0911 Vital Signs Date Time Temp Pulse Resp B/P B/P Pulse O2 O2 Flow FiO2 Mean Ox Delivery Rate 09/08 629 98.5 83 18 142/78 94 Room Air 09/07 2210 98.9 86 16 160/80 91 Room Air 09/07 1557 99.3 70 18 108/60 91
--- NOTE | 2016-09-08 11:16 | Discharge Summary ---
See Addendum Visit Information Visit Dates Admission Date: 09/06/16 Discharge Date: 09/08/16 Hospital Course Course Attending Physician: RAJ CARRERA MD Primary Care Physician: RAJ CARRERA MD Hospital Course: Melodie is 89-year-old woman with medical history dementia anxiety hypertension anemia left-sided pleural effusion who presents to the emergency department from [facility] after experiencing a fall this morning. She was admitted for subdural hematoma secondary to an unwitnessed fall a CAT scan of the head shows small right-sided cerebral tentorial subdural hematoma. Neurological service consulted, advocating conservative management at this time no rales or surgery. The patient is doing well today. She does have a history of compression fracture of L2 and L4 vertebral body secondary to diffuse osteopenia. No signs and symptoms or suicidal anesthesia or spinal cord compression at this point. Patient did have a pneumonia with a left-sided pleural effusion treated at her last visit to the hospital. She underwent diagnostic thoracentesis revealed an exudative fluid. She had leukocytosis with bandemia at this time. She was treated with intravenous ceftriaxone and IV azithromycin. Pulmonary service was asked to evaluate the patient. She improved throughout her admission. She'll be discharged back to her assisted facility. Problems: Subdural hematoma Old compression fracture of L2 and L4 vertebral bodies Pneumonia with left-sided pleural effusion Allergies: Coded Allergies: Penicillins (RASH 05/05/16) Sulfa (Sulfonamide Antibiotics) (RASH 05/05/16) Significant Procedures: CAT scan of lumbar spine IMPRESSION: Severe osteopenia. No change in L2 and L4 compression fractures from August 2016. 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 Small left lower pole renal stones. Chest x-ray IMPRESSION: Increasing opacification at the left lung base reflecting increasing small pleural effusion and associated atelectasis. Mild pulmonary venous congestion and/or interstitial edema. Cardiomegaly. Pertinent Lab Results: Vital Signs Date Time Temp Pulse Resp B/P B/P Pulse O2 O2 Flow FiO2 Mean Ox Delivery Rate 09/08 0842 73 146/74 09/08 0530 98.5 83 18 142/78 94 Room Air 09/07 2210 98.9 86 16 160/80 91 Room Air 09/07 1557 99.3 70 18 108/60 91 09/07 0912 74 144/80 05/07 0630 97.8 63 18 144/76 95 Room Air 05/06 2248 98.3 68 20 102/60 94 Room Air / 1450 99.4 05/ 1300 99.9 09/06 1130 100.2 82 18 146/78 93 Room Air 05/ 1051 99.9 94 18 146/85 95 Room Air 05/06 0739 97.4 79 17 190/100 96 Room Air Last 24 Hours I&Os 09/08 1600 09/08 0800 05 0000 Intake Total 100 100 Output Total Balance 100 100 Intake, Oral 100 100 Number 1 Bowel Movements Microbiology Date/Time Procedure - Status Source Growth 09/06 1530 Legionella Antigen - COMP URINE ROUT 09/06 1530 Streptococcus pneumoniae Antigen (M - COMP URINE ROUT 09/06 1351 Blood Culture - RES BLOOD 09/06 1217 Respiratory Culture - CAN LOWER RESP Cancelled: SPECIMEN NOT RECEIVED IN LABORATORY 09/06 1217 Gram Stain - CAN LOWER RESP Cancelled: SPECIMEN NOT RECEIVED IN LABORATORY 09/06 1100 Urine Culture - RES URINE ROUT Orders Procedure Date/time Status Therapeutic Activities 09/08 UNK Complete Gait Training 09/08 UNK Complete Regular Diet 09/07 L Active CBC WITHOUT DIFFERENTIAL 09/07 0600 Complete BASIC ELECTROLYTES PLUS BUN&CR 09/07 0600 Complete TROPONIN LEVEL 09/07 0200 Complete EKG 09/07 0200 Active PT EVAL MOD COMPLEX 30 MIN 09/07 UNK Complete Gait Training 09/07 UNK Complete Splints 09/07 UNK Active Heart Healthy Diet 09/06 D Complete TROPONIN LEVEL 09/06 1900 Complete EKG 09/06 1900 Active STREP PNEUMO URINARY ANTIGEN 09/06 1325 Complete LEGIONELLA URINARY ANTIGEN 09/06 1325 Complete CULTURE,URINE 09/06 1217 Active BLOOD CULTURE 09/06 1217 Active TROPONIN LEVEL 09/06 1217 Complete Teach/Educate 09/06 1142 Active Pain Treatment and Response 09/06 1142 Active Nutritional Intake, Monitor 09/06 1142 Active Isolation 09/06 1142 Active Patient Care Conference 09/06 1142 Active URINALYSIS 09/06 1050 Complete EKG 09/06 1041 Active Pathway - chart 09/06 1011 Active House Staff 09/06 1011 Active Patient Data 09/06 1011 Active Code Status 09/06 1011 Active Patient Data 09/06 0936 Active OXYGEN SETUP (GEN) 09/06 926 Active Saline Lock 09/06 926 Active Admit to inpatient 09/06 926 Active Vital Signs 09/06 926 Active Activity/Ambulation 09/06 926 Active Code Status 09/06 926 Complete Intake & Output 09/06 756 Active COMPREHENSIVE METABOLIC PANEL 09/06 749 Complete CBC WITHOUT DIFFERENTIAL 09/06 749 Complete SWALLOW EVALUATION 09/06 UNK Active PT Evaluate & Treat 09/06 UNK Active VTE Mechanical Prophylaxis 09/06 UNK Active MISTAKE 09/06 UNK Active María Elena Coma Scale 09/06 UNK Active Disposition Summary Disposition Principal Diagnosis: Subdural hematoma Additional Diagnosis: Old compression fracture of L2 and L4 vertebral bodies Hx of Pneumonia with left-sided pleural effusion Atelactasis Discharge Disposition: ASSISTED-LIVING Discharge Instructions General Discharge Information Code Status: Do Not Resucitate/Intubat Patient's Diet: Regular diet Patient's Activity: Self-limited Follow-Up Instructions/Appts: Follow-up with Raj Carrera MD Medications at Discharge Discharge Medications: Continue taking these medications: Sertraline HCl (Sertraline HCl) 50 MG TABLET 1 Tablet ORAL DAILY Qty = 90 Comments: Last Taken: 09/10/16 Time: 0900 AM Ferrous Sulfate (Ferrous Sulfate) 325 MG (65 MG IRON) TABLET 1 Tablet ORAL DAILY Qty = 30 Comments: Last Taken: 09/10/16 Time: 0900 AM Cholecalciferol (Vitamin D3) (Vitamin D) 1,000 UNIT TABLET 1 Tablet ORAL DAILY Days = 30 Comments: Last Taken: 09/10/16 Time: 0900 AM Multivitamin (Daily Multiple Vitamin) 1 EACH TABLET 1 Tablet ORAL DAILY Comments: Last Taken: 09/10/16 Time: 0900 AM Mirtazapine (Mirtazapine) 7.5 MG TABLET 1 Tablet ORAL Every night Days = 30 Comments: Last Taken: 09/09/16 Time: 1100 PM Sennosides/Docusate Sodium (Senna Plus Tablet) 8.6 MG-50 MG TABLET 1 Tablet ORAL TWICE DAILY as needed for CONSTIPATION Days = 30 Comments: NOT GIVEN IN HOSPITAL Lisinopril (Lisinopril) 10 MG TABLET 1 Tablet ORAL DAILY Comments: Last Taken: 09/10/16 Time: 0900 AM Acetaminophen (Pain Relief) 325 MG TABLET 2 Tablet ORAL Q4H as needed for PAIN/TEMP Comments: Last Taken: 09/09/16 Time: 1700 Bisacodyl (Gentle Laxative) 5 MG TABLET 2 Tablet ORAL DAILY as needed for CONSTIPATION Comments: Last Taken: 09/10/16 Time: 0900 Acetaminophen (Acetaminophen) 500 MG TABLET 1 Tablet ORAL TWICE DAILY as needed for PAIN Comments: DID NOT RECEIVE IN HOSPITAL Copies To: RAJ CARRERA MD Attending Review Statement Documenting Attending: RAJ CARRERA MD
--- NOTE | 2016-09-08 11:18 | Patient Discharge Instructions ---
Discharge Instructions General Discharge Information You were seen/treated for: SUBDURAL HEMATOMA PNEUMONIA VERTEBRAL FRACTURES Watch for these problems: BACK PAIN, FEVER, CHILLS Special Instructions: Please follow-up with her primary care physician within 7 days of discharge. Please follow-up with neurosurgery and/or neurology service if needed. Symptoms to watch for would be confusion, weakness of any part of the body, severe headache, with vomiting. Please return to emergency if symptoms worsen. Diet Continue normal diet: Yes Activity Full Activity/No Limits: Yes Acute Coronary Syndrome Inclusion Criteria At DC or during hospital stay patient has or had the following: ACS DIAGNOSIS No Discharge Core Measures Meds if any: Prescribed or Continued at Discharge Meds if any: NOT Prescribed or Continued at Discharge Congestive Heart Failure Inclusion Criteria At DC or during hospital stay patient has or had the following: CHF DIAGNOSIS No Discharge Core Measures Meds if any: Prescribed or Continued at Discharge Meds if any: NOT Prescribed or Continued at Discharge Cerebrovascular accident Inclusion Criteria At DC or during hospital stay patient has or had the following: CVA/TIA Diagnosis Yes (hematoma, so no antithrombotic) Discharge Core Measures Meds if any: Prescribed or Continued at Discharge Meds if any: NOT Prescribed or Continued at Discharge Venous thromboembolism Inclusion Criteria VTE Diagnosis No VTE Type NONE VTE Confirmed by (Test) NONE Discharge Core Measures - Per Current guidelines, there needs to be overlap - treatment for the first 5 days of Warfarin therapy. - If discharged on Warfarin prior to 5 days of - overlap therapy, the patient will need to be - assessed for post discharge needs including - *Post discharge parental anticoagulation - *Warfarin and/or parental anticoagulation education - *Follow up date to check INR post discharge At least 5 days overlap therapy as Inpatient No Meds if any: Prescribed or Continued at Discharge Note: Overlap Therapy is Warfarin and Anticoagulant Meds if any: NOT Prescribed or Continued at Discharge
[2016-09-08 14:50] VITALS: BP 134/70
--- NOTE | 2016-09-08 16:56 | NUR ---
SHIFT NOTE: PT ALERT/VERBAL/ORIENTED X2. PT UNAWARE OF TIME. PT C/O PAIN TO NECK 07/11, MEDICATED WITH TYLENOL PER EMAR. PILLOWS REPOSITONED UNDER PTS HEAD. PT HAD #22 TO TANISHA HEPLOCKED. GLASCOW SCORE 14 DUE TO CONFUSION. PT RESTING COMFORTABLY IN BED, WILL CONTINUE TO MONITOR.
[2016-09-08 22:06] VITALS: BP 120/88
[2016-09-09 07:24] VITALS: BP 126/86
--- NOTE | 2016-09-09 08:03 | PN- Housestaff ---
Subjective Follow-up For: Some dural hematoma, pneumonia Complaints: no complaints Subjective: I followed up and examined the patient today. She is resting comfortably in her recliner, comfortable, not in distress, does not of any complaints. Vitals have been stable, no issues overnight otherwise. Review of Systems Constitutional: Reports: no symptoms. Objective Last 24 Hrs of Vital Signs/I&O Vital Signs Date Time Temp Pulse Resp B/P B/P Pulse O2 O2 Flow FiO2 Mean Ox Delivery Rate 09/09 938 72 140/70 09/09 0724 98.1 74 19 126/86 93 Room Air 09/08 2206 98.4 69 18 120/88 94 Room Air 09/08 1450 98.6 78 18 134/70 94 Room Air Intake & Output 09/09 1600 09/09 0800 09/09 0000 Intake Total 0 600 Output Total 1 Balance 0 599 Intake, IV 0 Intake, Oral 0 600 Number 0 Bowel Movements Output, Stool 1 Physical Exam General Appearance: Alert, Oriented X3, Cooperative, No Acute Distress Other Physical Findings: Cardiovascular: Normal S1, Normal S2 Lungs: Clear to Auscultation, Normal Air Movement Abdomen: Normal Bowel Sounds, Soft Neuro: No change from yesterday, alert, oriented, no focal neurological deficit Current Medications: Current Medications Sig/Leslee Start time Last Medication Dose Route Stop Time Status Admin Acetaminophen 500 MG Q6P PRN 09/06 1230 AC PO Acetaminophen 325 MG Q6 PRN 09/06 1015 AC 09/08 PO 1532 Azithromycin 500 MG DAILY@1300 / 1300 DC / Sodium Chloride 250 ML IV 1314 Bisacodyl 10 MG DAILY 09/07 1000 AC 09/09 PO 0939 Ceftriaxone Sodium 1,000 MG DAILY@1300 / 1300 DC 05/08 IV 1314 Cholecalciferol 1,000 IU DAILY 09/07 1000 AC / PO 0939 Ferrous Sulfate 325 MG TID 09/06 1600 AC 09/09 PO 0939 Lisinopril 10 MG DAILY 09/07 1000 AC 09/09 PO 0939 Mirtazapine 7.5 MG AT BEDTIME 09/06 2200 AC / PO 2037 Oxycodone/ 1 TAB Q6 PRN 09/06 1015 AC 09/07 Acetaminophen PO 1010 Oxycodone/ 2 TAB Q6 PRN 09/06 1015 AC Acetaminophen PO Senna/Docusate Sodium 1 TAB BID PRN 09/06 1245 AC PO Sertraline HCl 50 MG DAILY 09/07 1000 AC 09/09 PO 0939 Assessment/Plan Assessment: 89-year-old female with a past medical history of dementia, anxiety, hypertension, anemia, left-sided pleural effusion was brought to the ER from [facility] after a unwitnessed fall. head CAT scan was done which showed Small right cerebellar tentorial subdural hematoma.Chest x-ray: Increasing opacification at the left lung base reflecting increasing small pleural effusion and associated atelectasis. Mild pulmonary venous congestion and/or interstitial edema. Cardiomegaly. Plan: #Discharge disposition: Plan to discharge today to dementia unit, awaiting evaluation today. Family, patient agreeable per case management. # Subdural hematoma secondary to Unwitnessed fall: -Continue GenMed, Every 4 hours neuro checks -Formal swallow eval past for diet with regular consistency and thin liquids -ACS ruled out by negative troponin, and serial EKGs -Maintain on fall precautions -PT consult suggests short-term rehabilitation -Per neurosurgery no surgical intervention at this time, if any neurological changes noted will inform them stat # PNA with left-sided pleural effusion: - Now watching off antibiotics. Patient previously had IV ceftriaxone and IV azithromycin. - Continue incentive spirometry - Follow up pancultures #Increased frequency of urination with generalized deconditioning. Had grown Escherichia coli in the past sensitive to ceftriaxone. Urinalysis this time is negative. -No IVF for now, as the patient has adequate oral intake. #Acute compression fracture of L2 and L4 vertebral body diffuse osteopenia -stable -Continue on vitamin D3 supplements #History of depression and anxiety -Continue on Zoloft 50 mg daily and mirtazapine 7. 5. grams at bedtime. #Hypertension -Currently stable -Continue lisinopril 10 mg daily DVT prophylaxis -Alps(no medication due to subdural hematoma) Diet -Heart healthy CODE STATUS -DNR/DNI Problem List: 1. Subdural hematoma 2. Pneumonia 3. Pleural effusion Pain Ratin Pain Location: - Pain Goal: Pain 4 or less Pain Plan: prn Tomorrow's Labs & Rationales: -
--- NOTE | 2016-09-09 09:09 | PN- Att Addend ---
Attending Addendum Attending Brief Note Patient appears about her baseline and has no complaints General Appearance: Alert, No Acute Distress Skin: Grossly normal HEENT: PEERLA Neck: Supple, No JVD Cardiovascular: Regular Rate, Normal S1, Normal S2, No Murmurs Lungs: Clear to Auscultation, Normal Air Movement Abdomen: Normal Bowel Sounds, Soft, No Tenderness Neurological: Normal Speech, Strength at 5/5 X4 Ext, Cranial Nerves 3-12 NL, Reflexes 2+ Extremities: No Clubbing, No Cyanosis, No Edema Vascular: Normal Pulses Assessment Patient has minimal complaints. She is neurologically intact. CAT scan repeat from yesterday shows no change in the size of hematoma and minimal parenchymal bleeding that is unchanged. There are no signs of clinical pneumonia provided she is afebrile and leucocytosis has resolved. We'll discontinue antibiotics and plan for discharge back to assisted living. Small left pleural effusion and cytology from recent thoracentesis negative for malignancy. Plan Discontinue antibiotics Avoid NSAIDs Continue other home meds Current Medications Sig/Leslee Start time Last Medication Dose Route Stop Time Status Admin Acetaminophen 500 MG Q6P PRN 09/06 1230 AC PO Acetaminophen 325 MG Q6 PRN 09/06 1015 AC 09/08 PO 1532 Azithromycin 500 MG DAILY@1300 / 1300 DC / Sodium Chloride 250 ML IV 1314 Bisacodyl 10 MG DAILY 09/07 1000 AC 09/08 PO 0941 Ceftriaxone Sodium 1,000 MG DAILY@1300 /06 1300 DC 05/08 IV 1314 Cholecalciferol 1,000 IU DAILY 09/07 1000 AC 09/08 PO 0942 Ferrous Sulfate 325 MG TID 09/06 1600 AC 09/08 PO 2037 Lisinopril 10 MG DAILY 09/07 1000 AC 09/08 PO 0942 Mirtazapine 7.5 MG AT BEDTIME 09/06 2200 AC 09/08 PO 2037 Oxycodone/ 1 TAB Q6 PRN 09/06 1015 AC 09/07 Acetaminophen PO 1010 Oxycodone/ 2 TAB Q6 PRN 09/06 1015 AC Acetaminophen PO Senna/Docusate Sodium 1 TAB BID PRN 09/06 1245 AC PO Sertraline HCl 50 MG DAILY 09/07 1000 AC 09/08 PO 0942 Vital Signs Date Time Temp Pulse Resp B/P B/P Pulse O2 O2 Flow FiO2 Mean Ox Delivery Rate 09/10 723 98.1 74 19 126/86 93 Room Air 09/08 2206 98.4 69 18 120/88 94 Room Air 09/08 1450 98.6 78 18 134/70 94 Room Air 09/08 1124 Room Air 09/08 0942 73 146/74
--- NOTE | 2016-09-09 10:46 | NUR ---
PHYSICAL THERAPY: ATTEMPTED TO SEE PT X2 THIS MORNING, ON BOTH ATTEMPTS PT IS SLEEPING AND PLEASANTLY REFUSING TO GET OOB UPON BEING AWOKEN. PT STATES THAT SHE IS FATIGUED AND WANTS TO SLEEP. WILL FOLLOW UP THIS AFTERNOON. THANK YOU.
--- NOTE | 2016-09-09 13:28 | NUR ---
PHYSICAL THERAPY: ATTEMPTED TO SEE PT THIS AFTERNOON, PT RECEIVED IN BED AWAKE AND ALERT WITH HOB ELEVATED. PT REFUSING OOB DESPITE ENCOURAGEMENT AND EDUCATION REGARDING THE RISKS OF PROLONGED BED REST AND THE BENEFITS OF AMBULATION. WILL FOLLOW UP TOMORROW. THANK YOU.
[2016-09-09 14:50] VITALS: BP 140/80
[2016-09-09 22:36] VITALS: BP 140/86
[2016-09-10 06:53] VITALS: BP 142/68
--- NOTE | 2016-09-10 07:39 | PN- Housestaff ---
Subjective Follow-up For: Subdural hematoma Complaints: no complaints Subjective: I followed up and examined the patient today. She is resting comfortably in her recliner, is not in distress, does not have any complaints. Vital signs been stable, no overnight issues. She is eagerly awaiting her discharge. She/we were eagerly waiting for dementia unit to evaluate her yesterday for her discharge. Review of Systems Constitutional: Reports: no symptoms. Objective Last 24 Hrs of Vital Signs/I&O Vital Signs Date Time Temp Pulse Resp B/P B/P Pulse O2 O2 Flow FiO2 Mean Ox Delivery Rate 09/10 899 72 110/64 09/10 0653 97.8 78 16 142/68 96 Room Air 09/09 2236 97.9 67 20 140/86 95 Room Air 09/09 1450 98.7 75 18 140/80 95 Intake & Output 09/10 1600 09/10 0800 09/10 0000 Intake Total Output Total 750 Balance -750 Number 1 1 Bowel Movements Output, Urine 750 Physical Exam General Appearance: Alert, Cooperative, No Acute Distress, oriented x1, is baseline Other Physical Findings: Cardiovascular: Normal S1, Normal S2 Lungs: Clear to Auscultation, Normal Air Movement Abdomen: Normal Bowel Sounds, Soft Neuro: No change from yesterday, alert, oriented, no focal neurological deficit Current Medications: Current Medications Sig/Leslee Start time Last Medication Dose Route Stop Time Status Admin Acetaminophen 500 MG Q6P PRN 09/06 1230 AC PO Acetaminophen 325 MG Q6 PRN 09/06 1015 AC 09/09 PO 1756 Bisacodyl 10 MG DAILY 09/07 1000 AC 09/10 PO 0900 Cholecalciferol 1,000 IU DAILY 09/07 1000 AC 09/10 PO 0900 Ferrous Sulfate 325 MG TID 09/06 1600 AC 09/10 PO 0900 Lisinopril 10 MG DAILY 09/07 1000 AC 09/10 PO 0900 Mirtazapine 7.5 MG AT BEDTIME 09/06 2200 AC 09/09 PO 2121 Oxycodone/ 1 TAB Q6 PRN 09/06 1015 AC 09/07 Acetaminophen PO 1010 Oxycodone/ 2 TAB Q6 PRN 09/06 1015 AC Acetaminophen PO Senna/Docusate Sodium 1 TAB BID PRN 09/06 1245 AC PO Sertraline HCl 50 MG DAILY 09/07 1000 AC 09/10 PO 0900 Assessment/Plan Assessment: 89-year-old female with a past medical history of dementia, anxiety, hypertension, anemia, left-sided pleural effusion was brought to the ER from [facility] after a unwitnessed fall. head CAT scan was done which showed Small right cerebellar tentorial subdural hematoma.Chest x-ray: Increasing opacification at the left lung base reflecting increasing small pleural effusion and associated atelectasis. Mild pulmonary venous congestion and/or interstitial edema. Cardiomegaly. Plan: #Discharge disposition: Plan has been in place to discharge her since yesterday, awaiting dementia unit evaluation and discharge thereafter. Family, patient agreeable per case management. # Subdural hematoma secondary to Unwitnessed fall: -Until then, Continue GenMed, Every 4 hours neuro checks -Formal swallow eval past for diet with regular consistency and thin liquids -ACS ruled out by negative troponin, and serial EKGs -Maintain on fall precautions -PT consult suggests short-term rehabilitation -Per neurosurgery no surgical intervention at this time, if any neurological changes noted will inform them stat # PNA with left-sided pleural effusion: - Now watching off antibiotics. Patient previously had IV ceftriaxone and IV azithromycin. - Continue incentive spirometry - Follow up pancultures #Increased frequency of urination with generalized deconditioning. Had grown Escherichia coli in the past sensitive to ceftriaxone. Urinalysis this time is negative. -No IVF for now, as the patient has adequate oral intake. #Acute compression fracture of L2 and L4 vertebral body diffuse osteopenia -stable -Continue on vitamin D3 supplements #History of depression and anxiety -Continue on Zoloft 50 mg daily and mirtazapine 7. 5. mg at bedtime. #Hypertension -Currently stable -Continue lisinopril 10 mg daily DVT prophylaxis -Alps(no medication due to subdural hematoma) Diet -Heart healthy CODE STATUS -DNR/DNI Problem List: 1. Subdural hematoma 2. Pneumonia 3. Pleural effusion Pain Ratin Pain Location: - Pain Goal: Pain 4 or less Pain Plan: prn Tomorrow's Labs & Rationales: -
--- NOTE | 2016-09-10 08:56 | PN- Att Addend ---
Attending Addendum Attending Brief Note Patient appears about her baseline and has no complaints General Appearance: Alert, No Acute Distress Skin: Grossly normal HEENT: PEERLA Neck: Supple, No JVD Cardiovascular: Regular Rate, Normal S1, Normal S2, No Murmurs Lungs: Clear to Auscultation, Normal Air Movement Abdomen: Normal Bowel Sounds, Soft, No Tenderness Neurological: Normal Speech, Strength at 5/5 X4 Ext, Cranial Nerves 3-12 NL, Reflexes 2+ Extremities: No Clubbing, No Cyanosis, No Edema Vascular: Normal Pulses Assessment Patient has minimal complaints. She is neurologically intact. Repeat CAT scan shows no change in the size of hematoma and minimal parenchymal bleeding that is unchanged. She is currently waiting for evaluation from assisted living for placement in geriatric unit. Plan Avoid NSAIDs Continue other home meds Assisted-living evaluation today Current Medications Sig/Leslee Start time Last Medication Dose Route Stop Time Status Admin Acetaminophen 500 MG Q6P PRN 09/06 1230 AC PO Acetaminophen 325 MG Q6 PRN 09/06 1015 AC 09/09 PO 1756 Bisacodyl 10 MG DAILY 09/07 1000 AC / PO 0939 Cholecalciferol 1,000 IU DAILY 09/07 1000 AC / PO 0939 Ferrous Sulfate 325 MG TID 09/06 1600 AC / PO 2121 Lisinopril 10 MG DAILY / 1000 AC / PO 0939 Mirtazapine 7.5 MG AT BEDTIME 09/06 2200 AC 05/ PO 2121 Oxycodone/ 1 TAB Q6 PRN / 1015 AC /07 Acetaminophen PO 1010 Oxycodone/ 2 TAB Q6 PRN / 1015 AC Acetaminophen PO Senna/Docusate Sodium 1 TAB BID PRN 09/06 1245 AC PO Sertraline HCl 50 MG DAILY 09/07 1000 AC / PO 0939 Vital Signs Date Time Temp Pulse Resp B/P B/P Pulse O2 O2 Flow FiO2 Mean Ox Delivery Rate 09/10 652 97.8 78 16 142/68 96 Room Air 09/09 2236 97.9 67 20 140/86 95 Room Air 09/09 1450 98.7 75 18 140/80 95 / 0939 72 140/70
[2016-09-10 09:00] VITALS: BP 110/64
== END 2016-09-10 12:42 | disposition home health service (06) | DRG 87 ==
LOC: ERH 07:35 → ERHI 09:27 → 2NA 09:27 → ENRESERV 10:30 → 2NA 11:20 → ENPENDDIS 09-10 09:16 → 2NA 09-10 12:42
PROVIDERS: Emergency Medicine; Student in an Organized Health Care Education/Training Program; ADMIT Internal Medicine
DX: S06.5X0A Traumatic subdural hemorrhage without loss of consciousness, initial encounter (principal); F03.90 Unspecified dementia, unspecified severity, without behavioral disturbance, psychotic disturbance, mood disturbance, and anxiety; M85.88 Other specified disorders of bone density and structure, other site; M84.68XD Pathological fracture in other disease, other site, subsequent encounter for fracture with routine healing; F41.9 Anxiety disorder, unspecified; I10 Essential (primary) hypertension; F32.9 Major depressive disorder, single episode, unspecified; W18.30XA Fall on same level, unspecified, initial encounter; Y92.002 Bathroom of unspecified non-institutional (private) residence as the place of occurrence of the external cause
CPT/HCPCS: 2NASP; 36415; 81001; 82436; 87040; 87070; 87086; 87449; 87450; 93005; 93010; 97110-GO; 97116-GO; 97162-GP; 97530-GO; J0456; J0696; J7040

== ENCOUNTER 2016-09-17 19:25 | Emergency (ER) | payer OTHER, MEDICARE ==
[~2016-09-17] VITALS: Ht 170.2 cm; Wt 63.5 kg
--- NOTE | 2016-09-17 19:29 | ED GENERAL ADULT ---
History of Present Illness General Chief Complaint: Nausea, Vomiting, Diarrhea Stated Complaint: NVD Source: patient, family, old records Exam Limitations: no limitations Vital Signs & Intake/Output Vital Signs & Intake/Output Vital Signs Date Time Temp Pulse Resp B/P B/P Pulse O2 O2 Flow FiO2 Mean Ox Delivery Rate 09/18 0141 97.8 09/176 98.2 09/17 2026 98.2 09/17 2001 100.7 09/17 1932 100.7 82 18 135/75 94 Room Air ED Intake and Output 09/18 0000 09/17 1200 Intake Total 0 Output Total Balance 0 Intake, Oral 0 Patient 140 lb Weight Weight Estimated Measurement Method Allergies Coded Allergies: Penicillins (RASH 05/05/16) Sulfa (Sulfonamide Antibiotics) (RASH 05/05/16) Triage Nurses Notes Reviewed? yes HPI: Patient was sent in from her assisted living for evaluation of fever as well as nausea and vomiting since yesterday. The fever was high as 101.6. Patient has also been having diarrhea since yesterday. Patient has dementia and is unable to provide any further history than that. Patient was discharged from here one week ago after admission for subdural hematoma. At that time her chest x-ray showed a pleural effusion and possible infiltrate. Patient was not often and did not have fevers watch her off antibiotics. (DIGNA TINOCO,CATHY Chan) Reconcile Medications Acetaminophen (Pain Relief) 325 MG TABLET 2 TAB PO Q4H PRN PAIN/TEMP ( Reported) Acetaminophen 500 MG TABLET 1 TAB PO BID PRN PAIN (Reported) Azithromycin (Zithromax) 250 MG TABLET 1 DP PO QDAY BRONCHITIS Bisacodyl (Gentle Laxative) 5 MG TABLET 2 TAB PO DAILY PRN CONSTIPATION ( Reported) Cholecalciferol (Vitamin D3) (Vitamin D) 1,000 UNIT TABLET 1 TAB PO DAILY SUPPLEMENT (Reported) Ferrous Sulfate 325 MG (65 MG IRON) TABLET 1 TAB PO DAILY SUPPLEMENT ( Reported) Lisinopril 10 MG TABLET 1 TAB PO DAILY BP (Reported) Mirtazapine 7.5 MG TABLET 1 TAB PO QPM INSOMNIA (Reported) Multivitamin (Daily Multiple Vitamin) 1 EACH TABLET 1 TAB PO DAILY SUPPLEMENT (Reported) Sennosides/Docusate Sodium (Senna Plus Tablet) 8.6 MG-50 MG TABLET 1 TAB PO BID PRN CONSTIPATION Sertraline HCl 50 MG TABLET 1 TAB PO DAILY ANXIETY (Reported) (FLORIN TINOCO,VIDYA Field) Past History Travel History Traveled to [place] past 21 day No Medical History Any Pertinent Medical History? 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 No (DIGNA TINOCO,CATHY Chan) Review of Systems Review of Systems Constitutional: Reports: see HPI, chills, fever. GI: Reports: see HPI, diarrhea, nausea, vomiting. Neurological/Psychological: Reports: see HPI. (DIGNA TINOCO,CATHY Chan) Physical Exam Physical Exam General Appearance: well developed/nourished, alert, awake, mild distress Head: atraumatic Eyes: Bilateral: PERRL, EOMI. Ears, Nose, Throat: normal pharynx, normal ENT inspection, hearing grossly normal, DRY MUCUS MEMBRANES Neck: normal inspection, supple, full range of motion Respiratory: normal breath sounds, chest non-tender, no respiratory distress, lungs clear Cardiovascular: regular rate/rhythm, normal peripheral pulses Gastrointestinal: normal bowel sounds, soft, non-tender, no organomegaly Back: normal inspection, normal range of motion Extremities: normal inspection, normal capillary refill, normal range of motion, no edema Neurologic/Psych: no motor/sensory deficits, awake, alert, normal mood/affect Skin: intact, normal color, warm/dry Lymphatic: no anterior cervical matt Core Measures ACS in differential dx? No CVA/TIA Diagnosis: No Severe Sepsis Present: No Septic Shock Present: No (DIGNA TINOCO,CATHY Chan) Progress Differential Diagnoses I considered the following diagnoses in my evaluation of the patient: [Pneumonia , UTI, sepsis, bacteremia, viremia, electrolyte abnormality, C. difficile] Plan of Care: Orders Procedure Date/time Status Regular Diet 09/18 B Active Straight Cath 09/17 2116 Active CULTURE,URINE 09/17 1928 Active BLOOD CULTURE 09/17 1928 Active URINALYSIS 09/17 1928 Complete TROPONIN LEVEL 09/17 1928 Complete LACTIC ACID 09/17 1928 Complete COMPREHENSIVE METABOLIC PANEL 09/17 1928 Complete CBC WITHOUT DIFFERENTIAL 09/17 1928 Complete EKG 09/17 1928 Active Laboratory Tests 09/17/162228: Lactic Acid Cancelled 09/17/162148: Urinalysis LIGHT H, Urine Color YEL, Urine Clarity CLEAR, Urine pH 6.5, Ur Specific [place] 1.020, Urine Protein 30 H, Urine Ketones TRACE H, Urine Nitrite NEG, Urine Bilirubin NEG, Urine Urobilinogen 1.0, Ur Leukocyte Esterase NEG, Ur Microscopic SEDIMENT EXAMINED, Urine WBC RARE, Ur Epithelial Cells RARE, Urine Mucus MOD H, Urine Hemoglobin NEG, Urine Glucose NEG 09/17/161951: Anion Gap 8, Estimated GFR > 60, BUN/Creatinine Ratio 27.5 H, Glucose 99, Lactic Acid 0.8, Calcium 7.7 L, Total Bilirubin 0.8, AST 41 H, ALT 31, Alkaline Phosphatase 107, Troponin I 0.02, Total Protein 6.7, Albumin 2.6 L, Globulin 4.1, Albumin/Globulin Ratio 0.6 L, CBC w Diff NO MAN DIFF REQ, RBC 4.02 L, MCV 78.6 L, MCH 26.6 L, RDW 18.7 H, MPV 9.5, Gran % 91.5 H, Lymphocytes % 4.2 L, Monocytes % 3.7, Eosinophils % 0.6, Basophils % 0 L, Absolute Granulocytes 7.3 H, Absolute Lymphocytes 0.3 L, Absolute Monocytes 0.3, Absolute Eosinophils 0.1, Absolute Basophils 0, PUBS MCHC 33.8 Microbiology 09/17 2148 URINE ROUT: Urine Culture - RECD 09/17 2054 BLOOD: Blood Culture - RECD 09/18 1951 BLOOD: Blood Culture - RECD Diagnostic Imaging: Viewed by Me: Radiology Read. Discussed w/RAD: Radiology Read. CXR Impression: PATIENT: RICARDO WYATT PRESENT AGE : 89 PATIENT ACCOUNT NO: [id number] : [birth year] LOCATION: [facility] ORDERING PHYSICIAN: CATHY SAWYER MD SERVICE DATE: 09/17/16 EXAM TYPE: RAD - XRY-PORTABLE CHEST XRAY EXAMINATION: XR PORTABLE CHEST CLINICAL INFORMATION: Cough and fever COMPARISON: 09/06/2016 TECHNIQUE: Portable frontal view of the chest was obtained. FINDINGS: The lungs are well expanded. There is persistent retrocardiac opacity with small left pleural effusion. The right lung is clear. No pneumothorax. The cardiomediastinal silhouette is unchanged. No acute osseous abnormality. IMPRESSION: Similar appearance of a small left pleural effusion with associated basilar opacity which could represent atelectasis or pneumonia. DICTATED BY: JOSEFINA HAWLEY MD DATE/TIME DICTATED:09/17/162017 SORTER/ASSAY TECH:DREW DATE/TIME TRANSCRIBED:09/17/162017 CONFIDENTIAL, DO NOT COPY WITHOUT APPROPRIATE AUTHORIZATION. <Electronically signed in Other Vendor System> SIGNED BY: JOSEFINA HAWLEY MD 09/17/162024 Initial ED EKG: NSR, RBBB, nonspecific ST T wave chg Prior EKG: unchanged Hand-Off Endorsed To: VIDYA CATHERINE MD Endorsed Time: 2316 Pending: CT (DIGNA TINOCO,CATHY Chan) Differential Diagnoses I considered the following diagnoses in my evaluation of the patient: Radiology Impression: abd/pelvic ct... non obstructive stones... no acute process Comments: PATIENT: RICARDO WYATT PRESENT AGE: 89 PATIENT ACCOUNT NO: [id number] : [birth year] LOCATION: [facility] ORDERING PHYSICIAN: CATHY SAWYER MD SERVICE DATE: 09/17/16 EXAM TYPE: CAT - CT ABD & PELVIS W/O IV CONTRAS EXAMINATION: CT ABDOMEN AND PELVIS WITHOUT CONTRAST CLINICAL INFORMATION: Diffuse abdominal pain. COMPARISON: Chest CT from August 24, 2016. TECHNIQUE: Contiguous axial thin section helical images of the abdomen and pelvis were performed without oral or IV contrast. The data set was reformatted in the coronal and sagittal planes and reviewed on an independent workstation. DLP: 265 mGy-cm. FINDINGS: There is a moderate left pleural effusion with adjacent airspace disease. There is mild atelectasis at the right lung base.. The visualized portions of the heart are unremarkable. The liver is of normal size and attenuation without focal lesions nor intrahepatic biliary ductal dilation. A normal gallbladder is identified. There is no wall thickening or discernible pericholecystic fluid. The spleen, pancreas, adrenal glands are unremarkable. Both kidneys are of normal size and attenuation without hydronephrosis. Within the lower pole of the left kidney, there is a 5 mm nonobstructive calculus. Within the lower pole of the right kidney, there is a nonobstructive 4 mm calculus. There is no abdominal free fluid. There is neither mesenteric nor retroperitoneal lymphadenopathy. Normal unopacified loops of small and large bowel are identified. There is no pelvic free fluid. The urinary bladder is unremarkable. There is neither pelvic nor inguinal lymphadenopathy. Bone windows: Neither sclerotic nor lytic bone lesions are identified. A left hip prosthesis is in place. There are compression fractures to L2 and L4. There is diffuse osteopenia. IMPRESSION: No evidence for acute abdominal or pelvic inflammatory or infectious processes. Bilateral nonobstructive renal calculi. Moderate left pleural effusion with associated airspace disease. DICTATED BY: JACQUELINE KNOTT MD DATE/TIME DICTATED:09/18/1658 SORTER/ASSAY TECH:DREW DATE/TIME TRANSCRIBED:09/18/1658 CONFIDENTIAL, DO NOT COPY WITHOUT APPROPRIATE AUTHORIZATION. <Electronically signed in Other Vendor System> SIGNED BY: JACQUELINE KNOTT MD 09/18/16 0108 (VIDYA CATHERINE MD) Departure Departure Disposition: STILL A PATIENT Condition: Stable Clinical Impression Primary Impression: Vomiting Secondary Impressions: Fever, Hypokalemia Referrals: ISMA FRYE MD (PCP/Family) Departure Forms: Customer Survey General Discharge Information (CATHY SAWYER MD) Departure Prescriptions: Current Visit Scripts Azithromycin (Zithromax) 1 DP PO QDAY #4 TAB PA/ARCHITECTURAL DESIGN PROFESSOR Co-Sign Statement Statement: ED Attending supervision documentation- [] I saw and evaluated the patient. I have also reviewed all the pertinent lab results and diagnostic results. I agree with the findings and the plan of care as documented in the PA's/ARCHITECTURAL DESIGN PROFESSOR's documentation. [X] I have reviewed the ED Record and agree with the PA's/ARCHITECTURAL DESIGN PROFESSOR's documentation. [] Additions or exceptions (if any) to the PAs/ARCHITECTURAL DESIGN PROFESSOR's note and plan are summarized below: [] (VIDYA CATHERINE MD) Critical Care Note Critical Care Note Critical Care Time: non-applicable (CATHY SAWYER MD)
[2016-09-17 20:09] LABS: ABSOLUTE BASOPHIL COUNT 0 /CUMM (0.0-0.2); ABSOLUTE EOSINOPHIL COUNT 0.1 /CUMM (0.0-0.7); ABSOLUTE GRANULOCYTE CT 7.3 /CUMM (1.4-6.5); ABSOLUTE LYMPH COUNT 0.3 /CUMM (1.2-3.4); ABSOLUTE MONOCYTE COUNT 0.3 /CUMM (0.10-0.60); BASOPHIL % 0 % (0.0-2.0); EOSINOPHIL % 0.6 % (0-5); HEMATOCRIT 31.6 % (37-47); MEAN CORPUSCULAR HGB 26.6 PG (27.0-31.0); MEAN CORPUSCULAR HGB CONC 33.8 G/DL (33.0-37.0); MEAN CORPUSCULAR VOLUME 78.6 FL (81.0-99.0); MEAN PLATELET VOLUME 9.5 FL (7.4-10.4); PLATELET COUNT 214 /CUMM (130-400); RBC DISTRIBUTION WIDTH 18.7 % (11.5-14.5); RED BLOOD CELL CT 4.02 /CUMM (4.20-5.40)
--- NOTE | 2016-09-17 20:25 | RADIOLOGY REPORT ---
EXAMINATION: XR PORTABLE CHEST CLINICAL INFORMATION: Cough and fever COMPARISON: 09/06/2016 TECHNIQUE: Portable frontal view of the chest was obtained. FINDINGS: The lungs are well expanded. There is persistent retrocardiac opacity with small left pleural effusion. The right lung is clear. No pneumothorax. The cardiomediastinal silhouette is unchanged. No acute osseous abnormality. IMPRESSION: Similar appearance of a small left pleural effusion with associated basilar opacity which could represent atelectasis or pneumonia.
[2016-09-17 20:49] LABS: GRANULOCYTE % 91.5 % (42.2-75.2)
--- NOTE | 2016-09-18 01:08 | CT SCAN REPORT ---
EXAMINATION: CT ABDOMEN AND PELVIS WITHOUT CONTRAST CLINICAL INFORMATION: Diffuse abdominal pain. COMPARISON: Chest CT from August 24, 2016. TECHNIQUE: Contiguous axial thin section helical images of the abdomen and pelvis were performed without oral or IV contrast. The data set was reformatted in the coronal and sagittal planes and reviewed on an independent workstation. DLP: 265 mGy-cm. FINDINGS: There is a moderate left pleural effusion with adjacent airspace disease. There is mild atelectasis at the right lung base.. The visualized portions of the heart are unremarkable. The liver is of normal size and attenuation without focal lesions nor intrahepatic biliary ductal dilation. A normal gallbladder is identified. There is no wall thickening or discernible pericholecystic fluid. The spleen, pancreas, adrenal glands are unremarkable. Both kidneys are of normal size and attenuation without hydronephrosis. Within the lower pole of the left kidney, there is a 5 mm nonobstructive calculus. Within the lower pole of the right kidney, there is a nonobstructive 4 mm calculus. There is no abdominal free fluid. There is neither mesenteric nor retroperitoneal lymphadenopathy. Normal unopacified loops of small and large bowel are identified. There is no pelvic free fluid. The urinary bladder is unremarkable. There is neither pelvic nor inguinal lymphadenopathy. Bone windows: Neither sclerotic nor lytic bone lesions are identified. A left hip prosthesis is in place. There are compression fractures to L2 and L4. There is diffuse osteopenia. IMPRESSION: No evidence for acute abdominal or pelvic inflammatory or infectious processes. Bilateral nonobstructive renal calculi. Moderate left pleural effusion with associated airspace disease.
[2016-09-18] MEDS ORDERED: ZITHROMAX250 M2 PO (02:04)
[2016-09-18 06:34] VITALS: BP 142/88
== END 2016-09-18 07:04 ==
LOC: ERH 19:25
PROVIDERS: Emergency Medicine
DX: E87.6 Hypokalemia (principal); R11.2 Nausea with vomiting, unspecified; R50.9 Fever, unspecified
CPT/HCPCS: 74176; 81001; 87040; 87086; 93005; 93010; 96361; 96374; 96375; J0456; J2405